=== PATIENT | female | born 1985 | race Caucasian/White ===

== ENCOUNTER 2016-06-29 04:56 | Emergency (ER) | payer OTHER ==
--- NOTE | 2016-06-29 04:58 | PDOC ---
History of Present Illness - General Chief Complaint: Urinary Problem Stated Complaint: URINE INFECTION Time Seen by Provider: 06/29/16 04:58 - History of Present Illness Initial Comments: 06/29/16 05:10 this 31-year-old woman with a history of IBS/anxiety/depression/drug abuse ( cocaine and heroin) presents with several day history of burning with urination. Over the last 48 hours, she also has developed mild bilateral flank pain along with fever(101degree Fahrenheit) No chills noted. No vomiting noted. Patient reports frequent UTIs in the past, usually after sexual intercourse. Past History - Past Medical History Allergies/Adverse Reactions: Allergies Allergy/AdvReac Type Severity Reaction Status Date / Time ibuprofen [From Motrin] AdvReac Severe Verified 06/29/16 04:57 NSAIDS (Non-Steroidal AdvReac Severe Verified 06/29/16 04:57 Anti-Inflamma Home Medications: Ambulatory Orders Paroxetine HCl [Paxil] 40 mg PO HS 05/12/15 Bupropion HCl [Wellbutrin Xl -] 300 mg PO HS 07/07/15 Ciprofloxacin [Cipro (Restricted To Id)] 250 mg PO BID #6 tablet 06/29/16 Anemia: No Asthma: No Cancer: No Cardiac Disorders: No CVA: No COPD: No CHF: No Dementia: No Diabetes: No GI Disorders: Yes (IBS) Disorders: Yes (POLYCYSTIC OVARIES) HTN: No Hypercholesterolemia: No Kidney Stones: Yes Liver Disease: No Psychiatric Problems: Yes (OCD, Depression, anxiety) Suicide Attempt (Hx): No Seizures: No Thyroid Disease: No - Surgical History Abdominal Surgery: Yes (clearing of scar tissue on bladder 10/11/13) - Family Disease History Family Disease History: Heart Disease: Father (htn) - Reproductive History Cervical CA: No Dysfunctional Uterine Bleeding: Yes Ectopic : No Polycystic Ovaries: Yes Tubal Ligation: No - Immunization History Td Vaccination: Yes Immunization Up to Date: Yes - Psycho/Social/Smoking Cessation Hx Anxiety: Yes Suicidal Ideation: No Smoking Status: No Smoking History: Never smoked Have you smoked in the past 12 months: No Number of Cigarettes Smoked Daily: 0 Cigars Per Day: 0 Hx Alcohol Use: No Drug/Substance Use Hx: Yes (Cocaine and heroine) Substance Use Type: Cocaine, Heroin Hx Substance Use Treatment: No Abd/GI Specific PMHX - Complaint Specific PMHX Irritable Bowel Synd (IBS): Yes GI Ulcer Disease: No *Physical Exam - Physical Exam Comments: Adult female, alert and oriented 3, in no acute distress Vital signs as noted HEAD: No contusions, abrasions or lacerations of the scalp; no facial ecchymosis , deformities or tenderness EYES: Pupils equal, round and reactive to light, extraocular movements intact, sclera anicteric, conjunctiva clear PHARYNX: No erythema, exudate or edema; mucous membranes moist NECK: Supple, nontender, no masses or bruits LUNGS: Clear to auscultation bilaterally CARDIAC: S1, S2 normal; no extra sounds, rubs or murmurs heard ABDOMEN:Normoactive bowel sounds, nontender, no masses, no organomegaly Mild bilateral flank tenderness EXTREMITIES: Normal range of motion, no edema,deformity or tenderness NEUROLOGICAL: Cranial nerves II through XII grossly intact. Normal speech, normal gait.moving all 4 extremities equally, Sensation intact in all extremities. PSYCH: Normal mood, normal affect. SKIN: Warm, Dry, normal turgor, no rashes or lesions noted. *DC/Admit/Observation/Transfer Diagnosis at time of Disposition: Dysuria - Discharge Dispostion Disposition: HOME Condition at time of disposition: Stable - Prescriptions Prescriptions: Ciprofloxacin [Cipro (Restricted To Id)] 250 mg PO BID #6 tablet - Referrals Referrals: Kaela Mcdonald MD [Primary Care Provider] - - Patient Instructions Printed Discharge Instructions: DI for Dysuria -- Adult Additional Instructions: drink plenty of water Cipro 250 mg twice a day for 3 days Return to ER if you have severe pain/vomiting/high fever Follow-up with your urologist within 1 week
[2016-06-29 05:05] VITALS: BP 131/77; PULSE 90; TEMP 98.7; BMI 28.3
[2016-06-29] MEDS ORDERED: ONDANSETRON *ODT* 4 MG TABLET SL ONE ×2 (05:15→05:55)
[2016-06-29] MEDS ORDERED: ONDANSETRON *ODT* 4 MG TABLET ONE ×3 (05:16→06:10)
[2016-06-29 05:44] LABS: URINE APPEARANCE SLCLOUDY; URINE BILIRUBIN NEGATIVE (NEGATIVE); URINE BLOOD NEGATIVE (NEGATIVE); URINE COLOR YELLOW; URINE GLUCOSE (UA) NEGATIVE (NEGATIVE); URINE KETONE NEGATIVE (NEGATIVE); URINE NITRITE NEGATIVE (NEGATIVE); URINE PROTEIN NEGATIVE (NEGATIVE); URINE UROBILINOGEN NEGATIVE E.U./dl (0.2-1.0)
[2016-06-29 05:45] LABS: URINE LEUK ESTERASE TRACE (NEGATIVE)
[2016-06-29 05:47] LABS: URINE BACTERIA RARE /hpf (NONE SEEN); URINE MUCUS FEW; URINE RBC 1 /hpf (0-3); URINE WBC 4 /hpf (3-5)
[2016-06-29] MEDS ORDERED: CIPROFLOXACIN 250 MG TABLET (RESTRICTED TO ID) PO ONE ×2 (05:56→06:06)
== END 2016-06-29 06:13 | disposition home or self-care (01) ==
LOC: FER 04:56
DX: R30.0 Dysuria (principal); K58.9 Irritable bowel syndrome, unspecified; F41.8 Other specified anxiety disorders; F14.10 Cocaine abuse, uncomplicated; F15.90 Other stimulant use, unspecified, uncomplicated; F42.9 Obsessive-compulsive disorder, unspecified
CPT/HCPCS: 81003; 81015; 84703; 87086; 99282-25

== ENCOUNTER 2016-07-11 18:40 | Emergency (ER) | payer OTHER ==
[2016-07-11 19:04] VITALS: BMI 31.1
--- NOTE | 2016-07-11 19:10 | PDOC ---
History of Present Illness - General History Source: Patient Exam Limitations: No Limitations - History of Present Illness Initial Comments: 07/11/16 19:34 The patient is a 31 year old female, with a significant past medical history of IBS, OCD, anxiety, depression, active IV drug abuse (heroin and cocaine) and polycystic ovarian syndrome, who presents to the emergency department with redness, pain, and swelling to her left hand stating I think I have cellulitis. The patient reports that she was shooting up heroin and believes she must have shot out of her vein about 36 hours ago and her hand began swelling. She states that she stuck the needle into her hand and then the area started burning and swelling. She reports that she took the needle out right away and does not believe she has a foreign body in her hand. The patient reports the pain in her hand is exacerbated upon movement and she cannot make a fist. She reports that this has happened before and she did not seek treatment, She denies chest pain, shortness of breath, headache and dizziness. She denies fever, shaking, chills, nausea, vomit, diarrhea and constipation. Allergies: Ibuprofen, NSAIDS Past surgical history:Abdominal surgery (clearing of scar tissue 10/11/13) Social history: Never smoked, active IV drug abuse(heroin and cocaine) Family History: Heart disease - Father <Riky Ledezmahanie - Last Filed: 07/11/16 21:18> <Taylor Whitfield - Last Filed: 07/12/16 03:06> - General Chief Complaint: Redness To Affected Area Stated Complaint: REDNESS, SWELLING TO RT HAND Time Seen by Provider: 07/11/16 18:47 Past History <Gail Ledezma - Last Filed: 07/11/16 21:18> - Past Medical History Anemia: No Asthma: No Cancer: No Cardiac Disorders: No CVA: No COPD: No CHF: No Dementia: No Diabetes: No GI Disorders: Yes (IBS) Disorders: Yes (POLYCYSTIC OVARIES) HTN: No Hypercholesterolemia: No Kidney Stones: Yes Liver Disease: No Psychiatric Problems: Yes (OCD, Depression, anxiety) Suicide Attempt (Hx): No Seizures: No Thyroid Disease: No Other medical history: ENDOMETRIOSIS - Surgical History Abdominal Surgery: Yes (clearing of scar tissue on uterus, bladder 10/11/13) - Family Disease History Family Disease History: Heart Disease: Father (htn) - Reproductive History Cervical CA: No Dysfunctional Uterine Bleeding: Yes Ectopic : No Polycystic Ovaries: Yes Tubal Ligation: No - Immunization History Td Vaccination: Yes Immunization Up to Date: Yes - Psycho/Social/Smoking Cessation Hx Anxiety: Yes Suicidal Ideation: No Smoking Status: No Smoking History: Never smoked Have you smoked in the past 12 months: No Number of Cigarettes Smoked Daily: 0 Cigars Per Day: 0 Information on smoking cessation initiated: No Hx Alcohol Use: No Drug/Substance Use Hx: Yes (heroin) Substance Use Type: Cocaine, Heroin Hx Substance Use Treatment: No <Taylor Whitfield - Last Filed: 07/12/16 03:06> - Past Medical History Allergies/Adverse Reactions: Allergies Allergy/AdvReac Type Severity Reaction Status Date / Time ibuprofen [From Motrin] AdvReac Severe Verified 07/11/16 18:46 NSAIDS (Non-Steroidal AdvReac Severe Verified 07/11/16 18:46 Anti-Inflamma Home Medications: Ambulatory Orders Paroxetine HCl [Paxil] 40 mg PO HS 05/12/15 Bupropion HCl [Wellbutrin Xl -] 300 mg PO HS 07/07/15 Cephalexin [Keflex] 500 mg PO QID #28 capsule 07/11/16 Sulfamethoxazole/Trimethoprim [Bactrim Ds Tablet] 2 each PO BID #28 tablet 07/11 Review of Systems - Review of Systems Able to Perform ROS?: Yes Comments:: 07/11/16 19:35 CONSTITUTIONAL: Absent: fever, no chills, no fatigue EYES: Absent: visual changes ENT: Absent: ear pain, no sore throat CARDIOVASCULAR: Absent: chest pain, no palpitations RESPIRATORY: Absent: cough, no SOB GI: Absent: abdominal pain, no nausea, no vomiting, no constipation, no diarrhea GENITOURINARY: Absent: dysuria, no frequency, no hematuria MUSCULOSKELETAL: Absent: back pain, no arthralgia, no myalgia EXTREMITIES: +right wrist pain, swelling, and redness SKIN: Absent: rash <Gail Ledezma - Last Filed: 07/11/16 21:18> *Physical Exam - Vital Signs Last Vital Signs Temp Pulse Resp BP Pulse Ox 98.5 F 93 H 18 112/77 98 07/11/16 18:40 07/11/16 18:40 07/11/16 18:40 07/11/16 18:40 07/11/16 18:40 - Physical Exam Comments: 07/11/16 19:36 GENERAL: The patient is awake, alert, and fully oriented, in no acute distress. HEAD:Normal with no signs of trauma. EYES: Pupils equal, round and reactive to light, extraocular movements intact, sclera anicteric, conjunctiva clear. EXTREMITIES: +There is a 4 cm by 4 cm erythematous and edematous tender area on the dorsum of the right hand. There is a closed punctate wound in the medial proximal portion of the edematous area. There is pain with active and passive flexion of the finger. There is no pain with active or passive extension of the fingers, no lymphogenic streaking, no fluctuance of edematous area. Radial pulse is strongly palpable at wrist. Her right knee is slightly edematous, nontender, nonerythematous, nonfluctuant. There is a 3cm by 3cm by 3cm edematous , erythematous slightly tender area present on the dorsum of the proximal left forearm. NEUROLOGICAL: Normal speech, normal gait. PSYCH: Normal mood, normal affect. SKIN: Warm, Dry, normal turgor, no rashes or lesions noted. <Gail Ledezma - Last Filed: 07/11/16 21:18> - Vital Signs Last Vital Signs Temp Pulse Resp BP Pulse Ox 98.5 F 93 H 18 112/77 98 07/11/16 18:40 07/11/16 18:40 07/11/16 18:40 07/11/16 18:40 07/11/16 18:40 <Taylor Whitfield - Last Filed: 07/12/16 03:06> ED Treatment Course - LABORATORY CBC & Chemistry Diagram: 07/11/16 19:56 07/11/16 20:15 <Gail Ledezma - Last Filed: 07/11/16 21:18> - LABORATORY CBC & Chemistry Diagram: 07/11/16 19:56 07/11/16 20:15 <Taylor Whitfield - Last Filed: 07/12/16 03:06> Medical Decision Making - Medical Decision Making Documentation has been prepared under my direction and personally reviewed by me in its entirety. I attest that this documented accurately reflects all work, treatment, procedures and medical decision making performed by me. As noted above, this 31-year-old woman with a history of IV drug abuse presents with an area of cellulitis of the dorsum of the right hand. Patient had injected the area, reportedly missing the vein with heroin within the last 48 hours. There is another area of the left forearm, also secondary to self injection, that is inflamed but apparently not as painful to the patient. Exam is noted above. No area of fluctuance or drainage noted in areas of cellulitis. CBC/chemistry profile/lactic acid evaluated. Vancomycin 1 g IV administered. Laboratory evaluation is essentially normal with a normal white blood cell count and normal lactic acid. Although no specific evidence for systemic illness/sepsis present in the current workup, the patient is at high risk for this complication secondary to her IV drug abuse. This is explained to the patient, including the need for continued parenteral antibiotics. Despite this, patient refused admission and will sign out AGAINST MEDICAL ADVICE. Prescriptions for Bactrim DS 2 tablets twice a day for one week and Keflex 500mg every 6hours sent to patient's pharmacy <Taylor Whitfield - Last Filed: 07/12/16 03:06> *DC/Admit/Observation/Transfer - Attestations Scribe Attestion: 07/11/16 19:37 Documentation prepared by GILLIAN Saldana, acting as biomedical service engineer for Taylor Whitfield MD. <Gail Ledezma - Last Filed: 07/11/16 21:18> <Taylor Whitfield - Last Filed: 07/12/16 03:06> Diagnosis at time of Disposition: Cellulitis of right hand - Discharge Dispostion Disposition: AGAINST MEDICAL ADVICE Condition at time of disposition: Fair - Prescriptions Prescriptions: Sulfamethoxazole/Trimethoprim [Bactrim Ds Tablet] 2 each PO BID #28 tablet Cephalexin [Keflex] 500 mg PO QID #28 capsule - Referrals Referrals: Kaela Mcdonald MD [Primary Care Provider] - - Patient Instructions Printed Discharge Instructions: DI for Cellulitis -- Adult Additional Instructions: Bactrim DS 2tabs twice a day for 7 days Keflex 500mg every 6 hours for 7 days return to ER if swelling/pain/pain fever worsens see Dr Mcdonald within 3-4 days
[2016-07-11 19:56] LABS: URINE BILIRUBIN Negative (NEGATIVE); URINE BLOOD Negative (NEGATIVE); URINE GLUCOSE (UA) Negative (NEGATIVE); URINE KETONE Negative (NEGATIVE); URINE NITRITE Negative (NEGATIVE); URINE PROTEIN Negative (NEGATIVE); URINE UROBILINOGEN 1.0 E.U/dl (0.2-1.0)
[2016-07-11 19:57] LABS: URINE COLOR YELLOW; URINE LEUK ESTERASE 1+ (NEGATIVE)
[2016-07-11 20:16] LABS: BASOPHIL 0.2 % (0-2.0); EOSINOPHIL 0.8 % (0-4.5); MCH 22.9 pg (25.7-33.7); MCHC 31.6 g/dl (32.0-36.0); MEAN CELL VOLUME 72.5 fl (80-96); MEAN PLT VOLUME 8.3 fl (7.5-11.1); NEUTROPHILS 73.5 % (42.8-82.8); PLATELET COUNT 348 K/MM3 (134-434); RDW 15.9 % (11.6-15.6); WHITE BLOOD COUNT 6.6 K/mm3 (4.0-10.0)
[2016-07-11 20:28] LABS: URINE APPEARANCE HAZY
[2016-07-11 20:29] LABS: URINE BACTERIA FEW /hpf (NEGATIVE)
[2016-07-11 20:44] LABS: ALBUMIN 3.4 g/dl (3.5-5.0); ALK PHOS 57 U/L (32-92); ANION GAP 9 (8-16); BILIRUBIN,TOTAL 0.4 mg/dl (0.2-1.0); CALCIUM 8.9 mg/dl (8.4-10.2); CO2 24 mmol/L (22-28); CREATININE 0.7 mg/dl (0.6-1.3); GLUCOSE,RANDOM 93 mg/dl (74-106); SGOT/AST 14 U/L (10-42); SGPT/ALT 11 U/L (10-40); TOT PROT 6.8 g/dl (6.4-8.3)
[2016-07-11] MEDS ORDERED: VANCOMYCIN 1,000 MG in DEXTROSE 5%-WATER - 250 ML IVPB ONE (20:49)
[2016-07-11] MEDS ORDERED: VANCOMYCIN 1,000 MG VIAL (RESTRICTED TO ID ONLY) ONE (20:52)
[2016-07-11 23:36] VITALS: BP 109/50; PULSE 85; TEMP 98.1
== END 2016-07-12 00:06 | disposition left against medical advice (07) ==
LOC: FER 18:40
DX: L03.113 Cellulitis of right upper limb (principal); F11.10 Opioid abuse, uncomplicated; F41.8 Other specified anxiety disorders; E28.2 Polycystic ovarian syndrome
CPT/HCPCS: 36415; 73130-TC-RT; 80053; 81003; 81015; 83605; 84703; 85025; 87040; 96365; 99283-25

== ENCOUNTER 2016-08-03 06:29 | Emergency (ER) | payer OTHER ==
[2016-08-03 06:58] VITALS: BP 137/68; PULSE 78; TEMP 97.9; BMI 31.1
--- NOTE | 2016-08-03 07:17 | PDOC ---
History of Present Illness - General Chief Complaint: Chest Pain Stated Complaint: CHEST PAIN Time Seen by Provider: 08/03/16 07:17 - History of Present Illness Initial Comments: 08/03/16 08:35 Patient is a 31-year-old female with a past medical history of depression, anxiety, polysubstance abuse (heroin, cocaine). She presents to the ER today complaining of chest pain 8 hours. Patient states that she first felt pain while lying in bed. The pain did not wake her from sleep. She finds that the pain is worse when she takes a deep breath in. The pain is currently a 6 out of 10. Admits to associated nausea. She has not taken anything for the pain. She was concerned when the pain did not go away this morning so she came in for evaluation. Patient states she has left arm and jaw numbness and tingling. This is not new for her, as she states she has a herniated disc and C6. Denies any weakness or loss of range of motion. Patient is occurring every day in a drug user states that she used cocaine and heroin last night. Denies fevers, chills, weight change, cough runny nose, palpitations, edema, shortness of breath, dyspnea, vomiting, diarrhea. Past History - Past Medical History Allergies/Adverse Reactions: Allergies Allergy/AdvReac Type Severity Reaction Status Date / Time ibuprofen [From Motrin] AdvReac Severe Verified 08/03/16 06:43 NSAIDS (Non-Steroidal AdvReac Severe Verified 08/03/16 06:43 Anti-Inflamma Home Medications: Ambulatory Orders Paroxetine HCl [Paxil] 40 mg PO HS 05/12/15 Bupropion HCl [Wellbutrin Xl -] 300 mg PO HS 07/07/15 Anemia: No Asthma: No Cancer: No Cardiac Disorders: No CVA: No COPD: No CHF: No Dementia: No Diabetes: No GI Disorders: Yes (IBS) Disorders: Yes (POLYCYSTIC OVARIES) HTN: No Hypercholesterolemia: No Kidney Stones: Yes Liver Disease: No Psychiatric Problems: Yes (OCD, Depression, anxiety) Suicide Attempt (Hx): No Seizures: No Thyroid Disease: No - Surgical History Abdominal Surgery: Yes (clearing of scar tissue on uterus, bladder 10/11/13) - Family Disease History Family Disease History: Heart Disease: Father (htn) - Reproductive History Cervical CA: No Dysfunctional Uterine Bleeding: Yes Ectopic : No Polycystic Ovaries: Yes Tubal Ligation: No - Immunization History Td Vaccination: Yes Immunization Up to Date: Yes - Psycho/Social/Smoking Cessation Hx Anxiety: Yes Suicidal Ideation: No Smoking Status: No Smoking History: Never smoked Have you smoked in the past 12 months: No Number of Cigarettes Smoked Daily: 0 Cigars Per Day: 0 Information on smoking cessation initiated: No Hx Alcohol Use: No Drug/Substance Use Hx: Yes (heroin cocaine) Substance Use Type: Cocaine, Heroin Hx Substance Use Treatment: No *Physical Exam - Vital Signs Last Vital Signs Temp Pulse Resp BP Pulse Ox 97.9 F 78 14 137/68 96 08/03/16 06:43 08/03/16 06:43 08/03/16 06:43 08/03/16 06:43 08/03/16 06:43 - Physical Exam Comments: 08/03/16 08:35 GENERAL: Well developed, well nourished. Awake and alert. No acute distress. Pt. is lying in bed afebrile. HEENT: Normocephalic, atraumatic. PERRLA, EOMI. No conjunctival pallor. Sclera are non- icteric. Moist mucous membranes. Oropharynx is clear. NECK: Supple. Full ROM. No JVD. Carotid pulses 2+ and symmetric, without bruits. No thyromegaly. No lymphadenopathy. CARDIOVASCULAR: Regular rate and rhythm. (+) systolic murmur II/ loudest at the base between the L 2nd and 3rd intercostal space. No rubs, or gallops. Distal pulses are 2+ and symmetric. PULMONARY: No evidence of respiratory distress. Lungs clear to auscultation bilaterally. No wheezing, rales or rhonchi. ABDOMINAL: Soft. Non-tender. Non-distended. No rebound or guarding. No organomegaly. Normoactive bowel sounds. MUSCULOSKELETAL Normal range of motion at all joints. No bony deformities or tenderness. No CVA tenderness. EXTREMITIES: No cyanosis. No clubbing. No edema. No calf tenderness. SKIN: Excoriation of the upper arms bilaterally. Warm and dry. Normal capillary refill. No rashes. No jaundice. NEUROLOGICAL: Alert, awake, appropriate. Cranial nerves 2-12 intact. No deficits to light touch and temperature in face, upper extremities and lower extremities. No motor deficits in the in face, upper extremities and lower extremities. Normoreflexic in the upper and lower extremities. Normal speech. Toes are down- going bilaterally. Gait is normal without ataxia. PSYCHIATRIC: Cooperative. Good eye contact. Appropriate mood and affect. ED Treatment Course - LABORATORY CBC & Chemistry Diagram: 08/03/16 08:12 08/03/16 08:12 Medical Decision Making - Medical Decision Making 08/03/16 08:38 Patient is a 31-year-old female past medical history of depression, anxiety, polysubstance (heroine, cocaine) abuse presenting today with chest pain. EKG done in triage appears to be normal sinus rhythm with a rate of 82 bpm. No acute ischemic changes. Reading through old reports, there is no evidence of a documented systolic murmur. Pt. states that she has never been told that she has a murmur. She was seen by her PCP last week and pt states that she was not told of a murmur at that time. Will pursue an echocardiogram today. Potential vegetation given patient's IV drug use. The chest pain appears to be atypical given it gets worse with respirations. We will order cardiac labs along with the echo. We will order a full septic workup as well. 1. CBC CMP lactic acid blood cultures 3 2.UA with and drug screen. 3.Echocardiogram to be done today for new systolic murmur 4.Zofran for nausea 5.Will monitor and reevaluate 08/03/16 09:37 No WBC, pt. is mildly anemic which she is aware of, electrolytes are normal. Cardiac labs are back WNL no evidence of ID. Blood cultures are drawn. Urine is positive for Opiates and cocaine. She was able to have a bedside TTE. Waiting the results. given that a TTE is generally not specific enough to diagnose endocarditis, will recommend STUART. Will admit patient to obs for STUART in the morning. 08/03/16 09:45 Explained to pt. the need to admit for observation. I am concerned about a possible endocarditis with vegetation secondary to IV drug use. I explained to the patient that while a TTE is useful, it does not r/o endocarditis. Explained that she needs a STUART and that is done here in the hospital under sedation. Pt. is AAOx3 and able to make her own decisions. Pt. states that she does not want to be admitted today and will leave AMA. 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 Explained to her the danger of leaving against medical advice with possible risks and outcomes including sepsis, stroke, respiratory failure, permanent disability, or even . She demonstrates understanding of the risks and outcomes. She states that she is going to get care for her grandparents today and return tomorrow for evaluation. *DC/Admit/Observation/Transfer Diagnosis at time of Disposition: AMA - Signed out against medical advice - Discharge Dispostion Disposition: AGAINST MEDICAL ADVICE - Referrals Referrals: Keala Mcdonald MD [Primary Care Provider] -
[2016-08-03 08:19] LABS: URINE APPEARANCE CLOUDY; URINE BILIRUBIN NEGATIVE (NEGATIVE); URINE COLOR YELLOW; URINE GLUCOSE (UA) NEGATIVE (NEGATIVE); URINE KETONE NEGATIVE (NEGATIVE); URINE NITRITE NEGATIVE (NEGATIVE); URINE PROTEIN NEGATIVE (NEGATIVE); URINE UROBILINOGEN NEGATIVE E.U./dl (0.2-1.0)
[2016-08-03 08:24] LABS: BASOPHIL 0.8 % (0-2.0); EOSINOPHIL 1.9 % (0-4.5); MCH 23.3 pg (25.7-33.7); MCHC 31.3 g/dl (32.0-36.0); MEAN CELL VOLUME 74.2 fl (80-96); MEAN PLT VOLUME 7.7 fl (7.5-11.1); NEUTROPHILS 53.3 % (42.8-82.8); PLATELET COUNT 260 K/MM3 (134-434); RDW 18.4 % (11.6-15.6)
[2016-08-03 08:26] LABS: URINE BLOOD 2+ (NEGATIVE); URINE LEUK ESTERASE 1+ (NEGATIVE)
[2016-08-03 08:31] LABS: URINE BACTERIA RARE /hpf (NONE SEEN); URINE MUCUS MANY; URINE RBC 1 /hpf (0-3); URINE WBC 6 /hpf (3-5)
[2016-08-03 08:42] LABS: URINE MARIJUANA THC NEGATIVE ng/ml (CUTOFF=50)
[2016-08-03 08:46] LABS: ANION GAP 8 (8-16); BILIRUBIN,TOTAL 0.2 mg/dL (0.2-1.0); CALCIUM 9.3 mg/dL (8.5-10.1); CO2 29 mmol/L (21-32); CREATININE 0.7 mg/dL (0.55-1.02); GLUCOSE,RANDOM 79 mg/dL (74-106); SGOT/AST 17 U/L (15-37); SGPT/ALT 18 U/L (12-78); TOT PROT 7.9 g/dl (6.4-8.2)
[2016-08-03 08:47] LABS: ALK PHOS 80 U/L (45-117); TROPONIN I < 0.02 ng/ml (0.00-0.05)
[2016-08-03] MEDS ORDERED: ONDANSETRON 4 MG/2 ML VIAL IVPUSH ONE (09:18)
[2016-08-03] MEDS ORDERED: ONDANSETRON 4 MG/2 ML VIAL ONE (09:29)
--- NOTE | 2016-08-03 10:06 | PDOC ---
[id number] 08/03/16 06:43 08/03/16 06:43 08/03/16 06:43 08/03/16 06:43 08/03/16 06:43 ED Treatment Course - LABORATORY CBC & Chemistry Diagram: 08/03/16 08:12 08/03/16 08:12 - ADDITIONAL ORDERS Additional order review: Laboratory Results 08/03/16 08/03/16 08/03/16 08:12 08:12 08:12 Sodium 140 Potassium 3.9 Chloride 103 Carbon Dioxide 29 Anion Gap 8 BUN 18 D Creatinine 0.7 Creat Clearance w eGFR > 60 Random Glucose 79 Lactic Acid 0.863 Calcium 9.3 Total Bilirubin 0.2 D AST 17 ALT 18 D Alkaline Phosphatase 80 Creatine Kinase 65 Troponin I < 0.02 Total Protein 7.9 Albumin 4.0 D Urine Color Urine Appearance Urine pH Ur Specific [place] Urine Protein Urine Glucose (UA) Urine Ketones Urine Blood Urine Nitrite Urine Bilirubin Urine Urobilinogen Ur Leukocyte Esterase Urine RBC Urine WBC Ur Epithelial Cells Urine Bacteria Urine Mucus Urine HCG, Qual Opiates Screen Methadone Screen Barbiturate Screen Phencyclidine Screen Ur Amphetamines Screen MDMA (Ecstasy) Screen Benzodiazepines Screen Cocaine Screen U Marijuana (THC) Screen 08/03/16 08/03/16 08/03/16 08:02 08:02 07:45 Sodium Potassium Chloride Carbon Dioxide Anion Gap BUN Creatinine Creat Clearance w eGFR Random Glucose Lactic Acid Calcium Total Bilirubin AST ALT Alkaline Phosphatase Creatine Kinase Troponin I Total Protein Albumin Urine Color Yellow Urine Appearance Cloudy Urine pH 5.0 Ur Specific [place] 1.026 Urine Protein Negative Urine Glucose (UA) Negative Urine Ketones Negative Urine Blood 2+ H Urine Nitrite Negative Urine Bilirubin Negative Urine Urobilinogen Negative Ur Leukocyte Esterase 1+ H Urine RBC 1 Urine WBC 6 Ur Epithelial Cells Many Urine Bacteria Rare Urine Mucus Many Urine HCG, Qual Negative Opiates Screen Positive Methadone Screen Negative Barbiturate Screen Negative Phencyclidine Screen Negative Ur Amphetamines Screen Negative MDMA (Ecstasy) Screen Negative Benzodiazepines Screen Negative Cocaine Screen Positive U Marijuana (THC) Screen Negative 08/03/16 08:12 RBC 4.42 MCV 74.2 L MCHC 31.3 L RDW 18.4 H D MPV 7.7 Neutrophils % 53.3 Lymphocytes % 38.3 Monocytes % 5.7 Eosinophils % 1.9 Basophils % 0.8 - Medications Given in the ED: ED Medications Discontinued Medications Generic Name Dose Route Start Last Admin Trade Name Ana PRN Reason Stop Dose Admin Ondansetron HCl 4 mg 08/03/16 09:18 08/03/16 09:34 Zofran Injection IVPUSH 08/03/16 09:19 4 mg ONCE ONE Administration Medical Decision Making - Medical Decision Making 08/03/16 10:05 Patient seen and evaluated with the nurse practitioner. I agree with the overall evaluation, assessment, and management with the following summary of visit: 31-year-old female well-known to this ED and institution, recently treated for cellulitis now presents with atypical chest pain. Agree with assessment and management as outlined, afebrile and no elevated white blood cell count, troponin negative. Given history, raised concern for possible endocarditis, blood cultures sent, the patient refusing further care and signed out AGAINST MEDICAL ADVICE despite several people outlining the full extent of risk involved with incomplete evaluation and management. *DC/Admit/Observation/Transfer Diagnosis at time of Disposition: AMA - Signed out against medical advice - Discharge Dispostion Disposition: AGAINST MEDICAL ADVICE - Referrals Referrals: Kaela Mcdonald MD [Primary Care Provider] -
--- NOTE | 2016-08-03 11:57 | EKG ---
Test Reason : Blood Pressure : / mmHG Vent. Rate : 082 BPM Atrial Rate : 082 BPM P-R Int : 150 ms QRS Dur : 096 ms QT Int : 404 ms P-R-T Axes : 061 073 036 degrees QTc Int : 472 ms NORMAL SINUS RHYTHM WITH SINUS ARRHYTHMIA POSSIBLE LEFT ATRIAL ENLARGEMENT INCOMPLETE RIGHT BUNDLE BRANCH BLOCK BORDERLINE ECG WHEN COMPARED WITH ECG OF 11-MAY-2016 08:51, NO SIGNIFICANT CHANGE WAS FOUND Confirmed by DOUGLAS JHAVERI MD ([id number]) on 08/03/2016 11:56:55 AM Referred By: Confirmed By:DOUGLAS JHAVERI MD
== END 2016-08-03 10:34 | disposition left against medical advice (07) ==
LOC: JER 06:29
PROC: 3E033GC Introduction of Other Therapeutic Substance into Peripheral Vein, Percutaneous Approach (ICD-10-PCS; principal; 2016-08-03)
DX: R07.89 Other chest pain (principal); F41.8 Other specified anxiety disorders; F42.9 Obsessive-compulsive disorder, unspecified; F11.10 Opioid abuse, uncomplicated; F14.10 Cocaine abuse, uncomplicated
CPT/HCPCS: 36415; 80053; 80307; 81003; 81015; 82550; 83605; 84484; 84703; 85025; 87040; 87186; 93005; 93010; 93306-TC; 96374; 99283-25

== ENCOUNTER 2016-08-07 13:06 | Inpatient (IN) | payer OTHER ==
[2016-08-07 13:14] VITALS: BMI 31.1
--- NOTE | 2016-08-07 13:25 | PDOC ---
[id number] No Limitations - History of Present Illness Initial Comments: 08/07/16 15:15 Chief complaint: Positive blood cultures Is a 31-year-old female with a history of IV drug abuse, anxiety and depression who was seen in the ER 08/03 for chest pain is found to have a murmur, with concern for endocarditis and patient signed out AMA. He was called today she had positive blood cultures showed flavobacterium meningosepticum. He shouldn't had recent cellulitis in June that was treated with Bactrim and Keflex which seemed to get better. About fever patient states "I always have fever". No shortness of breath or headache. GENERAL/CONSTITUTIONAL: + fever always, weakness. dizziness HEAD, EYES, EARS, NOSE AND THROAT: No change in vision. No ear pain or discharge. No sore throat. CARDIOVASCULAR: +chest pain, on and off RESPIRATORY: No shortness of breath or cough GASTROINTESTINAL: No pain, nausea, vomiting, diarrhea or constipation GENITOURINARY: No dysuria MUSCULOSKELETAL: No neck or back pain SKIN: No rash NEUROLOGIC: No headache, vertigo, loss of consciousness, or loss of sensation. GENERAL: The patient is awake, alert, and fully oriented, in no acute distress. HEAD: Normal with no signs of trauma. EYES: Pupils equal, round and reactive to light, sclera anicteric, conjunctiva clear. ENT: pharynx: no erythema, no exudate, uvula midline NECK: supple CHEST: clear, nontender, rr ABD: soft, nontender EXTREMITIES: Normal range of motion, no edema. healed old wounds. Track drummond, no signs of infection NEUROLOGICAL: Normal speech, normal gait. SKIN: Warm, Dry <Nenita Huerta - Last Filed: 08/07/16 19:04> <Pablo Rosado - Last Filed: 08/12/16 09:56> - General Chief Complaint: Revisit, Lab Variance Stated Complaint: FOLLOW-UP Time Seen by Provider: 08/07/16 13:18 Past History - Past Medical History Anemia: No Asthma: No Cancer: No Cardiac Disorders: No CVA: No COPD: No CHF: No Dementia: No Diabetes: No GI Disorders: Yes (IBS) Disorders: Yes (POLYCYSTIC OVARIES) HTN: No Hypercholesterolemia: No Kidney Stones: Yes Liver Disease: No Psychiatric Problems: Yes (OCD, Depression, anxiety) Suicide Attempt (Hx): No Seizures: No Thyroid Disease: No - Surgical History Abdominal Surgery: Yes (clearing of scar tissue on uterus, bladder 10/11/13) - Family Disease History Family Disease History: Heart Disease: Father (htn) - Reproductive History Cervical CA: No Dysfunctional Uterine Bleeding: Yes Ectopic : No Polycystic Ovaries: Yes Tubal Ligation: No - Immunization History Td Vaccination: Yes Immunization Up to Date: Yes - Psycho/Social/Smoking Cessation Hx Anxiety: Yes Suicidal Ideation: No Smoking Status: No Smoking History: Never smoked Have you smoked in the past 12 months: No Number of Cigarettes Smoked Daily: 0 Cigars Per Day: 0 Information on smoking cessation initiated: No Hx Alcohol Use: No Drug/Substance Use Hx: Yes Substance Use Type: Cocaine, Heroin Hx Substance Use Treatment: No <Nenita Huerta - Last Filed: 08/07/16 19:04> <Pablo Rosado - Last Filed: 08/12/16 09:56> - Past Medical History Allergies/Adverse Reactions: Allergies Allergy/AdvReac Type Severity Reaction Status Date / Time ibuprofen [From Motrin] AdvReac Severe Verified 08/07/16 13:10 NSAIDS (Non-Steroidal AdvReac Severe Verified 08/07/16 13:10 Anti-Inflamma Home Medications: Ambulatory Orders Paroxetine HCl [Paxil] 40 mg PO HS 05/12/15 Bupropion HCl [Wellbutrin Xl -] 300 mg PO HS 07/07/15 Methadone [Dolophine -] 10 mg PO DAILY #4 tablet MDD 1 08/10/16 *Physical Exam - Vital Signs Last Vital Signs Temp Pulse Resp BP Pulse Ox 98.2 F 82 20 142/79 97 08/07/16 13:11 08/07/16 13:11 08/07/16 13:11 08/07/16 13:11 08/07/16 13:11 <Nenita Huerta - Last Filed: 08/07/16 19:04> - Vital Signs Last Vital Signs Temp Pulse Resp BP Pulse Ox 98.7 F 82 18 106/66 98 08/10/16 14:28 08/10/16 14:28 08/10/16 14:28 08/10/16 14:28 08/10/16 09:00 <Pablo Rosado - Last Filed: 08/12/16 09:56> Heart Score/ECG Review - ECG Intrepretation Comment:: 08/07/16 15:22 Normal sinus rhythm, 79, QTc 442, no ST changes <Nenita Huerta - Last Filed: 08/07/16 19:04> ED Treatment Course - LABORATORY CBC & Chemistry Diagram: 08/07/16 14:18 08/07/16 14:18 <Nenita Huerta - Last Filed: 08/07/16 19:04> - LABORATORY CBC & Chemistry Diagram: 08/10/16 05:40 08/10/16 05:40 - ADDITIONAL ORDERS Additional order review: 08/07/16 14:18 Blood Culture - Preliminary Blood - Peripheral Venous NO GROWTH OBTAINED AFTER 96 HOURS, INCUBATION TO CONTINUE FOR 1 DAYS. 08/07/16 14:18 Blood Culture - Preliminary Blood - Peripheral Venous NO GROWTH OBTAINED AFTER 96 HOURS, INCUBATION TO CONTINUE FOR 1 DAYS. 08/07/16 13:45 Urine Culture - Final Urine - Urine Clean Catch NO GROWTH OBTAINED 08/07/16 14:18 RBC 4.67 MCV 74.3 L MCHC 31.8 L RDW 18.6 H MPV 8.1 Neutrophils % 50.7 Lymphocytes % 40.1 H Monocytes % 7.6 Eosinophils % 1.1 Basophils % 0.5 - Medications Given in the ED: ED Medications Discontinued Medications Generic Name Dose Route Start Last Admin Trade Name Freq PRN Reason Stop Dose Admin Acetaminophen 650 mg 08/07/16 14:57 08/09/16 22:37 Tylenol - PO 650 mg Q4H PRN Administration FEVER OR PAIN Bupropion HCl 300 mg 08/07/16 22:00 08/09/16 22:37 Wellbutrin Xl - PO 300 mg HS MARIELY Administration Diazepam 10 mg 08/07/16 15:00 08/10/16 05:46 Valium - PO 08/10/16 14:59 10 mg Q4H PRN Administration WITHDRAWAL(CONT SUBST) Sodium Chloride 1,000 mls @ 1,000 mls/hr 08/07/16 13:36 08/07/16 14:20 Normal Saline - IV 08/07/16 14:35 1,000 mls/hr ASDIR STA Administration Vancomycin HCl 250 mls @ 250 mls/hr 08/07/16 16:30 08/08/16 15:55 Vancomycin (Pre-Docked) IVPB Not Given DAILY [facility] Protocol Piperacillin Sod/Tazobactam Sod 50 mls @ 100 mls/hr 08/08/16 02:00 08/10/16 17: 09 Zosyn 3.375gm Ivpb (Pre-Docked) IVPB 100 mls/hr Q8H-IV MARIELY Administration Protocol Lactobacillus Acidophilus 1 tab 08/07/16 15:00 08/10/16 09:37 Bacid - PO 1 tab DAILY MARIELY Administration Methadone HCl 10 mg 08/07/16 15:00 08/07/16 19:01 Dolophine - PO 08/07/16 15:01 Not Given ONCE ONE Methadone HCl 10 mg 08/07/16 23:00 08/07/16 22:16 Dolophine - PO 08/07/16 23:01 10 mg ONCE@2300 ONE Administration Methadone HCl 20 mg 08/08/16 10:00 08/08/16 11:09 Dolophine - PO 08/08/16 10:01 20 mg ONCE ONE Administration Methadone HCl 15 mg 08/09/16 10:00 08/09/16 10:52 Dolophine - PO 08/09/16 23:59 15 mg ONCE ONE Administration Ondansetron HCl 4 mg 08/07/16 14:57 08/10/16 05:46 Zofran Injection IVPB 4 mg Q6H PRN Administration NAUSEA Paroxetine HCl 40 mg 08/07/16 22:00 08/09/16 22:37 Paxil - PO 40 mg HS MARIELY Administration Piperacillin Sod/Tazobactam Sod 3.375 gm 08/07/16 14:59 08/07/16 15:18 Zosyn 3.375gm Ivpb (Pre-Docked) IV 08/07/16 15:00 3.375 gm ONCE ONE Administration Protocol <Pablo Rosado - Last Filed: 08/12/16 09:56> Medical Decision Making - Medical Decision Making 08/07/16 15:19 Patient with history of IV drug abuse, seen on 08/03, for chest pain, signed out AMA with positive blood cultures, flavobacterium meningosepticum. He should return to the ER for admission, discussed with Dr. Ortega who requested dr. rojas, id who wanted pt started on zosyn. pt has no headache. no ct head indicated. <Nenita Huerta - Last Filed: 08/07/16 19:04> - Medical Decision Making The patient was seen and evaluated in conjunction with ISAAK Huerta under my direct supervision, ancillary studies were reviewed. I independently interviewed and evaluated the patient and I agree with the plan as outlined by ISAAK Huerta . <Pablo Rosado - Last Filed: 08/12/16 09:56> *DC/Admit/Observation/Transfer - Discharge Dispostion Admit: Yes <Nenita Huerta - Last Filed: 08/07/16 19:04> <Pablo Rosado - Last Filed: 08/12/16 09:56> Diagnosis at time of Disposition: Bacteremia, Intravenous drug abuse - Discharge Dispostion Disposition: HOME Condition at time of disposition: Guarded - Prescriptions
[2016-08-07] MEDS ORDERED: SODIUM CHLORIDE 1,000 ML IV STA (13:36)
[2016-08-07 14:23] LABS: URINE APPEARANCE CLOUDY; URINE BILIRUBIN NEGATIVE (NEGATIVE); URINE BLOOD NEGATIVE (NEGATIVE); URINE COLOR YELLOW; URINE GLUCOSE (UA) NEGATIVE (NEGATIVE); URINE KETONE NEGATIVE (NEGATIVE); URINE LEUK ESTERASE 1+ (NEGATIVE); URINE NITRITE NEGATIVE (NEGATIVE); URINE PROTEIN NEGATIVE (NEGATIVE); URINE UROBILINOGEN 2.0 E.U/dl E.U./dl (0.2-1.0)
[2016-08-07 14:43] LABS: URINE BACTERIA RARE /hpf (NONE SEEN); URINE MUCUS RARE; URINE RBC 2 /hpf (0-3); URINE WBC 2 /hpf (3-5)
[2016-08-07 14:43] LABS: BASOPHIL 0.5 % (0-2.0); EOSINOPHIL 1.1 % (0-4.5); MCH 23.6 pg (25.7-33.7); MCHC 31.8 g/dl (32.0-36.0); MEAN CELL VOLUME 74.3 fl (80-96); MEAN PLT VOLUME 8.1 fl (7.5-11.1); NEUTROPHILS 50.7 % (42.8-82.8); PLATELET COUNT 247 K/MM3 (134-434); RDW 18.6 % (11.6-15.6); WHITE BLOOD COUNT 3.5 K/mm3 (4.0-10.0)
[2016-08-07] MEDS ORDERED: PIPERACILLIN/TAZOB 3.375 GM/50 ML PRE-DOCKED IV ONE (14:59)
[2016-08-07] MEDS ORDERED: PIPERACILLIN/TAZOB 3.375 GM/50 ML PRE-DOCKED IVPB ONE (14:59)
[2016-08-07] MEDS ORDERED: METHADONE HCL 10 MG TABLET PO ONE ×2 (15:00→23:00)
[2016-08-07 15:06] LABS: ANION GAP 11 (8-16); BILIRUBIN,TOTAL 0.3 mg/dL (0.2-1.0); CALCIUM 9.2 mg/dL (8.5-10.1); CO2 27 mmol/L (21-32); CREATININE 0.8 mg/dL (0.55-1.02); GLUCOSE,RANDOM 99 mg/dL (74-106); SGOT/AST 26 U/L (15-37); SGPT/ALT 29 U/L (12-78); TOT PROT 8.2 g/dl (6.4-8.2)
[2016-08-07 15:08] LABS: ALK PHOS 93 U/L (45-117); INR 1.04 (0.82-1.09); PROTHROMBIN TIME (PATIENT) 11.5 SEC (9.98-11.88); TROPONIN I < 0.02 ng/ml (0.00-0.05)
[2016-08-07 15:10] LABS: ACTIVATED PTT 35.6 SECONDS (26.9-34.4)
--- NOTE | 2016-08-07 15:37 | HP ---
Admitting History and Physical - Primary Care Physician PCP: Kaela Mcdonald - Admission Chief Complaint: I feel fine History of Present Illness: Ms Saldaña is a pleasant 31 year old female with history of cocaine and heroin abuse (last use of heroin at 0400) who was called in after previously drawn blood cultures began growing flavobacterium meningosepticum. She presented to the ER on Wednesday with chest pain that she felt was secondary to herniated discs. There was concern for possible endocarditis and patient was recommended to be admitted for observation for STUART but patient left AMA. she followed up with cardiology as an outpatient on 08/04 and was planned for ETT. However her blood cultures were positive and she was called back for admission. Currently she says she is in her normal state of health. She is still having L arm pain and numbness and this is unchanged. She denies fevers, chills, headache , dizziness, shortness of breath, nausea, vomiting, diarrhea, constipation, pain or difficulty urinating, or swelling. History Source: Patient Limitations to Obtaining History: No Limitations - Past Medical History ...LMP: 06/22/15 Psych: Yes: Anxiety, Depression - Past Surgical History Past Surgical History: Yes: Tonsillectomy - Smoking History Smoking history: Never smoked Have you smoked in the past 12 months: No Aproximately how many cigarettes per day: 0 - Alcohol/Substance Use Hx Alcohol Use: No History of Substance Use: reports: Cocaine, Heroin - Social History Usual Living Arrangement: Yes: Other (with grandparents) ADL: Independent History of Recent Travel: No Home Medications - Allergies Allergies/Adverse Reactions: Allergies Allergy/AdvReac Type Severity Reaction Status Date / Time ibuprofen [From Motrin] AdvReac Severe Verified 08/07/16 13:10 NSAIDS (Non-Steroidal AdvReac Severe Verified 08/07/16 13:10 Anti-Inflamma - Home Medications Home Medications: Ambulatory Orders Paroxetine HCl [Paxil] 40 mg PO HS 05/12/15 Bupropion HCl [Wellbutrin Xl -] 300 mg PO HS 07/07/15 Family Disease History - Family Disease History Family Disease History: Heart Disease: Grandparent, Father Review of Systems Findings/Remarks: full review of systems obtained, as per HPI and otherwise negative Physical Examination Vital Signs: Vital Signs Temperature 98.2 F 08/07/16 13:11 Pulse Rate 82 08/07/16 13:11 Respiratory Rate 20 08/07/16 13:11 Blood Pressure 142/79 08/07/16 13:11 O2 Sat by Pulse Oximetry (%) 97 08/07/16 13:11 Constitutional: Yes: Well Nourished, No Distress, Calm Eyes: Yes: Conjunctiva Clear, EOM Intact HENT: Yes: Atraumatic, Normocephalic Cardiovascular: Yes: Regular Rate and Rhythm. No: Gallop, Murmur, Rub Respiratory: Yes: Regular, CTA Bilaterally. No: Rales, Rhonchi, Wheezes Gastrointestinal: Yes: Normal Bowel Sounds, Soft. No: Distention, Tenderness Extremities: Yes: WNL Edema: No Labs: Laboratory Results - last 24 hr 08/07/16 08/07/16 08/07/16 14:00 14:00 14:18 WBC 3.5 L RBC 4.67 Hgb 11.0 Hct 34.7 MCV 74.3 L MCHC 31.8 L RDW 18.6 H Plt Count 247 MPV 8.1 Neutrophils % 50.7 Lymphocytes % 40.1 H Monocytes % 7.6 Eosinophils % 1.1 Basophils % 0.5 INR PTT (Actin FS) Sodium Potassium Chloride Carbon Dioxide Anion Gap BUN Creatinine Creat Clearance w eGFR Random Glucose Lactic Acid Calcium Total Bilirubin AST ALT Alkaline Phosphatase Creatine Kinase Troponin I Total Protein Albumin Urine Color Yellow Urine Appearance Cloudy Urine pH 6.0 Ur Specific [place] 1.017 Urine Protein Negative Urine Glucose (UA) Negative Urine Ketones Negative Urine Blood Negative Urine Nitrite Negative Urine Bilirubin Negative Urine Urobilinogen 2.0 e.u/dl H Ur Leukocyte Esterase 1+ H Urine RBC 2 Urine WBC 2 Ur Epithelial Cells Many Urine Bacteria Rare Urine Mucus Rare Urine HCG, Qual Negative Blood Type Antibody Screen 08/07/16 08/07/16 08/07/16 14:18 14:18 14:18 WBC RBC Hgb Hct MCV MCHC RDW Plt Count MPV Neutrophils % Lymphocytes % Monocytes % Eosinophils % Basophils % INR 1.04 PTT (Actin FS) 35.6 H Sodium 138 Potassium 4.4 Chloride 100 Carbon Dioxide 27 Anion Gap 11 BUN 15 Creatinine 0.8 Creat Clearance w eGFR > 60 Random Glucose 99 D Lactic Acid 1.774 Calcium 9.2 Total Bilirubin 0.3 D AST 26 D ALT 29 D Alkaline Phosphatase 93 Creatine Kinase 75 Troponin I < 0.02 Total Protein 8.2 Albumin 4.0 Urine Color Urine Appearance Urine pH Ur Specific [place] Urine Protein Urine Glucose (UA) Urine Ketones Urine Blood Urine Nitrite Urine Bilirubin Urine Urobilinogen Ur Leukocyte Esterase Urine RBC Urine WBC Ur Epithelial Cells Urine Bacteria Urine Mucus Urine HCG, Qual Blood Type Antibody Screen 08/07/16 14:18 WBC RBC Hgb Hct MCV MCHC RDW Plt Count MPV Neutrophils % Lymphocytes % Monocytes % Eosinophils % Basophils % INR PTT (Actin FS) Sodium Potassium Chloride Carbon Dioxide Anion Gap BUN Creatinine Creat Clearance w eGFR Random Glucose Lactic Acid Calcium Total Bilirubin AST ALT Alkaline Phosphatase Creatine Kinase Troponin I Total Protein Albumin Urine Color Urine Appearance Urine pH Ur Specific [place] Urine Protein Urine Glucose (UA) Urine Ketones Urine Blood Urine Nitrite Urine Bilirubin Urine Urobilinogen Ur Leukocyte Esterase Urine RBC Urine WBC Ur Epithelial Cells Urine Bacteria Urine Mucus Urine HCG, Qual Blood Type A NEGATIVE Antibody Screen Negative Imaging - Results Chest X-ray: Report Reviewed, Image Reviewed EKG: Image Reviewed Problem List - Problems (1) Bacteremia Assessment/Plan: -patient called back since growing flavobacterium in blood cultures -ID consulted -give dose of zosyn currently -ID to evaluate further for antibiotics -will need STUART -cardiology consulted for STUART to evaluate for endocarditis -repeat blood cultures -patient without signs of meningitis, can hold on head CT -however if has fevers, headaches, or nausea will need to obtain head CT Code(s): R78.81 - BACTEREMIA (2) Intravenous drug abuse Assessment/Plan: -patient with recent heroin use -will place on methadone taper Code(s): F19.10 - OTHER PSYCHOACTIVE SUBSTANCE ABUSE, UNCOMPLICATED (3) Depression Assessment/Plan: -continue paxil and wellbutrin Code(s): F32.9 - MAJOR DEPRESSIVE DISORDER, SINGLE EPISODE, UNSPECIFIED Assessment/Plan -patient is high risk for leaving AMA
--- NOTE | 2016-08-07 15:48 | CONSULT ---
Consult Consult Specialty:: infectious diseases Referred by:: Reason for Consultation:: bacteremia - History of Present Illness History of Present Illness: 31 year old female with history of cocaine and heroin abuse (last use of heroin at 0400) who was called in after previously drawn blood cultures began growing flavobacterium meningosepticum. She presented to the ER on Wednesday with chest pain that she felt was secondary to herniated discs. There was concern for possible endocarditis and patient was recommended to be admitted for observation for STUART but patient left AMA. she followed up with cardiology as an outpatient on 08/04 and was planned for ETT. However her blood cultures were positive and she was called back for admission. Currently she says she is in her normal state of health. She is still having L arm pain and numbness and this is unchanged. She denies fevers, chills, headache, dizziness, shortness of breath, nausea, vomiting, diarrhea, constipation, pain or difficulty urinating, or swelling. - History Source History Provided By: Patient Limitations to Obtaining History: No Limitations - Past Medical History ...LMP: 06/22/15 Psych: Yes: Anxiety, Depression - Past Surgical History Past Surgical History: Yes: Tonsillectomy - Alcohol/Substance Use Hx Alcohol Use: No History of Substance Use: reports: Cocaine, Heroin - Smoking History Smoking history: Never smoked Have you smoked in the past 12 months: No Aproximately how many cigarettes per day: 0 - Social History ADL: Independent History of Recent Travel: No Home Medications - Allergies Allergies/Adverse Reactions: Allergies Allergy/AdvReac Type Severity Reaction Status Date / Time ibuprofen [From Motrin] AdvReac Severe Verified 08/07/16 13:10 NSAIDS (Non-Steroidal AdvReac Severe Verified 08/07/16 13:10 Anti-Inflamma - Home Medications Home Medications: Ambulatory Orders Paroxetine HCl [Paxil] 40 mg PO HS 05/12/15 Bupropion HCl [Wellbutrin Xl -] 300 mg PO HS 07/07/15 Family Disease History - Family Disease History Family Disease History: Heart Disease: Grandparent, Father Review of Systems - Review of Systems Constitutional: reports: No Symptoms Eyes: reports: No Symptoms HENT: reports: No Symptoms Neck: reports: No Symptoms Cardiovascular: reports: No Symptoms Respiratory: reports: No Symptoms Gastrointestinal: reports: No Symptoms Genitourinary: reports: No Symptoms Musculoskeletal: reports: No Symptoms Integumentary: reports: No Symptoms Neurological: reports: No Symptoms Hematology/Lymphatic: reports: No Symptoms Psychiatric: reports: No Symptoms Physical Exam Vital Signs: Vital Signs Temperature 97.8 F 08/07/16 15:18 Pulse Rate 84 08/07/16 15:18 Respiratory Rate 18 08/07/16 15:18 Blood Pressure 110/75 08/07/16 15:18 O2 Sat by Pulse Oximetry (%) 100 08/07/16 15:18 Constitutional: Yes: No Distress, Calm HENT: Yes: Atraumatic Neck: Yes: Supple, Trachea Midline Cardiovascular: Yes: Regular Rate and Rhythm Respiratory: Yes: Regular, CTA Bilaterally Gastrointestinal: Yes: Normal Bowel Sounds, Soft Musculoskeletal: Yes: WNL Extremities: Yes: Other (multiple needle drummond) Neurological: Yes: Alert, Oriented Psychiatric: Yes: Alert, Oriented Imaging - Results Chest X-ray: Report Reviewed, Image Reviewed Assessment/Plan (1) Bacteremia Code(s): R78.81 - BACTEREMIA (2) Intravenous drug abuse Code(s): F19.10 - OTHER PSYCHOACTIVE SUBSTANCE ABUSE, UNCOMPLICATED (3) Depression Code(s): F32.9 - MAJOR DEPRESSIVE DISORDER, SINGLE EPISODE, UNSPECIFIED plan will start on iv abx cardiology to see the patient if she gets headache mri of the head monitor closely for fevers
--- NOTE | 2016-08-07 16:03 | CON.CARD ---
Cardiology Consult (text) - Consultation Consultation Note: CC: bacteremia 31 yo IVDU with h/o PCOS, ocd, depression, anxiety, presents for admission after previously drawn blood cultures began growing flavobacterium meningosepticum. + chronic chest pain, palps (currently cp mild, no palps) + sweats/fevers for a few days prior to presentation, now resolved no orthopnea, pnd, dizziness, sob, claudication, bleeding or transient neurologic symptoms no chills, n/v/d, cough, headache, rashes, visual disturbances. possible dx of Osteomyelitis 06/2016 but pt left ama pmhx/pshs: per hpi, additionally (clearing of scar tissue on uterus, bladder ) fam hx: Father (htn) social hx: no tob or etoh + heroine/ivdu, cocaine ros: per hpi Ambulatory Orders Paroxetine HCl [Paxil] 40 mg PO HS 05/12/15 Bupropion HCl [Wellbutrin Xl -] 300 mg PO HS 07/07/15 Current Medications Acetaminophen (Tylenol -) 650 mg PO Q4H PRN PRN Reason: FEVER OR PAIN Bupropion HCl (Wellbutrin Xl -) 300 mg PO HS MARIELY Diazepam (Valium -) 10 mg PO Q4H PRN PRN Reason: WITHDRAWAL(CONT SUBST) Stop: 08/10/16 14:59 Vancomycin HCl 1,000 mg/ (Dextrose) 250 mls @ 250 mls/hr IVPB DAILY MARIELY PRN Reason: Protocol Piperacillin Sod/Tazobactam (Sod 3.375 gm/ Dextrose) 50 mls @ 100 mls/hr IVPB Q8H-IV MARIELY PRN Reason: Protocol Lactobacillus Acidophilus (Bacid -) 1 tab PO DAILY MARIELY Methadone HCl (Dolophine -) 10 mg PO ONCE ONE Stop: 08/07/16 15:01 Methadone HCl (Dolophine -) 10 mg PO ONCE@2300 ONE Stop: 08/07/16 23:01 Methadone HCl (Dolophine -) 20 mg PO ONCE ONE Stop: 08/08/16 10:01 Methadone HCl (Dolophine -) 10 mg PO ONCE ONE Stop: 08/11/16 10:01 Methadone HCl (Dolophine -) 15 mg PO ONCE ONE Stop: 08/09/16 10:01 Methadone HCl (Dolophine -) 15 mg PO ONCE ONE Stop: 08/10/16 10:01 Methadone HCl (Dolophine -) 5 mg PO ONCE@0600 ONE Stop: 08/12/16 06:01 Ondansetron HCl (Zofran Injection) 4 mg IVPB Q6H PRN PRN Reason: NAUSEA Paroxetine HCl (Paxil -) 40 mg PO HS MARIELY Piperacillin Sod/Tazobactam Sod (Zosyn 3.375gm Ivpb (Pre-Docked)) 3.375 gm IV ONCE ONE PRN Reason: Protocol Stop: 08/07/16 15:00 Last Admin: 08/07/16 15:18 Dose: 3.375 gm Vital Signs - 24 hr 08/07/16 08/07/16 13:11 15:18 Temperature 98.2 F 97.8 F Pulse Rate 82 Pulse Rate [ 84 Left Radial] Respiratory 20 18 Rate Blood Pressure 142/79 Blood Pressure 110/75 [Right Arm] O2 Sat by Pulse 97 100 Oximetry (%) Intake & Output 08/05/16 08/06/16 08/07/16 08/08/16 07:59 07:59 07:59 07:59 Weight 165 lb nad, calm jvd flat, neck supple ctab nl effort rrr nl s1, s2 2/6 murmur at rusb. soft nt nd, + bs ext with trace edema. no cyanosis or clubbing + dp/pt no carotid bruits aaox3 no jaundice, diaphoresis CBC, BMP 08/07/16 14:18 08/07/16 14:18 Microbiology 08/03/16 08:12 Blood - Peripheral Venous Blood Culture - Final Flavobacterium Meningosepticum 08/03/16 08:12 Blood - Peripheral Venous Blood Culture - Final Flavobacterium Meningosepticum Laboratory Tests 08/03/16 08/07/16 08/07/16 08:02 14:18 14:18 Lactic Acid 1.774 Troponin I < 0.02 Albumin 4.0 Opiates Screen Positive Cocaine Screen Positive ekg pending echo 07/2016: nl lv/rv, mild tr. 31 yo IVDU with h/o PCOS, ocd, depression, anxiety, presents for admission after previously drawn blood cultures began growing flavobacterium meningosepticum. bacteremia - recent admit 06/2016 for possible early osteomyelitis (based on mri) of LE. patient left ama although IV antibiotics recommended. - patient clinically stable on abx. If cultures remain negative and patient clinically improves, may not need STUART. Will con't to reassess need. If necessary, will schedule for wednesday due to the long weekend. - serial blood cultures - abx mgm't per pmd/id - no signs of valvular decompensation. - recent echo unremarkable. chronic cp - atypical for cardiac pain. had plan for outpatient ett. Currently cp somewhat improved prior to admit, although mild residual symptoms remain. first set of troponins negative, would complete janusz. EKG currently unavailable. will attempt to review in am. ivdu - cessation counseling
[2016-08-07] MEDS: VANCOMYCIN 1 GRAM (PRE-DOCKED) 250 ML IVPB SCH (19:01)
[2016-08-07] MEDS: LACTOBACILLUS ACIDOPHILUS 1 EACH TAB (FP) PO SCH (19:01)
[2016-08-07] MEDS: PARoxetine HCL 20 MG TABLET (FP) PO SCH (22:13)
[2016-08-08] MEDS: ONDANSETRON 4 MG/2 ML VIAL IVPB PRN ×4 (02:03→22:11)
[2016-08-08] MEDS: PIPERACILLIN/TAZOB 3.375 GM 50 ML IVPB SCH ×3 (02:03→17:59)
[2016-08-08 07:28] LABS: BASOPHIL 0.4 % (0-2.0); EOSINOPHIL 1.5 % (0-4.5); MCH 23.7 pg (25.7-33.7); MCHC 31.9 g/dl (32.0-36.0); MEAN CELL VOLUME 74.3 fl (80-96); NEUTROPHILS 45.9 % (42.8-82.8); PLATELET COUNT 243 K/MM3 (134-434); RDW 18.7 % (11.6-15.6); WHITE BLOOD COUNT 3.7 K/mm3 (4.0-10.0)
[2016-08-08 07:52] LABS: CALCIUM 8.9 mg/dL (8.5-10.1); MAGNESIUM 2.1 mg/dL (1.8-2.4)
[2016-08-08 07:54] LABS: CREATININE 0.7 mg/dL (0.55-1.02); PHOSPHOROUS 4.1 mg/dL (2.5-4.9)
[2016-08-08] MEDS ORDERED: METHADONE HCL 10 MG TABLET PO ONE (10:00)
[2016-08-08] MEDS: LACTOBACILLUS ACIDOPHILUS 1 EACH TAB (FP) PO SCH ×2 (10:15→11:09)
--- NOTE | 2016-08-08 11:51 | PN ---
Progress Note (short form) - Note Progress Note: s: no cp sob palps dizzy o: Vital Signs Period Temp Pulse Resp BP Sys/Reece Pulse Ox Last 24 Hr 97.8 F-98.8 F 82-91 18-20 100-142/44-79 97-100 nad, calm jvd flat, neck supple ctab nl effort rrr nl s1, s2 no mrg soft nt nd, + bs ext with trace edema. no cyanosis or clubbing aaox3 no jaundice, diaphoresis Current Medications Generic Name Dose Route Start Last Admin Trade Name Freq PRN Reason Stop Dose Admin Acetaminophen 650 mg 08/07/16 14:57 Tylenol - PO Q4H PRN FEVER OR PAIN Bupropion HCl 300 mg 08/07/16 22:00 08/07/16 22:14 Wellbutrin Xl - PO 300 mg HS MARIELY Administration Diazepam 10 mg 08/07/16 15:00 Valium - PO 08/10/16 14:59 Q4H PRN WITHDRAWAL(CONT SUBST) Vancomycin HCl 250 mls @ 250 mls/hr 08/07/16 16:30 08/07/16 19:01 Vancomycin (Pre-Docked) IVPB 250 mls/hr DAILY MARIELY Administration Protocol Piperacillin Sod/Tazobactam Sod 50 mls @ 100 mls/hr 08/08/16 02:00 08/08/16 11: 09 Zosyn 3.375gm Ivpb (Pre-Docked) IVPB 100 mls/hr Q8H-IV MARIELY Administration Protocol Lactobacillus Acidophilus 1 tab 08/07/16 15:00 08/08/16 11:09 Bacid - PO 1 tab DAILY MARIELY Administration Methadone HCl 10 mg 08/11/16 10:00 Dolophine - PO 08/11/16 10:01 ONCE ONE Methadone HCl 15 mg 08/09/16 10:00 Dolophine - PO 08/09/16 23:59 ONCE ONE Methadone HCl 15 mg 08/10/16 10:00 Dolophine - PO 08/10/16 23:59 ONCE ONE Methadone HCl 5 mg 08/12/16 06:00 Dolophine - PO 08/12/16 23:59 ONCE@0600 ONE Ondansetron HCl 4 mg 08/07/16 14:57 08/08/16 10:19 Zofran Injection IVPB 4 mg Q6H PRN Administration NAUSEA Paroxetine HCl 40 mg 08/07/16 22:00 08/07/16 22:13 Paxil - PO 40 mg HS MARIELY Administration CBC, BMP 08/08/16 06:30 08/08/16 06:30 echo 07/2016: nl lv/rv, mild tr. a/p: 31 yo IVDU with h/o PCOS, ocd, depression, anxiety, presents for admission after previously drawn blood cultures began growing flavobacterium meningosepticum. bacteremia - recent admit 06/2016 for possible early osteomyelitis (based on mri) of LE. patient left ama although IV antibiotics recommended. - recent echo unremarkable, no signs of valvular decompensation. - patient clinically stable on abx. If cultures remain negative and patient clinically improves, may not need STUART. Will con't to reassess need. If necessary, will schedule for wednesday due to the long weekend. - abx mgm't per pmd/id chronic cp - atypical for cardiac pain. had plan for outpatient ett. Currently cp somewhat improved prior to admit. monitor for now, outpt ett as planned. drug use - cessation counseling done
--- NOTE | 2016-08-08 12:25 | PN ---
Progress Note, Physician History of Present Illness: Having diarrhea today and abd pain in lower quadrants (right > left). chest feeling better (no pain). Notes some neck and left arm pain, which has bene the same as her previous herniated disc pain from her neck. - Current Medication List Current Medications: Active Medications Acetaminophen (Tylenol -) 650 mg PO Q4H PRN PRN Reason: FEVER OR PAIN Bupropion HCl (Wellbutrin Xl -) 300 mg PO HS [facility] Last Admin: 08/07/16 22:14 Dose: 300 mg Diazepam (Valium -) 10 mg PO Q4H PRN PRN Reason: WITHDRAWAL(CONT SUBST) Stop: 08/10/16 14:59 Vancomycin HCl (Vancomycin (Pre-Docked)) 250 mls @ 250 mls/hr IVPB DAILY MARIELY PRN Reason: Protocol Last Admin: 08/07/16 19:01 Dose: 250 mls/hr Piperacillin Sod/Tazobactam Sod (Zosyn 3.375gm Ivpb (Pre-Docked)) 50 mls @ 100 mls/hr IVPB Q8H-IV MARIELY PRN Reason: Protocol Last Admin: 08/08/16 11:09 Dose: 100 mls/hr Lactobacillus Acidophilus (Bacid -) 1 tab PO DAILY [facility] Last Admin: 08/08/16 11:09 Dose: 1 tab Methadone HCl (Dolophine -) 10 mg PO ONCE ONE Stop: 08/11/16 10:01 Methadone HCl (Dolophine -) 15 mg PO ONCE ONE Stop: 08/09/16 23:59 Methadone HCl (Dolophine -) 15 mg PO ONCE ONE Stop: 08/10/16 23:59 Methadone HCl (Dolophine -) 5 mg PO ONCE@0600 ONE Stop: 08/12/16 23:59 Ondansetron HCl (Zofran Injection) 4 mg IVPB Q6H PRN PRN Reason: NAUSEA Last Admin: 08/08/16 10:19 Dose: 4 mg Paroxetine HCl (Paxil -) 40 mg PO HS [facility] Last Admin: 08/07/16 22:13 Dose: 40 mg - Objective Vital Signs: Vital Signs Temperature 98.4 F 08/08/16 09:14 Pulse Rate 89 08/08/16 09:30 Respiratory Rate 20 08/08/16 09:30 Blood Pressure 100/50 08/08/16 09:30 O2 Sat by Pulse Oximetry (%) 98 08/07/16 21:00 Constitutional: Yes: No Distress, Calm HENT: Yes: Atraumatic, Normocephalic Cardiovascular: Yes: Regular Rate and Rhythm, S1, S2. No: Murmur Respiratory: Yes: Regular, CTA Bilaterally. No: Rales, Rhonchi, Wheezes Gastrointestinal: Yes: Normal Bowel Sounds, Soft, Tenderness (left lower quadrant). No: Tenderness, Rebound Edema: No Neurological: Yes: Alert, Oriented Labs: CBC, BMP 08/08/16 06:30 08/08/16 06:30 INR, PTT INR 1.04 (0.82-1.09) 08/07/16 14:18 Assessment/Plan Current Active Problems Bacteremia (Acute) Intravenous drug abuse (Acute) abd pain Diarrhea -?diarrhea due to opioid cessation (is currently on methadone taper) -check CT abd/pelvis to r/o colitis and additional source for bacteremia -ID following
--- NOTE | 2016-08-08 13:40 | EKG ---
Test Reason : Blood Pressure : / mmHG Vent. Rate : 079 BPM Atrial Rate : 079 BPM P-R Int : 150 ms QRS Dur : 082 ms QT Int : 386 ms P-R-T Axes : 015 065 030 degrees QTc Int : 442 ms NORMAL SINUS RHYTHM NORMAL ECG WHEN COMPARED WITH ECG OF 03-AUG-2016 07:03, NO SIGNIFICANT CHANGE WAS FOUND Confirmed by ADITI SANTAMARIA MD ([id number]) on 08/08/2016 1:40:25 PM Referred By: Confirmed By:ADITI SANTAMARIA MD
--- NOTE | 2016-08-08 14:39 | PN ---
Progress Note, Physician History of Present Illness: patient c/o of abd pain rt lower quadrant - Current Medication List Current Medications: Active Medications Acetaminophen (Tylenol -) 650 mg PO Q4H PRN PRN Reason: FEVER OR PAIN Bupropion HCl (Wellbutrin Xl -) 300 mg PO HS [facility] Last Admin: 08/07/16 22:14 Dose: 300 mg Diazepam (Valium -) 10 mg PO Q4H PRN PRN Reason: WITHDRAWAL(CONT SUBST) Stop: 08/10/16 14:59 Vancomycin HCl (Vancomycin (Pre-Docked)) 250 mls @ 250 mls/hr IVPB DAILY MARIELY PRN Reason: Protocol Last Admin: 08/07/16 19:01 Dose: 250 mls/hr Piperacillin Sod/Tazobactam Sod (Zosyn 3.375gm Ivpb (Pre-Docked)) 50 mls @ 100 mls/hr IVPB Q8H-IV MARIELY PRN Reason: Protocol Last Admin: 08/08/16 11:09 Dose: 100 mls/hr Lactobacillus Acidophilus (Bacid -) 1 tab PO DAILY [facility] Last Admin: 08/08/16 11:09 Dose: 1 tab Methadone HCl (Dolophine -) 10 mg PO ONCE ONE Stop: 08/11/16 10:01 Methadone HCl (Dolophine -) 15 mg PO ONCE ONE Stop: 08/09/16 23:59 Methadone HCl (Dolophine -) 15 mg PO ONCE ONE Stop: 08/10/16 23:59 Methadone HCl (Dolophine -) 5 mg PO ONCE@0600 ONE Stop: 08/12/16 23:59 Ondansetron HCl (Zofran Injection) 4 mg IVPB Q6H PRN PRN Reason: NAUSEA Last Admin: 08/08/16 10:19 Dose: 4 mg Paroxetine HCl (Paxil -) 40 mg PO HS [facility] Last Admin: 08/07/16 22:13 Dose: 40 mg - Objective Vital Signs: Vital Signs Temperature 98.6 F 08/08/16 13:50 Pulse Rate 79 08/08/16 13:50 Respiratory Rate 18 08/08/16 13:50 Blood Pressure 111/55 08/08/16 13:50 O2 Sat by Pulse Oximetry (%) 98 08/07/16 21:00 Constitutional: Yes: Calm, Mild Distress Eyes: Yes: Conjunctiva Clear HENT: Yes: Atraumatic Neck: Yes: Supple Cardiovascular: Yes: Regular Rate and Rhythm Respiratory: Yes: Regular, CTA Bilaterally Gastrointestinal: Yes: Normal Bowel Sounds, Soft, Tenderness (rlq) Musculoskeletal: Yes: WNL Extremities: Yes: Other (multiple drummond) Integumentary: Yes: Other Neurological: Yes: Alert, Oriented Psychiatric: Yes: Alert Labs: CBC, BMP 08/08/16 06:30 08/08/16 06:30 INR, PTT INR 1.04 (0.82-1.09) 08/07/16 14:18 Assessment/Plan Problem List - Problems (1) Bacteremia Code(s): R78.81 - BACTEREMIA (2) Intravenous drug abuse Code(s): F19.10 - OTHER PSYCHOACTIVE SUBSTANCE ABUSE, UNCOMPLICATED (3) Depression Code(s): F32.9 - MAJOR DEPRESSIVE DISORDER, SINGLE EPISODE, UNSPECIFIED i corona noted that the patient complained of shoulder pain to the ,which she did not to me patient having dirrhoea agree wiht ct scan to r/o abd pathology plan continue abx await for repeat cx if patietn c/o of neck pain or so we will get a mri of the spine
[2016-08-08] MEDS: VANCOMYCIN 1 GRAM (PRE-DOCKED) 250 ML IVPB SCH (15:55)
[2016-08-08] MEDS: PARoxetine HCL 20 MG TABLET (FP) PO SCH (22:00)
[2016-08-08] MEDS: ACETAMINOPHEN 325 MG TABLET (FP) PO PRN (22:07)
[2016-08-09] MEDS: diazePAM 5 MG TABLET PO PRN (01:18)
[2016-08-09] MEDS: PIPERACILLIN/TAZOB 3.375 GM 50 ML IVPB SCH ×3 (01:19→18:10)
[2016-08-09 08:10] LABS: BASOPHIL 0.5 % (0-2.0); EOSINOPHIL 1.2 % (0-4.5); MCH 23.8 pg (25.7-33.7); MCHC 32.1 g/dl (32.0-36.0); MEAN PLT VOLUME 7.8 fl (7.5-11.1); NEUTROPHILS 44.5 % (42.8-82.8); PLATELET COUNT 232 K/MM3 (134-434); RDW 18.1 % (11.6-15.6); WHITE BLOOD COUNT 3.8 K/mm3 (4.0-10.0)
[2016-08-09 08:47] LABS: ALBUMIN 3.4 g/dl (3.4-5.0); ANION GAP 10 (8-16); BILIRUBIN,TOTAL 0.3 mg/dL (0.2-1.0); CALCIUM 8.8 mg/dL (8.5-10.1); CO2 29 mmol/L (21-32); CREATININE 0.6 mg/dL (0.55-1.02); GLUCOSE,RANDOM 88 mg/dL (74-106); SGOT/AST 15 U/L (15-37); SGPT/ALT 26 U/L (12-78)
[2016-08-09 08:55] LABS: ALK PHOS 81 U/L (45-117); C-REACTIVE PROTEIN 1.8 MG/DL (0.00-0.3)
[2016-08-09] MEDS: ONDANSETRON 4 MG/2 ML VIAL IVPB PRN ×3 (09:19→22:37)
[2016-08-09] MEDS ORDERED: METHADONE HCL 5 MG TABLET PO ONE (10:00)
[2016-08-09 10:03] LABS: ERYTHROCYTE SEDIMENTATION RATE 37 mm/hr (0-20)
[2016-08-09] MEDS: LACTOBACILLUS ACIDOPHILUS 1 EACH TAB (FP) PO SCH (10:50)
--- NOTE | 2016-08-09 10:59 | PN ---
Progress Note (short form) - Note Progress Note: s: no cp sob palps dizzy o: Vital Signs Period Temp Pulse Resp BP Sys/Reece Pulse Ox Last 24 Hr 98.2 F-98.6 F 79-87 16-20 111-131/55-74 95-96 nad, calm jvd flat, neck supple ctab nl effort rrr nl s1, s2 no mrg ext with trace edema. no cyanosis or clubbing aaox3 no jaundice, diaphoresis Current Medications Generic Name Dose Route Start Last Admin Trade Name Freq PRN Reason Stop Dose Admin Acetaminophen 650 mg 08/07/16 14:57 08/08/16 22:07 Tylenol - PO 650 mg Q4H PRN Administration FEVER OR PAIN Bupropion HCl 300 mg 08/07/16 22:00 08/08/16 22:00 Wellbutrin Xl - PO 300 mg HS MARIELY Administration Diazepam 10 mg 08/07/16 15:00 08/09/16 01:18 Valium - PO 08/10/16 14:59 10 mg Q4H PRN Administration WITHDRAWAL(CONT SUBST) Piperacillin Sod/Tazobactam Sod 50 mls @ 100 mls/hr 08/08/16 02:00 08/09/16 10: 53 Zosyn 3.375gm Ivpb (Pre-Docked) IVPB 100 mls/hr Q8H-IV MARIELY Administration Protocol Lactobacillus Acidophilus 1 tab 08/07/16 15:00 08/09/16 10:50 Bacid - PO 1 tab DAILY MARIELY Administration Methadone HCl 10 mg 08/11/16 10:00 Dolophine - PO 08/11/16 10:01 ONCE ONE Methadone HCl 15 mg 08/09/16 10:00 08/09/16 10:52 Dolophine - PO 08/09/16 23:59 15 mg ONCE ONE Administration Methadone HCl 15 mg 08/10/16 10:00 Dolophine - PO 08/10/16 23:59 ONCE ONE Methadone HCl 5 mg 08/12/16 06:00 Dolophine - PO 08/12/16 23:59 ONCE@0600 ONE Ondansetron HCl 4 mg 08/07/16 14:57 08/09/16 09:19 Zofran Injection IVPB 4 mg Q6H PRN Administration NAUSEA Paroxetine HCl 40 mg 08/07/16 22:00 08/08/16 22:00 Paxil - PO 40 mg HS MARIELY Administration CBC, BMP 08/09/16 07:15 08/09/16 07:15 echo 07/2016: nl lv/rv, mild tr. a/p: 31 yo IVDU with h/o PCOS, ocd, depression, anxiety, presents for admission after previously drawn blood cultures began growing flavobacterium meningosepticum. bacteremia - recent admit 06/2016 for possible early osteomyelitis (based on mri) of LE. patient left ama although IV antibiotics recommended. - recent echo unremarkable, no signs of valvular decompensation. - patient clinically stable on abx. bld cxs ngtd, no fevers, no leukocystosis. If cultures remain negative and patient clinically improves, may not need STUART. Will con't to reassess need. - abx mgm't per pmd/id chronic cp - atypical for cardiac pain. had plan for outpatient ett. Currently cp somewhat improved. monitor for now, outpt ett as planned. drug use - cessation counseling done
--- NOTE | 2016-08-09 12:23 | PN ---
Progress Note, Physician History of Present Illness: Diarrhea lessened, as has abd pain -CT abd/pelv unremarkable, no sign abd abscess or diverticulitis or colitis. Still with neck pressure, but states unable to tolerate MRI. - Current Medication List Current Medications: Active Medications Acetaminophen (Tylenol -) 650 mg PO Q4H PRN PRN Reason: FEVER OR PAIN Last Admin: 08/08/16 22:07 Dose: 650 mg Bupropion HCl (Wellbutrin Xl -) 300 mg PO HS [facility] Last Admin: 08/08/16 22:00 Dose: 300 mg Diazepam (Valium -) 10 mg PO Q4H PRN PRN Reason: WITHDRAWAL(CONT SUBST) Stop: 08/10/16 14:59 Last Admin: 08/09/16 01:18 Dose: 10 mg Piperacillin Sod/Tazobactam Sod (Zosyn 3.375gm Ivpb (Pre-Docked)) 50 mls @ 100 mls/hr IVPB Q8H-IV MARIELY PRN Reason: Protocol Last Admin: 08/09/16 10:53 Dose: 100 mls/hr Lactobacillus Acidophilus (Bacid -) 1 tab PO DAILY MARIELY Last Admin: 08/09/16 10:50 Dose: 1 tab Methadone HCl (Dolophine -) 10 mg PO ONCE ONE Stop: 08/11/16 10:01 Methadone HCl (Dolophine -) 15 mg PO ONCE ONE Stop: 08/09/16 23:59 Last Admin: 08/09/16 10:52 Dose: 15 mg Methadone HCl (Dolophine -) 15 mg PO ONCE ONE Stop: 08/10/16 23:59 Methadone HCl (Dolophine -) 5 mg PO ONCE@0600 ONE Stop: 08/12/16 23:59 Ondansetron HCl (Zofran Injection) 4 mg IVPB Q6H PRN PRN Reason: NAUSEA Last Admin: 08/09/16 09:19 Dose: 4 mg Paroxetine HCl (Paxil -) 40 mg PO HS [facility] Last Admin: 08/08/16 22:00 Dose: 40 mg - Objective Vital Signs: Vital Signs Temperature 98.6 F 08/09/16 10:44 Pulse Rate 87 08/09/16 10:44 Respiratory Rate 20 08/09/16 10:44 Blood Pressure 123/74 08/09/16 10:44 O2 Sat by Pulse Oximetry (%) 96 08/08/16 22:00 Constitutional: Yes: No Distress, Calm Eyes: Yes: Conjunctiva Clear, EOM Intact HENT: Yes: Atraumatic, Normocephalic Neck: Yes: Tenderness (left neck, no masses felt) Cardiovascular: Yes: Regular Rate and Rhythm, S1, S2. No: Murmur Respiratory: Yes: Regular, CTA Bilaterally. No: Rales, Rhonchi, Wheezes Gastrointestinal: Yes: Normal Bowel Sounds, Soft. No: Distention, Tenderness Edema: No Neurological: Yes: Alert, Oriented Labs: CBC, BMP 08/09/16 07:15 08/09/16 07:15 INR, PTT INR 1.04 (0.82-1.09) 08/07/16 14:18 Assessment/Plan Current Active Problems Bacteremia (Acute) Intravenous drug abuse (Acute) abd pain Diarrhea Neck pain -will check imaging of neck to evaluate for abcess, given h/o IV drug use ( ideally would check MRI, but patient adamant that she cannot tolerate MRI due to severe claustrophobia) -ID following -if cultures remain negative and imaging of neck without evidence of infection - d/c planning?
--- NOTE | 2016-08-09 16:48 | PN ---
Progress Note, Physician History of Present Illness: patient doing well no issues ct scan no findings - Current Medication List Current Medications: Active Medications Acetaminophen (Tylenol -) 650 mg PO Q4H PRN PRN Reason: FEVER OR PAIN Last Admin: 08/08/16 22:07 Dose: 650 mg Bupropion HCl (Wellbutrin Xl -) 300 mg PO HS [facility] Last Admin: 08/08/16 22:00 Dose: 300 mg Diazepam (Valium -) 10 mg PO Q4H PRN PRN Reason: WITHDRAWAL(CONT SUBST) Stop: 08/10/16 14:59 Last Admin: 08/09/16 01:18 Dose: 10 mg Piperacillin Sod/Tazobactam Sod (Zosyn 3.375gm Ivpb (Pre-Docked)) 50 mls @ 100 mls/hr IVPB Q8H-IV MARIELY PRN Reason: Protocol Last Admin: 08/09/16 10:53 Dose: 100 mls/hr Lactobacillus Acidophilus (Bacid -) 1 tab PO DAILY [facility] Last Admin: 08/09/16 10:50 Dose: 1 tab Methadone HCl (Dolophine -) 10 mg PO ONCE ONE Stop: 08/11/16 10:01 Methadone HCl (Dolophine -) 15 mg PO ONCE ONE Stop: 08/09/16 23:59 Last Admin: 08/09/16 10:52 Dose: 15 mg Methadone HCl (Dolophine -) 15 mg PO ONCE ONE Stop: 08/10/16 23:59 Methadone HCl (Dolophine -) 5 mg PO ONCE@0600 ONE Stop: 08/12/16 23:59 Ondansetron HCl (Zofran Injection) 4 mg IVPB Q6H PRN PRN Reason: NAUSEA Last Admin: 08/09/16 16:42 Dose: 4 mg Paroxetine HCl (Paxil -) 40 mg PO [facility] Last Admin: 08/08/16 22:00 Dose: 40 mg - Objective Vital Signs: Vital Signs Temperature 98.6 F 08/09/16 13:56 Pulse Rate 83 08/09/16 13:56 Respiratory Rate 18 08/09/16 13:56 Blood Pressure 99/62 08/09/16 13:56 O2 Sat by Pulse Oximetry (%) 97 08/09/16 11:00 Constitutional: Yes: No Distress, Calm Cardiovascular: Yes: Regular Rate and Rhythm Respiratory: Yes: Regular, CTA Bilaterally Gastrointestinal: Yes: Normal Bowel Sounds, Soft Musculoskeletal: Yes: WNL Extremities: Yes: Other (needle drummond) Neurological: Yes: Alert, Oriented Labs: CBC, BMP 08/09/16 07:15 08/09/16 07:15 INR, PTT INR 1.04 (0.82-1.09) 08/07/16 14:18 Assessment/Plan Problem List - Problems (1) Bacteremia Code(s): R78.81 - BACTEREMIA (2) Intravenous drug abuse Code(s): F19.10 - OTHER PSYCHOACTIVE SUBSTANCE ABUSE, UNCOMPLICATED (3) Depression Code(s): F32.9 - MAJOR DEPRESSIVE DISORDER, SINGLE EPISODE, UNSPECIFIED i corona noted that the patient complained of shoulder pain to the ,which she did not to me patient having dirrhoea agree wiht ct scan to r/o abd pathology plan continue abx agree with ct scan of the neck if negative will consider to discharge
[2016-08-09] MEDS: ACETAMINOPHEN 325 MG TABLET (FP) PO PRN (22:37)
[2016-08-09] MEDS: PARoxetine HCL 20 MG TABLET (FP) PO SCH (22:37)
[2016-08-10] MEDS: PIPERACILLIN/TAZOB 3.375 GM 50 ML IVPB SCH ×3 (02:47→17:09)
[2016-08-10] MEDS: ONDANSETRON 4 MG/2 ML VIAL IVPB PRN (05:46)
[2016-08-10] MEDS: diazePAM 5 MG TABLET PO PRN (05:46)
[2016-08-10 08:40] LABS: BASOPHIL 0.7 % (0-2.0); EOSINOPHIL 1.4 % (0-4.5); MCH 23.6 pg (25.7-33.7); MCHC 31.9 g/dl (32.0-36.0); MEAN CELL VOLUME 74.1 fl (80-96); MEAN PLT VOLUME 7.9 fl (7.5-11.1); NEUTROPHILS 43.5 % (42.8-82.8); PLATELET COUNT 253 K/MM3 (134-434); RDW 18.3 % (11.6-15.6); WHITE BLOOD COUNT 3.8 K/mm3 (4.0-10.0)
[2016-08-10 09:20] LABS: CALCIUM 8.8 mg/dL (8.5-10.1); CREATININE 0.7 mg/dL (0.55-1.02)
[2016-08-10] MEDS: LACTOBACILLUS ACIDOPHILUS 1 EACH TAB (FP) PO SCH (09:37)
[2016-08-10] MEDS ORDERED: METHADONE HCL 5 MG TABLET PO ONE (10:00)
--- NOTE | 2016-08-10 10:03 | PN ---
Progress Note (short form) - Note Progress Note: s: no cp sob palps dizzy o: Vital Signs Period Temp Pulse Resp BP Sys/Reece Pulse Ox Last 24 Hr 98.2 F-98.6 F 78-87 16-20 95-128/45-74 97-98 nad, calm jvd flat, neck supple ctab nl effort rrr nl s1, s2 no mrg no le edema. no cyanosis or clubbing aaox3 no jaundice, diaphoresis Current Medications Generic Name Dose Route Start Last Admin Trade Name Freq PRN Reason Stop Dose Admin Acetaminophen 650 mg 08/07/16 14:57 08/09/16 22:37 Tylenol - PO 650 mg Q4H PRN Administration FEVER OR PAIN Bupropion HCl 300 mg 08/07/16 22:00 08/09/16 22:37 Wellbutrin Xl - PO 300 mg HS MARIELY Administration Diazepam 10 mg 08/07/16 15:00 08/10/16 05:46 Valium - PO 08/10/16 14:59 10 mg Q4H PRN Administration WITHDRAWAL(CONT SUBST) Piperacillin Sod/Tazobactam Sod 50 mls @ 100 mls/hr 08/08/16 02:00 08/10/16 09: 37 Zosyn 3.375gm Ivpb (Pre-Docked) IVPB 100 mls/hr Q8H-IV MARIELY Administration Protocol Lactobacillus Acidophilus 1 tab 08/07/16 15:00 08/10/16 09:37 Bacid - PO 1 tab DAILY MARIELY Administration Methadone HCl 10 mg 08/11/16 10:00 Dolophine - PO 08/11/16 10:01 ONCE ONE Methadone HCl 15 mg 08/09/16 10:00 08/09/16 10:52 Dolophine - PO 08/09/16 23:59 15 mg ONCE ONE Administration Methadone HCl 15 mg 08/10/16 10:00 Dolophine - PO 08/10/16 23:59 ONCE ONE Methadone HCl 5 mg 08/12/16 06:00 Dolophine - PO 08/12/16 23:59 ONCE@0600 ONE Ondansetron HCl 4 mg 08/07/16 14:57 08/10/16 05:46 Zofran Injection IVPB 4 mg Q6H PRN Administration NAUSEA Paroxetine HCl 40 mg 08/07/16 22:00 08/09/16 22:37 Paxil - PO 40 mg HS MARIELY Administration CBC, BMP 08/10/16 05:40 08/10/16 05:40 echo 07/2016: nl lv/rv, mild tr. a/p: 31 yo IVDU with h/o PCOS, ocd, depression, anxiety, presents for admission after previously drawn blood cultures began growing flavobacterium meningosepticum. bacteremia - recent admit 06/2016 for possible early osteomyelitis (based on mri) of LE. patient left ama although IV antibiotics recommended. - now presents for admission after previously drawn blood cultures began growing flavobacterium meningosepticum - recent echo unremarkable, no signs of valvular decompensation. - patient clinically stable on abx. bld cxs ngtd, no fevers, no leukocystosis. Possible contaminant on initial bld cx since repeat is ngtd and no abx were given between checking cultures. - no indication of endocarditis at this time - abx mgm't per pmd/id chronic cp - atypical for cardiac pain. had plan for outpatient ett. Currently cp somewhat improved. monitor for now, outpt ett as planned. drug use - cessation counseling done
--- NOTE | 2016-08-10 12:09 | PN ---
Progress Note, Physician History of Present Illness: stable all work up including ct scan are negative - Current Medication List Current Medications: Active Medications Acetaminophen (Tylenol -) 650 mg PO Q4H PRN PRN Reason: FEVER OR PAIN Last Admin: 08/09/16 22:37 Dose: 650 mg Bupropion HCl (Wellbutrin Xl -) 300 mg PO HS [facility] Last Admin: 08/09/16 22:37 Dose: 300 mg Diazepam (Valium -) 10 mg PO Q4H PRN PRN Reason: WITHDRAWAL(CONT SUBST) Stop: 08/10/16 14:59 Last Admin: 08/10/16 05:46 Dose: 10 mg Piperacillin Sod/Tazobactam Sod (Zosyn 3.375gm Ivpb (Pre-Docked)) 50 mls @ 100 mls/hr IVPB Q8H-IV [facility]IELY PRN Reason: Protocol Last Admin: 08/10/16 09:37 Dose: 100 mls/hr Lactobacillus Acidophilus (Bacid -) 1 tab PO DAILY [facility] Last Admin: 08/10/16 09:37 Dose: 1 tab Methadone HCl (Dolophine -) 10 mg PO ONCE ONE Stop: 08/11/16 10:01 Methadone HCl (Dolophine -) 15 mg PO ONCE ONE Stop: 08/09/16 23:59 Last Admin: 08/09/16 10:52 Dose: 15 mg Methadone HCl (Dolophine -) 15 mg PO ONCE ONE Stop: 08/10/16 23:59 Methadone HCl (Dolophine -) 5 mg PO ONCE@0600 ONE Stop: 08/12/16 23:59 Ondansetron HCl (Zofran Injection) 4 mg IVPB Q6H PRN PRN Reason: NAUSEA Last Admin: 08/10/16 05:46 Dose: 4 mg Paroxetine HCl (Paxil -) 40 mg PO HS [facility] Last Admin: 08/09/16 22:37 Dose: 40 mg - Objective Vital Signs: Vital Signs Temperature 98.5 F 08/10/16 06:00 Pulse Rate 79 08/10/16 06:00 Respiratory Rate 18 08/10/16 06:00 Blood Pressure 101/61 08/10/16 06:00 O2 Sat by Pulse Oximetry (%) 98 08/09/16 22:00 Constitutional: Yes: No Distress, Calm Cardiovascular: Yes: Regular Rate and Rhythm Respiratory: Yes: Regular, CTA Bilaterally Gastrointestinal: Yes: Normal Bowel Sounds, Soft Breast(s): Yes: WNL Musculoskeletal: Yes: Other (needle drummond on upper ext) Neurological: Yes: Alert, Oriented Psychiatric: Yes: Alert, Oriented Labs: CBC, BMP 08/10/16 05:40 08/10/16 05:40 INR, PTT INR 1.04 (0.82-1.09) 08/07/16 14:18 Assessment/Plan (1) Bacteremia Code(s): R78.81 - BACTEREMIA (2) Intravenous drug abuse Code(s): F19.10 - OTHER PSYCHOACTIVE SUBSTANCE ABUSE, UNCOMPLICATED (3) Depression Code(s): F32.9 - MAJOR DEPRESSIVE DISORDER, SINGLE EPISODE, UNSPECIFIED plan can stop abx after afternoon dose discussed in detail not to use drugs if fever or anything to come back to er all ct scans negative so far
--- NOTE | 2016-08-10 12:55 | DS ---
Physical Examination Vital Signs: Vital Signs Temperature 98.5 F 08/10/16 06:00 Pulse Rate 79 08/10/16 06:00 Respiratory Rate 18 08/10/16 06:00 Blood Pressure 101/61 08/10/16 06:00 O2 Sat by Pulse Oximetry (%) 98 08/09/16 22:00 Constitutional: Yes: No Distress, Calm HENT: Yes: Atraumatic, Normocephalic Cardiovascular: Yes: Regular Rate and Rhythm, S1, S2. No: Murmur Respiratory: Yes: Regular, CTA Bilaterally. No: Rales, Rhonchi, Wheezes Gastrointestinal: Yes: Normal Bowel Sounds, Soft. No: Distention, Tenderness Edema: No Neurological: Yes: Alert, Oriented Labs: CBC, BMP 08/10/16 05:40 08/10/16 05:40 Discharge Summary Reason For Visit: BACTEREMIA Current Active Problems Bacteremia (Acute) Intravenous drug abuse (Acute) Hospital Course: 31 yo female h/o IV drug abuse, presented to hospital after blood cultures were reported as positive when she was evaluated in ED last week. Blood cultures were negative on repeat here, but started on ZOyn with evaluation by ID. Source for bacteremia was not found, with negative CT abd/pelv, CXR. Has a history of herniated disc of neck and did have neck pain so CT cervical spine was done ( cannot tolerate MRI) , but was negative for abscess or osteomyelitis. Did have diarrhea and abd pain, but as noted CT abd/pelv was negative and symptoms abated (likely was heroin withdrawal). Was started on methadone here for opioid withdrawal and to be discharged today after afternoon dose of Zosyn (to complete 5 day treatment) and to follow-up in office. Discussed the dangers of IV drug use with infections and overdosing (patient acknowledges). Discussed methadone clinic which she had recently been given information on as well. Condition: Guarded - Instructions Referrals: Kaela Mcdonald MD [Primary Care Provider] - Disposition: HOME - Home Medications Comprehensive Discharge Medication List: Ambulatory Orders Paroxetine HCl [Paxil] 40 mg PO HS 05/12/15 Bupropion HCl [Wellbutrin Xl -] 300 mg PO HS 07/07/15
[2016-08-10 14:30] VITALS: BP 106/66; PULSE 82; TEMP 98.7
[2016-08-11] MEDS ORDERED: METHADONE HCL 10 MG TABLET PO ONE (10:00)
[2016-08-12] MEDS ORDERED: METHADONE HCL 5 MG TABLET PO ONE (06:00)
== END 2016-08-10 17:53 | disposition home or self-care (01) | DRG 724 ==
LOC: JER 13:06 → JERBED 14:52 → J5S 15:45
PROVIDERS: ADMIT Internal Medicine; ATTEND Internal Medicine
DX: R78.81 Bacteremia (principal); F32.9 Major depressive disorder, single episode, unspecified; F19.10 Other psychoactive substance abuse, uncomplicated; M50.20 Other cervical disc displacement, unspecified cervical region; F14.20 Cocaine dependence, uncomplicated; F11.20 Opioid dependence, uncomplicated; Z71.51 Drug abuse counseling and surveillance of drug abuser; F41.9 Anxiety disorder, unspecified; F42.9 Obsessive-compulsive disorder, unspecified; E28.2 Polycystic ovarian syndrome; R07.9 Chest pain, unspecified; R19.7 Diarrhea, unspecified; R10.84 Generalized abdominal pain
CPT/HCPCS: 36415; 71010-TC; 72126-TC; 74177-TC; 80048; 80053; 81003; 81015; 82550; 83605; 83735; 84100; 84484; 84703; 85025; 85610; 85651; 85730; 86140; 86850; 86900; 86901; 87040; 87086; 93005; 93010; 94010; 99283-25

== ENCOUNTER 2016-08-25 01:16 | Emergency (ER) | payer OTHER ==
--- NOTE | 2016-08-25 02:35 | PDOC ---
History of Present Illness - General Stated Complaint: CHEST PAIN Time Seen by Provider: 08/25/16 01:40 History Source: Patient Exam Limitations: No Limitations - History of Present Illness Initial Comments: CHIEF COMPLAINT: 31 y/o afebrile female with PMH anxiety and depression c/o chest pain this evening. HISTORY OF PRESENT ILLNESS: The patient states she restarted her paxil and wellbutrin after not having any for a few weeks. She took the maximum dose of both instead of gradually increasing and shortly after she began having chest pain. She states it feels like she's having an anxiety attack. She denies f/c , n/v/d, SOB, dizziness, abd pain. REVIEW OF SYSTEMS: GENERAL/CONSTITUTIONAL: No fever/chills. No weakness. No weight change. HEAD, EYES, EARS, NOSE AND THROAT: No change in vision. No ear pain or discharge. No sore throat. CARDIOVASCULAR: +chest pain. No shortness of breath. RESPIRATORY: No cough, wheezing, or hemoptysis. SKIN: No rash or easy bruising. NEUROLOGIC: No headache, vertigo, loss of consciousness, or loss of sensation. PHYSICAL EXAM: GENERAL: The patient is awake, alert, and fully oriented, in no acute distress. SHe is well appearing and ambulatory. HEAD: Normal with no signs of trauma. ENT: Pupils equal, round and reactive to light, extraocular movements intact, sclera anicteric, conjunctiva clear. Neck supple. LUNGS: Clear to auscultation bilaterally. Normal excursion. No respiratory distress or use of accessory muscles. CV: RRR, S1/S2, no MRG. Cap refill < 2 sec. CHEST WALL: No reproducible chest wall pain with palpation. ABDOMEN: Soft, non-distended, non-tender even to deep palpation, no hepatomegaly or splenomegaly, no masses. EXTREMITIES: Normal range of motion, no edema. NEUROLOGICAL: Normal speech, normal gait. CN II-XII grossly intact. PSYCH: Normal mood, normal affect. SKIN: Warm, dry, normal turgor, no rashes or lesions noted. Past History - Past Medical History Allergies/Adverse Reactions: Allergies Allergy/AdvReac Type Severity Reaction Status Date / Time ibuprofen [From Motrin] AdvReac Severe Verified 08/07/16 13:10 NSAIDS (Non-Steroidal AdvReac Severe Verified 08/07/16 13:10 Anti-Inflamma Home Medications: Ambulatory Orders Paroxetine HCl [Paxil] 40 mg PO HS 05/12/15 Bupropion HCl [Wellbutrin Xl -] 300 mg PO HS 07/07/15 Methadone [Dolophine -] 10 mg PO DAILY #4 tablet MDD 1 08/10/16 Anemia: No Asthma: No Cancer: No Cardiac Disorders: No CVA: No COPD: No CHF: No Dementia: No Diabetes: No GI Disorders: Yes (IBS) Disorders: Yes (POLYCYSTIC OVARIES) HTN: No Hypercholesterolemia: No Kidney Stones: Yes Liver Disease: No Psychiatric Problems: Yes (OCD, Depression, anxiety) Suicide Attempt (Hx): No Seizures: No Thyroid Disease: No - Surgical History Abdominal Surgery: Yes (clearing of scar tissue on uterus, bladder 10/11/13) - Family Disease History Family Disease History: Heart Disease: Father (htn) - Reproductive History Cervical CA: No Dysfunctional Uterine Bleeding: Yes Ectopic : No Polycystic Ovaries: Yes Tubal Ligation: No - Immunization History Td Vaccination: Yes Immunization Up to Date: Yes - Psycho/Social/Smoking Cessation Hx Anxiety: Yes Suicidal Ideation: No Smoking Status: No Smoking History: Never smoked Have you smoked in the past 12 months: No Number of Cigarettes Smoked Daily: 0 Cigars Per Day: 0 Hx Alcohol Use: No Drug/Substance Use Hx: Yes Substance Use Type: Cocaine, Heroin Hx Substance Use Treatment: No Cardiac Specific PMH - Complaint Specific PMHX Pacemaker: No *Physical Exam - Vital Signs Last Vital Signs Temp Pulse Resp BP Pulse Ox 98.6 F 100 H 22 111/89 99 08/25/16 04:59 08/25/16 04:59 08/25/16 04:59 08/25/16 04:59 08/25/16 04:59 Heart Score/ECG Review - ECG Intrepretation Comment:: Twelve-lead EKG was performed and reviewed by Dr. Wright. There is normal sinus rhythm with a normal rate. The axis is normal. The intervals are normal. There are no ST or T wave abnormalities. Impression: Normal twelve-lead EKG ED Treatment Course - Medications Given in the ED: ED Medications Discontinued Medications Generic Name Dose Route Start Last Admin Trade Name Freq PRN Reason Stop Dose Admin Alprazolam 0.25 mg 08/25/16 02:37 08/25/16 02:49 Xanax - PO 08/25/16 02:38 0.25 mg ONCE ONE Administration Medical Decision Making - Medical Decision Making A/P: 31 y/o afebrile female with chest pain s/p restarting wellbutrin and paxil. Plan is as follows: 1. EKG 2. PO xanax EKG normal The patient states she feels better. will d/c to home. Instructed her to return to the ER with any worsening or concerning symptoms. The patient verbalizes understanding of all instructions, has no further questions and is awaiting discharge. *DC/Admit/Observation/Transfer Diagnosis at time of Disposition: Anxiety attack - Discharge Dispostion Disposition: HOME Condition at time of disposition: Improved - Referrals Referrals: Kaela Mcdonald MD [Primary Care Provider] - - Patient Instructions Printed Discharge Instructions: Anxiety and Panic Attacks (Alternative Therapy) , DI for Anxiety -- Adult Additional Instructions: Discharge Instructions: -Return to the ER with any worsening or concerning symptoms
[2016-08-25] MEDS ORDERED: ALPRAZolam 0.25 MG TABLET PO ONE (02:37)
[2016-08-25] MEDS ORDERED: ALPRAZolam 0.25 MG TABLET ONE (02:45)
--- NOTE | 2016-08-25 04:19 | PDOC ---
ED Treatment Course - Medications Given in the ED: ED Medications Discontinued Medications Generic Name Dose Route Start Last Admin Trade Name Ana PRN Reason Stop Dose Admin Alprazolam 0.25 mg 08/25/16 02:37 08/25/16 02:49 Xanax - PO 08/25/16 02:38 0.25 mg ONCE ONE Administration Medical Decision Making - Medical Decision Making 08/25/16 04:19 agree with care from EDY Ayers *DC/Admit/Observation/Transfer Diagnosis at time of Disposition: Anxiety attack - Discharge Dispostion Condition at time of disposition: Improved - Referrals Referrals: Kaela Mcdonald MD [Primary Care Provider] - - Patient Instructions - Post Discharge Activity
[2016-08-25 05:02] VITALS: BP 111/89; PULSE 100; TEMP 98.6; BMI 36.6
--- NOTE | 2016-08-25 10:56 | EKG ---
Test Reason : Blood Pressure : / mmHG Vent. Rate : 095 BPM Atrial Rate : 095 BPM P-R Int : 134 ms QRS Dur : 092 ms QT Int : 374 ms P-R-T Axes : 015 066 006 degrees QTc Int : 469 ms NORMAL SINUS RHYTHM NORMAL ECG WHEN COMPARED WITH ECG OF 07-AUG-2016 14:34, NO SIGNIFICANT CHANGE WAS FOUND Confirmed by ADITI SANTAMARIA MD ([id number]) on 08/25/2016 10:56:00 AM Referred By: Confirmed By:ADITI SANTAMARIA MD
== END 2016-08-25 05:25 | disposition home or self-care (01) ==
LOC: JER 01:16
DX: F41.1 Generalized anxiety disorder (principal); K58.9 Irritable bowel syndrome, unspecified; E28.2 Polycystic ovarian syndrome; Z87.442 Personal history of urinary calculi; F32.9 Major depressive disorder, single episode, unspecified
CPT/HCPCS: 93005; 93010; 99281-25

== ENCOUNTER 2016-09-15 08:19 | Emergency (ER) | payer OTHER ==
[2016-09-15 08:26] VITALS: BP 106/75; PULSE 106; TEMP 97.9; BMI 33.0
--- NOTE | 2016-09-15 09:30 | PDOC ---
History of Present Illness - General Chief Complaint: Lightheaded Stated Complaint: DIZZINESS Time Seen by Provider: 09/15/16 09:28 - History of Present Illness Initial Comments: 09/15/16 09:31 The pt left the hospital. I haven't seen her. Past History - Past Medical History Allergies/Adverse Reactions: Allergies Allergy/AdvReac Type Severity Reaction Status Date / Time ibuprofen [From Motrin] AdvReac Severe Verified 09/15/16 08:22 NSAIDS (Non-Steroidal AdvReac Severe Verified 09/15/16 08:22 Anti-Inflamma Home Medications: Ambulatory Orders Paroxetine HCl [Paxil] 40 mg PO HS 05/12/15 Bupropion HCl [Wellbutrin Xl -] 300 mg PO HS 07/07/15 Methadone [Dolophine -] 10 mg PO DAILY #4 tablet MDD 1 08/10/16 Anemia: No Asthma: No Cancer: No Cardiac Disorders: No CVA: No COPD: No CHF: No Dementia: No Diabetes: No GI Disorders: Yes (IBS) Disorders: Yes (POLYCYSTIC OVARIES) HTN: No Hypercholesterolemia: No Kidney Stones: Yes Liver Disease: No Psychiatric Problems: Yes (OCD, Depression, anxiety) Suicide Attempt (Hx): No Seizures: No Thyroid Disease: No Other medical history: iv drug abuse herion, sniff coccain - Surgical History Abdominal Surgery: Yes (clearing of scar tissue on uterus, bladder 10/11/13) - Family Disease History Family Disease History: Heart Disease: Father (htn) - Reproductive History Cervical CA: No Dysfunctional Uterine Bleeding: Yes Ectopic : No Polycystic Ovaries: Yes Tubal Ligation: No - Immunization History Td Vaccination: Yes Immunization Up to Date: Yes - Psycho/Social/Smoking Cessation Hx Anxiety: Yes Suicidal Ideation: No Smoking Status: No Smoking History: Never smoked Have you smoked in the past 12 months: No Number of Cigarettes Smoked Daily: 0 Cigars Per Day: 0 Information on smoking cessation initiated: No Hx Alcohol Use: No Drug/Substance Use Hx: Yes (herion,coccain) Substance Use Type: Cocaine, Heroin Hx Substance Use Treatment: No *Physical Exam - Vital Signs Last Vital Signs Temp Pulse Resp BP Pulse Ox 97.9 F 106 H 18 106/75 99 09/15/16 08:24 09/15/16 08:24 09/15/16 08:24 09/15/16 08:24 09/15/16 08:24 *DC/Admit/Observation/Transfer Diagnosis at time of Disposition: Dizziness - Discharge Dispostion Disposition: LEFT BEFORE MED ERX STRONG Admit: No - Referrals Referrals: Kaela Mcdonald MD [Primary Care Provider] -
== END 2016-09-15 09:35 | disposition left against medical advice (07) ==
LOC: JER 08:19
DX: Z53.21 Procedure and treatment not carried out due to patient leaving prior to being seen by health care provider (principal); Z87.442 Personal history of urinary calculi; K58.9 Irritable bowel syndrome, unspecified; F42.9 Obsessive-compulsive disorder, unspecified; F32.9 Major depressive disorder, single episode, unspecified
CPT/HCPCS: 99281-25

== ENCOUNTER 2016-09-19 11:00 | Emergency (ER) | payer OTHER ==
--- NOTE | 2016-09-19 11:08 | PDOC ---
History of Present Illness - General Chief Complaint: Pain Stated Complaint: SWELLING TO RT ARM Time Seen by Provider: 09/19/16 11:07 - History of Present Illness Initial Comments: 09/19/16 11:16 The pt is a 31 year olfd female with a PMH of IV heroin abuse, recurrent abscesses who presents to ED complaining of painful abscess in RUE for 2 days. It is located in the flexure of right arm and is not draining fluid, pain is 7/ 10 in severity. She noticed that after missing injection. She recently had abscess on her right wrist that was treated with antibiotics. She denies foreign body, fever, chills. She denies weakness, numbness, paresthesia. She denies abdominal pain, N/V, diarrhea, constipation. She denies dysuria, increased frequency. Past History - Past Medical History Allergies/Adverse Reactions: Allergies Allergy/AdvReac Type Severity Reaction Status Date / Time ibuprofen [From Motrin] AdvReac Severe Verified 09/15/16 08:22 NSAIDS (Non-Steroidal AdvReac Severe Verified 09/15/16 08:22 Anti-Inflamma Home Medications: Ambulatory Orders Paroxetine HCl [Paxil] 40 mg PO HS 05/12/15 Bupropion HCl [Wellbutrin Xl -] 300 mg PO HS 07/07/15 Methadone [Dolophine -] 10 mg PO DAILY #4 tablet MDD 1 08/10/16 Clindamycin [Cleocin -] 300 mg PO Q6HPO #28 capsule 09/19/16 Anemia: No Asthma: No Cancer: No Cardiac Disorders: No CVA: No COPD: No CHF: No Dementia: No Diabetes: No GI Disorders: Yes (IBS) Disorders: Yes (POLYCYSTIC OVARIES) HTN: No Hypercholesterolemia: No Kidney Stones: Yes Liver Disease: No Psychiatric Problems: Yes (OCD, Depression, anxiety) Suicide Attempt (Hx): No Seizures: No Thyroid Disease: No - Surgical History Abdominal Surgery: Yes (clearing of scar tissue on uterus, bladder 10/11/13) - Family Disease History Family Disease History: Heart Disease: Father (htn) - Reproductive History Cervical CA: No Dysfunctional Uterine Bleeding: Yes Ectopic : No Polycystic Ovaries: Yes Tubal Ligation: No - Immunization History Td Vaccination: Yes Immunization Up to Date: Yes - Psycho/Social/Smoking Cessation Hx Anxiety: Yes Suicidal Ideation: No Smoking Status: No Smoking History: Never smoked Have you smoked in the past 12 months: No Number of Cigarettes Smoked Daily: 0 Cigars Per Day: 0 Hx Alcohol Use: No Drug/Substance Use Hx: Yes (herion,coccain) Substance Use Type: Cocaine, Heroin Hx Substance Use Treatment: No Review of Systems - Review of Systems Comments:: 09/19/16 11:30 REVIEW OF SYSTEMS CONSTITUTIONAL: Absent: fever, chills, diaphoresis, generalized weakness, malaise, loss of appetite, weight change HEENT: Absent: rhinorrhea, nasal congestion, throat pain, throat swelling, difficulty swallowing, mouth swelling, ear pain, eye pain, visual changes CARDIOVASCULAR: Absent: chest pain, syncope, palpitations, irregular heart rate, lightheadedness , peripheral edema RESPIRATORY: Absent: cough, shortness of breath, dyspnea with exertion, orthopnea, wheezing, stridor, hemoptysis GASTROINTESTINAL: Absent: abdominal pain, abdominal distension, nausea, vomiting, diarrhea, constipation, melena, hematochezia GENITOURINARY: Absent: dysuria, frequency, urgency, hesitancy, hematuria, flank pain, genital pain MUSCULOSKELETAL: abscess in right antecubital area Absent: myalgia, arthralgia, joint swelling, back pain, neck pain SKIN: Absent: rash, itching, pallor HEMATOLOGIC/IMMUNOLOGIC: Absent: easy bleeding, easy bruising, lymphadenopathy, frequent infections ENDOCRINE: Absent: unexplained weight gain, unexplained weight loss, heat intolerance, cold intolerance NEUROLOGIC: Absent: headache, focal weakness or paresthesias, dizziness, unsteady gait, seizure, mental status changes, bladder or bowel incontinence PSYCHIATRIC: Absent: anxiety, depression, suicidal or homicidal ideation, hallucinations *Physical Exam - Physical Exam Comments: 09/19/16 11:39 GENERAL: The patient is awake, alert, and fully oriented, in no acute distress. HEAD: Normal with no signs of trauma. EYES: PERRL, extraocular movements intact, sclera anicteric, conjunctiva clear. No ptosis. ENT: Ears normal, nares patent, oropharynx clear without exudates, moist mucous membranes. NECK: Trachea midline, full range of motion, supple. LUNGS: Breath sounds equal, clear to auscultation bilaterally, no wheezes, no crackles, no accessory muscle use. HEART: Regular rate and rhythm, S1, S2 without murmur, rub or gallop. ABDOMEN: Soft, nontender, nondistended, normoactive bowel sounds, no guarding, no rebound, no hepatosplenomegaly, no masses. EXTREMITIES: 2+ pulses, warm, well-perfused, no edema., nl pulse in UE B/L, 3 sm abscess in right antecubital area, not draining, no foreign body visible. NEUROLOGICAL: Cranial nerves II through XII grossly intact. Normal speech, gait not observed. PSYCH: Normal mood, normal affect. SKIN: Warm, dry, normal turgor, no rashes or lesions noted Medical Decision Making - Medical Decision Making 09/19/16 11:40 We will obtain US of right UE. The pt doesn't want to stay in the hospital. We will give Clindamycin and Ceftriaxone IM ONCE. 09/19/16 12:18 No official report *DC/Admit/Observation/Transfer Diagnosis at time of Disposition: Abscess - Discharge Dispostion Condition at time of disposition: Stable - Prescriptions Prescriptions: Clindamycin [Cleocin -] 300 mg PO Q6HPO #28 capsule - Referrals Referrals: Kaela Mcdonald MD [Primary Care Provider] - - Patient Instructions Additional Instructions: You are leaving the hospital AGAINST MEDICAL ADVICE. Leaving the hospital AGAINST MEDICAL ADVICE is dangerous and could result in permanent disability including loss of your right arm, and even . Return to the emergency department immediately with ANY new, persistent or worsening symptoms. You MUST call and follow up with your doctor tomorrow. Please make sure your doctor reviews the results of your emergency department evaluation.
[2016-09-19 11:19] VITALS: BP 117/73; PULSE 72; TEMP 98.1; BMI 33.0
[2016-09-19] MEDS ORDERED: CLINDAMYCIN IVPB 900 MG in DEXTROSE 5%-WATER - 50 ML IVPB ONE (11:26)
--- NOTE | 2016-09-19 11:30 | PDOC ---
Attending Attestation - Resident Resident Name: Fanta Adams - ED Attending Attestation I have performed the following: I have examined & evaluated the patient, The case was reviewed & discussed with the resident, I agree w/resident's findings & plan, Exceptions are as noted - HPI HPI: 09/19/16 11:27 The patient is a 31-year-old female, immunocompetent, with a significant past medical history of intradermal heroin use, who presents to the emergency department with an area of swelling in her right upper extremity, that has developed over the past 2 days. It is mildly tender. It is mildly warm. There is no overlying erythema. There is no discharge. She states that she is "100% sure" that there is not a foreign body, specifically a needle, in the area. She denies distal weakness or paresthesias. - Physicial Exam PE: 09/19/16 11:28 She is well-appearing and in no acute distress There is a 3 x 3 cm area of induration at the lateral border of her right antecubital fossa The area is mildly tender It is mildly warm There is no overlying erythema There is a small vesicle overlying the area, at the site of the injection There is no purulence There is no light touch, temperature or motor deficit in the distribution of the radial, median and ulnar nerves - Medical Decision Making 09/19/16 11:29 The patient is well-appearing and in no acute distress There appears to be an early abscess in her lateral antecubital fossa, without neurovascular compromise I recommended IV antibiotics and a brief admission to the patient, explaining the need for caution given the involvement of the antecubital fossa and the possibility of neurovascular compromise She understood I asked her all of her questions She refused labs, observation, admission Will attempt IV access and provide one dose of IV clindamycin This will cover olman for purulent as well as nonpurulent cellulitis, including community acquired MRSA Will obtain ultrasound, to which she has agreed 09/19/16 12:17 The patient has returned from ultrasound, and is expressing the desire to leave the hospital AGAINST MEDICAL ADVICE She does not want to wait for the official ultrasound report Unofficial ultrasound reading is that there is an abscess in the antecubital fossa, with some impingement on the brachial artery Antibiotics have been infused I counseled her regarding the danger of leaving the hospital AGAINST MEDICAL ADVICE She understands that leaving hospital AGAINST MEDICAL ADVICE is extremely dangerous, and could result in permanent disability, including the loss of function of her arm, severe infection, and even She states that she needs to provide critical care to her grandfather, and plans to leave AGAINST MEDICAL ADVICE, and then return later this evening She promised me that she would do so, returning prior to 8 PM. It is clear to me that she understood that leaving AGAINST MEDICAL ADVICE exposed her to significant risk I answered all of her questions and explained things using lay terminology She clearly has the capacity to make her own decisions, and does not appear intoxicated Clinical impression: Antecubital fossa abscess Possible vascular compromise Will send with prescription for clindamycin, and she understands the necessity of taking it at 6 PM, if she does not return to the hospital before that time Discharge Disposition - Diagnosis Abscess, Left against medical advice - Discharge Dispostion Disposition: AGAINST MEDICAL ADVICE Condition at time of disposition: Stable Last Admission D/C Date: 08/10/16 - Prescriptions Prescriptions: Clindamycin [Cleocin -] 300 mg PO Q6HPO #28 capsule - Referrals Referrals: Kaela Mcdonald MD [Primary Care Provider] - - Patient Instructions Additional Instructions: You are leaving the hospital AGAINST MEDICAL ADVICE. Leaving the hospital AGAINST MEDICAL ADVICE is dangerous and could result in permanent disability including loss of your right arm, severe infection and even . You promised that he would return to the hospital today, prior to 8 PM. It is absolutely essential that you do this, returning as soon as possible. You need further treatment.
[2016-09-19] MEDS ORDERED: CLINDAMYCIN PHOSPHATE 600 MG/4 ML VIAL ONE (11:32)
[2016-09-19] MEDS ORDERED: CLINDAMYCIN PHOSPHATE 300 MG/2 ML VIAL ONE (11:32)
== END 2016-09-19 12:30 | disposition left against medical advice (07) ==
LOC: FER 11:00
DX: Z53.21 Procedure and treatment not carried out due to patient leaving prior to being seen by health care provider (principal); Z87.442 Personal history of urinary calculi; F42.9 Obsessive-compulsive disorder, unspecified; F41.8 Other specified anxiety disorders; F19.90 Other psychoactive substance use, unspecified, uncomplicated
CPT/HCPCS: 76882; 96365; 99283-25

== ENCOUNTER 2016-09-19 20:40 | Inpatient (IN) | payer OTHER ==
[2016-09-19 21:29] LABS: BASOPHIL 0.5 % (0-2.0); EOSINOPHIL 0.4 % (0-4.5); MCH 23.8 pg (25.7-33.7); MCHC 32.5 g/dl (32.0-36.0); MEAN CELL VOLUME 73.1 fl (80-96); MEAN PLT VOLUME 7.9 fl (7.5-11.1); NEUTROPHILS 71.1 % (42.8-82.8); PLATELET COUNT 231 K/MM3 (134-434); RDW 16.1 % (11.6-15.6)
[2016-09-19 21:44] LABS: INR 1.23 (0.82-1.09); PROTHROMBIN TIME (PATIENT) 13.6 SEC (9.98-11.88)
[2016-09-19 21:46] LABS: ACTIVATED PTT 37.3 SECONDS (26.9-34.4)
[2016-09-19 21:54] LABS: ALBUMIN 3.7 g/dl (3.4-5.0); ANION GAP 9 (8-16); CALCIUM 8.6 mg/dL (8.5-10.1); CO2 26 mmol/L (21-32); CREATININE 0.8 mg/dL (0.55-1.02); GLUCOSE,RANDOM 78 mg/dL (74-106); SGPT/ALT 24 U/L (12-78)
[2016-09-19 21:55] LABS: ALK PHOS 85 U/L (45-117); BILIRUBIN,TOTAL 0.6 mg/dL (0.2-1.0); TOT PROT 7.7 g/dl (6.4-8.2)
--- NOTE | 2016-09-19 21:55 | PDOC ---
History of Present Illness - History of Present Illness Initial Comments: 09/19/16 22:08 The patient is a 31 year old female with history significant for IVDA who returns to the ED for pain and swelling near her right elbow. She was seen at [place] ED earlier today. Her workup today included an US of her RUE which demonstrated a 1.0 cm fluid collection. She was told she should be admitted and seen by surgery, but signed out AMA at the time, stating she needed to care for her grandfather. She was advised to return to the ED for admission, and now presents to the ED. She states she injected heroin when she got home prior to this ED visit. The patient denies fever or chills. PCP: Dr. Kaela Mcdonald <Jessica Loaiza - Last Filed: 09/19/16 22:19> - General History Source: Patient Exam Limitations: No Limitations <Nic Orr - Last Filed: 09/19/16 22:26> - General Chief Complaint: Abscess Boil Stated Complaint: ABSCESS ON ARM Time Seen by Provider: 09/19/16 20:58 Past History <Jessica Loaiza - Last Filed: 09/19/16 22:19> - Past Medical History Anemia: No Asthma: No Cancer: No Cardiac Disorders: No CVA: No COPD: No CHF: No Dementia: No Diabetes: No GI Disorders: Yes (IBS) Disorders: Yes (POLYCYSTIC OVARIES) HTN: No Hypercholesterolemia: No Kidney Stones: Yes Liver Disease: No Psychiatric Problems: Yes (OCD, Depression, anxiety) Suicide Attempt (Hx): No Seizures: No Thyroid Disease: No - Surgical History Abdominal Surgery: Yes (clearing of scar tissue on uterus, bladder 10/11/13) - Family Disease History Family Disease History: Heart Disease: Father (htn) - Reproductive History Cervical CA: No Dysfunctional Uterine Bleeding: Yes Ectopic : No Polycystic Ovaries: Yes Tubal Ligation: No - Immunization History Td Vaccination: Yes Immunization Up to Date: Yes - Psycho/Social/Smoking Cessation Hx Anxiety: Yes Suicidal Ideation: No Smoking Status: No Smoking History: Never smoked Have you smoked in the past 12 months: No Number of Cigarettes Smoked Daily: 0 Cigars Per Day: 0 Hx Alcohol Use: No Drug/Substance Use Hx: Yes (herion,coccain) Substance Use Type: Cocaine, Heroin Hx Substance Use Treatment: No <Nic Orr - Last Filed: 09/19/16 22:26> - Past Medical History Allergies/Adverse Reactions: Allergies Allergy/AdvReac Type Severity Reaction Status Date / Time ibuprofen [From Motrin] AdvReac Severe Verified 09/19/16 20:46 NSAIDS (Non-Steroidal AdvReac Severe Verified 09/19/16 20:46 Anti-Inflamma Home Medications: Ambulatory Orders Paroxetine HCl [Paxil] 40 mg PO HS 05/12/15 Bupropion HCl [Wellbutrin Xl -] 300 mg PO HS 07/07/15 Methadone [Dolophine -] 10 mg PO DAILY #4 tablet MDD 1 08/10/16 Clindamycin [Cleocin -] 300 mg PO Q6HPO #28 capsule 09/19/16 Review of Systems - Review of Systems Able to Perform ROS?: Yes Comments:: 09/19/16 22:12 GENERAL/CONSTITUTIONAL: No fever or chills. No weakness. HEAD, EYES, EARS, NOSE AND THROAT: No change in vision. No ear pain or discharge. No sore throat CARDIOVASCULAR: No chest pain or shortness of breath. RESPIRATORY: No cough, wheezing, or hemoptysis. GASTROINTESTINAL: No nausea, vomiting, diarrhea or constipation. GENITOURINARY: No dysuria, frequency, or change in urination. MUSCULOSKELETAL: No joint or muscle swelling or pain. No neck or back pain. SKIN: R elbow pain and swelling. No rash NEUROLOGIC: No headache, vertigo, loss of consciousness, or change in strength/ sensation. ENDOCRINE: No increased thirst. No abnormal weight change. HEMATOLOGIC/LYMPHATIC: No anemia, easy bleeding, or history of blood clots. ALLERGIC/IMMUNOLOGIC: No hives or skin allergy. <Jessica Loaiza - Last Filed: 09/19/16 22:19> *Physical Exam - Vital Signs Last Vital Signs Temp Pulse Resp BP Pulse Ox 98.6 F 69 18 100/70 99 09/19/16 20:42 09/19/16 20:42 09/19/16 20:42 09/19/16 20:42 09/19/16 20:42 - Physical Exam Comments: 09/19/16 22:12 GENERAL: Awake, alert, and fully oriented, in no acute distress HEAD: No signs of trauma EYES: PERRLA, EOMI, sclera anicteric, conjunctiva clear ENT: Auricles normal inspection, hearing grossly normal, nares patent, oropharynx clear without exudates. Moist mucosa NECK: Normal ROM, supple, no lymphadenopathy, JVD, or masses LUNGS: Breath sounds equal, clear to auscultation bilaterally. No wheezes, and no crackles HEART: Regular rate and rhythm, normal S1 and S2, no murmurs, rubs or gallops ABDOMEN: Soft, nontender, normoactive bowel sounds. No guarding, no rebound. No masses EXTREMITIES: RUE: 3cm x 3cm area of induration and fluctuance to the antecubital fossa. Normal range of motion. All other extremities: Normal range of motion, no edema. No clubbing or cyanosis. No cords, erythema, or tenderness NEUROLOGICAL: Cranial nerves II through XII grossly intact. Normal speech, normal gait SKIN: Warm, Dry, normal turgor, no rashes or lesions noted. <Jessica Loaiza - Last Filed: 09/19/16 22:19> - Vital Signs Last Vital Signs Temp Pulse Resp BP Pulse Ox 98.6 F 69 18 100/70 99 09/19/16 20:42 09/19/16 20:42 09/19/16 20:42 09/19/16 20:42 09/19/16 20:42 <Nic Orr - Last Filed: 09/19/16 22:26> Heart Score/ECG Review #1 ECG reviewed & interpreted by me at: 22:00 09/19/16 22:25 NSR 72, no std/perlita, TWI III, normal axis, normal intervals, QTC 442 msec <Nic Orr - Last Filed: 09/19/16 22:26> ED Treatment Course - LABORATORY CBC & Chemistry Diagram: 09/19/16 21:00 09/19/16 21:00 - ADDITIONAL ORDERS Additional order review: Laboratory Results 09/19/16 09/19/16 09/19/16 21:00 21:00 21:00 INR 1.23 H PTT (Actin FS) 37.3 H Sodium 137 Potassium 4.8 D Chloride 102 Carbon Dioxide 26 Anion Gap 9 BUN 14 D Creatinine 0.8 Creat Clearance w eGFR > 60 Random Glucose 78 Calcium 8.6 Total Bilirubin 0.6 D AST 35 D ALT 24 Alkaline Phosphatase 85 Total Protein 7.7 Albumin 3.7 Serum , Qual Negative 09/19/16 21:00 RBC 4.41 MCV 73.1 L MCHC 32.5 RDW 16.1 H D MPV 7.9 Neutrophils % 71.1 D Lymphocytes % 21.9 D Monocytes % 6.1 Eosinophils % 0.4 Basophils % 0.5 <Jessica Loaiza - Last Filed: 09/19/16 22:19> - LABORATORY CBC & Chemistry Diagram: 09/19/16 21:00 09/19/16 21:00 - ADDITIONAL ORDERS Additional order review: Laboratory Results 09/19/16 09/19/16 21:00 21:00 INR 1.23 H PTT (Actin FS) 37.3 H Serum , Qual Negative 09/19/16 21:00 RBC 4.41 MCV 73.1 L MCHC 32.5 RDW 16.1 H D MPV 7.9 Neutrophils % 71.1 D Lymphocytes % 21.9 D Monocytes % 6.1 Eosinophils % 0.4 Basophils % 0.5 <Nic Orr - Last Filed: 09/19/16 22:26> Medical Decision Making - Medical Decision Making 09/19/16 22:[address] Us, who currently admits for patient's PCP, Harry Zazueta, at [phone]. 09/19/16 22:[address] Us, who agreed to admission. <Jessica Loaiza - Last Filed: 09/19/16 22:19> - Medical Decision Making 09/19/16 21:53 A portion of this note was documented by scribe services under my direction. I have reviewed the details of the note, within reason, and agree with the documentation with the following case summary and management plan written by me. Patient treated in the ED. Nursing notes are reviewed and incorporated into the medical decision-making. Vital signs reviewed. Peripheral IV access obtained by the nurse, laboratory studies are drawn and sent, reviewed and interpreted by myself. Vital Signs Temp Pulse Resp BP Pulse Ox 98.6 F 69 18 100/70 99 09/19/16 20:42 09/19/16 20:42 09/19/16 20:42 09/19/16 20:42 09/19/16 20:42 31 year old pmh IVDA returns for abscess/necrosis/lymph node on R elbow. Pt was initially at [place] earlier today for this increasing size "bump" in her upper right extremity. She had an ultrasound done which demosntrated a 1.0 cm fluid collection which may represent an abscess versus a necrotic or liquefactive lymph node. Pt was recommended admission and I&D by surgery but the patient AMA'd to "help her grandfather." Pt promised to return to [facility] when she was done. However, pt admits to me that she had injected heroin when she got home and then came into the ED. Denies fevers. Pt is noted to have a 3x3 cm induration and fluctuance at right antecubital fossa. Adult sepsis protocol initiated. IV vanc and zosyn initiated. Will admit patient to the hospital. 09/19/16 22:26 CBC, BMP 09/19/16 21:00 09/19/16 21:00 CMP Sodium 137 mmol/L (136-145) 09/19/16 21:00 Potassium 4.8 mmol/L (3.5-5.1) D 09/19/16 21:00 Chloride 102 mmol/L (98-107) 09/19/16 21:00 Carbon Dioxide 26 mmol/L (21-32) 09/19/16 21:00 Anion Gap 9 (8-16) 09/19/16 21:00 BUN 14 mg/dL (7-18) D 09/19/16 21:00 Creatinine 0.8 mg/dL (0.55-1.02) 09/19/16 21:00 Creat Clearance w eGFR > 60 (>60) 09/19/16 21:00 Random Glucose 78 mg/dL (74-106) 09/19/16 21:00 Lactic Acid 0.926 mmol/L (0.4-2.0) 09/19/16 21:20 Calcium 8.6 mg/dL (8.5-10.1) 09/19/16 21:00 Total Bilirubin 0.6 mg/dL (0.2-1.0) D 09/19/16 21:00 AST 35 U/L (15-37) D 09/19/16 21:00 ALT 24 U/L (12-78) 09/19/16 21:00 Alkaline Phosphatase 85 U/L (45-117) 09/19/16 21:00 Total Protein 7.7 g/dl (6.4-8.2) 09/19/16 21:00 Albumin 3.7 g/dl (3.4-5.0) 09/19/16 21:00 Serum , Qual Negative 09/19/16 21:[address] Us. He accepts the patient for med/surg admission. <Nci Orr - Last Filed: 09/19/16 22:26> *DC/Admit/Observation/Transfer - Attestations Scribe Attestion: 09/19/16 22:14 Documentation prepared by Jessica Loaiza, acting as biomedical equipment support specialist for Nic Orr MD. <Jessica Loaiza - Last Filed: 09/19/16 22:19> - Discharge Dispostion Admit: Yes <Nic Orr - Last Filed: 09/19/16 22:26> Diagnosis at time of Disposition: Intravenous drug abuse, Abscess - Discharge Dispostion Condition at time of disposition: Stable - Referrals Referrals: Kaela Mcdonald MD [Primary Care Provider] -
[2016-09-19 21:57] LABS: SGOT/AST 35 U/L (15-37)
[2016-09-19] MEDS ORDERED: VANCOMYCIN 1,000 MG in DEXTROSE 5%-WATER - 250 ML IVPB ONE (22:16)
[2016-09-19] MEDS ORDERED: PIPERACILLIN/TAZOB 3.375 GM/50 ML PRE-DOCKED IVPB ONE (22:17)
[2016-09-20 04:22] VITALS: BMI 31.9
[2016-09-20] MEDS ORDERED: PIPERACILLIN/TAZOB 3.375 GM/50 ML PRE-DOCKED IVPB ONE (06:00)
--- NOTE | 2016-09-20 11:07 | PN ---
[id number] a right, mid arm swelling, redness and tenderness. She has a h/o of IVDA. She left AMA and returned to [facility] ER. Currently she states that her arm swelling and redness have improved. The patient has received IV abx. Vital Signs Period Temp Pulse Resp BP Sys/Reece Pulse Ox Last 24 Hr 98.4 F-98.8 F 60-86 18-20 96-105/52-70 96-99 PE: RUE: 4x4cm area of induration palpabled to the medial aspect of her right anticubitus. No fluctuance palpated, mild tenderness. Small enterance area( break in the skin) noted in middle aspect of induration. No drainage. RUE ultrasound: 1 cm fluid collection/soft tissue edema. CBC, BMP 09/19/16 21:00 09/19/16 21:00 Microbiology Laboratory Tests 09/19/16 09/19/16 21:00 21:00 WBC 6.0 D Serum , Qual Negative A/P: 31 yo female with RUE induration/small collection/erythema No palpable collection clinically to drain Recommend to continue IV abx treatment Warm compress ordered to the area Spoke with Dr. Mann and agrees with the current treatment, surgery will continue to follow the patient and monitor for continued improvement <Belkis Quintero - Last Filed: 09/20/16 11:08> - Note Progress Note: Agree Right antecubital cellulitis and small abscess from IVDA Improving with antibiotics Upper extremity elevation Continue antibiotics Warm compresses No drainage needed at this time <Raúl Mann - Last Filed: 09/20/16 21:26>
--- NOTE | 2016-09-20 11:48 | PN ---
Progress Note (short form) - Note Progress Note: ID consult dictated asked to see patient by Dr Us imp/reccd 31 year old female with history of active IVDU- does not share needles-, anxiety disorder followed by Dr Mcdonald, and by psychiatrist admitted with swelling right antecubital fossa- originally seen at [facility] ED and left AMA returned for admission no fevers no chills reports improvement since starting iv antibiotics declines HIV testing not sexually active currently not interested in detox/rehab declines hiv testing at this time r/o bacteremia small abscess secondary to IVDU-small fluid collection seen on US continue zosyn/vanco f/u cultures surgical f/u
[2016-09-20] MEDS: PIPERACILLIN/TAZOB 3.375 GM/50 ML PRE-DOCKED IVPB SCH ×2 (12:05→18:33)
[2016-09-20] MEDS: VANCOMYCIN 1,250 MG in DEXTROSE 5%-WATER - 250 ML IVPB SCH ×2 (12:59→23:51)
[2016-09-20] MEDS ORDERED: METHADONE HCL 5 MG TABLET PO SCH (20:12)
[2016-09-20] MEDS ORDERED: METHADONE HCL 5 MG TABLET PO ONE (21:45)
[2016-09-20] MEDS ORDERED: PARoxetine HCL 20 MG TABLET (FP) PO SCH (22:00)
[2016-09-21] MEDS: PIPERACILLIN/TAZOB 3.375 GM/50 ML PRE-DOCKED IVPB SCH (02:49)
[2016-09-21 03:45] VITALS: BP 108/62; PULSE 82; TEMP 98.6
--- NOTE | 2016-09-21 15:53 | CONS ---
INFECTIOUS DISEASE CONSULTATION DATE OF CONSULTATION: DATE OF DICTATION: 09/21/2016 REQUESTED BY: Milad Us MD DICTATED BY: Aurora Shah MD HISTORY OF PRESENT ILLNESS: This is a 31-year-old woman with a history of active substance use. She actually presented yesterday morning to [facility]. She has a history of anxiety. She has a history of heroine use. She presented with an area of swelling on her right upper extremity that she had noted over the course of the last 1-2 days. There were no fevers or chills. There was no drainage. She had an ultrasound of the area done, left AMA. She then returned to [facility] Emergency Room with some complaints. She had had an ultrasound at [facility] that showed a 1-cm fluid collection. She was seen in the ER at [facility] and was admitted for further evaluation. She was started on vancomycin and Zosyn. She reports the arm is much improved. There is no history of any fevers or chills. She uses clean needles. She does not share. She was HIV tested last year in the fall, does not wish to repeat HIV testing. Is not sexually active. She has been using for about 8 months and has no interest in detox or rehab at this time. She is followed by Dr. Timmons as an outpatient. She also has a psychiatrist. PAST MEDICAL HISTORY: Notable for IBS polycystic ovaries. She has a history of nephrolithiasis, depression, anxiety and obsessive compulsive disorder. SURGICAL HISTORY: Notable for some gynecologic surgery in 2013. FAMILY HISTORY: Notable for heart disease. ALLERGIES: Her allergies are to NONSTEROIDALS. OUTPATIENT MEDICATIONS: She takes Paxil, Wellbutrin as an outpatient. SOCIAL HISTORY: She says she lives with her family. There is no history of any cigarette use. She is an active heroine and cocaine user, which she has been using for the last 8 months. REVIEW OF SYSTEMS: There are no fevers or chills. She has no change in her vision. She has no cough or shortness of breath. There is no nausea, vomiting, diarrhea or dysuria. PHYSICAL EXAM: Vital signs: She is afebrile. Temperature is 98.4, pulse of 82, blood pressure 105/52. Respiratory rate is 20. O2 saturation is 96%. HEENT exam: She is normocephalic. Her eyes are anicteric. She has no conjunctival hemorrhages. Her neck is supple. Lungs: Clear to auscultation. Heart Regular rate and rhythm. Abdomen: Soft, nontender. Extremities: Without edema. She has on her arms and legs evidence of pick drummond, which are due to her obsessive compulsive disorder that she picks on her arms and legs. She has a small area of erythema and induration in the right antecubital fossa. There is no fluctuance. It is mildly tender. There is no drainage. LABS: Notable for a white count of 6000. Blood cultures are sent and are pending. Sonogram findings as previously stated. SUMMARY: In summary, this is a 31-year-old woman, active substance user, active injection drug user, currently not interested in detox, currently declining HIV testing. She has a small abscess secondary to IV drug use. PLAN: 1. Would continue vancomycin, Zosyn. 2. Follow up her cultures with surgical followup. Of course, the concern is possible bacteremia. Given her lack of fever, chills, or systemic symptoms, this is less likely, but still needs to be considered, so her cultures will be followed up. AURORA SHAH M.D. [id number] MTDD
--- NOTE | 2016-09-21 19:54 | HP ---
DATE OF ADMISSION: DATE OF DICTATION: 09/20/2016 HISTORY OF PRESENT ILLNESS: She is a 31-year-old female who presented to the emergency room complaining of pain, redness, swelling, tenderness in her left elbow of a few days' duration. Patient is an intravenous drug abuser and had previous abscesses and bacteremia. She developed one of these and had gone to the emergency room a few days ago, and was told that it had to be drained. As patient had other business that had to be taken care of, she signed out AMA and presented again to the emergency room with the above symptoms. She denies any high fever or chills. Other past medical history is significant for opioid addiction and depression. MEDICATION: Her present medications, Wellbutrin 300 mg p.o. daily and Paxil 40 mg p.o. daily. ALLERGIES: None. SOCIAL HISTORY: She is single. She has no children. She is nonsmoker. She denies any excessive alcohol use. Patient takes about 1-2 bags of heroin intravenously daily and last shot this morning. If she does not take heroin in a day, she would have withdrawal. FAMILY HISTORY: Significant for 2 siblings. There is no diabetes. REVIEW OF SYSTEMS: Unremarkable. She has generally been in good health. She denies any chronic headache, dizziness, chest pain, palpitation, abdominal pain, loss of weight, loss of appetite. PHYSICAL EXAMINATION: Vital signs: She has blood pressure of 130/80, pulse rate of 80, respiratory rate 12, temperature 98.4. General: She is not pale. Neck: JVD is absent. Parotid and carotids appear normal. Heart: Regular rhythm. No murmurs. Lungs: Clear breathing. Abdomen: Benign. Extremities: No edema. The left cubital fossa has some area measuring about 4 cm in diameter that is warm, red, and tender. It is not fluctuant. Compatible with early abscess formation with cellulitis. ASSESSMENT AND PLAN: Cellulitis versus early abscess on an intravenous drug abuse. Will admit, shall place her on vancomycin and Zosyn, and p.r.n. pain management. opioid addiction. Methadone 15 mg have been prescribed. I counseled the patient depression, continue present medications. CURTIS ESCAMILLA M.D. [id number]
--- NOTE | 2016-09-22 21:40 | EKG ---
Test Reason : Blood Pressure : / mmHG Vent. Rate : 072 BPM Atrial Rate : 072 BPM P-R Int : 146 ms QRS Dur : 088 ms QT Int : 404 ms P-R-T Axes : 005 080 007 degrees QTc Int : 442 ms NORMAL SINUS RHYTHM NORMAL ECG WHEN COMPARED WITH ECG OF 25-AUG-2016 01:31, NO SIGNIFICANT CHANGE WAS FOUND Confirmed by ADBIEL GARCES MD ([id number]) on 09/22/2016 9:39:54 PM Referred By: Confirmed By:ABDIEL GARCES MD
== END 2016-09-21 03:20 | disposition left against medical advice (07) | DRG 383 ==
LOC: JER 20:40 → JERBED 22:27 → UNDOADMIN 22:36 → JERBED 22:36 → J5S 23:23
PROVIDERS: ADMIT Internal Medicine; ATTEND Internal Medicine
DX: L02.413 Cutaneous abscess of right upper limb (principal); F11.10 Opioid abuse, uncomplicated; F14.10 Cocaine abuse, uncomplicated; K58.9 Irritable bowel syndrome, unspecified; E28.2 Polycystic ovarian syndrome; F42.9 Obsessive-compulsive disorder, unspecified; F33.9 Major depressive disorder, recurrent, unspecified; F41.9 Anxiety disorder, unspecified
CPT/HCPCS: 36415; 80053; 81003; 83605; 84703; 85025; 85610; 85730; 86850; 86900; 86901; 87040; 87086; 93005; 93010; 99285-25

== ENCOUNTER 2016-10-10 18:11 | Emergency (ER) | payer OTHER ==
[2016-10-10 18:20] VITALS: BP 131/81; PULSE 115; TEMP 98.7; BMI 31.1
--- NOTE | 2016-10-10 19:01 | PDOC ---
History of Present Illness - General Chief Complaint: Injury Stated Complaint: LT EAR INJURY Time Seen by Provider: 10/10/16 18:42 History Source: Patient Exam Limitations: No Limitations - History of Present Illness Initial Comments: 10/10/16 18:57 31-year-old female presents the ED with complaints of left ear pain. Patient states was cleaning a Q-tip when her brother opened the door and caused a Q-tip to scrape her canal. Patient is concerned with the pain but denies any decreased hearing or drainage from the ear. Timing/Duration: 1-3 hours Severity: mild Associated Symptoms: reports: denies symptoms Past History - Past Medical History Allergies/Adverse Reactions: Allergies Allergy/AdvReac Type Severity Reaction Status Date / Time ibuprofen [From Motrin] AdvReac Severe Verified 10/10/16 18:20 NSAIDS (Non-Steroidal AdvReac Severe Verified 10/10/16 18:20 Anti-Inflamma Home Medications: Ambulatory Orders Paroxetine HCl [Paxil] 40 mg PO HS 05/12/15 Bupropion HCl [Wellbutrin Xl -] 300 mg PO HS 07/07/15 Anemia: No Asthma: No Cancer: No Cardiac Disorders: No CVA: No COPD: No CHF: No Dementia: No Diabetes: No GI Disorders: Yes (IBS) Disorders: Yes (POLYCYSTIC OVARIES) HTN: No Hypercholesterolemia: No Kidney Stones: Yes Liver Disease: No Psychiatric Problems: Yes (anxiety,depression) Suicide Attempt (Hx): No Seizures: No Thyroid Disease: No - Surgical History Abdominal Surgery: Yes (clearing of scar tissue on uterus, bladder 10/11/13) - Family Disease History Family Disease History: Heart Disease: Father (htn) - Reproductive History Cervical CA: No Dysfunctional Uterine Bleeding: Yes Ectopic : No Polycystic Ovaries: Yes Tubal Ligation: No - Immunization History Td Vaccination: Yes Immunization Up to Date: Yes - Psycho/Social/Smoking Cessation Hx Anxiety: Yes Suicidal Ideation: No Smoking Status: No Smoking History: Never smoked Have you smoked in the past 12 months: No Number of Cigarettes Smoked Daily: 0 Cigars Per Day: 0 Information on smoking cessation initiated: No Hx Alcohol Use: No Drug/Substance Use Hx: Yes (Heroin,Cocaine) Substance Use Type: Cocaine, Heroin Hx Substance Use Treatment: No Patient Lives Alone: No Lives with/in: parents Review of Systems - Review of Systems Able to Perform ROS?: Yes Constitutional: No: Symptoms Reported HEENTM: Yes: Ear Pain Integumentary: No: Symptoms Reported Neurological: No: Symptoms reported *Physical Exam - Vital Signs Last Vital Signs Temp Pulse Resp BP Pulse Ox 98.7 F 115 H 18 131/81 99 10/10/16 18:18 10/10/16 18:18 10/10/16 18:18 10/10/16 18:18 10/10/16 18:18 - Physical Exam General Appearance: Yes: Nourished, Appropriately Dressed. No: Apparent Distress HEENT: positive: EOMI, LINUS, TMs Normal, Other (noted dry superficial abrasion to left ear canal). negative: Pale Conjunctivae Neck: positive: Supple Respiratory/Chest: positive: Lungs Clear, Normal Breath Sounds. negative: Respiratory Distress, Accessory Muscle Use Medical Decision Making - Medical Decision Making 10/10/16 18:59 Patient injury to the left ear. Patient on exam had noted dry superficial abrasion with no involvement of TM injury. Patient to be discharged home. *DC/Admit/Observation/Transfer Diagnosis at time of Disposition: Abrasion of ear canal Qualifiers: Encounter type: initial encounter Laterality: left Qualified Code(s): S00.412A - Abrasion of left ear, initial encounter - Discharge Dispostion Disposition: HOME Condition at time of disposition: Good - Referrals Referrals: Kaela Mcdonald MD [Primary Care Provider] - - Patient Instructions Printed Discharge Instructions: DI for Abrasion Additional Instructions: Please do not apply any topical to ear canal and do not place anything into the ear canal for the next 3 days. May take Tylenol for discomfort
== END 2016-10-10 19:08 | disposition home or self-care (01) ==
LOC: JERFT 18:11
DX: S00.412A Abrasion of left ear, initial encounter (principal); W22.8XXA Striking against or struck by other objects, initial encounter; Y93.E8 Activity, other personal hygiene; Y92.018 Other place in single-family (private) house as the place of occurrence of the external cause
CPT/HCPCS: 99281-25

== ENCOUNTER 2016-10-20 01:19 | Emergency (ER) | payer OTHER ==
[2016-10-20 01:31] VITALS: BP 135/88; PULSE 106; TEMP 97.1; BMI 31.1
--- NOTE | 2016-10-20 02:28 | PDOC ---
History of Present Illness - General History Source: Patient <Phani Wright - Last Filed: 10/20/16 02:28> - History of Present Illness Initial Comments: 10/20/16 02:30 The patient is a 31 year old female, with a significant past medical history of polysubstance abuse, who presents to the emergency department with midsternal chest pain since yesterday. She denies any chest pain as we speak and states her symptoms have resolved since arriving to the ED. She states she became concerned about the chest pain because she uses drugs. She reports chronic cervical spine pain due to known herniated discs. She denies shortness of breath, headache and dizziness. She denies fever, chills , nausea, vomit, diarrhea and constipation. She denies dysuria, frequency, urgency and hematuria. Allergies: ibuprofen, NSAIDS Social history: illicit drug use <Sandee Adkins - Last Filed: 10/20/16 02:34> - General Chief Complaint: Chest Pain Stated Complaint: CHEST PAIN Time Seen by Provider: 10/20/16 02:25 Past History - Past Medical History Anemia: No Asthma: No Cancer: No Cardiac Disorders: No CVA: No COPD: No CHF: No Dementia: No Diabetes: No GI Disorders: Yes (IBS) Disorders: Yes (POLYCYSTIC OVARIES) HTN: No Hypercholesterolemia: No Kidney Stones: Yes Liver Disease: No Psychiatric Problems: Yes (anxiety,depression) Suicide Attempt (Hx): No Seizures: No Thyroid Disease: No - Surgical History Abdominal Surgery: Yes (clearing of scar tissue on uterus, bladder 10/11/13) - Family Disease History Family Disease History: Heart Disease: Father (htn) - Reproductive History Cervical CA: No Dysfunctional Uterine Bleeding: Yes Ectopic : No Polycystic Ovaries: Yes Tubal Ligation: No - Immunization History Td Vaccination: Yes Immunization Up to Date: Yes - Psycho/Social/Smoking Cessation Hx Anxiety: Yes Suicidal Ideation: No Smoking Status: No Smoking History: Never smoked Have you smoked in the past 12 months: No Number of Cigarettes Smoked Daily: 0 Cigars Per Day: 0 Information on smoking cessation initiated: No Hx Alcohol Use: No Drug/Substance Use Hx: No Substance Use Type: Cocaine, Heroin Hx Substance Use Treatment: No <Phani Wright - Last Filed: 10/20/16 02:28> <Sandee Adkins - Last Filed: 10/20/16 02:34> - Past Medical History Allergies/Adverse Reactions: Allergies Allergy/AdvReac Type Severity Reaction Status Date / Time ibuprofen [From Motrin] AdvReac Severe Verified 10/20/16 01:29 NSAIDS (Non-Steroidal AdvReac Severe Verified 10/20/16 01:29 Anti-Inflamma Home Medications: Ambulatory Orders Paroxetine HCl [Paxil] 40 mg PO HS 05/12/15 Bupropion HCl [Wellbutrin Xl -] 300 mg PO HS 07/07/15 Review of Systems - Review of Systems Able to Perform ROS?: Yes Comments:: 10/20/16 02:31 CONSTITUTIONAL: Absent: fever, chills, diaphoresis, generalized weakness, malaise, loss of appetite HEENT: Absent: rhinorrhea, nasal congestion, throat pain, throat swelling, difficulty swallowing, mouth swelling, ear pain, eye pain, visual Changes CARDIOVASCULAR: (+) chest pain, Absent: syncope, palpitations, irregular heart rate, lightheadedness, peripheral edema RESPIRATORY: Absent: cough, shortness of breath, dyspnea with exertion, orthopnea, wheezing, stridor, hemoptysis GASTROINTESTINAL: Absent: abdominal pain, abdominal distension, nausea, vomiting, diarrhea, constipation, melena, hematochezia GENITOURINARY: Absent: dysuria, frequency, urgency, hesitancy, hematuria, flank pain, genital pain MUSCULOSKELETAL: Absent: myalgia, arthralgia, joint swelling SKIN: Absent: rash, itching, pallor HEMATOLOGIC/IMMUNOLOGIC: Absent: easy bleeding, easy bruising, lymphadenopathy, frequent infections ENDOCRINE: Absent: unexplained weight gain, unexplained weight loss, heat intolerance, cold intolerance NEUROLOGIC: Absent: headache, focal weakness or paresthesias, dizziness, unsteady gait, seizure, mental status changes, bladder or bowel incontinence PSYCHIATRIC: Absent: anxiety, depression, suicidal or homicidal ideation, hallucinations. <Sandee Adkins - Last Filed: 10/20/16 02:34> *Physical Exam - Vital Signs Last Vital Signs Temp Pulse Resp BP Pulse Ox 97.1 F L 106 H 20 135/88 100 10/20/16 01:29 10/20/16 01:29 10/20/16 01:29 10/20/16 01:29 10/20/16 01:29 <Phani Wright - Last Filed: 10/20/16 02:28> - Vital Signs Last Vital Signs Temp Pulse Resp BP Pulse Ox 97.1 F L 106 H 20 135/88 100 10/20/16 01:29 10/20/16 01:29 10/20/16 01:29 10/20/16 01:29 10/20/16 01:29 - Physical Exam Comments: 10/20/16 02:32 GENERAL: Well developed, well nourished. Awake and alert. No acute distress. HEENT: Normocephalic, atraumatic. PERRLA, EOMI. No conjunctival pallor. Sclera are non- icteric. Moist mucous membranes. Oropharynx is clear. NECK: Supple. Full ROM. No JVD. Carotid pulses 2+ and symmetric, without bruits. No thyromegaly. No lymphadenopathy. CARDIOVASCULAR: Regular rate and rhythm. No murmurs, rubs, or gallops. Distal pulses are 2+ and symmetric. PULMONARY: No evidence of respiratory distress. Lungs clear to auscultation bilaterally. No wheezing, rales or rhonchi. ABDOMINAL: Soft. Non-tender. Non-distended. No rebound or guarding. No organomegaly. Normoactive bowel sounds. MUSCULOSKELETAL Normal range of motion at all joints. No bony deformities or tenderness. No CVA tenderness. EXTREMITIES: No cyanosis. No clubbing. No edema. No calf tenderness. SKIN: Warm and dry. Normal capillary refill. No rashes. No jaundice. NEUROLOGICAL: Alert, awake, appropriate. Cranial nerves 2-12 intact. Normoreflexic in the upper and lower extremities. Normal speech. Toes are down-going bilaterally. Gait is normal without ataxia. PSYCHIATRIC: Cooperative. Good eye contact. Appropriate mood and affect. <Sandee Adkins - Last Filed: 10/20/16 02:34> Heart Score/ECG Review - ECG Intrepretation Comment:: 10/20/16 02:33 ECG was read by Dr. Wright at 1:24 Impression: sinus tachycardia. nonspecific ST and T wave abnormality. Possible left atrial enlargement <Sandee Adkins - Last Filed: 10/20/16 02:34> Medical Decision Making - Medical Decision Making 10/20/16 02:29 Dr. Wright: The scribe's documentation has been prepared under my direction and personally reviewed by me in its entirery. I confirm that the note above accurately reflects all work, treatment, procedures, and medical decision making performed by me. <Phani Wright - Last Filed: 10/20/16 02:28> *DC/Admit/Observation/Transfer - Discharge Dispostion Admit: No <Phani Wright - Last Filed: 10/20/16 02:28> - Attestations Scribe Attestion: 10/20/16 02:34 Documentation prepared by Sandee Adkins, acting as medical geneticist for Phani Wright DO <Sandee Adkins - Last Filed: 10/20/16 02:34> Diagnosis at time of Disposition: Chest pain Qualifiers: Chest pain type: unspecified Qualified Code(s): R07.9 - Chest pain, unspecified - Discharge Dispostion Disposition: HOME Condition at time of disposition: Stable - Referrals Referrals: Kaela Mcdonald MD [Primary Care Provider] - Bhavin Garces MD [Staff Physician] - - Patient Instructions Printed Discharge Instructions: DI for Chest Pain
--- NOTE | 2016-10-20 22:55 | EKG ---
Test Reason : Blood Pressure : / mmHG Vent. Rate : 106 BPM Atrial Rate : 106 BPM P-R Int : 142 ms QRS Dur : 090 ms QT Int : 360 ms P-R-T Axes : 045 080 034 degrees QTc Int : 478 ms SINUS TACHYCARDIA POSSIBLE LEFT ATRIAL ENLARGEMENT NONSPECIFIC ST AND T WAVE ABNORMALITY ABNORMAL ECG WHEN COMPARED WITH ECG OF 19-SEP-2016 21:52, VENT. RATE HAS INCREASED T WAVE VARIATION Confirmed by HINA SOTO, ADITI ([id number]) on 10/20/2016 10:55:31 PM Referred By: Confirmed By:ADITI SANTAMARIA MD
== END 2016-10-20 03:31 | disposition home or self-care (01) ==
LOC: JER 01:19
DX: R07.9 Chest pain, unspecified (principal); F19.10 Other psychoactive substance abuse, uncomplicated; F41.8 Other specified anxiety disorders; E28.2 Polycystic ovarian syndrome
CPT/HCPCS: 93005; 93010; 99282-25

== ENCOUNTER 2016-10-26 22:57 | Emergency (ER) | payer OTHER ==
[2016-10-26 23:03] VITALS: BMI 31.1
--- NOTE | 2016-10-26 23:34 | PDOC ---
History of Present Illness - General History Source: Patient Exam Limitations: No Limitations - History of Present Illness Initial Comments: 10/26/16 23:49 The patient is a 31 year old female with significant past medical history of IVDA (heroin and cocaine), recurrent abscess, IBS, PCOS, OCD, depression and anxiety who presents to the ED for 3 days of uncontrollable shaking. Patient reports few days of fever, sore throat and body aches. Admits that her last use of heroin was 2 hours and cocaine was 1 hour prior to arrival. The patient denies diaphoresis, chills, cough, SOB, chest pain, and palpitations. The patient denies abdominal pain, nausea, vomiting, and diarrhea. Allergies: ibuprofen, NSAIDS Social History: active IVDA (heroin and cocaine) Past Surgical History: tonsillectomy, abdominal surgery (clearing of scar tissue 10/11/13) PCP: Dr. Kaela Mcdonald <Megan Sow - Last Filed: 10/26/16 23:49> - General History Source: Patient <Phani Wright - Last Filed: 10/27/16 01:44> - General Chief Complaint: Pain Stated Complaint: COLD SYMPTOMS Time Seen by Provider: 10/26/16 23:20 Past History <Megan Sow - Last Filed: 10/26/16 23:49> - Past Medical History Anemia: No Asthma: No Cancer: No Cardiac Disorders: No CVA: No COPD: No CHF: No Dementia: No Diabetes: No GI Disorders: Yes (IBS) Disorders: Yes (POLYCYSTIC OVARIES) HTN: No Hypercholesterolemia: No Kidney Stones: Yes Liver Disease: No Psychiatric Problems: Yes (anxiety,depression) Suicide Attempt (Hx): No Seizures: No Thyroid Disease: No - Surgical History Abdominal Surgery: Yes (clearing of scar tissue on uterus, bladder 10/11/13) - Family Disease History Family Disease History: Heart Disease: Father (htn) - Reproductive History Cervical CA: No Dysfunctional Uterine Bleeding: Yes Ectopic : No Polycystic Ovaries: Yes Tubal Ligation: No - Immunization History Td Vaccination: Yes Immunization Up to Date: Yes - Psycho/Social/Smoking Cessation Hx Anxiety: Yes Suicidal Ideation: No Smoking Status: No Smoking History: Never smoked Have you smoked in the past 12 months: No Number of Cigarettes Smoked Daily: 0 Cigars Per Day: 0 Information on smoking cessation initiated: No Hx Alcohol Use: No Drug/Substance Use Hx: Yes Substance Use Type: Cocaine, Heroin Hx Substance Use Treatment: No <Omayra Wrightan - Last Filed: 10/27/16 01:44> - Past Medical History Allergies/Adverse Reactions: Allergies Allergy/AdvReac Type Severity Reaction Status Date / Time ibuprofen [From Motrin] AdvReac Severe Verified 10/26/16 23:41 NSAIDS (Non-Steroidal AdvReac Severe Verified 10/26/16 23:41 Anti-Inflamma Home Medications: Ambulatory Orders Paroxetine HCl [Paxil] 40 mg PO HS 05/12/15 Bupropion HCl [Wellbutrin Xl -] 300 mg PO HS 07/07/15 Cephalexin [Keflex] 500 mg PO BID #20 capsule 10/27/16 Review of Systems - Review of Systems Able to Perform ROS?: Yes Comments:: 10/26/16 23:49 CONSTITUTIONAL: +fever Absent: no chills, no fatigue EYES: Absent: visual changes ENT: +sore throat Absent: ear pain CARDIOVASCULAR: Absent: chest pain, no palpitations RESPIRATORY: Absent: cough, no SOB GI: Absent: abdominal pain, no nausea, no vomiting, no constipation, no diarrhea GENITOURINARY: Absent: dysuria, no frequency, no hematuria MUSCULOSKELETAL: +generalized body aches Absent: back pain SKIN: Absent: rash NEURO: +uncontrollable shaking Absent: headache <Megan Sow - Last Filed: 10/26/16 23:49> *Physical Exam - Vital Signs Last Vital Signs Temp Pulse Resp BP Pulse Ox 97.7 F 99 H 20 144/95 99 10/26/16 22:59 10/26/16 22:59 10/26/16 22:59 10/26/16 22:59 10/26/16 22:59 - Physical Exam Comments: 10/26/16 23:50 GENERAL: Tremulous. Well-appearing, well-nourished. No apparent distress. HEENT: Normocephalic, atraumatic. PERRL, EOM intact. Minimal exudates on left tonsillar , no edema or erythema. CARDIOVASCULAR: Normal S1, S2. Regular rate and rhythm. PULMONARY: Clear to auscultation bilaterally. ABDOMEN: Soft, non-distended, non-tender. EXTREMITIES: Normal ROM in all four extremities. No gross deformities. SKIN: Warm, dry. No rash NEUROLOGICAL: No focal neurological deficits. <Megan Sow - Last Filed: 10/26/16 23:49> - Vital Signs Last Vital Signs Temp Pulse Resp BP Pulse Ox 97.7 F 99 H 20 144/95 99 10/26/16 22:59 10/26/16 22:59 10/26/16 22:59 10/26/16 22:59 10/26/16 22:59 <Phani Wright - Last Filed: 10/27/16 01:44> ED Treatment Course - LABORATORY CBC & Chemistry Diagram: 10/27/16 00:50 10/27/16 00:50 <Phani Wright - Last Filed: 10/27/16 01:44> Medical Decision Making - Medical Decision Making 10/27/16 01:44 Dr. Wright: The scribe's documentation has been prepared under my direction and personally reviewed by me in its entirery. I confirm that the note above accurately reflects all work, treatment, procedures, and medical decision making performed by me. <Phani Wright - Last Filed: 10/27/16 01:44> *DC/Admit/Observation/Transfer - Attestations Scribe Attestion: 10/26/16 23:50 Documentation prepared by Megan Sow, acting as medical laboratory scientist for Phani Wright MD/DO. <Megan Sow - Last Filed: 10/26/16 23:49> - Discharge Dispostion Admit: No <Phani Wright - Last Filed: 10/27/16 01:44> Diagnosis at time of Disposition: UTI (urinary tract infection) Qualifiers: Urinary tract infection type: site unspecified Hematuria presence: without hematuria Qualified Code(s): N39.0 - Urinary tract infection, site not specified - Discharge Dispostion Disposition: HOME Condition at time of disposition: Stable - Prescriptions Prescriptions: Cephalexin [Keflex] 500 mg PO BID #20 capsule - Referrals Referrals: Kaela Mcdonald MD [Primary Care Provider] - - Patient Instructions Printed Discharge Instructions: DI for Urinary Tract Infection (UTI)
[2016-10-27 01:11] LABS: BASOPHIL 0.4 % (0-2.0); MCH 23.5 pg (25.7-33.7); MCHC 31.8 g/dl (32.0-36.0); MEAN CELL VOLUME 73.8 fl (80-96); MEAN PLT VOLUME 7.9 fl (7.5-11.1); NEUTROPHILS 47.4 % (42.8-82.8); PLATELET COUNT 248 K/MM3 (134-434); RDW 15.8 % (11.6-15.6); WHITE BLOOD COUNT 5.8 K/mm3 (4.0-10.0)
[2016-10-27 01:13] LABS: URINE APPEARANCE SLCLOUDY; URINE BILIRUBIN NEGATIVE (NEGATIVE); URINE BLOOD NEGATIVE (NEGATIVE); URINE COLOR YELLOW; URINE GLUCOSE (UA) NEGATIVE (NEGATIVE); URINE KETONE NEGATIVE (NEGATIVE); URINE NITRITE NEGATIVE (NEGATIVE); URINE PROTEIN NEGATIVE (NEGATIVE); URINE UROBILINOGEN NEGATIVE E.U./dl (0.2-1.0)
[2016-10-27 01:16] LABS: URINE LEUK ESTERASE 1+ (NEGATIVE)
[2016-10-27 01:20] LABS: CALCIUM OXALATE CRYSTALS FEW /hpf (NONE SEEN); URINE BACTERIA RARE /hpf (NONE SEEN); URINE MUCUS MANY; URINE WBC 8 /hpf (3-5)
[2016-10-27 01:33] LABS: ALBUMIN 3.9 g/dl (3.4-5.0); ALK PHOS 77 U/L (45-117); ANION GAP 10 (8-16); BILIRUBIN,TOTAL 0.3 mg/dL (0.2-1.0); CALCIUM 9.1 mg/dL (8.5-10.1); CO2 28 mmol/L (21-32); COCKROFT - GAULT 160.5055; CREATININE 0.6 mg/dL (0.55-1.02); GLUCOSE,RANDOM 92 mg/dL (74-106); SGOT/AST 16 U/L (15-37); SGPT/ALT 18 U/L (12-78); TOT PROT 7.4 g/dl (6.4-8.2)
[2016-10-27] MEDS ORDERED: CEPHALEXIN MONOHYDRATE 500 MG CAPSULE (UD) PO ONE (01:41)
[2016-10-27] MEDS ORDERED: CEPHALEXIN MONOHYDRATE 250 MG CAPSULE (FP) ONE (01:50)
[2016-10-27 03:08] VITALS: BP 140/90; PULSE 89; TEMP 98.8
[2016-10-27 14:38] LABS: URINE RBC 16 /hpf (0-3)
== END 2016-10-27 01:54 | disposition home or self-care (01) ==
LOC: JER 22:57
DX: N39.0 Urinary tract infection, site not specified (principal); F41.8 Other specified anxiety disorders; E28.2 Polycystic ovarian syndrome; K58.9 Irritable bowel syndrome, unspecified; F11.10 Opioid abuse, uncomplicated; F14.10 Cocaine abuse, uncomplicated
CPT/HCPCS: 36415; 80053; 81003; 81015; 84703; 85025; 99282-25

== ENCOUNTER 2016-11-04 10:29 | Emergency (ER) | payer OTHER ==
[2016-11-04 10:37] VITALS: BP 135/55; PULSE 86; TEMP 98; BMI 29.2
[2016-11-04] MEDS ORDERED: ACETAMINOPHEN 500 MG TABLET (FP) PO ONE (11:19)
--- NOTE | 2016-11-04 11:29 | PDOC ---
History of Present Illness - General Chief Complaint: Pain Stated Complaint: SHOULDER/BACK PAIN Time Seen by Provider: 11/04/16 10:56 History Source: Patient Exam Limitations: No Limitations - History of Present Illness Initial Comments: 11/04/16 11:46 My Chief Complaint: left lateral/posterior neck pain, left upper back pain 20 minutes after snorting cocaine History of present illness: Patient is a 31 year old with a history of IV heroine dependence and cocaine dependence, severe resistant depression, IBS, PCOS, OCD and herniated cervical disc. Pt. today presents complaining of sudden onset of left lateral posterior neck and left upper back pain 20 minutes after snorting cocaine 2 lines this morning at approximately 10 AM. Patient reports having palpitations with no shortness of breath, no left sided chest pain or radiation of pain down left arm. Patient reports that she also had tingling in her left arm which she has often due to having a herniated disc in her cervical spine. Patient denies any difficulty breathing or any further palpitations. She reports that left lateral/posterior neck and left upper back pain is worse when lying down/movement of neck and torso and is currently a 5 out of 10 aching in nature. Patient denies any cough or any difficulty breathing. 11/04/16 11:50 11/04/16 12:22 Timing/Duration: intermittent Severity: moderate Associated Symptoms: reports: other (left shoulder/back upper 20 minutes after snorting cocaine) Past History - Past Medical History Allergies/Adverse Reactions: Allergies Allergy/AdvReac Type Severity Reaction Status Date / Time ibuprofen [From Motrin] AdvReac Severe Verified 11/04/16 10:37 NSAIDS (Non-Steroidal AdvReac Severe Verified 11/04/16 10:37 Anti-Inflamma Home Medications: Ambulatory Orders Paroxetine HCl [Paxil] 40 mg PO HS 05/12/15 Bupropion HCl [Wellbutrin Xl -] 300 mg PO HS 07/07/15 Cephalexin [Keflex] 500 mg PO BID #20 capsule 10/27/16 Anemia: No Asthma: No Cancer: No Cardiac Disorders: No CVA: No COPD: No CHF: No Dementia: No Diabetes: No GI Disorders: Yes (IBS) Disorders: Yes (POLYCYSTIC OVARIES) HTN: No Hypercholesterolemia: No Kidney Stones: Yes Liver Disease: No Psychiatric Problems: Yes (anxiety,depression) Suicide Attempt (Hx): No Seizures: No Thyroid Disease: No - Surgical History Abdominal Surgery: Yes (clearing of scar tissue on uterus, bladder 10/11/13) - Family Disease History Family Disease History: Heart Disease: Father (htn) - Reproductive History Cervical CA: No Dysfunctional Uterine Bleeding: Yes Ectopic : No Polycystic Ovaries: Yes Tubal Ligation: No - Immunization History Td Vaccination: Yes Immunization Up to Date: Yes - Psycho/Social/Smoking Cessation Hx Anxiety: Yes Suicidal Ideation: No Smoking Status: No Smoking History: Never smoked Have you smoked in the past 12 months: No Number of Cigarettes Smoked Daily: 0 Cigars Per Day: 0 Hx Alcohol Use: No Drug/Substance Use Hx: No Substance Use Type: Cocaine Hx Substance Use Treatment: No Review of Systems - Review of Systems Able to Perform ROS?: Yes Constitutional: No: Symptoms Reported HEENTM: No: Symptoms Reported Respiratory: No: Symptoms reported Cardiac (ROS): No: Symptoms Reported ABD/GI: No: Symptoms Reported : No: Symptoms Reported Musculoskeletal: Yes: Back Pain (left left neck/upper left back 20 minutes using cocaine ) Integumentary: No: Symptoms Reported Neurological: Yes: Tingling (left arm ) *Physical Exam - Vital Signs Last Vital Signs Temp Pulse Resp BP Pulse Ox 98.0 F 86 20 135/55 100 11/04/16 10:33 11/04/16 10:33 11/04/16 10:33 11/04/16 10:33 11/04/16 10:33 - Physical Exam General Appearance: Yes: Appropriately Dressed Neck: positive: Tender lateral (left ). negative: Lymphadenopathy (R), Lymphadenopathy (L), Tender midline Respiratory/Chest: positive: Lungs Clear, Normal Breath Sounds. negative: Chest Tender, Respiratory Distress Cardiovascular: positive: Regular Rhythm, Regular Rate, S1, S2 Musculoskeletal: positive: Normal Inspection, Other (left upper scapula/upper tenter frame back tender to palpation ). negative: CVA Tenderness, CVA Tenderness (R), CVA Tenderness (L), Decreased Range of Motion, Vertebral Tenderness Extremity: positive: Normal Capillary Refill, Normal Inspection, Normal Range of Motion Integumentary: positive: Normal Color Neurologic: positive: Fully Oriented, Alert, Normal Response, Motor Strength 5/ 5 (upper extremities), Respond to painful stimul, Responsive. negative: Sensory Deficit (b/l arms ) Heart Score/ECG Review - ECG Impressions Comment:: 11/04/16 12:[address] Patito Silva Medical Decision Making - Medical Decision Making 11/04/16 11:59IBS, PCOS, OCD and herniated cervical disc. Patient is a 31 year old with a history of IV heroine dependence and cocaine dependence, severe resistant depression, herniated cervical disc, IBS, PCOS, and OCD. Pt. today presents complaining of sudden onset of left lateral posterior neck and left upper back pain 20 minutes after snorting cocaine 2 lines this morning at approximately 10 AM. Patient reports having palpitations with no shortness of breath, no left sided chest pain or radiation of pain down left arm. Patient reports that she also had tingling in her left arm which she has often due to having a herniated disc in her cervical spine. Patient denies any difficulty breathing or any further palpitations. She reports that left lateral/posterior neck and left upper back pain is worse when lying down/movement of neck and torso and is currently a 5 out of 10 aching in nature. Patient denies any cough or any difficulty breathing. Pt. denies every being in detox or rehab reports that it would be difficulty due to her taking care of her grandparents. Pt. expressed her frustration of not being able to stop using after starting using heroin IV and cocaine snorting one year ago. left lateral/posterior neck pain, left upper back pain 20- minutes after snorting cocaine today Left /posterior neck pain, left upper back muscularskeletal pain PLAN: EKG nsr cardiac profile serum HCG xray chest PA/lateral no acute pathology acetaminophen 1000 mg feeling much better 11/04/16 12:03 11/04/16 12:19 11/04/16 12:20 Laboratory Tests 11/04/16 11/04/16 11:21 11:21 Creatine Kinase 89 Troponin I < 0.02 Serum , Qual Negative 11/04/16 12:22 11/04/16 12:23 11/04/16 12:45 11/04/16 17:13 *DC/Admit/Observation/Transfer Diagnosis at time of Disposition: Neck pain on left side, Upper back pain on left side - Discharge Dispostion Disposition: HOME Condition at time of disposition: Stable - Referrals Referrals: Kaela Mcdonald MD [Primary Care Provider] - - Patient Instructions Additional Instructions: Follow up with your primary care provider as soon as possible REturn to emergency room if any difficulty breathing or any new symptoms occur acetaminophen as needed as directed by tool rental technician for pain Patient to follow up with psychiatrist at the [facility] at [phone] you can make an appointment online with [email or web address] Patient voiced understanding of discharge instructions and all questions were answered
[2016-11-04] MEDS ORDERED: ACETAMINOPHEN 500 MG TABLET (FP) ONE (11:50)
[2016-11-04 12:14] LABS: TROPONIN I < 0.02 ng/ml (0.00-0.05)
--- NOTE | 2016-11-05 11:35 | EKG ---
Test Reason : Blood Pressure : / mmHG Vent. Rate : 076 BPM Atrial Rate : 076 BPM P-R Int : 152 ms QRS Dur : 092 ms QT Int : 402 ms P-R-T Axes : 032 075 028 degrees QTc Int : 452 ms NORMAL SINUS RHYTHM NORMAL ECG WHEN COMPARED WITH ECG OF 20-OCT-2016 01:24, NONSPECIFIC T WAVE ABNORMALITY NO LONGER EVIDENT IN LATERAL LEADS Confirmed by KORY SOTO, ANA ([id number]) on 11/05/2016 11:35:18 AM Referred By: FARA Confirmed By:ANA HORN MD
== END 2016-11-04 13:00 | disposition home or self-care (01) ==
LOC: JERFT 10:29
DX: M54.2 Cervicalgia (principal); M54.6 Pain in thoracic spine; M50.20 Other cervical disc displacement, unspecified cervical region
CPT/HCPCS: 36415; 71020-TC; 82550; 84484; 84703; 93005; 93010; 99282-25

== ENCOUNTER 2016-11-11 08:56 | Emergency (ER) | payer OTHER ==
[2016-11-11 08:59] VITALS: BP 125/77; PULSE 115; BMI 31.1
[2016-11-11 09:01] VITALS: TEMP 98.8
--- NOTE | 2016-11-11 09:19 | PDOC ---
History of Present Illness - General Chief Complaint: Urinary Problem Stated Complaint: POSSIBLE UTI/ BACK PAIN Time Seen by Provider: 11/11/16 09:08 History Source: Patient Exam Limitations: No Limitations - History of Present Illness Initial Comments: CHIEF COMPLAINT: 31 y/o afebrile female with PMH IV heroin and cocaine dependence, severe resistant depression, IBS, PCOS, OCD, herniated cervical disc , recurrent UTIs c/o dysuria and urinary frequency for the past 4 days. HISTORY OF PRESENT ILLNESS: She states it kirk when she urinates and she is urinating more often. She also states her right upper back hurts. She denies f/ c, n/v/d, CP, SOB, hematuria. Vital signs on arrival are notable for pulse of 115. REVIEW OF SYSTEMS: GENERAL/CONSTITUTIONAL: No fever/chills. No weakness. No weight change. HEAD, EYES, EARS, NOSE AND THROAT: No change in vision. No ear pain or discharge. No sore throat. CARDIOVASCULAR: No chest pain or shortness of breath. RESPIRATORY: No cough, wheezing, or hemoptysis. GASTROINTESTINAL: No abd pain, nausea, vomiting, diarrhea. BACK: +right back pain. GENITOURINARY: +dysuria and increased urinary frequency. MUSCULOSKELETAL: No joint or muscle swelling or pain. No neck or back pain. SKIN: No rash or easy bruising. NEUROLOGIC: No headache, vertigo, loss of consciousness, or loss of sensation. PHYSICAL EXAM: GENERAL: The patient is awake, alert, and fully oriented, in no acute distress. She is very well appearing, ambulatory, in NAD or obvious discomfort. HEAD: Normal with no signs of trauma. ENT: Pupils equal, round and reactive to light, extraocular movements intact, sclera anicteric, conjunctiva clear. Neck supple. LUNGS: Clear to auscultation bilaterally. Normal excursion. No respiratory distress or use of accessory muscles. CV: RRR, S1/S2, no MRG. Cap refill < 2 sec. ABDOMEN: Soft, non-distended, non-tender even to deep palpation, no hepatomegaly or splenomegaly, no masses. No suprapubic TTP. No flank pain with palpation. BACK: No CVA TTP b/l. Tenderness to right lumbar spine at L2-L3. EXTREMITIES: Normal range of motion, no edema. NEUROLOGICAL: Normal speech, normal gait. CN II-XII grossly intact. PSYCH: Normal mood, normal affect. SKIN: Warm, dry, normal turgor, no rashes or lesions noted. Past History - Past Medical History Allergies/Adverse Reactions: Allergies Allergy/AdvReac Type Severity Reaction Status Date / Time ibuprofen [From Motrin] AdvReac Severe Verified 11/11/16 08:59 NSAIDS (Non-Steroidal AdvReac Severe Verified 11/11/16 08:59 Anti-Inflamma Home Medications: Ambulatory Orders Paroxetine HCl [Paxil] 40 mg PO HS 05/12/15 Bupropion HCl [Wellbutrin Xl -] 300 mg PO HS 07/07/15 Cephalexin [Keflex] 500 mg PO BID #20 capsule 10/27/16 Ciprofloxacin [Cipro -] 500 mg PO Q12H #14 tablet 11/11/16 Anemia: No Asthma: No Cancer: No Cardiac Disorders: No CVA: No COPD: No CHF: No Dementia: No Diabetes: No GI Disorders: Yes (IBS) Disorders: Yes (POLYCYSTIC OVARIES) HTN: No Hypercholesterolemia: No Kidney Stones: Yes Liver Disease: No Psychiatric Problems: Yes (anxiety,depression) Suicide Attempt (Hx): No Seizures: No Thyroid Disease: No - Surgical History Abdominal Surgery: Yes (clearing of scar tissue on uterus, bladder 10/11/13) - Family Disease History Family Disease History: Heart Disease: Father (htn) - Reproductive History Cervical CA: No Dysfunctional Uterine Bleeding: Yes Ectopic : No Polycystic Ovaries: Yes Tubal Ligation: No - Immunization History Td Vaccination: Yes Immunization Up to Date: Yes - Psycho/Social/Smoking Cessation Hx Anxiety: Yes Suicidal Ideation: No Smoking Status: No Smoking History: Never smoked Have you smoked in the past 12 months: No Number of Cigarettes Smoked Daily: 0 Cigars Per Day: 0 Hx Alcohol Use: No Drug/Substance Use Hx: No Substance Use Type: Cocaine, Heroin Hx Substance Use Treatment: No *Physical Exam - Vital Signs Last Vital Signs Temp Pulse Resp BP Pulse Ox 98.8 F 115 H 20 125/77 98 11/11/16 08:57 11/11/16 08:57 11/11/16 08:57 11/11/16 08:57 11/11/16 08:57 Medical Decision Making - Medical Decision Making A/P: 31 y/o female with signs and symptoms of UTI. Plan is as follows: 1. UA/hcg/culture UA 2+blood and 1+ leuks. Will treat the symptoms of UTI with cipro. Instructed her to take tylenol for pain and return to the ER immediately if she develops fever, n/v or any other concerning symptoms. The patient verbalizes understanding of all instructions, has no further questions and is awaiting discharge. *DC/Admit/Observation/Transfer Diagnosis at time of Disposition: UTI (urinary tract infection) Qualifiers: Urinary tract infection type: acute cystitis Hematuria presence: with hematuria Qualified Code(s): N30.01 - Acute cystitis with hematuria - Discharge Dispostion Disposition: HOME Condition at time of disposition: Good - Prescriptions Prescriptions: Ciprofloxacin [Cipro -] 500 mg PO Q12H #14 tablet - Referrals Referrals: Kaela Mcdonald MD [Primary Care Provider] - - Patient Instructions Printed Discharge Instructions: DI for Urinary Tract Infection (UTI) Additional Instructions: Discharge Instructions: -You have a UTI -A prescription was sent to your pharmacy for antibiotics; please take for entire 7 days -Drink at least 64oz of water daily -Follow up with your doctor within 1 week -Return to the ER immediately with any worsening or concerning symptoms, including fever, vomiting, etc.
[2016-11-11 09:29] LABS: URINE APPEARANCE CLEAR; URINE BILIRUBIN NEGATIVE (NEGATIVE); URINE COLOR YELLOW; URINE GLUCOSE (UA) NEGATIVE (NEGATIVE); URINE KETONE NEGATIVE (NEGATIVE); URINE NITRITE NEGATIVE (NEGATIVE); URINE PROTEIN NEGATIVE (NEGATIVE); URINE UROBILINOGEN NEGATIVE E.U./dl (0.2-1.0)
[2016-11-11 09:40] LABS: URINE BLOOD 2+ (NEGATIVE); URINE LEUK ESTERASE 1+ (NEGATIVE)
[2016-11-11 09:42] LABS: URINE BACTERIA RARE /hpf (NONE SEEN); URINE HYALINE CAST 2 /lpf; URINE MUCUS MANY; URINE RBC 27 /hpf (0-3); URINE WBC 2 /hpf (3-5)
== END 2016-11-11 10:05 | disposition home or self-care (01) ==
LOC: JERFT 08:56
DX: N30.01 Acute cystitis with hematuria (principal); F41.8 Other specified anxiety disorders; Z87.440 Personal history of urinary (tract) infections
CPT/HCPCS: 81003; 81015; 84703; 87086; 99281-25

== ENCOUNTER 2017-05-24 07:18 | Inpatient (IN) | payer OTHER ==
[2017-05-24] MEDS ORDERED: SODIUM CHLORIDE 1,000 ML IV STA (07:26)
[2017-05-24] MEDS ORDERED: ACETAMINOPHEN 1000 MG/100 ML VIAL (NON FORMULARY) IVPB ONE (07:27)
--- NOTE | 2017-05-24 08:01 | PDOC ---
History of Present Illness - General Chief Complaint: SIRS, Suspected/Possible Stated Complaint: FEVER Time Seen by Provider: 05/24/17 07:23 - History of Present Illness Initial Comments: 05/24/17 07:49 Patient is a 32 y.o. female with a PMH endometriosis and PCOS who presents to our ED after using heroin (Q tip needle method) as well as snorting cocaine earlier today. Patient states she had an oral temperature of 105 @ home and she became concerned for an infected needle and called 911. Patient denies any chest pain, shortness of breath, nausea, vomiting, diarrhea or constipation. Patient states she uses heroin/cocaine combo multiple times daily and has suboxone however is not taking it at the present time. Of note, patient visited her PCP last week and was started on Ciprofloxacin for pyelonephritis. Allergies: NSAIDS Surgical: Endometrial ablation (2013) Social: (+) heroin,cocaine; denies alcohol; denies nicotine PMD: Brandon [facility]-ID, cannot recall name. Past History - Past Medical History Allergies/Adverse Reactions: Allergies Allergy/AdvReac Type Severity Reaction Status Date / Time ibuprofen [From Motrin] AdvReac Severe Verified 05/24/17 08:18 NSAIDS (Non-Steroidal AdvReac Severe Verified 05/24/17 08:18 Anti-Inflamma Home Medications: Ambulatory Orders Paroxetine HCl [Paxil] 40 mg PO HS 05/12/15 Bupropion HCl [Wellbutrin Xl -] 300 mg PO HS 07/07/15 Cephalexin [Keflex] 500 mg PO BID #20 capsule 10/27/16 Ciprofloxacin [Cipro -] 500 mg PO Q12H #14 tablet 11/11/16 Anemia: No Asthma: No Cancer: No Cardiac Disorders: No CVA: No COPD: No CHF: No Dementia: No Diabetes: No GI Disorders: Yes (IBS) Disorders: Yes (POLYCYSTIC OVARIES) HTN: No Hypercholesterolemia: No Kidney Stones: Yes Liver Disease: No Psychiatric Problems: Yes (anxiety,depression) Seizures: No Thyroid Disease: No - Surgical History Abdominal Surgery: Yes (clearing of scar tissue on uterus, bladder 10/11/13) - Family Disease History Family Disease History: Heart Disease: Father (htn) - Reproductive History Cervical CA: No Dysfunctional Uterine Bleeding: Yes Ectopic : No Polycystic Ovaries: Yes Tubal Ligation: No - Immunization History Td Vaccination: Yes Immunization Up to Date: Yes - Suicide/Smoking/Psychosocial Hx Smoking Status: No Smoking History: Never smoked Have you smoked in the past 12 months: No Number of Cigarettes Smoked Daily: 0 Cigars Per Day: 0 Information on smoking cessation initiated: No Hx Alcohol Use: No Drug/Substance Use Hx: Yes Substance Use Type: Cocaine, Heroin Hx Substance Use Treatment: No *Physical Exam - Vital Signs Last Vital Signs Temp Pulse Resp BP Pulse Ox 101.7 F H 132 H 20 113/51 100 05/24/17 07:25 05/24/17 07:25 05/24/17 07:25 05/24/17 07:25 05/24/17 07:25 - Physical Exam General Appearance: Yes: Nourished, Appropriately Dressed Neck: positive: Trachea midline, Supple Respiratory/Chest: positive: Lungs Clear Cardiovascular: positive: S1, S2, Murmur, Tachycardia, Systolic Murmur (Best appreciated in L substernal (pulmonic) space; no appreciable Tricuspid/Mitral area murmurs) Gastrointestinal/Abdominal: positive: Normal Bowel Sounds, Soft Musculoskeletal: negative: CVA Tenderness (R), CVA Tenderness (L) Extremity: positive: Normal Capillary Refill, Normal Inspection Integumentary: positive: Other (multiple UE abscess, with indurated, erythematous abscess on RUE, ventral forearm; multiple injection scars on UE/LE B/L; healed abscess on B/L LE ) Neurologic: positive: gin pole operator II-XII NML intact, Fully Oriented, Alert ED Treatment Course - LABORATORY CBC & Chemistry Diagram: 05/24/17 08:17 05/24/17 08:17 - RADIOLOGY Radiology Studies Ordered: Category Date Time Status CHEST X-RAY PORTABLE* [RAD] Stat Radiology 05/24/17 07:26 Ordered Medical Decision Making - Medical Decision Making 05/24/17 08:41 Patient is a 32 y.o. female who presents with likely polysubstance (self reports cocaine and heroin) withdrawal. At presentation patient is SIRS 2/4 ( febrile 101 and tachycardic to 140's) with suspected source as endocarditis (R sided pulmonic area murmur) vs. pyelonephritis (on Day 2 of 7 day course of Ciprofloxacin BID) PLAN: 1. Sepsis w/u 2. Urine Toxicology 3. Close monitoring for withdrawal 05/24/17 09:30 EKG shows Sinus Tachycardia (HR 128) with no deviations, normal MS and QT intervals, good R wave progression V1-V6 and no ST segment depressions/ elevations. UDS positive for opiates, cocaine and marijuana. 05/24/17 10:41 Tachycardia improved to 90's s/p 1 L IVNS. Patient started on broad spectrum antibiotic coverage Vancomycin and Ceftriaxone and to be admitted for further evaluation with provisonal diagnosis of endocarditis under Dr. Ortega. *DC/Admit/Observation/Transfer Diagnosis at time of Disposition: Sepsis, Severe sepsis, Systemic inflammatory response syndrome (SIRS) - Discharge Dispostion Condition at time of disposition: Good Admit: Yes - Referrals - Patient Instructions - Post Discharge Activity
[2017-05-24 08:03] VITALS: BMI 30.6
[2017-05-24] MEDS ORDERED: ACETAMINOPHEN INJECTION 100 ML IVPB ONE (08:20)
[2017-05-24 08:28] LABS: BASOPHIL 0.2 % (0-2.0); EOSINOPHIL 0.1 % (0-4.5); MCH 23.5 pg (25.7-33.7); MCHC 32.1 g/dl (32.0-36.0); MEAN CELL VOLUME 73.2 fl (80-96); MEAN PLT VOLUME 8.3 fl (7.5-11.1); NEUTROPHILS 91.7 % (42.8-82.8); PLATELET COUNT 257 K/MM3 (134-434); RDW 16.8 % (11.6-15.6); WHITE BLOOD COUNT 10.1 K/mm3 (4.0-10.0)
[2017-05-24 08:29] LABS: URINE APPEARANCE SLCLOUDY; URINE BILIRUBIN NEGATIVE (NEGATIVE); URINE BLOOD NEGATIVE (NEGATIVE); URINE COLOR YELLOW; URINE GLUCOSE (UA) NEGATIVE (NEGATIVE); URINE KETONE NEGATIVE (NEGATIVE); URINE NITRITE NEGATIVE (NEGATIVE); URINE PROTEIN NEGATIVE (NEGATIVE); URINE UROBILINOGEN NEGATIVE mg/dL (0.2-1.0)
[2017-05-24 08:31] LABS: VENOUS PH 7.4 (7.32-7.42)
[2017-05-24 08:32] LABS: VENOUS BLOOD GAS HCO3 23.8 meq/L (19-25)
--- NOTE | 2017-05-24 08:49 | PDOC ---
Attending Attestation - Resident Resident Name: NelyDavida - ED Attending Attestation I have performed the following: I have examined & evaluated the patient, The case was reviewed & discussed with the resident, I agree w/resident's findings & plan, Exceptions are as noted - HPI HPI: 05/24/17 08:37 32y/o F struggles with IVDA (heroine/cocaine) and h/o recurring abscesses, depression/anxiety p/w fever. Recently diagnosed pyelo started on cipro, now s/p 3 doses with continued dysuria but improved flank pain. ? intermitted fevers over the last 2 weeks. Injected a heroine/cocaine combination (clean needle) and about 30 minutes later felt chills so she presents for evaluation. febrile here, + tachycardia otherwise well appearing, cooperative and smiling R and L forearm cellulitis with underlying induration but no abscess scattered and multiple ecchymosis/injection sites 3/6 PATRICIA loudest at LUSB neuro intact 32y/o F IVDA with fever in the setting of recently diagnosed pyelo. Has murmur on exam, but ? h/o murmur? sepsis protocol initiated, blood cultures x3 given possible endocarditis anti-pyretics, abx IVF resuscitation no palpable abscess amenable to I+D admission Heart Score/ECG Review #1 ECG reviewed & interpreted by me at: 07:32 General ECG Interpretation: Sinus Rhythm (tachy at 128), Normal Intervals (qtc 473), No acute ischemic changes
[2017-05-24 08:50] LABS: URINE MARIJUANA THC POSITIVE ng/ml (CUTOFF=50)
[2017-05-24 08:51] LABS: ALBUMIN 3.3 g/dl (3.4-5.0); ANION GAP 10 (8-16); BILIRUBIN,TOTAL 0.7 mg/dL (0.2-1.0); CALCIUM 8.8 mg/dL (8.5-10.1); CO2 25 mmol/L (21-32); CREATININE 0.7 mg/dL (0.55-1.02); GLUCOSE,RANDOM 109 mg/dL (74-106); SGPT/ALT 16 U/L (12-78); TOT PROT 7.2 g/dl (6.4-8.2)
[2017-05-24] MEDS ORDERED: VANCOMYCIN 1,500 MG in DEXTROSE 5%-WATER - 500 ML IVPB ONE (08:51)
[2017-05-24 08:53] LABS: ALK PHOS 84 U/L (45-117); TROPONIN I 0.03 ng/ml (0.00-0.05)
[2017-05-24] MEDS ORDERED: cefTRIAXone 2 GM/100 ML BAG (PRE-DOCKED) IVPB ONE (08:53)
[2017-05-24 08:55] LABS: CPK 57 IU/L (26-192); SGOT/AST 21 U/L (15-37)
[2017-05-24] MEDS ORDERED: CEFTRIAXONE 2 GM/100 ML BAG IVPB ONE (09:02)
[2017-05-24 09:29] LABS: INR 1.29 (0.82-1.09); PROTHROMBIN TIME (PATIENT) 14.6 SEC (9.98-11.88)
[2017-05-24 09:32] LABS: ACTIVATED PTT 26.6 SECONDS (26.9-34.4)
[2017-05-24] MEDS ORDERED: SODIUM CHLORIDE 0.9% 1000 ML INFUS.BAG IV ONE (10:25)
[2017-05-24] MEDS ORDERED: ACETAMINOPHEN 325 MG TABLET (FP) PO PRN (10:45)
[2017-05-24] MEDS ORDERED: ONDANSETRON 4 MG/2 ML VIAL IVPUSH PRN (10:45)
--- NOTE | 2017-05-24 10:50 | HP ---
Admitting History and Physical - Primary Care Physician PCP: Patricia Milan - Admission Chief Complaint: I had a fever History of Present Illness: Ms Saldaña is a pleasant 32 year old female who comes in with fevers. She says she is trying to stop using IV heroin and states her last time using heroin was 3 weeks ago. However she says that the heroin comes with cotton, and when she feels like she is about to go through withdrawal she will wet the cotton and inject the solution instead. She says she has been doing this about 3 times a day for the past three weeks. She says that sometimes she gets a fever after doing this but it does not get above 103 and resolves on its own. Last night she used nasal cocaine and again injected the cotton soaked in water solution. After this she immediately felt ill. She says she became lightheaded, had a rapid heart beat, and became short of breath. She checked her temperature at home and it was 105. Because of this she came in to the ER. She denies passing out, chest pain, coughing, nausea, vomiting, diarrhea, constipation, diffuse rashes, or leg swelling. She endorses some small abscesses from injection but she feels they are not infected. She has burning on urination, she saw Dr Milan last week and was diagnosed with a kidney infection. She has been on cipro for three days. She currently says feels much better and wants to go home. History Source: Patient Limitations to Obtaining History: No Limitations - Past Medical History ...LMP: 06/22/15 Psych: Yes: Anxiety, Depression - Past Surgical History Past Surgical History: Yes: Tonsillectomy - Smoking History Smoking history: Never smoked Have you smoked in the past 12 months: No Aproximately how many cigarettes per day: 0 - Alcohol/Substance Use Hx Alcohol Use: No History of Substance Use: reports: Cocaine, Heroin, Marijuana - Social History Usual Living Arrangement: Yes: Other (with grandparents) ADL: Independent History of Recent Travel: No Home Medications - Allergies Allergies/Adverse Reactions: Allergies Allergy/AdvReac Type Severity Reaction Status Date / Time ibuprofen [From Motrin] AdvReac Severe Verified 05/24/17 08:18 NSAIDS (Non-Steroidal AdvReac Severe Verified 05/24/17 08:18 Anti-Inflamma - Home Medications Home Medications: Ambulatory Orders Paroxetine HCl [Paxil] 40 mg PO HS 05/12/15 Bupropion HCl [Wellbutrin Xl -] 300 mg PO HS 07/07/15 Cephalexin [Keflex] 500 mg PO BID #20 capsule 10/27/16 Ciprofloxacin [Cipro -] 500 mg PO Q12H #14 tablet 11/11/16 Family Disease History - Family Disease History Family Disease History: Heart Disease: Grandparent, Father Review of Systems Findings/Remarks: Full review of systems obtained, as per HPI and otherwise negative. Physical Examination Vital Signs: Vital Signs Temperature 37.4 C 05/24/17 10:30 Pulse Rate 90 05/24/17 10:44 Respiratory Rate 18 05/24/17 10:44 Blood Pressure 83/41 05/24/17 10:44 O2 Sat by Pulse Oximetry (%) 100 05/24/17 10:44 Constitutional: Yes: Well Nourished, No Distress, Calm Eyes: Yes: Conjunctiva Clear, EOM Intact, PERRL HENT: Yes: Atraumatic, Normocephalic Cardiovascular: Yes: Regular Rate and Rhythm. No: Gallop, Murmur, Rub Respiratory: Yes: Regular, CTA Bilaterally. No: Rales, Rhonchi, Wheezes Gastrointestinal: Yes: Normal Bowel Sounds, Soft. No: Distention, Tenderness Extremities: Yes: WNL Edema: No Labs: CBC, BMP 05/24/17 08:17 05/24/17 08:17 Imaging - Results Chest X-ray: Report Reviewed, Image Reviewed Problem List - Problems (1) Sepsis Assessment/Plan: -patient presents with SIRS/sepsis as evidenced by fevers, tachycardia, hypotension, and lactic acidosis -patient is injecting drugs, must consider endocarditis -also may be bacteremic without endocarditis secondary to this as well -I did not hear murmur on exam, however ER resident and attending both heard a murmur at the RUSB -will order TTE -admit to telemetry and consult cardiology for STUART -hydration with IVF -given vancomycin in the ED, consult ID to continue this as vancomycin is restricted to ID -this should cover gram positives that live on the skin -patient made mention of "cotton fever", on review this is a common symptom when patients inject solution of soaked cotton -review states that this is from the bacteria that lives on cotton producing endotoxins and in and of itself is self limited -it also mimics the signs and symptoms of sepsis -patient also could be having fevers and reaction to treatment of pyelonephritis -however with murmur heard by ER physicians, use of IV drugs, and septic appearance cotton fever is a diagnosis of exclusion -await blood culture results, 3 sets were sent in the ED -even if patient appears much improved and STUART negative, will need a 72 hour stay for blood cultures to result before discharge. patient made aware of this Code(s): A41.9 - SEPSIS, UNSPECIFIED ORGANISM (2) Pyelonephritis Assessment/Plan: -diagnosed with pyelonephritis as an outpatient -given cipro -will continue levaquin 750mg q24 while here -also place on lactobacillus Code(s): N12 - TUBULO-INTERSTITIAL NEPHRITIS, NOT SPCF ACUTE OR CHRONIC (3) Cocaine dependence, uncomplicated Assessment/Plan: -patient continues to use cocaine -consult Dr Lacy for assistance Code(s): F14.20 - COCAINE DEPENDENCE, UNCOMPLICATED (4) Opioid dependence, uncomplicated Assessment/Plan: -patient says she has her cousins suboxone but has not used it yet -encouraged her not to use medications not prescribed to her -consult Dr Lacy for assistance Code(s): F11.20 - OPIOID DEPENDENCE, UNCOMPLICATED
--- NOTE | 2017-05-24 11:54 | CON.CARD ---
Consult Consult Specialty:: cardio Referred by:: nely Reason for Consultation:: fever - History of Present Illness Chief Complaint: fever History of Present Illness: 32 year old female who comes in with fevers. has h/o IVDU, recently trying to stop using IV heroin so instead she is injecting solution run through the cotton that comes with the heroin. she sometimes she gets a fever after doing this but it does not get above 103 and resolves on its own. Last night she used nasal cocaine and again injected the cotton soaked in water solution. After this she immediately felt lightheaded, had a rapid heart beat, and became short of breath. home temp at this time was 105. recently rx'd cipro as outpt for UTI thinks the sob last night may have been b/c felt very anxious. denies ongoing sob, no orthopnea no cp no palpitations PMH: no HTN, DM, HPL, or known cv dz drugs as above - Past Medical History ...LMP: 06/22/15 Psych: Yes: Anxiety, Depression - Past Surgical History Past Surgical History: Yes: Tonsillectomy - Alcohol/Substance Use Hx Alcohol Use: No History of Substance Use: reports: Cocaine, Heroin, Marijuana - Smoking History Smoking history: Never smoked Have you smoked in the past 12 months: No Aproximately how many cigarettes per day: 0 - Social History ADL: Independent History of Recent Travel: No Home Medications - Allergies Allergies/Adverse Reactions: Allergies Allergy/AdvReac Type Severity Reaction Status Date / Time ibuprofen [From Motrin] AdvReac Severe Verified 05/24/17 08:18 NSAIDS (Non-Steroidal AdvReac Severe Verified 05/24/17 08:18 Anti-Inflamma - Home Medications Home Medications: Ambulatory Orders Paroxetine HCl [Paxil] 40 mg PO HS 05/12/15 Bupropion HCl [Wellbutrin Xl -] 300 mg PO HS 07/07/15 Cephalexin [Keflex] 500 mg PO BID #20 capsule 10/27/16 Ciprofloxacin [Cipro -] 500 mg PO Q12H #14 tablet 11/11/16 Family Disease History - Family Disease History Family Disease History: Heart Disease: Grandparent, Father Review of Systems - Review of Systems Constitutional: reports: Malaise. denies: Chills Eyes: denies: Eye Pain HENT: denies: Nasal Congestion Neck: denies: Stiffness Cardiovascular: denies: Palpitations Respiratory: denies: Orthopnea, PND Gastrointestinal: denies: Diarrhea, Rectal Bleeding Genitourinary: denies: Burning, Hematuria Musculoskeletal: denies: Muscle Pain Integumentary: denies: Rash Neurological: denies: Numbness, Seizure, Syncope Endocrine: denies: Excessive Sweating Hematology/Lymphatic: denies: Excessive Bleeding Vital Signs: Vital Signs Temperature 99.3 F 05/24/17 10:30 Pulse Rate 83 05/24/17 11:15 Respiratory Rate 18 05/24/17 11:15 Blood Pressure 94/46 05/24/17 11:15 O2 Sat by Pulse Oximetry (%) 100 05/24/17 11:15 Constitutional: Yes: Well Nourished, No Distress Eyes: No: Sclera Icterus HENT: No: Nasal Congestion Neck: No: Decreased ROM Respiratory: Yes: CTA Bilaterally. No: Accessory Muscle Use, Rales, Wheezes Gastrointestinal: Yes: Normal Bowel Sounds. No: Distention, Hepatomegaly, Palpable Mass, Tenderness Cardiovascular: Yes: Regular Rate and Rhythm JVD: No Carotid Bruit: No PMI: Non-Displaced Heart Sounds: Yes: S1, S2. No: Gallop Murmur: No: Systolic Murmur, Diastolic Murmur Musculoskeletal: Yes: Other (No kyphosis) Extremities: No: Cold, Cyanosis Edema: No Peripheral Pulses: 2+ Left Carotid, 2+ Right Carotid, 2+ Left Doralis Pedis, 2+ Right Dorsalis Pedis Integumentary: No: Jaundice Neurological: Yes: Alert, Oriented (x3) Psychiatric: No: Agitated - Other Data Labs, Other Data: CBC, BMP 05/24/17 08:17 05/24/17 08:17 INR, PTT INR 1.29 (0.82-1.09) H 05/24/17 08:17 Troponin, BNP 05/24/17 08:17 Troponin I 0.03 Troponin, BNP 05/24/17 08:17 Troponin I 0.03 Laboratory Tests 05/24/17 05/24/17 05/24/17 08:17 08:17 08:17 WBC 10.1 H D Hgb 9.7 L D Plt Count 257 INR 1.29 H Sodium 138 Potassium 3.8 Carbon Dioxide 25 BUN 15 Creatinine 0.7 Lactic Acid AST 21 D ALT 16 Creatine Kinase 57 Troponin I 0.03 05/24/17 08:17 WBC Hgb Plt Count INR Sodium Potassium Carbon Dioxide BUN Creatinine Lactic Acid 2.3 H* AST ALT Creatine Kinase Troponin I tele: NSR Assessment/Plan Echo 08/07: nl LV/RV; mild TR CXR: clear lungs/pleura, no nodules/cavities EKG: sinus tach (128), normal axis/intervals. + JUAN J. mild prolonged QT. no path q's. nonsp ST-Ts changed vs 11/04 fever, hi wbc, lactate, likely sepsis: -per ID consult -no murmur -agree with echo -thus far no Ferris major Criteria, only 1 minor lactic acidosis: -as above hypotension: -likely sec to sepsis -IVF -observe for change in mentation or further bp drop--if so, transfer to icu for dopa or norepi trial sinus tachycardia: -sec to sepsis -HR responded briskly (normalized) with ivf -sat.s normal, doubt PE (injecting possibly small cotton fragments in vein) -check echo nonspecific ECG changes (ST-Ts), mild prolonged QT: -K ok (3.8). Mag level ordered -? QT is opiates effect -rpt 2nd troponin later today, doubt ACS here -monitor tele for PVCs/VT anemia: -no baseline known -per hospitalist IVDU: -pt on counselled of health benefits to cessation, and hi risk of bacteremia/ endocarditis assctd with ongoing use (and she was advised to stop injecting foreign substances)
[2017-05-24] MEDS: LACTOBACILLUS ACIDOPHILUS 1 EACH TAB (FP) PO SCH (12:23)
[2017-05-24] MEDS: SODIUM CHLORIDE 1,000 ML IV SCH (12:24)
--- NOTE | 2017-05-24 12:49 | EKG ---
Test Reason : Blood Pressure : / mmHG Vent. Rate : 128 BPM Atrial Rate : 128 BPM P-R Int : 130 ms QRS Dur : 090 ms QT Int : 324 ms P-R-T Axes : 029 067 016 degrees QTc Int : 473 ms SINUS TACHYCARDIA POSSIBLE LEFT ATRIAL ENLARGEMENT BORDERLINE ECG WHEN COMPARED WITH ECG OF 04-NOV-2016 11:47, VENT. RATE HAS INCREASED BY 52 BPM Confirmed by ADITI SANTAMARIA MD ([id number]) on 05/24/2017 12:49:00 PM Referred By: Confirmed By:ADITI SANTAMARIA MD
--- NOTE | 2017-05-24 13:51 | CON.ID ---
Consult Consult Specialty:: Infectious Disease - History of Present Illness Chief Complaint: fever History of Present Illness: This is a 32 y.o. female with history of IVDU (heroin) and cocaine use for 1 year, and skin abscesses presenting with fever and chills. Pt states that she last used these drugs at 3 am. She has been soaking cotton with small amt of heroin and injecting it. She reports she has used this method in the past and would have fever up to 103 but it would resolve spontaneously. Pt also states that she was having dysuria, hematuria, and Lt flank pain and was started on cipro as an outpt 3 days ago and still has mild dysuria . In the ER she was febrile to 101.7F and tachycardic with HR of 132 with mild hypotension and was started on IV antibiotics. Currently she states she feels better. No other specific complaints. Denies chest pain, shortness of breath, or cough. Pt states she has been sexually active she has no history of STDs. As per pt she was tested for HIV about 6 months ago and was negative. - History Source History Provided By: Patient Limitations to Obtaining History: No Limitations - Past Medical History GRID CASTER: No: Alzheimer's, CVA, Dementia, Migraine, Multiple Sclerosis, Peripheral Neuropathy, Parkinson's, Seizure, Syncope, TIA, Vertigo, Other Cardio/Vascular: No: AFIB, Aneurysm, Aortic Insufficiency, Aortic Stenosis, CAD , CHF, Deep Vein Thrombosis, HTN, Hyperlipdemia, [place], Mitral Insufficiency, Mitral Stenosis, Murmur, Pulmonary Hypertension, Other Pulmonary: No: Asthma, Bronchitis, Cancer, COPD, O2 Dependent, Pneumonia, Previously Intubated, Pulmonary Embolus, Pulmonary Fibrosis, Sleep Apnea, Other Gastrointestinal: No: Ascites, Cancer, Constipation, Crohn's Disease, Diverticulitis, Diverticulosis, Esophageal Varices, Gastritis, GERD, GI Bleed, Hemorrhoids, Hiatal Hernia, Inflamatory Bowel Disease, Irritable Bowel Disease, Pancreatitis, Peptic Ulcer Disease, Ulcerative Colitis, Other Hepatobiliary: No: Cirrhosis, Cholelithiasis, Cholecystitis, Choledocholithiasis , Hepatitis A, Hepatitis B, Hepatitis C, Other ...LMP: 06/22/15 Psych: Yes: Anxiety, Depression - Past Surgical History Past Surgical History: Yes: Tonsillectomy - Alcohol/Substance Use Hx Alcohol Use: No History of Substance Use: reports: Cocaine, Heroin, Marijuana - Smoking History Smoking history: Never smoked Have you smoked in the past 12 months: No Aproximately how many cigarettes per day: 0 - Social History Usual Living Arrangement: Other (lives with grandparents) ADL: Independent History of Recent Travel: No Home Medications - Allergies Allergies/Adverse Reactions: Allergies Allergy/AdvReac Type Severity Reaction Status Date / Time ibuprofen [From Motrin] AdvReac Severe Verified 05/24/17 08:18 NSAIDS (Non-Steroidal AdvReac Severe Verified 05/24/17 08:18 Anti-Inflamma - Home Medications Home Medications: Ambulatory Orders Paroxetine HCl [Paxil] 40 mg PO HS 05/12/15 Bupropion HCl [Wellbutrin Xl -] 300 mg PO HS 07/07/15 Cephalexin [Keflex] 500 mg PO BID #20 capsule 10/27/16 Ciprofloxacin [Cipro -] 500 mg PO Q12H #14 tablet 11/11/16 Family Disease History - Family Disease History Family Disease History: Heart Disease: Grandparent, Father Physical Exam Vital Signs: Vital Signs Temperature 99.3 F 05/24/17 10:30 Pulse Rate 83 05/24/17 11:15 Respiratory Rate 18 05/24/17 11:15 Blood Pressure 94/46 05/24/17 11:15 O2 Sat by Pulse Oximetry (%) 100 05/24/17 11:15 Constitutional: Yes: Well Nourished, No Distress Eyes: Yes: Conjunctiva Clear HENT: Yes: Atraumatic, Normocephalic Neck: Yes: Supple, Trachea Midline Cardiovascular: Yes: Regular Rate and Rhythm Respiratory: Yes: CTA Bilaterally Gastrointestinal: Yes: Normal Bowel Sounds, Soft ...Rectal Exam: Yes: Deferred Renal/: Yes: WNL Musculoskeletal: Yes: WNL Extremities: Yes: Other (track drummond on b/l upper extremities. No erythema, induration, warmth or tenderness) Neurological: Yes: Alert, Oriented Psychiatric: Yes: Alert Labs: CBC, BMP 05/24/17 08:17 05/24/17 08:17 Blood, Urine cultures sent- results pending Imaging - Results Chest X-ray: Report Reviewed (no infiltrates) Problem List - Problems (1) Sepsis Code(s): A41.9 - SEPSIS, UNSPECIFIED ORGANISM (2) Cocaine dependence, uncomplicated Code(s): F14.20 - COCAINE DEPENDENCE, UNCOMPLICATED (3) Fever Code(s): R50.9 - FEVER, UNSPECIFIED Qualifiers: Fever type: unspecified Qualified Code(s): R50.9 - Fever, unspecified (4) Intravenous drug abuse Code(s): F19.10 - OTHER PSYCHOACTIVE SUBSTANCE ABUSE, UNCOMPLICATED (5) UTI (urinary tract infection) Code(s): N39.0 - URINARY TRACT INFECTION, SITE NOT SPECIFIED Qualifiers: Urinary tract infection type: acute cystitis Hematuria presence: with hematuria Qualified Code(s): N30.01 - Acute cystitis with hematuria Assessment/Plan 32 y.o female with history of IVDU and cocaine use presenting with fever, tachycardia, hypotension - f/u blood culture/urine culture results - continue levaquin, Vancomycin IV - monitor vitals/temps - recommend Echo - HIV, Hepatitis serology testing pt currently appears stable
[2017-05-24 17:50] LABS: URINE LEUK ESTERASE Negative (NEGATIVE)
[2017-05-24 17:59] LABS: TROPONIN I 0.02 ng/ml (0.00-0.05)
--- NOTE | 2017-05-24 18:11 | CONSULT ---
Consult Detox [facility] Reason for Current Admission/Consult: opioid use disorder Referred by:: dr. Cameron Novoa - History History of Present Illness: 32 y o f referred by Dr. Ortega for evaluation of opioid use disorder, admitted w fevers after she reports trying to stop using IV heroin, but continued to inject residual product in cotton balls, last used day of admission. last time using heroin was 3 weeks ago, reports using x1 year but history not reliable as per Dr. Urias, no evidence she has been in treatment [place] although appointments was made for [facility] which patient never attended. go has been injecting from cotton 3 times a day for the past three weeks. She says that sometimes she gets a fever after doing this but it does not get above 103 and resolves on its own. Last night she used nasal cocaine and again injected the cotton soaked in water solution. After this she immediately felt ill and came to [facility] where she was admitted and started on antibiotics. Pateint reports body aches and other symptoms of opioid withdrawal - anxiety, insomia, depression. Pateint denies smoking and other illicit nhung guse but utox cam back +ve for cocaine, THC and MDMA as well as opiates. Denies alcohol use, seizures or DTS in past no h/o OD. - History Source History Provided By: Patient, Medical Record, Caregiver Limitations to Obtaining History: No Limitations - Alcohol/Substance Use Hx Alcohol Use: No Hx Substance Use: Yes (heroin and cocaine) Hx Substance Use Treatment: Yes (no) - Current Drug/Alcohol Use Heroin Route: Injection Frequency: Daily Amount used: uses residual amount in cotton ball, has not used for over 3 weeks , unrelia Age of first use: 30 Date of Last Use: 05/24/17 - Past Medical History [employer]: No: Alzheimer's, CVA, Dementia, Migraine, Multiple Sclerosis, Peripheral Neuropathy, Parkinson's, Seizure, Syncope, TIA, Vertigo, Other Cardio/Vascular: No: AFIB, Aneurysm, Aortic Insufficiency, Aortic Stenosis, CAD , CHF, Deep Vein Thrombosis, HTN, Hyperlipdemia, [place], Mitral Insufficiency, Mitral Stenosis, Murmur, Pulmonary Hypertension, Other Pulmonary: No: Asthma, Bronchitis, Cancer, COPD, O2 Dependent, Pneumonia, Previously Intubated, Pulmonary Embolus, Pulmonary Fibrosis, Sleep Apnea, Other Gastrointestinal: No: Ascites, Cancer, Constipation, Crohn's Disease, Diverticulitis, Diverticulosis, Esophageal Varices, Gastritis, GERD, GI Bleed, Hemorrhoids, Hiatal Hernia, Inflamatory Bowel Disease, Irritable Bowel Disease, Pancreatitis, Peptic Ulcer Disease, Ulcerative Colitis, Other Hepatobiliary: No: Cirrhosis, Cholelithiasis, Cholecystitis, Choledocholithiasis , Hepatitis A, Hepatitis B, Hepatitis C, Other ...LMP: 06/22/15 Psych: Yes: Anxiety, Depression - Past Surgical History Past Surgical History: Yes: Tonsillectomy - Significant Medical Findings: 32 yo f with opiodi withdrawwl sx present and craings, requesting methadone detoxification while hospitalized for sepsis COWS - Scale Resting Pulse: 0= NM 80 or Below Sweatin= No chills or Flushing Restless Observation: 0= Sits Still Pupil Size: 0= Normal to Room Light Bone or Joint Aches: 2= Severe Diffuse Aches Runny Nose/ Eye Tearin= Nasal Congestion GI Upset > 30mins: 2= Nausea/Diarrhea Tremor Observation: 0= None Yawning Observation: 0= None Anxiety or Irritability: 2=Irritable/Anxious Goose Flesh Skin: 0=Smooth Skin COWS Score: 7 Assessment Plan - Diagnosis (1) Opioid dependence with withdrawal Status: Acute (2) Sepsis Status: Acute (3) Cocaine dependence, uncomplicated Status: Acute - Plan Plan: 32 yo f w opioid use disorder, never in treatment admitted with sepsis requiring methadone detoxification while hospitalized to follow up [facility] when discharged MAT with suboxone - Medication Detox Regimen/Protocol: Methadone
[2017-05-24] MEDS ORDERED: METHADONE HCL 10 MG TABLET PO ONE ×2 (18:14→23:00)
[2017-05-24] MEDS ORDERED: diazePAM 5 MG TABLET PO PRN (18:14)
[2017-05-24] MEDS ORDERED: ZOLPIDEM TARTRATE 5 MG TABLET PO PRN (18:17)
[2017-05-24] MEDS: diazePAM 5 MG TABLET PO SCH (22:09)
[2017-05-24] MEDS: VANCOMYCIN 1,000 MG in DEXTROSE 5%-WATER - 250 ML IVPB SCH (22:09)
[2017-05-24] MEDS: PARoxetine HCL 20 MG TABLET (FP) PO SCH (22:09)
[2017-05-24 22:55] LABS: HIV 1 & 2 AB NEGATIVE; HIV 1 AGp24 NEGATIVE
[2017-05-25] MEDS: SODIUM CHLORIDE 1,000 ML IV SCH ×2 (03:12→11:39)
[2017-05-25 07:33] LABS: BASOPHIL 0.2 % (0-2.0); EOSINOPHIL 1.3 % (0-4.5); MCH 23.9 pg (25.7-33.7); MCHC 32.6 g/dl (32.0-36.0); MEAN CELL VOLUME 73.4 fl (80-96); MEAN PLT VOLUME 8.4 fl (7.5-11.1); NEUTROPHILS 68.3 % (42.8-82.8); PLATELET COUNT 228 K/MM3 (134-434); WHITE BLOOD COUNT 6.6 K/mm3 (4.0-10.0)
[2017-05-25 08:13] LABS: ALBUMIN 2.7 g/dl (3.4-5.0); ALK PHOS 60 U/L (45-117); ANION GAP 9 (8-16); BILIRUBIN,TOTAL 0.4 mg/dL (0.2-1.0); CALCIUM 8.5 mg/dL (8.5-10.1); CO2 24 mmol/L (21-32); CREATININE 0.4 mg/dL (0.55-1.02); GLUCOSE,RANDOM 82 mg/dL (74-106); MAGNESIUM 2.1 mg/dL (1.8-2.4); PHOSPHOROUS 3.5 mg/dL (2.5-4.9); SGOT/AST 7 U/L (15-37); SGPT/ALT 14 U/L (12-78); TOT PROT 5.7 g/dl (6.4-8.2)
[2017-05-25] MEDS: LACTOBACILLUS ACIDOPHILUS 1 EACH TAB (FP) PO SCH (09:59)
[2017-05-25] MEDS: VANCOMYCIN 1,000 MG in DEXTROSE 5%-WATER - 250 ML IVPB SCH ×2 (09:59→22:00)
[2017-05-25] MEDS ORDERED: METHADONE HCL 10 MG TABLET PO ONE ×2 (10:00)
[2017-05-25] MEDS ORDERED: CEFTRIAXONE 1 G/50 ML PREMIX 50 ML IVPB SCH (10:00)
[2017-05-25] MEDS ORDERED: METHADONE HCL 5 MG TABLET (FOR DETOX USE ONLY) PO ONE (10:00)
[2017-05-25] MEDS ORDERED: LEVOFLOXACIN 750 MG IVPB 750 MG/150 ML BAG IVPB SCH (10:00)
--- NOTE | 2017-05-25 11:07 | PN ---
Progress Note (short form) - Note Progress Note: CC: fever/sepsis feels much better denies ongoing sob, no orthopnea no cp no palpitations - Allergies Allergies/Adverse Reactions: Allergies Allergy/AdvReac Type Severity Reaction Status Date / Time ibuprofen [From Motrin] AdvReac Severe Verified 05/24/17 08:18 NSAIDS (Non-Steroidal AdvReac Severe Verified 05/24/17 08:18 Anti-Inflamma Current Medications Acetaminophen (Tylenol -) 650 mg PO Q4H PRN PRN Reason: FEVER OR PAIN Bupropion HCl (Wellbutrin Xl -) 300 mg PO HS [facility] Last Admin: 05/24/17 22:34 Dose: 300 mg Cyclobenzaprine HCl (Flexeril -) 10 mg PO TID [facility] Diazepam (Valium -) 10 mg PO Q4H PRN PRN Reason: WITHDRAWAL(CONT SUBST) Stop: 05/27/17 18:13 Diazepam (Valium -) 10 mg PO [facility] Last Admin: 05/24/17 22:09 Dose: 10 mg Sodium Chloride (Normal Saline -) 1,000 mls @ 100 mls/hr IV ASDIR [facility] Last Admin: 05/25/17 03:12 Dose: 100 mls/hr Levofloxacin (Levaquin 750 Mg Premixed Ivpb -) 750 mg in 150 mls @ 150 mls/hr IVPB DAILY [facility] Last Admin: 05/25/17 09:59 Dose: 150 mls/hr Vancomycin HCl 1,000 mg/ (Dextrose) 250 mls @ 166.667 mls/hr IVPB BID [facility] PRN Reason: Protocol Last Admin: 05/25/17 09:59 Dose: 166.667 mls/hr Lactobacillus Acidophilus (Bacid -) 1 tab PO DAILY [facility] Last Admin: 05/25/17 09:59 Dose: 1 tab Methadone HCl (Dolophine -) 5 mg PO ONCE@0600 ONE Stop: 05/27/17 06:01 Methadone HCl (Dolophine -) 10 mg PO ONCE ONE Stop: 05/26/17 06:01 Ondansetron HCl (Zofran Injection) 4 mg IVPUSH Q6H PRN PRN Reason: NAUSEA Paroxetine HCl (Paxil -) 40 mg PO [facility] Last Admin: 05/24/17 22:09 Dose: 40 mg Potassium Chloride (K-Dur -) 40 meq PO ONCE ONE Stop: 05/25/17 11:31 Multivit/Folic Acid/Iron ( Vitamins (Sjr) -) 1 tab PO DAILY [facility] Thiamine HCl (Vitamin B1 -) 100 mg PO HS [facility] Zolpidem Tartrate (Ambien -) 10 mg PO HS PRN PRN Reason: INSOMNIA Vital Signs - 24 hr 05/24/17 05/24/17 05/24/17 11:02 11:15 14:00 Temperature 98.4 F Pulse Rate 84 Pulse Rate [ 89 83 Right Radial] Respiratory 18 18 20 Rate Blood Pressure 100/55 Blood Pressure 80/35 94/46 [Left Arm] O2 Sat by Pulse 100 100 Oximetry (%) 05/24/17 05/24/17 05/24/17 16:48 16:58 17:00 Temperature 97.8 F 98.9 F Pulse Rate 88 77 Pulse Rate [ Right Radial] Respiratory 18 20 Rate Blood Pressure 98/70 93/41 Blood Pressure [Left Arm] O2 Sat by Pulse 98 Oximetry (%) 05/24/17 05/24/17 05/25/17 21:00 22:00 02:00 Temperature 98.2 F 99.4 F Pulse Rate 86 77 Pulse Rate [ Right Radial] Respiratory 18 20 Rate Blood Pressure 91/56 98/46 Blood Pressure [Left Arm] O2 Sat by Pulse 99 Oximetry (%) 05/25/17 06:00 Temperature 98.8 F Pulse Rate 80 Pulse Rate [ Right Radial] Respiratory 18 Rate Blood Pressure 99/45 Blood Pressure [Left Arm] O2 Sat by Pulse Oximetry (%) Intake & Output 05/23/17 05/24/17 05/25/17 05/26/17 07:59 07:59 07:59 07:59 Intake Total 3280 Output Total 200 Balance 3080 Weight 162 lb 162 lb Constitutional: Yes: Well Nourished, No Distress Eyes: No: Sclera Icterus HENT: No: Nasal Congestion Neck: No: Decreased ROM Respiratory: Yes: CTA Bilaterally. No: Accessory Muscle Use, Rales, Wheezes Gastrointestinal: Yes: Normal Bowel Sounds. No: Distention, Hepatomegaly, Palpable Mass, Tenderness Cardiovascular: Yes: Regular Rate and Rhythm JVD: No Carotid Bruit: No PMI: Non-Displaced Heart Sounds: Yes: S1, S2. No: Gallop Murmur: No: Systolic Murmur, Diastolic Murmur Musculoskeletal: Yes: Other (No kyphosis) Extremities: No: Cold, Cyanosis Edema: No Peripheral Pulses: 2+ Left Carotid, 2+ Right Carotid, 2+ Left Doralis Pedis, 2+ Right Dorsalis Pedis Integumentary: No: Jaundice Neurological: Yes: Alert, Oriented (x3) Psychiatric: No: Agitated - Other Data Labs, Other Data: CBC, BMP 05/25/17 05:22 05/25/17 05:22 Laboratory Tests 05/24/17 05/24/17 05/24/17 08:17 08:17 08:17 INR 1.29 H Lactic Acid Magnesium Total Bilirubin AST ALT Alkaline Phosphatase Creatine Kinase Troponin I Albumin Urine HCG, Qual Negative Opiates Screen Positive MDMA (Ecstasy) Screen Positive Cocaine Screen Positive U Marijuana (THC) Screen Positive 05/24/17 05/24/17 05/25/17 09:25 14:45 05:22 INR Lactic Acid 2.0 Magnesium 2.1 Total Bilirubin 0.4 D AST 7 L D ALT 14 Alkaline Phosphatase 60 D Creatine Kinase 31 Troponin I 0.02 Albumin 2.7 L Urine HCG, Qual Opiates Screen MDMA (Ecstasy) Screen Cocaine Screen U Marijuana (THC) Screen tele: NSR Assessment/Plan Echo 05/2017: nl lv/rv/valves. no pericardial effusion. Echo 08/07: nl LV/RV; mild TR CXR: clear lungs/pleura, no nodules/cavities EKG: sinus tach (128), normal axis/intervals. + JUAN J. mild prolonged QT. no path q's. nonsp ST-Ts changed vs 11/04 32 yo with h/o polysubstance abuse (including IVDU, mdma, marijuana, cocaine), Anxiety, Depression p/w fevers, elevated lactate, hypotension concerning for sepsis. fever, hi wbc, lactate, likely sepsis: -per ID consult. lactic acidosis now resolved. -no signs of endocarditis thus far. no murmur. echo without valvular disease. thus far no [place] major Criteria, only 1 minor. bcx negative so far. hypotension: -likely sec to infection. -con't IVF per pmd/id. sinus tachycardia: -likely 2/2 underlying clinical condition. Ongoing mgm't per pmd/id. Mgm't of detox per detox consult. -HR responded briskly (normalized) with ivf. -sats normal, doubt PE (injecting possibly small cotton fragments in vein). echo without signs of RV strain. nonspecific ECG changes (ST-Ts), mild prolonged QT: -CE's neg x 2. doubt ACS here -tele thus far benign. aggressive lyte repletion. patient already on ssri, levaquin and methadone. Would avoid additional qt prolonging drugs. Consider d /c zofran. - 05/25: repeat ekg. If qtc stable, ok to d/c tele. anemia: -no baseline known, -per hospitalist IVDU: -pt on counselled of health benefits to cessation, and hi risk of bacteremia/ endocarditis assctd with ongoing use (and she was advised to stop injecting foreign substances) * If qtc stable on repeat ekg, ok to d/c tele.
[2017-05-25] MEDS ORDERED: POTASSIUM CHLORIDE TABS 20 MEQ TABLET.ER (FP) PO ONE (11:30)
--- NOTE | 2017-05-25 11:35 | PN ---
Progress Note, Physician Chief Complaint: Ms Saldaña says she feels fine and is without complaint. Denies fevers, cp, sob, n/v. - Current Medication List Current Medications: Active Medications Acetaminophen (Tylenol -) 650 mg PO Q4H PRN PRN Reason: FEVER OR PAIN Bupropion HCl (Wellbutrin Xl -) 300 mg PO HS [facility] Last Admin: 05/24/17 22:34 Dose: 300 mg Cyclobenzaprine HCl (Flexeril -) 10 mg PO TID [facility] Diazepam (Valium -) 10 mg PO Q4H PRN PRN Reason: WITHDRAWAL(CONT SUBST) Stop: 05/27/17 18:13 Diazepam (Valium -) 10 mg PO HS [facility] Last Admin: 05/24/17 22:09 Dose: 10 mg Sodium Chloride (Normal Saline -) 1,000 mls @ 100 mls/hr IV ASDIR [facility] Last Admin: 05/25/17 03:12 Dose: 100 mls/hr Levofloxacin (Levaquin 750 Mg Premixed Ivpb -) 750 mg in 150 mls @ 150 mls/hr IVPB DAILY [facility] Last Admin: 05/25/17 09:59 Dose: 150 mls/hr Vancomycin HCl 1,000 mg/ (Dextrose) 250 mls @ 166.667 mls/hr IVPB BID [facility] PRN Reason: Protocol Last Admin: 05/25/17 09:59 Dose: 166.667 mls/hr Lactobacillus Acidophilus (Bacid -) 1 tab PO DAILY [facility] Last Admin: 05/25/17 09:59 Dose: 1 tab Methadone HCl (Dolophine -) 5 mg PO ONCE@0600 ONE Stop: 05/27/17 06:01 Methadone HCl (Dolophine -) 10 mg PO ONCE ONE Stop: 05/26/17 06:01 Paroxetine HCl (Paxil -) 40 mg PO HS [facility] Last Admin: 05/24/17 22:09 Dose: 40 mg Multivit/Folic Acid/Iron ( Vitamins (Sjr) -) 1 tab PO DAILY [facility] Thiamine HCl (Vitamin B1 -) 100 mg PO HS [facility] Zolpidem Tartrate (Ambien -) 10 mg PO HS PRN PRN Reason: INSOMNIA - Objective Vital Signs: Vital Signs Temperature 37.1 C 05/25/17 06:00 Pulse Rate 80 12/05/17 06:00 Respiratory Rate 18 05/25/17 06:00 Blood Pressure 99/45 05/25/17 06:00 O2 Sat by Pulse Oximetry (%) 99 05/24/17 21:00 Constitutional: Yes: Well Nourished, No Distress, Calm Cardiovascular: Yes: Regular Rate and Rhythm, Murmur (LUSB). No: Gallop, Rub Respiratory: Yes: Regular, CTA Bilaterally. No: Rales, Rhonchi, Wheezes Gastrointestinal: Yes: Normal Bowel Sounds, Soft. No: Distention, Tenderness Extremities: Yes: WNL Edema: No Labs: CBC, BMP 05/25/17 05:22 05/25/17 05:22 INR, PTT INR 1.29 (0.82-1.09) H 05/24/17 08:17 Problem List - Problems (1) Sepsis Code(s): A41.9 - SEPSIS, UNSPECIFIED ORGANISM (2) Pyelonephritis Code(s): N12 - TUBULO-INTERSTITIAL NEPHRITIS, NOT SPCF ACUTE OR CHRONIC (3) Cocaine dependence, uncomplicated Code(s): F14.20 - COCAINE DEPENDENCE, UNCOMPLICATED (4) Opioid dependence, uncomplicated Code(s): F11.20 - OPIOID DEPENDENCE, UNCOMPLICATED Assessment/Plan (1) Sepsis Assessment/Plan: -patient appears much improved -suspect this is secondary to cotton fever vs treatment for pyelo -appreciate cardiology assistance, ECHO negative -defer to cardiology if needs STUART -appreciate ID assistance, continue vancomycin -BC currently NGTD, if remain negative for 3 days will stop vancomycin and plan for discharge Code(s): A41.9 - SEPSIS, UNSPECIFIED ORGANISM (2) Pyelonephritis Assessment/Plan: -continue levaquin -lactobacillus Code(s): N12 - TUBULO-INTERSTITIAL NEPHRITIS, NOT SPCF ACUTE OR CHRONIC (3) Cocaine dependence, uncomplicated Assessment/Plan: -patient expresses interest in cessation -case d/w Dr Lacy, plan for outpatient rehab Code(s): F14.20 - COCAINE DEPENDENCE, UNCOMPLICATED (4) Opioid dependence, uncomplicated Assessment/Plan: -appreciate Dr Lacy assistance -on detox -outpatient follow up on discharge Code(s): F11.20 - OPIOID DEPENDENCE, UNCOMPLICATED
[2017-05-25 13:06] LABS: FERRITIN 50.509 ng/ml (6.9-282.5)
[2017-05-25] MEDS: THIAMINE HCL 100 MG TABLET (FP) PO SCH ×2 (13:33→22:02)
[2017-05-25] MEDS: CYCLOBENZAPRINE HCL 10 MG TABLET (FP) PO SCH ×2 (13:34→22:02)
[2017-05-25] MEDS: PRENATAL VITAMINS W/ FOLIC ACID TABLET (FP) PO SCH (13:34)
--- NOTE | 2017-05-25 14:06 | PN ---
Progress Note, Physician History of Present Illness: Pt states she feels much better. Denies fever/chills, shortness of breath, cough , chest pain, abd pain/n/v/d. Denies dysuria/hematuria. Tmax 99.4F - Current Medication List Current Medications: Active Medications Acetaminophen (Tylenol -) 650 mg PO Q4H PRN PRN Reason: FEVER OR PAIN Bupropion HCl (Wellbutrin Xl -) [address] [facility] Last Admin: 05/24/17 22:34 Dose: 300 mg Cyclobenzaprine HCl (Flexeril -) 10 mg PO TID [facility] Last Admin: 05/25/17 13:34 Dose: 10 mg Diazepam (Valium -) 10 mg PO Q4H PRN PRN Reason: WITHDRAWAL(CONT SUBST) Stop: 05/27/17 18:13 Diazepam (Valium -) 10 mg PO [facility] Last Admin: 05/24/17 22:09 Dose: 10 mg Sodium Chloride (Normal Saline -) 1,000 mls @ 100 mls/hr IV ASDIR [facility] Last Admin: 05/25/17 11:39 Dose: Not Given Levofloxacin (Levaquin 750 Mg Premixed Ivpb -) 750 mg in 150 mls @ 150 mls/hr IVPB DAILY [facility] Last Admin: 05/25/17 09:59 Dose: 150 mls/hr Vancomycin HCl 1,000 mg/ (Dextrose) 250 mls @ 166.667 mls/hr IVPB BID [facility] PRN Reason: Protocol Last Admin: 05/25/17 09:59 Dose: 166.667 mls/hr Lactobacillus Acidophilus (Bacid -) 1 tab PO DAILY [facility] Last Admin: 05/25/17 09:59 Dose: 1 tab Methadone HCl (Dolophine -) 5 mg PO ONCE@0600 ONE Stop: 05/27/17 06:01 Methadone HCl (Dolophine -) 10 mg PO ONCE ONE Stop: 05/26/17 06:01 Paroxetine HCl (Paxil -) 40 mg PO [facility] Last Admin: 05/24/17 22:09 Dose: 40 mg Multivit/Folic Acid/Iron ( Vitamins (Sjr) -) 1 tab PO DAILY [facility] Last Admin: 05/25/17 13:34 Dose: Not Given Thiamine HCl (Vitamin B1 -) 100 mg PO [facility] Last Admin: 05/25/17 13:33 Dose: 100 mg Zolpidem Tartrate (Ambien -) 10 mg PO HS PRN PRN Reason: INSOMNIA - Objective Vital Signs: Vital Signs Temperature 98.7 F 05/25/17 10:00 Pulse Rate 84 05/25/17 10:00 Respiratory Rate 18 05/25/17 10:00 Blood Pressure 88/79 05/25/17 10:00 O2 Sat by Pulse Oximetry (%) 99 05/25/17 10:00 Constitutional: Yes: No Distress, Calm HENT: Yes: Atraumatic Neck: Yes: Supple Cardiovascular: Yes: Regular Rate and Rhythm Respiratory: Yes: CTA Bilaterally Gastrointestinal: Yes: Normal Bowel Sounds, Soft Genitourinary: Yes: WNL Extremities: Yes: WNL Peripheral Pulses WNL: No Labs: CBC, BMP 05/25/17 05:22 05/25/17 05:22 INR, PTT INR 1.29 (0.82-1.09) H 05/24/17 08:17 Microbiology 05/24/17 09:25 Blood - Peripheral Venous Blood Culture - Preliminary NO GROWTH OBTAINED AFTER 24 HOURS, INCUBATION TO CONTINUE FOR 4 DAYS. 05/24/17 08:17 Urine - Urine Clean Catch Urine Culture - Final NO GROWTH OBTAINED 05/24/17 08:17 Blood - Peripheral Venous Blood Culture - Preliminary NO GROWTH OBTAINED AFTER 24 HOURS, INCUBATION TO CONTINUE FOR 4 DAYS. 05/24/17 08:17 Blood - Peripheral Venous Blood Culture - Preliminary NO GROWTH OBTAINED AFTER 24 HOURS, INCUBATION TO CONTINUE FOR 4 DAYS. Problem List - Problems (1) Sepsis Code(s): A41.9 - SEPSIS, UNSPECIFIED ORGANISM (2) Cocaine dependence, uncomplicated Code(s): F14.20 - COCAINE DEPENDENCE, UNCOMPLICATED (3) Fever Code(s): R50.9 - FEVER, UNSPECIFIED Qualifiers: Fever type: unspecified Qualified Code(s): R50.9 - Fever, unspecified (4) Intravenous drug abuse Code(s): F19.10 - OTHER PSYCHOACTIVE SUBSTANCE ABUSE, UNCOMPLICATED (5) UTI (urinary tract infection) Code(s): N39.0 - URINARY TRACT INFECTION, SITE NOT SPECIFIED Qualifiers: Urinary tract infection type: acute cystitis Hematuria presence: with hematuria Qualified Code(s): N30.01 - Acute cystitis with hematuria Assessment/Plan 32 y.o female with history of IVDU and cocaine use presenting with fever, tachycardia, hypotension -no growth in blood cultures in 24 hrs, urine culture no growth - d/c levaquin, cont Vancomycin for now - minimal temperature elevation earlier, no fever currently - Echocardiogram reportedly without vegetations HIV, Hepatitis serology pending pt currently appears stable
[2017-05-25] MEDS ORDERED: PT OWN MED DRAWER 7, Y5N ONE (21:30)
[2017-05-25] MEDS: diazePAM 5 MG TABLET PO SCH (22:02)
[2017-05-25] MEDS: PARoxetine HCL 20 MG TABLET (FP) PO SCH (22:02)
[2017-05-26] MEDS ORDERED: METHADONE HCL 10 MG TABLET PO ONE (06:00)
[2017-05-26] MEDS: CYCLOBENZAPRINE HCL 10 MG TABLET (FP) PO SCH ×3 (06:03→22:52)
[2017-05-26 07:13] LABS: BASOPHIL 0.5 % (0-2.0); EOSINOPHIL 1.6 % (0-4.5); MCH 23.6 pg (25.7-33.7); MCHC 31.9 g/dl (32.0-36.0); MEAN PLT VOLUME 8.3 fl (7.5-11.1); PLATELET COUNT 318 K/MM3 (134-434); RDW 17.3 % (11.6-15.6); WHITE BLOOD COUNT 5.7 K/mm3 (4.0-10.0)
[2017-05-26 07:36] LABS: ANION GAP 10 (8-16); CALCIUM 8.7 mg/dL (8.5-10.1); CO2 24 mmol/L (21-32); CREATININE 0.5 mg/dL (0.55-1.02); GLUCOSE,RANDOM 77 mg/dL (74-106); MAGNESIUM 2.3 mg/dL (1.8-2.4); PHOSPHOROUS 3.5 mg/dL (2.5-4.9)
--- NOTE | 2017-05-26 07:38 | EKG ---
Test Reason : Blood Pressure : / mmHG Vent. Rate : 082 BPM Atrial Rate : 082 BPM P-R Int : 136 ms QRS Dur : 090 ms QT Int : 390 ms P-R-T Axes : 026 065 031 degrees QTc Int : 455 ms NORMAL SINUS RHYTHM NORMAL ECG WHEN COMPARED WITH ECG OF 24-MAY-2017 07:32, VENT. RATE HAS DECREASED BY 46 BPM Confirmed by Akira Clancy ([id number]) on 05/25/2017 2:24:27 PM Also confirmed by MD Clancy Daniel ([id number]), video effects editor AKIRA MIRELES ([id number]) on 05/26/2017 7:38:16 AM Referred By: DEZ PEOPLES DR Confirmed By:Akira Clancy MD
[2017-05-26 08:08] LABS: SERUM IRON 11 ug/dL (27-159); TOTAL IRON BINDING CAPACITY 262 ug/dL (250-450); TRANSFERRIN 212 mg/dL (200-370); UIBC 251 ug/dL (131-425)
[2017-05-26] MEDS: PRENATAL VITAMINS W/ FOLIC ACID TABLET (FP) PO SCH (09:45)
[2017-05-26] MEDS: VANCOMYCIN 1,000 MG in DEXTROSE 5%-WATER - 250 ML IVPB SCH ×2 (09:45→22:52)
[2017-05-26] MEDS: LACTOBACILLUS ACIDOPHILUS 1 EACH TAB (FP) PO SCH (09:45)
[2017-05-26] MEDS: SODIUM CHLORIDE 1,000 ML IV SCH (09:46)
[2017-05-26] MEDS ORDERED: METHADONE HCL 5 MG TABLET PO ONE (10:00)
--- NOTE | 2017-05-26 11:25 | PN ---
Progress Note (short form) - Note Progress Note: CC: fever/sepsis feels much better denies ongoing sob, no orthopnea no cp no palpitations Current Medications Generic Name Dose Route Start Last Admin Trade Name Freq PRN Reason Stop Dose Admin Acetaminophen 650 mg 05/24/17 10:45 Tylenol - PO Q4H PRN FEVER OR PAIN Bupropion HCl 300 mg 05/24/17 22:00 05/25/17 22:02 Wellbutrin Xl - PO 300 mg HS MARIELY Administration Cyclobenzaprine HCl 10 mg 05/25/17 14:00 05/26/17 06:03 Flexeril - PO 10 mg TID MARIELY Administration Diazepam 10 mg 05/24/17 18:14 Valium - PO 05/27/17 18:13 Q4H PRN WITHDRAWAL(CONT SUBST) Diazepam 10 mg 05/24/17 22:00 05/25/17 22:02 Valium - PO 10 mg HS MARIELY Administration Sodium Chloride 1,000 mls @ 100 mls/hr 05/24/17 10:45 05/26/17 09:46 Normal Saline - IV 100 mls/hr ASDIR MARIELY Administration Vancomycin HCl 1,000 mg/ 250 mls @ 166.667 mls/hr 05/24/17 22:00 05/26/17 09: 45 Dextrose IVPB 166.667 mls/hr BID MARIELY Administration Protocol Lactobacillus Acidophilus 1 tab 05/24/17 11:00 05/26/17 09:45 Bacid - PO 1 tab DAILY MARIELY Administration Methadone HCl 5 mg 05/27/17 06:00 Dolophine - PO 05/27/17 06:01 ONCE@0600 ONE Paroxetine HCl 40 mg 05/24/17 22:00 05/25/17 22:02 Paxil - PO 40 mg HS MARIELY Administration Multivit/Folic Acid/Iron 1 tab 05/25/17 10:00 05/26/17 09:45 Vitamins (Sjr) - PO 1 tab DAILY MARIELY Administration Thiamine HCl 100 mg 05/25/17 10:00 05/25/17 22:02 Vitamin B1 - PO 100 mg HS MARIELY Administration Zolpidem Tartrate 10 mg 05/24/17 18:17 Ambien - PO HS PRN INSOMNIA Vital Signs Period Temp Pulse Resp BP Sys/Reece Pulse Ox Last 24 Hr 98.9 F-99.6 F 73-88 18-20 94-107/45-59 99 Constitutional: Yes: Well Nourished, No Distress Eyes: No: Sclera Icterus Respiratory: Yes: CTA Bilaterally. No: Accessory Muscle Use, Rales, Wheezes Gastrointestinal: Yes: Normal Bowel Sounds. No: Distention, Hepatomegaly, Palpable Mass, Tenderness Cardiovascular: Yes: Regular Rate and Rhythm JVD: No Heart Sounds: Yes: S1, S2. No: Gallop Murmur: No: Systolic Murmur, Diastolic Murmur Extremities: No: Cold, Cyanosis Edema: No Integumentary: No: Jaundice Neurological: Yes: Alert, Oriented (x3) Psychiatric: No: Agitated - Other Data Labs, Other Data: CBC, BMP 05/26/17 06:45 05/26/17 06:45 tele: NSR Echo 05/2017: nl lv/rv/valves. no pericardial effusion. Echo 08/07: nl LV/RV; mild TR CXR: clear lungs/pleura, no nodules/cavities EKG: sinus tach (128), normal axis/intervals. + JUAN J. mild prolonged QT. no path q's. nonsp ST-Ts changed vs 11/04 Assessment/Plan 32 yo with h/o polysubstance abuse (including IVDU, mdma, marijuana, cocaine), Anxiety, Depression p/w fevers, elevated lactate, hypotension concerning for sepsis. fever, hi wbc, lactate, likely sepsis: -per ID consult. lactic acidosis now resolved. -no signs of endocarditis. no murmur. echo without valvular disease. thus far no [place] major Criteria, only 1 minor. bcx negative so far. hypotension: -likely sec to infection. -con't IVF per pmd/id. sinus tachycardia: -likely 2/2 underlying clinical condition. Ongoing mgm't per pmd/id. Mgm't of detox per detox consult. -HR responded briskly (normalized) with ivf. -sats normal, doubt PE (injecting possibly small cotton fragments in vein). echo without signs of RV strain. nonspecific ECG changes (ST-Ts), mild prolonged QT: -CE's neg x 2. doubt ACS here -tele thus far benign. aggressive lyte repletion. patient already on ssri, levaquin and methadone. Would avoid additional qt prolonging drugs. Consider d /c zofran. - 05/25: repeat ekg with nl qtc anemia: -no baseline known, -per hospitalist IVDU: -pt on counselled of health benefits to cessation, and hi risk of bacteremia/ endocarditis assctd with ongoing use (and she was advised to stop injecting foreign substances) ok to d/c tele.
--- NOTE | 2017-05-26 11:28 | PN ---
Progress Note, Physician Chief Complaint: Ms Saldaña says she feels fine and is without complaint. Denies fevers, cp, sob, n/v. - Current Medication List Current Medications: Active Medications Acetaminophen (Tylenol -) 650 mg PO Q4H PRN PRN Reason: FEVER OR PAIN Bupropion HCl (Wellbutrin Xl -) 300 mg PO HS [facility] Last Admin: 05/25/17 22:02 Dose: 300 mg Cyclobenzaprine HCl (Flexeril -) 10 mg PO TID [facility] Last Admin: 05/26/17 06:03 Dose: 10 mg Diazepam (Valium -) 10 mg PO Q4H PRN PRN Reason: WITHDRAWAL(CONT SUBST) Stop: 05/27/17 18:13 Diazepam (Valium -) 10 mg PO HS [facility] Last Admin: 05/25/17 22:02 Dose: 10 mg Sodium Chloride (Normal Saline -) 1,000 mls @ 100 mls/hr IV ASDIR [facility] Last Admin: 05/26/17 09:46 Dose: 100 mls/hr Vancomycin HCl 1,000 mg/ (Dextrose) 250 mls @ 166.667 mls/hr IVPB BID MARIELY PRN Reason: Protocol Last Admin: 05/26/17 09:45 Dose: 166.667 mls/hr Lactobacillus Acidophilus (Bacid -) 1 tab PO DAILY [facility] Last Admin: 05/26/17 09:45 Dose: 1 tab Methadone HCl (Dolophine -) 5 mg PO ONCE@0600 ONE Stop: 05/27/17 06:01 Paroxetine HCl (Paxil -) 40 mg PO HS [facility] Last Admin: 05/25/17 22:02 Dose: 40 mg Multivit/Folic Acid/Iron ( Vitamins (Sjr) -) 1 tab PO DAILY [facility] Last Admin: 05/26/17 09:45 Dose: 1 tab Thiamine HCl (Vitamin B1 -) 100 mg PO HS [facility] Last Admin: 05/25/17 22:02 Dose: 100 mg Zolpidem Tartrate (Ambien -) 10 mg PO HS PRN PRN Reason: INSOMNIA - Objective Vital Signs: Vital Signs Temperature 37.2 C 05/26/17 06:00 Pulse Rate 78 05/26/17 06:00 Respiratory Rate 18 05/26/17 06:00 Blood Pressure 97/59 05/26/17 06:00 O2 Sat by Pulse Oximetry (%) 99 05/25/17 21:00 Constitutional: Yes: Well Nourished, No Distress, Calm Cardiovascular: Yes: Regular Rate and Rhythm. No: Gallop, Murmur, Rub Respiratory: Yes: Regular, CTA Bilaterally. No: Rales, Rhonchi, Wheezes Gastrointestinal: Yes: Normal Bowel Sounds, Soft. No: Distention, Tenderness Extremities: Yes: WNL Edema: No Labs: CBC, BMP 05/26/17 06:45 05/26/17 06:45 INR, PTT INR 1.29 (0.82-1.09) H 05/24/17 08:17 Problem List - Problems (1) Sepsis Code(s): A41.9 - SEPSIS, UNSPECIFIED ORGANISM (2) Pyelonephritis Code(s): N12 - TUBULO-INTERSTITIAL NEPHRITIS, NOT SPCF ACUTE OR CHRONIC (3) Cocaine dependence, uncomplicated Code(s): F14.20 - COCAINE DEPENDENCE, UNCOMPLICATED (4) Opioid dependence, uncomplicated Code(s): F11.20 - OPIOID DEPENDENCE, UNCOMPLICATED Assessment/Plan (1) Sepsis Assessment/Plan: -suspect not sepsis but "cotton fever" -patient stable -awaiting blood cultures, if no growth at 72 hours safe for discharge off of antibiotics -appreciate ID and cardiology assistance -continue vancomycin currently Code(s): A41.9 - SEPSIS, UNSPECIFIED ORGANISM (2) Pyelonephritis Assessment/Plan: -full course, levaquin stopped Code(s): N12 - TUBULO-INTERSTITIAL NEPHRITIS, NOT SPCF ACUTE OR CHRONIC (3) Cocaine dependence, uncomplicated Assessment/Plan: -outpatient rehab Code(s): F14.20 - COCAINE DEPENDENCE, UNCOMPLICATED (4) Opioid dependence, uncomplicated Assessment/Plan: -appreciate Dr Lacy assistance -on detox -outpatient follow up on discharge Code(s): F11.20 - OPIOID DEPENDENCE, UNCOMPLICATED (5) Anemia -patient with iron deficiency anemia -chronic and stable -since patient currently on narcotics (methadone) and no bowel movement, will hold on iron supplementation -once acute issue resolved, instructed patient to follow up with Dr Milan about iron supplementation
--- NOTE | 2017-05-26 13:50 | PN ---
Progress Note, Physician History of Present Illness: Pt states she feels well. Denies fever/chills/chest pain/shortness of breath. Dysuria has subsided. - Current Medication List Current Medications: Active Medications Acetaminophen (Tylenol -) 650 mg PO Q4H PRN PRN Reason: FEVER OR PAIN Bupropion HCl (Wellbutrin Xl -) 300 mg PO HS [facility] Last Admin: 05/25/17 22:02 Dose: 300 mg Cyclobenzaprine HCl (Flexeril -) 10 mg PO TID [facility] Last Admin: 05/26/17 06:03 Dose: 10 mg Diazepam (Valium -) 10 mg PO Q4H PRN PRN Reason: WITHDRAWAL(CONT SUBST) Stop: 05/27/17 18:13 Diazepam (Valium -) 10 mg PO HS [facility] Last Admin: 05/25/17 22:02 Dose: 10 mg Sodium Chloride (Normal Saline -) 1,000 mls @ 100 mls/hr IV ASDIR [facility] Last Admin: 05/26/17 09:46 Dose: 100 mls/hr Vancomycin HCl 1,000 mg/ (Dextrose) 250 mls @ 166.667 mls/hr IVPB BID MARIELY PRN Reason: Protocol Last Admin: 05/26/17 09:45 Dose: 166.667 mls/hr Lactobacillus Acidophilus (Bacid -) 1 tab PO DAILY [facility] Last Admin: 05/26/17 09:45 Dose: 1 tab Methadone HCl (Dolophine -) 5 mg PO ONCE@0600 ONE Stop: 05/27/17 06:01 Paroxetine HCl (Paxil -) 40 mg PO HS [facility] Last Admin: 05/25/17 22:02 Dose: 40 mg Multivit/Folic Acid/Iron ( Vitamins (Sjr) -) 1 tab PO DAILY [facility] Last Admin: 05/26/17 09:45 Dose: 1 tab Thiamine HCl (Vitamin B1 -) 100 mg PO HS [facility] Last Admin: 05/25/17 22:02 Dose: 100 mg Zolpidem Tartrate (Ambien -) 10 mg PO HS PRN PRN Reason: INSOMNIA - Objective Vital Signs: Vital Signs Temperature 98.9 F 05/26/17 06:00 Pulse Rate 78 05/26/17 06:00 Respiratory Rate 18 05/26/17 06:00 Blood Pressure 97/59 05/26/17 06:00 O2 Sat by Pulse Oximetry (%) 99 05/25/17 21:00 Constitutional: Yes: No Distress Neck: Yes: Supple Cardiovascular: Yes: Regular Rate and Rhythm Respiratory: Yes: CTA Bilaterally Gastrointestinal: Yes: Normal Bowel Sounds, Soft Genitourinary: Yes: WNL Musculoskeletal: Yes: WNL Extremities: Yes: WNL Edema: No Integumentary: Yes: WNL Neurological: Yes: Alert Psychiatric: Yes: Alert Labs: CBC, BMP 05/26/17 06:45 05/26/17 06:45 INR, PTT INR 1.29 (0.82-1.09) H 05/24/17 08:17 Microbiology 05/24/17 09:25 Blood - Peripheral Venous Blood Culture - Preliminary NO GROWTH OBTAINED AFTER 48 HOURS, INCUBATION TO CONTINUE FOR 3 DAYS. 05/24/17 08:17 Blood - Peripheral Venous Blood Culture - Preliminary NO GROWTH OBTAINED AFTER 48 HOURS, INCUBATION TO CONTINUE FOR 3 DAYS. 05/24/17 08:17 Blood - Peripheral Venous Blood Culture - Preliminary NO GROWTH OBTAINED AFTER 48 HOURS, INCUBATION TO CONTINUE FOR 3 DAYS. 05/24/17 08:17 Urine - Urine Clean Catch Urine Culture - Final NO GROWTH OBTAINED Problem List - Problems (1) Sepsis Code(s): A41.9 - SEPSIS, UNSPECIFIED ORGANISM (2) Cocaine dependence, uncomplicated Code(s): F14.20 - COCAINE DEPENDENCE, UNCOMPLICATED (3) Fever Code(s): R50.9 - FEVER, UNSPECIFIED Qualifiers: Fever type: unspecified Qualified Code(s): R50.9 - Fever, unspecified (4) Intravenous drug abuse Code(s): F19.10 - OTHER PSYCHOACTIVE SUBSTANCE ABUSE, UNCOMPLICATED (5) UTI (urinary tract infection) Code(s): N39.0 - URINARY TRACT INFECTION, SITE NOT SPECIFIED Qualifiers: Urinary tract infection type: acute cystitis Hematuria presence: with hematuria Qualified Code(s): N30.01 - Acute cystitis with hematuria Assessment/Plan 32 y.o female with history of IVDU and cocaine use presenting with fever, tachycardia, hypotension, dysuria -no growth in blood cultures in 48 hrs , urine culture no growth -continue Vancomycin for now -mild temp elevations but no complaints, continue monitor -Echocardiogram without clear vegetations -HIV negative, hepatitis serology pending pt currently appears stable d/w Dr Ortega
--- NOTE | 2017-05-26 14:42 | PN ---
[facility] Progress Note (SOAP) Subjective: patient without complaint, is satisfied with opioid withdrawal detox regiemen and symptom management, will c omplete detox in am Objective: 05/26/17 14:40 Laboratory Tests 05/24/17 05/24/17 12 08:17 08:17 08:17 WBC 10.1 H D RBC 4.11 Hgb 9.7 L D Hct 30.1 L MCV 73.2 L MCH 23.5 L MCHC 32.1 RDW 16.8 H Plt Count 257 MPV 8.3 Neutrophils % 91.7 H D Lymphocytes % 6.5 L D Monocytes % 1.5 L D Eosinophils % 0.1 D Basophils % 0.2 PT with INR 14.60 H INR 1.29 H PTT (Actin FS) 26.6 L VBG pH POC VBG pCO2 POC VBG pO2 Mixed VBG HCO3 Sodium Potassium Chloride Carbon Dioxide Anion Gap BUN Creatinine Creat Clearance w eGFR Random Glucose Lactic Acid Calcium Phosphorus Magnesium Iron TIBC Iron Saturation Transferrin Ferritin Total Bilirubin AST ALT Alkaline Phosphatase Creatine Kinase Troponin I Total Protein Albumin Vitamin B12 Serum Folate Urine Color Yellow Urine Appearance Slcloudy Urine pH 5.0 Ur Specific Surrency 1.016 Urine Protein Negative Urine Glucose (UA) Negative Urine Ketones Negative Urine Blood Negative Urine Nitrite Negative Urine Bilirubin Negative Urine Urobilinogen Negative Ur Leukocyte Esterase Negative Urine HCG, Qual Opiates Screen Methadone Screen Barbiturate Screen Phencyclidine Screen Ur Amphetamines Screen MDMA (Ecstasy) Screen Benzodiazepines Screen Cocaine Screen U Marijuana (THC) Screen HIV 1&2 Antibody Screen HIV P24 Antigen Blood Type Antibody Screen 05/24/17 05/24/17 05/24/17 08:17 08:17 08:17 WBC RBC Hgb Hct MCV MCH MCHC RDW Plt Count MPV Neutrophils % Lymphocytes % Monocytes % Eosinophils % Basophils % PT with INR INR PTT (Actin FS) VBG pH 7.40 POC VBG pCO2 39.5 POC VBG pO2 45.2 D Mixed VBG HCO3 23.8 Sodium 138 Potassium 3.8 Chloride 103 Carbon Dioxide 25 Anion Gap 10 BUN 15 Creatinine 0.7 Creat Clearance w eGFR > 60 Random Glucose 109 H Lactic Acid 2.3 H* Calcium 8.8 Phosphorus Magnesium Iron TIBC Iron Saturation Transferrin Ferritin Total Bilirubin 0.7 D AST 21 D ALT 16 Alkaline Phosphatase 84 Creatine Kinase 57 Troponin I 0.03 Total Protein 7.2 Albumin 3.3 L Vitamin B12 Serum Folate Urine Color Urine Appearance Urine pH Ur Specific Surrency Urine Protein Urine Glucose (UA) Urine Ketones Urine Blood Urine Nitrite Urine Bilirubin Urine Urobilinogen Ur Leukocyte Esterase Urine HCG, Qual Opiates Screen Methadone Screen Barbiturate Screen Phencyclidine Screen Ur Amphetamines Screen MDMA (Ecstasy) Screen Benzodiazepines Screen Cocaine Screen U Marijuana (THC) Screen HIV 1&2 Antibody Screen HIV P24 Antigen Blood Type Antibody Screen 05/24/17 05/24/17 05/24/17 08:17 08:17 08:17 WBC RBC Hgb Hct MCV MCH MCHC RDW Plt Count MPV Neutrophils % Lymphocytes % Monocytes % Eosinophils % Basophils % PT with INR INR PTT (Actin FS) VBG pH POC VBG pCO2 POC VBG pO2 Mixed VBG HCO3 Sodium Potassium Chloride Carbon Dioxide Anion Gap BUN Creatinine Creat Clearance w eGFR Random Glucose Lactic Acid Calcium Phosphorus Magnesium Iron TIBC Iron Saturation Transferrin Ferritin Total Bilirubin AST ALT Alkaline Phosphatase Creatine Kinase Troponin I Total Protein Albumin Vitamin B12 Serum Folate Urine Color Urine Appearance Urine pH Ur Specific Surrency Urine Protein Urine Glucose (UA) Urine Ketones Urine Blood Urine Nitrite Urine Bilirubin Urine Urobilinogen Ur Leukocyte Esterase Urine HCG, Qual Negative Opiates Screen Positive Methadone Screen Negative Barbiturate Screen Negative Phencyclidine Screen Negative Ur Amphetamines Screen Negative MDMA (Ecstasy) Screen Positive Benzodiazepines Screen Negative Cocaine Screen Positive U Marijuana (THC) Screen Positive HIV 1&2 Antibody Screen HIV P24 Antigen Blood Type A NEGATIVE Antibody Screen Negative 05/24/17 05/24/17 05/24/17 09:25 12:56 14:45 WBC RBC Hgb Hct MCV MCH MCHC RDW Plt Count MPV Neutrophils % Lymphocytes % Monocytes % Eosinophils % Basophils % PT with INR INR PTT (Actin FS) VBG pH POC VBG pCO2 POC VBG pO2 Mixed VBG HCO3 Sodium Potassium Chloride Carbon Dioxide Anion Gap BUN Creatinine Creat Clearance w eGFR Random Glucose Lactic Acid 2.0 Calcium Phosphorus Magnesium 1.8 Iron TIBC Iron Saturation Transferrin Ferritin Total Bilirubin AST ALT Alkaline Phosphatase Creatine Kinase 31 Troponin I 0.02 Total Protein Albumin Vitamin B12 Serum Folate Urine Color Urine Appearance Urine pH Ur Specific Surrency Urine Protein Urine Glucose (UA) Urine Ketones Urine Blood Urine Nitrite Urine Bilirubin Urine Urobilinogen Ur Leukocyte Esterase Urine HCG, Qual Opiates Screen Methadone Screen Barbiturate Screen Phencyclidine Screen Ur Amphetamines Screen MDMA (Ecstasy) Screen Benzodiazepines Screen Cocaine Screen U Marijuana (THC) Screen HIV 1&2 Antibody Screen HIV P24 Antigen Blood Type Antibody Screen 05/24/17 05/25/17 05/25/17 14:45 05:22 05:22 WBC 6.6 D RBC 3.53 L Hgb 8.4 L D Hct 25.9 L MCV 73.4 L MCH 23.9 L MCHC 32.6 RDW 17.0 H Plt Count 228 MPV 8.4 Neutrophils % 68.3 D Lymphocytes % 23.6 D Monocytes % 6.6 D Eosinophils % 1.3 D Basophils % 0.2 PT with INR INR PTT (Actin FS) VBG pH POC VBG pCO2 POC VBG pO2 Mixed VBG HCO3 Sodium 141 Potassium 3.5 Chloride 108 H Carbon Dioxide 24 Anion Gap 9 BUN 5 L D Creatinine 0.4 L D Creat Clearance w eGFR > 60 Random Glucose 82 D Lactic Acid Calcium 8.5 Phosphorus 3.5 Magnesium 2.1 Iron TIBC Iron Saturation Transferrin Ferritin Total Bilirubin 0.4 D AST 7 L D ALT 14 Alkaline Phosphatase 60 D Creatine Kinase Troponin I Total Protein 5.7 L D Albumin 2.7 L Vitamin B12 Serum Folate Urine Color Urine Appearance Urine pH Ur Specific Surrency Urine Protein Urine Glucose (UA) Urine Ketones Urine Blood Urine Nitrite Urine Bilirubin Urine Urobilinogen Ur Leukocyte Esterase Urine HCG, Qual Opiates Screen Methadone Screen Barbiturate Screen Phencyclidine Screen Ur Amphetamines Screen MDMA (Ecstasy) Screen Benzodiazepines Screen Cocaine Screen U Marijuana (THC) Screen HIV 1&2 Antibody Screen Negative HIV P24 Antigen Negative Blood Type Antibody Screen 05/25/17 05/25/17 05/25/17 11:45 11:45 11:45 WBC RBC Hgb Hct MCV MCH MCHC RDW Plt Count MPV Neutrophils % Lymphocytes % Monocytes % Eosinophils % Basophils % PT with INR INR PTT (Actin FS) VBG pH POC VBG pCO2 POC VBG pO2 Mixed VBG HCO3 Sodium Potassium Chloride Carbon Dioxide Anion Gap BUN Creatinine Creat Clearance w eGFR Random Glucose Lactic Acid Calcium Phosphorus Magnesium Iron 11 L TIBC 262 Iron Saturation 4 L Transferrin 212 Ferritin 50.509 Total Bilirubin AST ALT Alkaline Phosphatase Creatine Kinase Troponin I Total Protein Albumin Vitamin B12 443 Serum Folate 17 D Urine Color Urine Appearance Urine pH Ur Specific Surrency Urine Protein Urine Glucose (UA) Urine Ketones Urine Blood Urine Nitrite Urine Bilirubin Urine Urobilinogen Ur Leukocyte Esterase Urine HCG, Qual Opiates Screen Methadone Screen Barbiturate Screen Phencyclidine Screen Ur Amphetamines Screen MDMA (Ecstasy) Screen Benzodiazepines Screen Cocaine Screen U Marijuana (THC) Screen HIV 1&2 Antibody Screen HIV P24 Antigen Blood Type Antibody Screen 05/26/17 05/26/17 06:45 06:45 WBC 5.7 RBC 3.72 Hgb 8.8 L Hct 27.6 L MCV 74.0 L MCH 23.6 L MCHC 31.9 L RDW 17.3 H Plt Count 318 D MPV 8.3 Neutrophils % 62.0 Lymphocytes % 30.1 D Monocytes % 5.8 Eosinophils % 1.6 Basophils % 0.5 PT with INR INR PTT (Actin FS) VBG pH POC VBG pCO2 POC VBG pO2 Mixed VBG HCO3 Sodium 141 Potassium 4.1 Chloride 107 Carbon Dioxide 24 Anion Gap 10 BUN 5 L Creatinine 0.5 L D Creat Clearance w eGFR Random Glucose 77 Lactic Acid Calcium 8.7 Phosphorus 3.5 Magnesium 2.3 Iron TIBC Iron Saturation Transferrin Ferritin Total Bilirubin AST ALT Alkaline Phosphatase Creatine Kinase Troponin I Total Protein Albumin Vitamin B12 Serum Folate Urine Color Urine Appearance Urine pH Ur Specific Surrency Urine Protein Urine Glucose (UA) Urine Ketones Urine Blood Urine Nitrite Urine Bilirubin Urine Urobilinogen Ur Leukocyte Esterase Urine HCG, Qual Opiates Screen Methadone Screen Barbiturate Screen Phencyclidine Screen Ur Amphetamines Screen MDMA (Ecstasy) Screen Benzodiazepines Screen Cocaine Screen U Marijuana (THC) Screen HIV 1&2 Antibody Screen HIV P24 Antigen Blood Type Antibody Screen Vital Signs - 24 hr 05/25/17 05/25/17 05/25/17 17:00 21:00 22:00 Temperature 99.6 F 99.2 F Pulse Rate 82 88 Respiratory 20 18 Rate Blood Pressure 94/46 95/50 O2 Sat by Pulse 99 Oximetry (%) 05/26/17 05/26/17 02:00 06:00 Temperature 99.3 F 98.9 F Pulse Rate 73 78 Respiratory 18 18 Rate Blood Pressure 107/45 97/59 O2 Sat by Pulse Oximetry (%) micorcytic anemia Assessment: 05/26/17 14:41 opioid withdrawal sx, well controlled cont detox as prescribed, schedule follow up appointment at [facility] for intensive outpatient treatment adn MATw suboxone.
[2017-05-26] MEDS ORDERED: PT OWN MED DRAWER 7, Y5N ONE (21:46)
[2017-05-26] MEDS: diazePAM 5 MG TABLET PO SCH (22:52)
[2017-05-26] MEDS: THIAMINE HCL 100 MG TABLET (FP) PO SCH (22:52)
[2017-05-26] MEDS: PARoxetine HCL 20 MG TABLET (FP) PO SCH (22:52)
[2017-05-27] MEDS ORDERED: METHADONE HCL 5 MG TABLET PO ONE ×2 (06:00→10:00)
[2017-05-27] MEDS: CYCLOBENZAPRINE HCL 10 MG TABLET (FP) PO SCH (06:26)
[2017-05-27 06:29] VITALS: BP 91/45; PULSE 73; TEMP 98.8
[2017-05-27 07:39] LABS: BASOPHIL 0.5 % (0-2.0); EOSINOPHIL 2.1 % (0-4.5); MCH 23.8 pg (25.7-33.7); MCHC 32.3 g/dl (32.0-36.0); MEAN CELL VOLUME 73.7 fl (80-96); MEAN PLT VOLUME 8.2 fl (7.5-11.1); NEUTROPHILS 55.1 % (42.8-82.8); PLATELET COUNT 347 K/MM3 (134-434); RDW 17.1 % (11.6-15.6); WHITE BLOOD COUNT 4.9 K/mm3 (4.0-10.0)
[2017-05-27] MEDS: LACTOBACILLUS ACIDOPHILUS 1 EACH TAB (FP) PO SCH (09:02)
[2017-05-27] MEDS: PRENATAL VITAMINS W/ FOLIC ACID TABLET (FP) PO SCH (09:03)
[2017-05-27] MEDS: VANCOMYCIN 1,000 MG in DEXTROSE 5%-WATER - 250 ML IVPB SCH (09:03)
--- NOTE | 2017-05-27 10:41 | DS ---
Physical Examination Vital Signs: Vital Signs Temperature 37.1 C 05/27/17 05:00 Pulse Rate 73 05/27/17 05:00 Respiratory Rate 20 05/27/17 05:00 Blood Pressure 91/45 05/27/17 05:00 O2 Sat by Pulse Oximetry (%) 100 05/27/17 09:00 Constitutional: Yes: Well Nourished, No Distress, Calm Cardiovascular: Yes: Regular Rate and Rhythm, Murmur. No: Gallop, Rub Respiratory: Yes: Regular, CTA Bilaterally. No: Rales, Rhonchi, Wheezes Gastrointestinal: Yes: Normal Bowel Sounds, Soft. No: Distention, Tenderness Extremities: Yes: WNL Edema: No Labs: CBC, BMP 05/27/17 07:05 05/26/17 06:45 Discharge Summary Reason For Visit: SEPSIS Current Active Problems Opioid dependence with withdrawal (Acute) Sepsis (Acute) Severe sepsis (Acute) Systemic inflammatory response syndrome (SIRS) (Acute) Hospital Course: (1) Sepsis Code(s): A41.9 - SEPSIS, UNSPECIFIED ORGANISM (2) Pyelonephritis Code(s): N12 - TUBULO-INTERSTITIAL NEPHRITIS, NOT SPCF ACUTE OR CHRONIC (3) Cocaine dependence, uncomplicated Code(s): F14.20 - COCAINE DEPENDENCE, UNCOMPLICATED (4) Opioid dependence, uncomplicated Code(s): F11.20 - OPIOID DEPENDENCE, UNCOMPLICATED (5) Anemia Ms Saldaña is a very pleasant 32 year old female who came in with concern of sepsis secondary to fevers after injecting IVD. She says she was using cotton to stave off withdrawals and thought she had cotton fever, which she has experienced in the past. However this time her temperature was higher than she experienced, so she came in. Because of her high fevers she was admitted with concern for sepsis. She was seen by ID and originally started on vancomycin and levaquin, the levaquin was stopped. She continued her vancomycin. ECHO was performed and showed no vegetations. Blood cultures were sent and are currently NGTD. Patient remained non-toxic appearing since admission. Suspect patient was experiencing cotton fever which is self limited. She is currently safe for discharge with follow up for outpatient counselling with Dr Lacy. She should follow up with Dr Milan as well for possible iron supplementation. Holding on this as do not want to exacerbate constipation and would benefit from stopping heroin use. 32 minutes spent in preparation of this discharge Condition: Good - Instructions Diet, Activity, Other Instructions: resume previous diet and activity Referrals: Patricia Milan MD [Staff Physician] - Tonio Lacy MD [Staff Physician] - Disposition: HOME - Home Medications Comprehensive Discharge Medication List: Ambulatory Orders Paroxetine HCl [Paxil] 40 mg PO HS 05/12/15 Bupropion HCl [Wellbutrin Xl -] 300 mg PO HS 07/07/15 Thiamine HCl [Vitamin B1 -] 100 mg PO HS #30 tablet 05/27/17
--- NOTE | 2017-05-27 10:44 | PN ---
Progress Note (short form) - Note Progress Note: CC: fever/sepsis feels much better denies ongoing sob, no orthopnea no cp no palpitations Current Medications Generic Name Dose Route Start Last Admin Trade Name Freq PRN Reason Stop Dose Admin Acetaminophen 650 mg 05/24/17 10:45 Tylenol - PO Q4H PRN FEVER OR PAIN Bupropion HCl 300 mg 05/24/17 22:00 05/26/17 22:52 Wellbutrin Xl - PO 300 mg HS MARIELY Administration Cyclobenzaprine HCl 10 mg 05/25/17 14:00 05/27/17 06:26 Flexeril - PO 10 mg TID MARIELY Administration Diazepam 10 mg 05/24/17 18:14 Valium - PO 05/27/17 18:13 Q4H PRN WITHDRAWAL(CONT SUBST) Diazepam 10 mg 05/24/17 22:00 05/26/17 22:52 Valium - PO 10 mg HS MARIELY Administration Sodium Chloride 1,000 mls @ 100 mls/hr 05/24/17 10:45 05/26/17 09:46 Normal Saline - IV 100 mls/hr ASDIR MARIELY Administration Vancomycin HCl 1,000 mg/ 250 mls @ 166.667 mls/hr 05/24/17 22:00 05/27/17 09: 03 Dextrose IVPB 166.667 mls/hr BID MARIELY Administration Protocol Lactobacillus Acidophilus 1 tab 05/24/17 11:00 05/27/17 09:02 Bacid - PO 1 tab DAILY MARIELY Administration Paroxetine HCl 40 mg 05/24/17 22:00 05/26/17 22:52 Paxil - PO 40 mg HS MARIELY Administration Multivit/Folic Acid/Iron 1 tab 05/25/17 10:00 05/27/17 09:03 Vitamins (Sjr) - PO 1 tab DAILY MARIELY Administration Thiamine HCl 100 mg 05/25/17 10:00 05/26/17 22:52 Vitamin B1 - PO 100 mg HS MARIELY Administration Zolpidem Tartrate 10 mg 05/24/17 18:17 Ambien - PO HS PRN INSOMNIA Vital Signs Period Temp Pulse Resp BP Sys/Reece Pulse Ox Last 24 Hr 98.2 F-99.2 F 73-81 18-20 89-99/45-57 100-100 Constitutional: Yes: Well Nourished, No Distress Eyes: No: Sclera Icterus Respiratory: Yes: CTA Bilaterally. No: Accessory Muscle Use, Rales, Wheezes Gastrointestinal: Yes: Normal Bowel Sounds. No: Distention, Hepatomegaly, Palpable Mass, Tenderness Cardiovascular: Yes: Regular Rate and Rhythm JVD: No Heart Sounds: Yes: S1, S2. No: Gallop Murmur: No: Systolic Murmur, Diastolic Murmur Extremities: No: Cold, Cyanosis Edema: No Integumentary: No: Jaundice Neurological: Yes: Alert, Oriented (x3) Psychiatric: No: Agitated - Other Data Labs, Other Data: CBC, BMP 05/27/17 07:05 05/26/17 06:45 tele: SR Echo 05/2017: nl lv/rv/valves. no pericardial effusion. Echo 08/07: nl LV/RV; mild TR CXR: clear lungs/pleura, no nodules/cavities EKG: sinus tach (128), normal axis/intervals. + JUAN J. mild prolonged QT. no path q's. nonsp ST-Ts changed vs 11/04 Assessment/Plan 32 yo with h/o polysubstance abuse (including IVDU, mdma, marijuana, cocaine), Anxiety, Depression p/w fevers, elevated lactate, hypotension concerning for sepsis. fever, hi wbc, lactate, likely sepsis: -per ID consult. lactic acidosis now resolved. -no signs of endocarditis. no murmur. echo without valvular disease. thus far no Ferris major Criteria, only 1 minor. bcx negative so far. hypotension: -likely sec to infection, improved with ivfs sinus tachycardia: -likely 2/2 underlying clinical condition. Ongoing mgm't per pmd/id. Mgm't of detox per detox consult. -HR responded briskly (normalized) with ivf. -sats normal, doubt PE (injecting possibly small cotton fragments in vein). echo without signs of RV strain. nonspecific ECG changes (ST-Ts), mild prolonged QT: -CE's neg x 2. doubt ACS here -tele thus far benign. aggressive lyte repletion. patient already on ssri, levaquin and methadone. Would avoid additional qt prolonging drugs. Consider d /c zofran. - 05/25: repeat ekg with nl qtc anemia: -no baseline known, -per hospitalist IVDU: -pt on counselled of health benefits to cessation, and hi risk of bacteremia/ endocarditis assctd with ongoing use (and she was advised to stop injecting foreign substances) ok to d/c tele.
[2017-05-28] MEDS ORDERED: METHADONE HCL 10 MG TABLET PO ONE (10:00)
[2017-05-29] MEDS ORDERED: METHADONE HCL 5 MG TABLET PO ONE (06:00)
== END 2017-05-27 11:14 | disposition home or self-care (01) | DRG 720 ==
LOC: JER 07:18 → JERBED 10:31 → J4W 11:34
PROVIDERS: ADMIT Internal Medicine; ATTEND Internal Medicine
PROC: HZ91ZZZ Pharmacotherapy for Substance Abuse Treatment, Methadone Maintenance (ICD-10-PCS; principal; 2017-05-24)
DX: A41.9 Sepsis, unspecified organism (principal); E87.2 Acidosis; I95.9 Hypotension, unspecified; F14.23 Cocaine dependence with withdrawal; F11.23 Opioid dependence with withdrawal; N12 Tubulo-interstitial nephritis, not specified as acute or chronic; N39.0 Urinary tract infection, site not specified; F32.9 Major depressive disorder, single episode, unspecified; F41.9 Anxiety disorder, unspecified; L03.114 Cellulitis of left upper limb; F12.10 Cannabis abuse, uncomplicated; I45.81 Long QT syndrome; D50.9 Iron deficiency anemia, unspecified
CPT/HCPCS: 36415; 71010-TC; 80048; 80053; 80307; 81003; 82550; 82607; 82728; 82746; 82803; 83540; 83550; 83605; 83735; 84100; 84466; 84484; 84703; 85025; 85610; 85730; 86704; 86706; 86708; 86803; 86850; 86900; 86901; 87040; 87086; 87340; 87389; 93005; 93010; 93306-TC; 99285-25; G0480

== ENCOUNTER 2017-06-30 09:52 | Emergency (ER) | payer OTHER ==
[2017-06-30 09:56] VITALS: BP 141/88; PULSE 102; TEMP 98.7; BMI 31.1
--- NOTE | 2017-06-30 11:50 | PDOC ---
History of Present Illness <KristoferTiffaniosorio - Last Filed: 06/30/17 14:19> <Tereza Nicholsonan - Last Filed: 06/30/17 15:23> - General Chief Complaint: Chest Pain Stated Complaint: CHEST PAIN Time Seen by Provider: 06/30/17 10:12 - History of Present Illness Initial Comments: 06/30/17 11:51 "The patient is a 32 year old female, with a significant past medical history of heroin and cocaine abuse, anxiety, depression, and polycystic ovarian syndrome, who presents to the emergency department complaining of midsternal chest pain radiating to her left side since this morning. Pt states that she believes it could be due to taking cocaine last night around midnight. Patient reports her pain is worse when lying down. Denies exertional or pleuritic component. She denies any associated shortness of breath, diaphoresis, palpitations, lower extremity edema, or calf cramping. She denies any recent fever, chills, cough, headache, or dizziness. She denies any abdominal pain, nausea, vomiting, diarrhea, constipation, or changes in urination. Allergies: NSAIDS, ibuprofen Past Surgical History: None reported Social History: Cocaine and Heroin abuse. Non smoker. No ETOH use. " (Jordan Nicholson) Past History <KristoferTiffaniosorio - Last Filed: 06/30/17 14:19> - Past Medical History Anemia: No Asthma: No Cancer: No Cardiac Disorders: No CVA: No COPD: No CHF: No Dementia: No Diabetes: No GI Disorders: Yes (IBS) Disorders: Yes (POLYCYSTIC OVARIES) HTN: No Hypercholesterolemia: No Kidney Stones: Yes Liver Disease: No Psychiatric Problems: Yes (anxiety,depression) Seizures: No Thyroid Disease: No - Surgical History Abdominal Surgery: Yes (clearing of scar tissue on uterus, bladder 10/11/13) - Family Disease History Family Disease History: Heart Disease: Father (htn) - Reproductive History Cervical CA: No Dysfunctional Uterine Bleeding: Yes Ectopic : No Polycystic Ovaries: Yes Tubal Ligation: No - Immunization History Td Vaccination: Yes Immunization Up to Date: Yes - Suicide/Smoking/Psychosocial Hx Smoking Status: No Smoking History: Never smoked Have you smoked in the past 12 months: No Number of Cigarettes Smoked Daily: 0 Cigars Per Day: 0 Hx Alcohol Use: No Drug/Substance Use Hx: No Substance Use Type: Cocaine Hx Substance Use Treatment: Yes (no) <Jordan Nicholson - Last Filed: 06/30/17 15:23> - Past Medical History Allergies/Adverse Reactions: Allergies Allergy/AdvReac Type Severity Reaction Status Date / Time ibuprofen [From Motrin] AdvReac Severe Verified 06/30/17 09:56 NSAIDS (Non-Steroidal AdvReac Severe Verified 06/30/17 09:56 Anti-Inflamma Home Medications: Ambulatory Orders Paroxetine HCl [Paxil] 40 mg PO HS 05/12/15 Bupropion HCl [Wellbutrin Xl -] 300 mg PO HS 07/07/15 Buprenorphine HCl/Naloxone HCl [Suboxone 8 mg-2 mg Sl Tablets] 1 each SL DAILY 06/30/17 Cardiac Specific PMH - Complaint Specific PMHX Pacemaker: No <Jordan Nicholson - Last Filed: 06/30/17 15:23> Review of Systems <Yarelis Miner - Last Filed: 06/30/17 14:19> <Jordan Nicholson - Last Filed: 06/30/17 15:23> - Review of Systems Comments:: 06/30/17 11:52 "GENERAL/CONSTITUTIONAL: No fever or chills. No weakness. HEAD, EYES, EARS, NOSE AND THROAT: No change in vision. No ear pain or discharge. No sore throat. CARDIOVASCULAR: Yes chest pain. No shortness of breath. RESPIRATORY: No cough, wheezing, or hemoptysis. GASTROINTESTINAL: No nausea, vomiting, diarrhea or constipation. GENITOURINARY: No dysuria, frequency, or change in urination. MUSCULOSKELETAL: No joint or muscle swelling or pain. No neck or back pain. SKIN: No rash NEUROLOGIC: No headache, vertigo, loss of consciousness, or change in strength/ sensation. ENDOCRINE: No increased thirst. No abnormal weight change. HEMATOLOGIC/LYMPHATIC: No anemia, easy bleeding, or history of blood clots. ALLERGIC/IMMUNOLOGIC: No hives or skin allergy. " (Jordan Nciholson) *Physical Exam <Yarelis Miner - Last Filed: 06/30/17 14:19> <Jordan Nicholson - Last Filed: 06/30/17 15:23> - Vital Signs Last Vital Signs Temp Pulse Resp BP Pulse Ox 98.7 F 102 H 20 141/88 100 06/30/17 09:54 06/30/17 09:54 06/30/17 09:54 06/30/17 09:54 06/30/17 09:54 - Physical Exam Comments: 06/30/17 11:52 "GENERAL: Awake, alert, and fully oriented, in no acute distress HEAD: No signs of trauma EYES: Pupils dilated, but reactive to light, EOMI, sclera anicteric, conjunctiva clear ENT: Auricles normal inspection, hearing grossly normal, nares patent, oropharynx clear without exudates. Moist mucosa NECK: Nontender, no stepoffs, Normal ROM, supple, no lymphadenopathy, JVD, or masses LUNGS: Breath sounds equal, clear to auscultation bilaterally. No wheezes, and no crackles CHEST: Nontender to palpation HEART: Regular rate and rhythm, normal S1 and S2, no murmurs, rubs or gallops ABDOMEN: Soft, nontender, normoactive bowel sounds. No guarding, no rebound. No masses EXTREMITIES: Normal range of motion, no edema. No clubbing or cyanosis. No cords , erythema, or tenderness NEUROLOGICAL: Cranial nerves II through XII intact. 5/5 strength and sensation in all extremities, Normal speech, normal gait SKIN: Warm, Dry, normal turgor, no rashes or lesions noted. " (Jordan Nicholson) Heart Score/ECG Review <Yarelis Miner - Last Filed: 06/30/17 14:19> - History History: Slightly suspicious - Electrocardiogram EKG: Non specific repolarization disturbance - Age Age: </= 45 - Risk Factors Based on the list above the patient has:: No risk factors known <Jordan Nicholson - Last Filed: 06/30/17 15:23> - ECG Impressions Comment:: 06/30/17 11:47 NSR, rate 94, no YONATAN/STDs, TWI in V1 and V2, axis wnl, intervals wnl (Jordan Nicholson) ED Treatment Course - LABORATORY CBC & Chemistry Diagram: 06/30/17 12:04 06/30/17 12:04 <Yarelis Miner - Last Filed: 06/30/17 14:19> - LABORATORY CBC & Chemistry Diagram: 06/30/17 12:04 06/30/17 12:04 <Jordan Nicholson - Last Filed: 06/30/17 15:23> - ADDITIONAL ORDERS Additional order review: Laboratory Results 06/30/17 06/30/17 12:04 11:40 Sodium 135 L Potassium 5.5 H D Chloride 103 Carbon Dioxide 25 Anion Gap 7 L BUN 13 D Creatinine 0.7 D Creat Clearance w eGFR > 60 Random Glucose 91 Calcium 10.7 H D Total Bilirubin 0.8 D AST 42 H D ALT 25 D Alkaline Phosphatase 95 D Creatine Kinase 99 Troponin I < 0.02 Total Protein 10.0 H D Albumin 5.3 H D Urine HCG, Qual Negative 06/30/17 12:04 RBC 5.47 H D MCV 76.6 L MCHC 31.4 L RDW 17.6 H MPV 8.3 Neutrophils % 68.9 D Lymphocytes % 26.8 D Monocytes % 3.6 L Eosinophils % 0.5 Basophils % 0.2 - RADIOLOGY Radiology Studies Ordered: Category Date Time Status CHEST PA & LAT [RAD] Stat Radiology 06/30/17 11:38 Completed Radiograph Interpretation: 06/30/17 14:19 EXAM: CXR INTERPRETED BY: Dr. Daniel REVIEWED BY: Dr. Nicholson IMPRESSION: No acute pathology. (Yarelis Miner) - Medications Given in the ED: ED Medications Discontinued Medications Generic Name Dose Route Start Last Admin Trade Name Freq PRN Reason Stop Dose Admin Sodium Chloride 1,000 mls @ 1,000 mls/hr 06/30/17 13:49 06/30/17 13:51 Normal Saline - IV 06/30/17 14:48 1,000 mls/hr ASDIR STA Administration Lorazepam 1 mg 06/30/17 11:39 06/30/17 11:41 Ativan Injection - IVPUSH 06/30/17 11:40 1 mg ONCE ONE Administration Lorazepam 1 mg 06/30/17 13:50 06/30/17 13:51 Ativan Injection - IVPUSH 06/30/17 13:51 1 mg ONCE ONE Administration Medical Decision Making <Yarelis Miner - Last Filed: 06/30/17 14:19> <Jordan Nicholson - Last Filed: 06/30/17 15:23> - Medical Decision Making 06/30/17 11:48 32 F with chest pain x 6 hours after using cocaine around midnight. Pt on exam exhibiting psychomotor agitation with midriasis. Clinically consistent with sympathomimetic intoxication. Chest pain is likely 2/2 cocaine use. Pt with no cardiac risk factors. Pt is IV drug user but has had no fevers to suggest endocarditis. Had echo last month that showed no vegetations. PE is unlikely as pt with no leg swelling, not on OCPs, not SOB. - Labs, trop - CXR - Benzos PRN 06/30/17 15:20 CBC,CMP WBC 10.1 K/mm3 (4.0-10.0) H D 06/30/17 12:04 RBC 5.47 M/mm3 (3.60-5.2) H D 06/30/17 12:04 Hgb 13.1 GM/dL (10.7-15.3) D 06/30/17 12:04 Hct 41.9 % (32.4-45.2) D 06/30/17 12:04 MCV 76.6 fl (80-96) L 06/30/17 12:04 MCH 24.0 pg (25.7-33.7) L 06/30/17 12:04 MCHC 31.4 g/dl (32.0-36.0) L 06/30/17 12:04 RDW 17.6 % (11.6-15.6) H 06/30/17 12:04 Plt Count 532 K/MM3 (134-434) H D 06/30/17 12:04 MPV 8.3 fl (7.5-11.1) 06/30/17 12:04 Neutrophils % 68.9 % (42.8-82.8) D 06/30/17 12:04 Lymphocytes % 26.8 % (8-40) D 06/30/17 12:04 Monocytes % 3.6 % (3.8-10.2) L 06/30/17 12:04 Eosinophils % 0.5 % (0-4.5) 06/30/17 12:04 Basophils % 0.2 % (0-2.0) 06/30/17 12:04 Sodium 135 mmol/L (136-145) L 06/30/17 12:04 Potassium 5.5 mmol/L (3.5-5.1) H D 06/30/17 12:04 Chloride 103 mmol/L (98-107) 06/30/17 12:04 Carbon Dioxide 25 mmol/L (21-32) 06/30/17 12:04 Anion Gap 7 (8-16) L 06/30/17 12:04 BUN 13 mg/dL (7-18) D 06/30/17 12:04 Creatinine 0.7 mg/dL (0.55-1.02) D 06/30/17 12:04 Creat Clearance w eGFR > 60 (>60) 06/30/17 12:04 Random Glucose 91 mg/dL (74-106) 06/30/17 12:04 Calcium 10.7 mg/dL (8.5-10.1) H D 06/30/17 12:04 Total Bilirubin 0.8 mg/dL (0.2-1.0) D 06/30/17 12:04 AST 42 U/L (15-37) H D 06/30/17 12:04 ALT 25 U/L (12-78) D 06/30/17 12:04 Alkaline Phosphatase 95 U/L (45-117) D 06/30/17 12:04 Creatine Kinase 99 IU/L (26-192) 06/30/17 12:04 Troponin I < 0.02 ng/ml (0.00-0.05) 06/30/17 12:04 Total Protein 10.0 g/dl (6.4-8.2) H D 06/30/17 12:04 Albumin 5.3 g/dl (3.4-5.0) H D 06/30/17 12:04 Trop negative. Pt reassessed - now with significant improvement in symptoms s/p ativan. Repeat vitals wnl, pt well appearing. Clinically stable for DC at this time. (Jordan Nicholson) *DC/Admit/Observation/Transfer <Yarelis Miner - Last Filed: 06/30/17 14:19> <Jordan Nicholson - Last Filed: 06/30/17 15:23> Diagnosis at time of Disposition: Chest pain - Discharge Dispostion Disposition: HOME - Patient Instructions Printed Discharge Instructions: DI for Cocaine Use Disorder Additional Instructions: Please follow up with your primary doctor within 1 week for further evaluation of your chest pain. Your symptoms today were likely related to your cocaine use. You should refrain from using cocaine or other illicit substances. If you experience worsening pain, shortness of breath, or any other concerning symptoms, return to the ER immediately. - Attestations Scribe Attestion: 06/30/17 14:20 Documentation prepared by Yarelis Miner, acting as medical radiation tech for Jordan Nicholson MD. (Yarelis Miner) Physician Attestion: 06/30/17 15:23 I, Dr. Jordan Nicholson MD, attest that this document has been prepared under my direction and personally reviewed by me in its entirety. I further attest, that it accurately reflects all work, treatment, procedures and medical decision -making performed by me. (Jordan Nicholson)
[2017-06-30 12:58] LABS: CHLORIDE 103 mmol/L (98-107); SODIUM 135 mmol/L (136-145)
[2017-06-30 13:02] LABS: POTASSIUM 5.5 mmol/L (3.5-5.1)
[2017-06-30 13:06] LABS: ALBUMIN 5.3 g/dl (3.4-5.0); ANION GAP 7 (8-16); BILIRUBIN,TOTAL 0.8 mg/dL (0.2-1.0); BLOOD UREA NITROGEN 13 mg/dL (7-18); CALCIUM 10.7 mg/dL (8.5-10.1); CO2 25 mmol/L (21-32); CREATININE 0.7 mg/dL (0.55-1.02); GLUCOSE,RANDOM 91 mg/dL (74-106); SGPT/ALT 25 U/L (12-78)
[2017-06-30 13:07] LABS: ALK PHOS 95 U/L (45-117)
[2017-06-30 13:08] LABS: SGOT/AST 42 U/L (15-37)
[2017-06-30] MEDS ORDERED: SODIUM CHLORIDE 1,000 ML IV STA (13:49)
[2017-06-30 13:55] LABS: BASO % 0.2 % (0-2.0); EOS % 0.5 % (0-4.5); HEMATOCRIT 41.9 % (32.4-45.2); HEMOGLOBIN 13.1 GM/dL (10.7-15.3); LYMPH % 26.8 % (8-40); MCHC 31.4 g/dl (32.0-36.0); MEAN CELL VOLUME 76.6 fl (80-96); MEAN PLT VOLUME 8.3 fl (7.5-11.1); MONO % 3.6 % (3.8-10.2); NEUT % 68.9 % (42.8-82.8); PLATELET COUNT 532 K/MM3 (134-434); RBC 5.47 M/mm3 (3.60-5.2); RDW 17.6 % (11.6-15.6); WHITE BLOOD COUNT 10.1 K/mm3 (4.0-10.0)
--- NOTE | 2017-06-30 15:07 | EKG ---
Test Reason : Blood Pressure : / mmHG Vent. Rate : 094 BPM Atrial Rate : 094 BPM P-R Int : 138 ms QRS Dur : 086 ms QT Int : 368 ms P-R-T Axes : 020 070 024 degrees QTc Int : 460 ms NORMAL SINUS RHYTHM NORMAL ECG WHEN COMPARED WITH ECG OF 25-MAY-2017 11:53, NO SIGNIFICANT CHANGE WAS FOUND Confirmed by SOFY ACHARYA MD ([id number]) on 06/30/2017 3:06:54 PM Referred By: Confirmed By:SOFY ACHARYA MD
== END 2017-06-30 15:40 | disposition home or self-care (01) ==
LOC: JER 09:52
PROC: 3E033NZ Introduction of Analgesics, Hypnotics, Sedatives into Peripheral Vein, Percutaneous Approach (ICD-10-PCS; principal; 2017-06-30)
PROC: 3E0337Z Introduction of Electrolytic and Water Balance Substance into Peripheral Vein, Percutaneous Approach (ICD-10-PCS; 2017-06-30)
DX: R07.9 Chest pain, unspecified (principal); F41.8 Other specified anxiety disorders; K58.9 Irritable bowel syndrome, unspecified; F14.10 Cocaine abuse, uncomplicated; E28.2 Polycystic ovarian syndrome
CPT/HCPCS: 36415; 71046-TC; 80053; 82550; 84484; 84703; 85025; 93005; 93010; 96361; 96374; 96376; 99285-25

== ENCOUNTER 2017-07-12 05:26 | Emergency (ER) | payer OTHER ==
[2017-07-12 05:34] VITALS: BP 128/76; PULSE 88; TEMP 98.2; BMI 31.1
--- NOTE | 2017-07-12 05:43 | PDOC ---
History of Present Illness - General Chief Complaint: Pain, Acute Stated Complaint: PAIN AND NUMBNESS TO BOTH HANDS Time Seen by Provider: 07/12/17 05:36 History Source: Patient Exam Limitations: No Limitations - History of Present Illness Initial Comments: 07/12/17 05:39 This is a 32-year-old female who has a history of IV drug use who comes in complaining of bilateral hands with 2 days of initially dryness of the skin and now she says painful with some pins and needle sensation. Patient has a strong family history rheumatoid and psoriatic arthritis and was told that she needs to get worked up for that but hasn't gone to the workup. Patient otherwise denies any trauma to the hands patient says she is healthy but is currently on an antibiotic and a antidepressant. PAST MEDICAL HISTORY: no significant history PAST SURGICAL HISTORY: no significant history FAMILY HISTORY: no pertinant history SOCIAL HISTORY: Pt lives with family and is employed. MEDICATIONS: reviewed ALLERGIES: As per nursing notes Review of Systems General: No fevers or chills, no weakness, no weight loss HEENT: No change in vision. No sore throat,. No ear pain CardioVascular: No chest pain or shortness of breath Respiratory:No cough, or wheezing. Gastrointestinal: no nausea, vomitting, diarrhea or constipation, No rectal bleeding Genitourinary: No dysuria, hematuria, or frequency Musculoskeletal: No joint or muscle pain or swelling Neurologic: No headache, vertigo, dizziness or loss of consciousness Psychiatric: nor depression Skin: No rashes or easy bruising Endocrine: no increased thirst or abnormal weight change Allergic: no skin or latex allergy All other systems reviewed and normal GENERAL: The patient is awake, alert, and fully oriented, in no acute distress. HEAD: Normal with no signs of trauma. EYES: Pupils equal, round and reactive to light, extraocular movements intact, sclera anicteric, conjunctiva clear. EXTREMITIES: Normal range of motion, no edema. Hands bilateral pulses are normal bilateral, capillary refill is normal. There is no erythema swelling or edema of the hands. The skin is somewhat dry and flaky but otherwise hands are normal appearing. Sensation is intact. NEUROLOGICAL: Normal speech, normal gait. grossly intact PSYCH: Normal mood, normal affect. SKIN: Warm, Dry, normal turgor, no rashes or lesions noted. Assessment and plan: This is a 32-year-old female who comes in complaining of 2 days of some peripheral neuropathy type symptoms. Patient is an IV drug use and visit in 2 weeks and she injected in either of her arms. Patient also has a strong family history of arthritis and was told by her aunt that her on some arthritis symptoms resulted in similar symptoms of her hands. Patient does have an appointment with a doctor for an evaluation and workup. I told patient to keep the appointment gets a workup and evaluation. Patient discharged and will follow-up with her doctor Past History - Past Medical History Allergies/Adverse Reactions: Allergies Allergy/AdvReac Type Severity Reaction Status Date / Time ibuprofen [From Motrin] AdvReac Severe Verified 07/12/17 05:27 NSAIDS (Non-Steroidal AdvReac Severe Verified 07/12/17 05:27 Anti-Inflamma Home Medications: Ambulatory Orders Paroxetine HCl [Paxil] 40 mg PO HS 05/12/15 Bupropion HCl [Wellbutrin Xl -] 300 mg PO HS 07/07/15 Amoxicillin/Potassium Clav [Augmentin 875-125 Tablet] 1 each PO BID 07/12/17 Anemia: No Asthma: No Cancer: No Cardiac Disorders: No CVA: No COPD: No CHF: No Dementia: No Diabetes: No GI Disorders: Yes (IBS) Disorders: Yes (POLYCYSTIC OVARIES) HTN: No Hypercholesterolemia: No Kidney Stones: Yes Liver Disease: No Psychiatric Problems: Yes (anxiety,depression) Seizures: No Thyroid Disease: No - Surgical History Abdominal Surgery: Yes (clearing of scar tissue on uterus, bladder 10/11/13) - Family Disease History Family Disease History: Heart Disease: Father (htn) - Reproductive History Cervical CA: No Dysfunctional Uterine Bleeding: Yes Ectopic : No Polycystic Ovaries: Yes Tubal Ligation: No - Immunization History Td Vaccination: Yes Immunization Up to Date: Yes - Suicide/Smoking/Psychosocial Hx Smoking Status: No Smoking History: Never smoked Have you smoked in the past 12 months: No Number of Cigarettes Smoked Daily: 0 Cigars Per Day: 0 Information on smoking cessation initiated: No Hx Alcohol Use: No Drug/Substance Use Hx: (HEROIN/COCAINE) Substance Use Type: Cocaine, Heroin Hx Substance Use Treatment: Yes (no) *Physical Exam - Vital Signs Last Vital Signs Temp Pulse Resp BP Pulse Ox 98.2 F 88 16 128/76 100 07/12/17 05:30 07/12/17 05:30 07/12/17 05:30 07/12/17 05:30 07/12/17 05:30 *DC/Admit/Observation/Transfer Diagnosis at time of Disposition: Peripheral neuropathy Qualifiers: Peripheral neuropathy type: mononeuropathy, unspecified Qualified Code(s): G58.9 - Mononeuropathy, unspecified - Discharge Dispostion Disposition: HOME Condition at time of disposition: Stable Admit: No - Referrals Referrals: Kaela Mcdonald MD [Primary Care Provider] - - Patient Instructions Additional Instructions: Is very important that you follow-up with your primary care and evaluation for his symptoms. Return to the emergency department immediately with ANY new, persistent or worsening symptoms. Continue any medications as previously prescribed by your physician. You should follow up with your primary doctor as soon as possible regarding today's emergency department visit. . Please make sure your doctor reviews the results of your emergency evaluation. Thank you for coming to the Emergency Department today for your care. It was a pleasure to see you today. Please note that your evaluation is INCOMPLETE until you follow-up with your doctor. - Post Discharge Activity
== END 2017-07-12 05:53 | disposition home or self-care (01) ==
LOC: FER 05:26
DX: G58.9 Mononeuropathy, unspecified (principal); F41.8 Other specified anxiety disorders; Z87.442 Personal history of urinary calculi; K58.9 Irritable bowel syndrome, unspecified; F19.90 Other psychoactive substance use, unspecified, uncomplicated
CPT/HCPCS: 99281-25

== ENCOUNTER 2017-08-18 10:34 | Emergency (ER) | payer OTHER ==
[2017-08-18 10:53] VITALS: BP 129/87; PULSE 110; TEMP 98.4; BMI 31.1
[2017-08-18] MEDS ORDERED: hydrOXYzine HCL 10 MG TABLET PO ONE (12:21)
--- NOTE | 2017-08-18 12:29 | PDOC ---
History of Present Illness - General Chief Complaint: Rash Stated Complaint: BRUISING, ABD PAIN Time Seen by Provider: 08/18/17 12:11 History Source: Patient, Old Records Exam Limitations: No Limitations - History of Present Illness Initial Comments: 08/18/17 12:22 This is a 32-year-old woman with past medical history of PCOS, major depressive disorder, anxiety, gallstones, shingles, endometriosis, IV heroin use who presents emergency Department with 3 days of rash to the abdomen which started on her right side and is now progressed to the left side. Patient states she felt a burning itching sensation which started approximately 6 days ago with rash eruption approximately 3 days ago. She denies any fevers, chills, chest pain, shortness of breath, nausea, vomiting. Past History - Past Medical History Allergies/Adverse Reactions: Allergies Allergy/AdvReac Type Severity Reaction Status Date / Time ibuprofen [From Motrin] AdvReac Severe Verified 08/18/17 10:49 NSAIDS (Non-Steroidal AdvReac Severe Verified 08/18/17 10:49 Anti-Inflamma Home Medications: Ambulatory Orders Paroxetine HCl [Paxil] 40 mg PO HS 05/12/15 Bupropion HCl [Wellbutrin Xl -] 300 mg PO HS 07/07/15 Acyclovir [Zovirax -] 800 mg PO 5XD #50 tablet 08/18/17 Buprenorphine HCl/Naloxone HCl [Suboxone 8 mg-2 mg Sl Tablets] 1 each SL ASDIR 08/18/17 Ondansetron [Zofran Odt -] 4 mg SL TID #21 od.tablet 08/18/17 Anemia: No Asthma: No Cancer: No Cardiac Disorders: No CVA: No COPD: No CHF: No Dementia: No Diabetes: No GI Disorders: Yes (IBS) Disorders: Yes (POLYCYSTIC OVARIES) HTN: No Hypercholesterolemia: No Kidney Stones: Yes Liver Disease: No Psychiatric Problems: Yes (anxiety,depression) Seizures: No Thyroid Disease: No - Surgical History Abdominal Surgery: Yes (clearing of scar tissue on uterus, bladder 10/11/13) - Family Disease History Family Disease History: Heart Disease: Father (htn) - Reproductive History Cervical CA: No Dysfunctional Uterine Bleeding: Yes Ectopic : No Polycystic Ovaries: Yes Tubal Ligation: No - Immunization History Td Vaccination: Yes Immunization Up to Date: Yes - Suicide/Smoking/Psychosocial Hx Smoking Status: No Smoking History: Never smoked Have you smoked in the past 12 months: No Number of Cigarettes Smoked Daily: 0 Cigars Per Day: 0 Hx Alcohol Use: No Drug/Substance Use Hx: No Substance Use Type: Cocaine, Heroin Hx Substance Use Treatment: Yes (no) Review of Systems - Review of Systems Able to Perform ROS?: Yes Is the patient limited Serbian proficient: No Constitutional: No: Symptoms Reported HEENTM: No: Symptoms Reported Respiratory: No: Symptoms reported Cardiac (ROS): No: Symptoms Reported ABD/GI: No: Symptoms Reported : No: Symptoms Reported Musculoskeletal: No: Symptoms Reported Integumentary: Yes: See HPI Neurological: No: Symptoms reported *Physical Exam - Vital Signs Last Vital Signs Temp Pulse Resp BP Pulse Ox 98.4 F 110 H 19 129/87 98 08/18/17 10:50 08/18/17 10:50 08/18/17 10:50 08/18/17 10:50 08/18/17 10:50 - Physical Exam General Appearance: Yes: Appropriately Dressed. No: Apparent Distress Gastrointestinal/Abdominal: positive: Normal Bowel Sounds, Soft. negative: Tender Musculoskeletal: positive: Normal Inspection Integumentary: positive: Rash (Vesicles noted to lower abdomen. Rashes in a linear cluster extending from the midline towards the flanks bilaterally. No crusting noted. No drainage noted.), Ecchymosis (1 cm x 1.5 cm ovoid ecchymotic area to the right lower quadrant.) Neurologic: positive: analysis specialist II-XII NML intact, Fully Oriented, Alert, Normal Mood/ Affect, Normal Response, Motor Strength 5/5 Medical Decision Making - Medical Decision Making 08/18/17 12:26 A/P: 32-year-old woman with PCOS, MDD, anxiety, gallstones, shingles, endometriosis, IV drug abuse with 6 days of burning and itching to abdomen followed by 3 days of rash. Erythematous vesicular linear lesions present on the lower abdomen. I will treat the patient for herpes zoster. Atarax 10 mg by mouth now Acyclovir 800 mg orally 5 times a day for 10 days. *DC/Admit/Observation/Transfer Diagnosis at time of Disposition: Herpes zoster Qualifiers: Herpes zoster complications: without complications Qualified Code(s): B02.9 - Zoster without complications - Discharge Dispostion Disposition: HOME Condition at time of disposition: Stable Admit: No - Prescriptions Prescriptions: Acyclovir [Zovirax -] 800 mg PO 5XD #50 tablet Ondansetron [Zofran Odt -] 4 mg SL TID #21 od.tablet - Referrals - Patient Instructions Printed Discharge Instructions: DI for Shingles Additional Instructions: Return to the ER for worsening pain, fevers, blurry vision, worsening rash or any other concerns. Thank you very much for choosing us to provide your emergent healthcare needs. - Post Discharge Activity
[2017-08-18] MEDS ORDERED: hydrOXYzine HCL 25 MG TABLET (FP) PO ONE ×2 (12:32)
== END 2017-08-18 12:50 | disposition home or self-care (01) ==
LOC: JERFT 10:34
DX: B02.9 Zoster without complications (principal); E28.2 Polycystic ovarian syndrome
CPT/HCPCS: 99281-25

== ENCOUNTER 2017-08-18 18:54 | Emergency (ER) | payer OTHER ==
[2017-08-18 19:02] VITALS: BP 136/81; PULSE 101; TEMP 99.3; BMI 31.1
--- NOTE | 2017-08-18 19:03 | PDOC ---
Rapid Medical Evaluation Time Seen by Provider: 08/18/17 18:55 Medical Evaluation: Allergies Allergy/AdvReac Type Severity Reaction Status Date / Time ibuprofen [From Motrin] AdvReac Severe Verified 08/18/17 18:59 NSAIDS (Non-Steroidal AdvReac Severe Verified 08/18/17 18:59 Anti-Inflamma 08/18/17 19:00 I have performed a brief in-person evaluation of this patient. The patient presents with a chief complaint of: rash pain "is worse now" - was seen 7 hours ago here, hx IV heroine, cocaine use, treated for herpes zoster Pertinent physical exam findings: rash to abdomen I have ordered the following: nothing The patient will proceed to the ED for further evaluation. Discharge Disposition - Diagnosis Herpes zoster - Referrals - Patient Instructions - Post Discharge Activity
== END 2017-08-18 22:04 | disposition left against medical advice (07) ==
LOC: JER 18:54
DX: B02.8 Zoster with other complications (principal)
CPT/HCPCS: 99281-25

== ENCOUNTER 2017-08-20 15:10 | Inpatient (IN) | payer OTHER ==
--- NOTE | 2017-08-20 15:15 | PDOC ---
Attending Attestation - Resident Resident Name: AdityaLanre simmons - HPI HPI: 08/20/17 16:22 Pt presents to the ED complaining of fever and painful, fluctuant areas to her arns and abdomen. Febrile in the Ed. History of IV drug abuse---denies current IV drug abuse. - Physicial Exam PE: 08/20/17 16:27 Agree with resident exam. Patient is febrile and tachycardic, but is alert and in NAD. + multiple small areas of induration to her arms and abdomen. + large area of cellulitis to the abdomen. 08/20/17 16:28 - Medical Decision Making 08/20/17 16:28 Pt presents to the ED complaining of fever and cellulitis to the abdomen. Given her history of IV drug abuse, I am also concerned about endocarditis. Will do septic work up, start broad spectrum antibiotics, give IV hydration and admit for further work up. 08/20/17 16:29
[2017-08-20 15:17] VITALS: BMI 31.1
[2017-08-20] MEDS ORDERED: SODIUM CHLORIDE 0.9% 1000 ML INFUS.BAG IV STA (15:24)
[2017-08-20] MEDS ORDERED: KETAMINE HCL 200 MG/20 ML VIAL IV ONE (15:36)
[2017-08-20] MEDS ORDERED: PIPERACILLIN/TAZOB 4.5 GM/100 ML PRE-DOCKED IVPB ONE (15:36)
[2017-08-20] MEDS ORDERED: VANCOMYCIN 1,000 MG in DEXTROSE 5%-WATER - 250 ML IVPB ONE (15:36)
--- NOTE | 2017-08-20 16:25 | PDOC ---
History of Present Illness - General Chief Complaint: Pain, Acute Stated Complaint: ABD PAIN Time Seen by Provider: 08/20/17 15:13 History Source: Patient Exam Limitations: No Limitations - History of Present Illness Initial Comments: 08/20/17 16:16 Patient is a 32F with history of PCOS, IVDA (heroin, on suboxone), OCD with picking here today complaining of abdominal pain. She was seen on 08/18 and diagnosed with shingles. She is presenting to the ED today because of worsening pain, fever, and growth in the size of the rash. She is complaining of associated nausea. No pain with urination. LMP 3 months ago. Patient states that this is normal for her. Patient states that she has been taking 1.5g of tylenol every 4 hours. Last tylenol use 4 hours prior to presentation. Past History - Past Medical History Allergies/Adverse Reactions: Allergies Allergy/AdvReac Type Severity Reaction Status Date / Time ibuprofen [From Motrin] AdvReac Severe Verified 08/20/17 15:13 NSAIDS (Non-Steroidal AdvReac Severe Verified 08/18/17 18:59 Anti-Inflamma Home Medications: Ambulatory Orders Paroxetine HCl [Paxil] 40 mg PO HS 05/12/15 Bupropion HCl [Wellbutrin Xl -] 300 mg PO HS 07/07/15 Acyclovir [Zovirax -] 800 mg PO 5XD #50 tablet 08/18/17 Buprenorphine HCl/Naloxone HCl [Suboxone 8 mg-2 mg Sl Tablets] 1 each SL ASDIR 08/18/17 Ondansetron [Zofran Odt -] 4 mg SL TID #21 od.tablet 08/18/17 Anemia: No Asthma: No Cancer: No Cardiac Disorders: No CVA: No COPD: No CHF: No Dementia: No Diabetes: No GI Disorders: Yes (IBS) Disorders: Yes (POLYCYSTIC OVARIES) HTN: No Hypercholesterolemia: No Kidney Stones: Yes Liver Disease: No Psychiatric Problems: Yes (anxiety,depression) Seizures: No Thyroid Disease: No - Surgical History Abdominal Surgery: Yes (clearing of scar tissue on uterus, bladder 10/11/13) - Family Disease History Family Disease History: Heart Disease: Father (htn) - Reproductive History Cervical CA: No Dysfunctional Uterine Bleeding: Yes Ectopic : No Polycystic Ovaries: Yes Tubal Ligation: No - Immunization History Td Vaccination: Yes Immunization Up to Date: Yes - Suicide/Smoking/Psychosocial Hx Smoking Status: No Smoking History: Never smoked Have you smoked in the past 12 months: No Number of Cigarettes Smoked Daily: 0 Cigars Per Day: 0 Hx Alcohol Use: No Drug/Substance Use Hx: No Substance Use Type: Cocaine, Heroin Hx Substance Use Treatment: Yes (no) Review of Systems - Review of Systems Comments:: 08/20/17 16:28 GENERAL/CONSTITUTIONAL: No fever or chills. No weakness. HEAD, EYES, EARS, NOSE AND THROAT: No change in vision. No sore throat. CARDIOVASCULAR: No chest pain or shortness of breath RESPIRATORY: No cough, wheezing, or hemoptysis. GASTROINTESTINAL: Positive for nausea. Negative for vomiting, diarrhea or constipation. GENITOURINARY: No dysuria, frequency, or change in urination. MUSCULOSKELETAL: No joint or muscle swelling or pain. No neck or back pain. SKIN: No rash NEUROLOGIC: No headache, vertigo, loss of consciousness, or change in strength/ sensation. ENDOCRINE: No increased thirst. No abnormal weight change ALLERGIC/IMMUNOLOGIC: Positive for rash *Physical Exam - Vital Signs Last Vital Signs Temp Pulse Resp BP Pulse Ox 102.4 F H 128 H 18 108/62 98 08/20/17 15:10 08/20/17 15:10 08/20/17 15:10 08/20/17 15:10 08/20/17 15:10 - Physical Exam Comments: 08/20/17 16:29 GENERAL: Awake, alert, and fully oriented, ill appearing HEAD: No signs of trauma, normocephalic, atraumatic EYES: PERRLA, EOMI, sclera anicteric, conjunctiva clear ENT: Auricles normal inspection, hearing grossly normal, nares patent, oropharynx clear without exudates. Moist mucosa NECK: Normal ROM, supple, no lymphadenopathy, JVD, or masses LUNGS: No distress, speaks full sentences, clear to auscultation bilaterally HEART: Tachycardic, systolic blowing murmur ABDOMEN: Tender to palpation diffusely. Large maculopapular rash with areas of induration. Multiple source sites, crosses midline, about [id number] area involved EXTREMITIES: 5 areas of induration on right arm of varying sizes of 1x1cm to 3x3cm. NEUROLOGICAL: Cranial nerves II through XII grossly intact. Normal speech, no focal sensorimotor deficits ED Treatment Course - LABORATORY CBC & Chemistry Diagram: 08/20/17 16:21 08/20/17 16:21 - RADIOLOGY Radiology Studies Ordered: Category Date Time Status ABDOMEN & PELVIS CT WITH CONTR [CT] Stat CT Scan 08/20/17 15:26 Ordered CHEST X-RAY PORTABLE* [RAD] Stat Radiology 08/20/17 15:24 Ordered - Medications Given in the ED: ED Medications Discontinued Medications Generic Name Dose Route Start Last Admin Trade Name Ana PRN Reason Stop Dose Admin Ketamine HCl 15 mg 08/20/17 15:36 08/20/17 16:11 Ketalar - IV 08/20/17 15:37 15 mg ONCE ONE Administration Piperacillin Sod/Tazobactam Sod 4.5 gm 08/20/17 15:36 08/20/17 16:12 Zosyn 4.5gm Ivpb (Pre-Docked) IVPB 08/20/17 15:37 4.5 gm ONCE ONE Administration Sodium Chloride 2,245 ml 08/20/17 15:24 08/20/17 16:11 Normal Saline - 30 ml/kg (2245 ml) 08/20/17 15:25 2,245 ml IV Administration ONCE STA Medical Decision Making - Medical Decision Making 08/20/17 16:33 Patient is 32F with history of IVDU, PCOS, OCD here today with abdominal pain. Patient has cellulitis over abdomen with multiple abscesses over right extremity. Differential diagnosis includes, but is not limited to: cellulitis, endocarditis. Will evaluate with sepsis workup with three cultures, tylenol and salicylate level. Will treat with 2L of fluids, vanc, zosyn and low dose ketamine for pain due opiate abuse history. 08/20/17 17:30 Laboratory Tests 08/20/17 08/20/17 08/20/17 16:21 16:21 16:21 WBC 14.5 H D Hgb 9.3 L D Hct 28.2 L D Plt Count 519 H INR 1.18 H BUN 17 Creatinine 0.7 AST 9 L ALT 11 L Troponin I < 0.02 Serum , Qual Salicylates Acetaminophen 08/20/17 08/20/17 16:21 16:21 WBC Hgb Hct Plt Count INR BUN Creatinine AST ALT Troponin I Serum , Qual Negative Salicylates < 1.700 Acetaminophen 19.122 CBC shows leukocytosis. INR slightly elevated. Liver enzymes normal. Acetaminophen elevated to 19, do not believe this is a toxic ingestion, but clouded by chronic use. Salicylates negative. Serum preg negative. Lactate normal. 08/20/17 17:54 Admitted to [facility] via [facility] to [facility]. *DC/Admit/Observation/Transfer Diagnosis at time of Disposition: Sepsis - Discharge Dispostion Condition at time of disposition: Stable Admit: Yes - Referrals - Patient Instructions - Post Discharge Activity
[2017-08-20 16:41] LABS: BASO % 0.2 % (0-2.0); EOS % 0.2 % (0-4.5); HEMATOCRIT 28.2 % (32.4-45.2); HEMOGLOBIN 9.3 GM/dL (10.7-15.3); LYMPH % 8.5 % (8-40); MCH 25.1 pg (25.7-33.7); MCHC 32.8 g/dl (32.0-36.0); MEAN CELL VOLUME 76.3 fl (80-96); MEAN PLT VOLUME 8.4 fl (7.5-11.1); MONO % 3.7 % (3.8-10.2); NEUT % 87.4 % (42.8-82.8); PLATELET COUNT 519 K/MM3 (134-434); RDW 16.7 % (11.6-15.6); WHITE BLOOD COUNT 14.5 K/mm3 (4.0-10.0)
[2017-08-20] MEDS ORDERED: morphine CARPU-JECT 4 MG/1 ML DISP.SYRIN IVPUSH ONE (16:43)
[2017-08-20] MEDS ORDERED: ONDANSETRON 4 MG/2 ML VIAL IVPUSH ONE (16:43)
[2017-08-20 16:53] LABS: INR 1.18 (0.82-1.09); PROTHROMBIN TIME (PATIENT) 13.3 SEC (9.98-11.88)
[2017-08-20 16:55] LABS: ACTIVATED PTT 25.5 SECONDS (26.9-34.4)
[2017-08-20 17:01] LABS: ACETAMINOPHEN 19.122 ug/mL; ALBUMIN 3.2 g/dl (3.4-5.0); ANION GAP 9 (8-16); BILIRUBIN,TOTAL 0.4 mg/dL (0.2-1.0); BLOOD UREA NITROGEN 17 mg/dL (7-18); CALCIUM 8.2 mg/dL (8.5-10.1); CHLORIDE 104 mmol/L (98-107); CO2 23 mmol/L (21-32); CREATININE 0.7 mg/dL (0.55-1.02); GLUCOSE,RANDOM 90 mg/dL (74-106); POTASSIUM 4.2 mmol/L (3.5-5.1); SALICYLATE < 1.700 mg/dL; SGOT/AST 9 U/L (15-37); SGPT/ALT 11 U/L (12-78); SODIUM 136 mmol/L (136-145); TOT PROT 7.4 g/dl (6.4-8.2)
[2017-08-20 17:04] LABS: ALK PHOS 96 U/L (45-117)
--- NOTE | 2017-08-20 17:58 | HP ---
"CHIEF COMPLAINT: Abdominal skin swelling and erythema PCP: Dr. Milan, [facility] HISTORY OF PRESENT ILLNESS: 32 year-old female with a PMH significant for polysubstance abuse (IV heroin last use x 3 months, nasal cocaine last use x 1 week, on street suboxone), PCOS , OCD characterized with skin picking v. popping, depression and anxiety. Patient presented to the ED today complaining of an abdominal skin infection. Patient was seen in the ED on 08/18 for the same complaint and was thought to have herpes zoster and prescribed acyclovir. Patient presents today with worsening abominal skin cellulitis that extends from the RMQ, across the midline , to the RLQ. Rash is non ER course was notable for: (1) T102.4 p128 BP 108/62 WBC 14.5k (2) Vanc x 1; Zosyn x 1 Recent Travel: No PAST MEDICAL HISTORY: Polysubstance abuse/IV heroin abuse PCOS OCD PAST SURGICAL HISTORY: Tonsillectomy Social History: Smoking: denies Alcohol: denies Drugs: cocaine, heroin, marijuana Family History: Allergies ibuprofen [From Motrin] Adverse Reaction (Severe, Verified 08/20/17 15:13) STATES KIDNEY FAILURE NSAIDS (Non-Steroidal Anti-Inflamma Adverse Reaction (Severe, Verified 08/18/17 18:59) STATES KIDNEY FAILURE HOME MEDICATIONS: Home Medications Medication Instructions Recorded Paroxetine HCl [Paxil] 40 mg PO HS 05/12/15 Bupropion HCl [Wellbutrin Xl -] 300 mg PO HS 07/07/15 Acyclovir [Zovirax -] 800 mg PO 5XD #50 tablet 08/18/17 Buprenorphine HCl/Naloxone HCl 1 each SL ASDIR 08/18/17 [Suboxone 8 mg-2 mg Sl Tablets] Ondansetron [Zofran Odt -] 4 mg SL TID #21 od.tablet 08/18/17 REVIEW OF SYSTEMS CONSTITUTIONAL: Absent: fever, chills, diaphoresis, generalized weakness, malaise, loss of appetite, weight change HEENT: Absent: rhinorrhea, nasal congestion, throat pain, throat swelling, difficulty swallowing, mouth swelling, ear pain, eye pain, visual changes CARDIOVASCULAR: Absent: chest pain, syncope, palpitations, irregular heart rate, lightheadedness , peripheral edema RESPIRATORY: Absent: cough, shortness of breath, dyspnea with exertion, orthopnea, wheezing, stridor, hemoptysis GASTROINTESTINAL: Absent: abdominal pain, abdominal distension, nausea, vomiting, diarrhea, constipation, melena, hematochezia GENITOURINARY: Absent: dysuria, frequency, urgency, hesitancy, hematuria, flank pain, genital pain MUSCULOSKELETAL: Absent: myalgia, arthralgia, joint swelling, back pain, neck pain SKIN: Absent: rash, itching, pallor HEMATOLOGIC/IMMUNOLOGIC: Absent: easy bleeding, easy bruising, lymphadenopathy, frequent infections ENDOCRINE: Absent: unexplained weight gain, unexplained weight loss, heat intolerance, cold intolerance NEUROLOGIC: Absent: headache, focal weakness or paresthesias, dizziness, unsteady gait, seizure, mental status changes, bladder or bowel incontinence PSYCHIATRIC: Absent: anxiety, depression, suicidal or homicidal ideation, hallucinations. PHYSICAL EXAMINATION Vital Signs - 24 hr 08/20/17 15:10 Temperature 102.4 F H Pulse Rate 128 H Respiratory 18 Rate Blood Pressure 108/62 O2 Sat by Pulse 98 Oximetry (%) GENERAL: Awake, alert, and fully oriented, in no acute distress. HEAD: Normal with no signs of trauma. EYES: Pupils equal, round and reactive to light, extraocular movements intact, sclera anicteric, conjunctiva clear. No lid lag. EARS, NOSE, THROAT: Ears normal, nares patent, oropharynx clear without exudates. Moist mucous membranes. NECK: Normal range of motion, supple without lymphadenopathy, JVD, or masses. LUNGS: Breath sounds equal, clear to auscultation bilaterally. No wheezes, and no crackles. No accessory muscle use. HEART: Regular rate and rhythm, normal S1 and S2 without murmur, rub or gallop. ABDOMEN: Soft, nontender, not distended, normoactive bowel sounds, no guarding, no rebound, no masses. No hepatomegaly or splenomegaly. MUSCULOSKELETAL: Normal range of motion at all joints. No bony deformities or tenderness. No CVA tenderness. UPPER EXTREMITIES: 2+ pulses, warm, well-perfused. No cyanosis. No clubbing. No peripheral edema. LOWER EXTREMITIES: 2+ pulses, warm, well-perfused. No calf tenderness. No peripheral edema. NEUROLOGICAL: Cranial nerves II-XII intact. Normal speech. Normal gait. PSYCHIATRIC: Cooperative. Good eye contact. Appropriate mood and affect. SKIN: Warm, dry, normal turgor, no rashes or lesions noted, normal capillary refill. Laboratory Results - last 24 hr 08/20/17 08/20/17 08/20/17 16:21 16:21 16:21 WBC 14.5 H D RBC 3.70 D Hgb 9.3 L D Hct 28.2 L D MCV 76.3 L MCH 25.1 L MCHC 32.8 RDW 16.7 H Plt Count 519 H MPV 8.4 Neutrophils % 87.4 H D Lymphocytes % 8.5 D Monocytes % 3.7 L Eosinophils % 0.2 Basophils % 0.2 PT with INR 13.30 H INR 1.18 H PTT (Actin FS) 25.5 L Sodium 136 Potassium 4.2 Chloride 104 Carbon Dioxide 23 Anion Gap 9 BUN 17 Creatinine 0.7 Creat Clearance w eGFR > 60 Random Glucose 90 Lactic Acid Calcium 8.2 L Total Bilirubin 0.4 D AST 9 L ALT 11 L Alkaline Phosphatase 96 Creatine Kinase 22 L Troponin I < 0.02 Total Protein 7.4 Albumin 3.2 L Serum , Qual Salicylates Acetaminophen 08/20/17 08/20/17 08/20/17 16:21 16:21 16:21 WBC RBC Hgb Hct MCV MCH MCHC RDW Plt Count MPV Neutrophils % Lymphocytes % Monocytes % Eosinophils % Basophils % PT with INR INR PTT (Actin FS) Sodium Potassium Chloride Carbon Dioxide Anion Gap BUN Creatinine Creat Clearance w eGFR Random Glucose Lactic Acid 1.2 Calcium Total Bilirubin AST ALT Alkaline Phosphatase Creatine Kinase Troponin I Total Protein Albumin Serum , Qual Negative Salicylates < 1.700 Acetaminophen 19.122 ASSESSMENT/PLAN: Sepsis secondary to cellulitis and skin abscesses --T102.4 p128 BP 108/62 WBC 14.5k --rashes: (1) (2) --Vanc and Zosyn started in ED Polysubstance abuse --h/o IV injection of heroin, cocaine --claims to be drug free since --on suboxone prescribed by Search Terms: Nataly Saldaña, 1985 Search Date: 08/20/2017 06:46:57 PM The Drug Utilization Report below displays all of the controlled substance prescriptions, if any, that your patient has filled in the last twelve months. The information displayed on this report is compiled from pharmacy submissions to the Department, and accurately reflects the information as submitted by the pharmacies. This report was requested by: Marce Chicas | Reference #: [id number] Others' Prescriptions Patient Name: Nataly Saldaña Date: 1985 Address: [address] [place] [address] Sex: Female Rx Written Rx Dispensed Drug Quantity Days Supply Prescriber Name 04/01/2017 04/07/2017 clonazepam 0.5 mg tablet 90 30 Jamie Levin MD 08/10/2016 08/24/2016 methadone hcl 10 mg tablet 4 6 Edwar Herbert) Hospitalist Screening - Colonoscopy Questionnaire Colonoscopy Questionnaire: Colonoscopy Questionnaire"
[2017-08-20] MEDS ORDERED: SODIUM CHLORIDE 1,000 ML IV SCH (18:45)
[2017-08-20 21:12] LABS: ALBUMIN 3.4 g/dl (3.4-5.0); ALK PHOS 100 U/L (45-117); BILIRUBIN,DIRECT < 0.2 mg/dL (0.0-0.2); BILIRUBIN,TOTAL 0.4 mg/dL (0.2-1.0); SGOT/AST 11 U/L (15-37); SGPT/ALT 13 U/L (12-78); TOT PROT 7.7 g/dl (6.4-8.2)
[2017-08-20] MEDS ORDERED: ACETAMINOPHEN 1000 MG/100 ML VIAL (NON FORMULARY) IVPB ONE (21:54)
[2017-08-21] MEDS ORDERED: traMADol HCL 50 MG TABLET PO ONE ×2 (06:05→14:30)
[2017-08-21 07:08] LABS: BASO % 0.3 % (0-2.0); EOS % 0.5 % (0-4.5); HEMATOCRIT 27.5 % (32.4-45.2); HEMOGLOBIN 9.2 GM/dL (10.7-15.3); LYMPH % 23.1 % (8-40); MCH 25.6 pg (25.7-33.7); MCHC 33.5 g/dl (32.0-36.0); MEAN CELL VOLUME 76.5 fl (80-96); MONO % 4.5 % (3.8-10.2); NEUT % 71.6 % (42.8-82.8); PLATELET COUNT 479 K/MM3 (134-434); RBC 3.59 M/mm3 (3.60-5.2); WHITE BLOOD COUNT 9.4 K/mm3 (4.0-10.0)
[2017-08-21 07:31] LABS: INR 1.08 (0.82-1.09); PROTHROMBIN TIME (PATIENT) 12.2 SEC (9.98-11.88)
[2017-08-21 07:33] LABS: ACTIVATED PTT 28.2 SECONDS (26.9-34.4)
[2017-08-21 07:37] LABS: ALBUMIN 2.8 g/dl (3.4-5.0); ANION GAP 11 (8-16); BLOOD UREA NITROGEN 12 mg/dL (7-18); CALCIUM 8.5 mg/dL (8.5-10.1); CHLORIDE 103 mmol/L (98-107); CO2 25 mmol/L (21-32); CREATININE 0.5 mg/dL (0.55-1.02); GLUCOSE,RANDOM 94 mg/dL (74-106); MAGNESIUM 2.4 mg/dL (1.8-2.4); PHOSPHOROUS 3.4 mg/dL (2.5-4.9); POTASSIUM 4.6 mmol/L (3.5-5.1); SGOT/AST 8 U/L (15-37); SGPT/ALT 11 U/L (12-78); SODIUM 139 mmol/L (136-145)
[2017-08-21 07:42] LABS: ALK PHOS 83 U/L (45-117); BILIRUBIN,TOTAL 0.3 mg/dL (0.2-1.0); N-TERMINAL BNP 550.07 pg/ml (5-125); TOT PROT 7.1 g/dl (6.4-8.2)
[2017-08-21] MEDS ORDERED: FLU VACCINE QUAD 60 MCG/0.5 ML (MDV 17-18) IM ONE (07:50)
--- NOTE | 2017-08-21 09:59 | CON.ID ---
Consult - History of Present Illness History of Present Illness: Asked to evaluate this 32 y.o. female with PMH of IVDU (heroine, reports last use 3 months ago and has been using suboxone bought off the street) , b/l hand abscesses, , PCOS, endometriosis, and OCD presenting with c/o abdominal wall pain, erythema for which she was initially prescribed acyclovir for possible herpes zoster about 4 days ago. She states that the 2 areas of erythema and pain has worsened and she began having fever/chills a few days ago. She has also developed erythema and induration in 2 areas on each of her upper arms . In the ER noted to have fever (102.4F) and leukocytosis. She also reports that she had a heart murmur about a year ago and an echocardiogram did not reveal vegetations. She states she has a history of skin picking and believes her lesions developed after that. She has received doses of Zosyn and Vancomycin in the ER and is currently afebrile and leukocytosis has resoved. - History Source History Provided By: Patient Limitations to Obtaining History: No Limitations - Past Medical History Cardio/Vascular: Yes: Murmur Hepatobiliary: Yes: Cholelithiasis Reproductive: Yes: Endometriosis, Polycystic Ovary Syndrome ...LMP: 06/22/15 Infectious Disease: Yes: Other (b/l hand abscesses) Psych: Yes: Anxiety, Depression Dermatology: Yes: Cellulitis - Past Surgical History Past Surgical History: Yes: Tonsillectomy - Alcohol/Substance Use Hx Alcohol Use: No History of Substance Use: reports: Cocaine, Heroin, Marijuana - Smoking History Smoking history: Never smoked Have you smoked in the past 12 months: No Aproximately how many cigarettes per day: 0 - Social History Usual Living Arrangement: Other (lives with grandparents) ADL: Independent History of Recent Travel: No Home Medications - Allergies Allergies/Adverse Reactions: Allergies Allergy/AdvReac Type Severity Reaction Status Date / Time ibuprofen [From Motrin] AdvReac Severe Verified 08/20/17 15:13 NSAIDS (Non-Steroidal AdvReac Severe Verified 08/18/17 18:59 Anti-Inflamma - Home Medications Home Medications: Ambulatory Orders Paroxetine HCl [Paxil] 40 mg PO HS 05/12/15 Bupropion HCl [Wellbutrin Xl -] 300 mg PO HS 07/07/15 Acyclovir [Zovirax -] 800 mg PO 5XD #50 tablet 08/18/17 Buprenorphine HCl/Naloxone HCl [Suboxone 8 mg-2 mg Sl Tablets] 1 each SL ASDIR 08/18/17 Ondansetron [Zofran Odt -] 4 mg SL TID #21 od.tablet 08/18/17 Family Disease History - Family Disease History Family Disease History: Heart Disease: Grandparent, Father Review of Systems - Review of Systems Constitutional: reports: Chills, Fever Eyes: reports: No Symptoms HENT: reports: No Symptoms Neck: reports: No Symptoms Cardiovascular: reports: No Symptoms Respiratory: reports: No Symptoms Gastrointestinal: reports: Abdominal Pain, Nausea Genitourinary: reports: No Symptoms Breasts: reports: No Symptoms Reported Musculoskeletal: reports: No Symptoms Integumentary: reports: Erythema Neurological: reports: No Symptoms Endocrine: reports: No Symptoms Hematology/Lymphatic: reports: No Symptoms Psychiatric: reports: Other (OCD) Pain Intensity: 8 Physical Exam Vital Signs: Vital Signs Temperature 97.8 F 08/21/17 06:00 Pulse Rate 89 08/21/17 06:00 Respiratory Rate 20 08/21/17 06:00 Blood Pressure 114/75 08/21/17 06:00 O2 Sat by Pulse Oximetry (%) 98 08/21/17 01:00 Constitutional: Yes: No Distress, Calm HENT: Yes: WNL Neck: Yes: Supple Cardiovascular: Yes: Regular Rate and Rhythm, Murmur Respiratory: Yes: Regular Gastrointestinal: Yes: Normal Bowel Sounds, Soft, Tenderness Renal/: Yes: WNL Musculoskeletal: Yes: WNL Extremities: Yes: WNL Edema: Yes Integumentary: Yes: Erythema (large abd wall erythema, induration with fluctuance x 2, passing midline, +pain, no vesicles b/l upper arm erythema/ induration x 2 areas each) Neurological: Yes: Alert, Oriented Psychiatric: Yes: Alert, Oriented Labs: CBC, BMP 08/21/17 06:50 08/21/17 06:50 Blood cultures - results pending Imaging - Results Chest X-ray: Report Reviewed (normal) Problem List - Problems (1) Abscess Code(s): L02.91 - CUTANEOUS ABSCESS, UNSPECIFIED (2) Cellulitis Code(s): L03.90 - CELLULITIS, UNSPECIFIED (3) Cholelithiasis Code(s): K80.20 - CALCULUS OF GALLBLADDER W/O CHOLECYSTITIS W/O OBSTRUCTION (4) Endometriosis Code(s): N80.9 - ENDOMETRIOSIS, UNSPECIFIED (5) Intravenous drug abuse Code(s): F19.10 - OTHER PSYCHOACTIVE SUBSTANCE ABUSE, UNCOMPLICATED Assessment/Plan 32 y.o. female with PMH of IVDU, hand cellulitis/abscess, heart murmur, PCOS, Endometriosis, OCD presenting with erythema/induration/fluctuance, tenderness of abd wall x 2 and b/l upper arm erythema/induration x 2 with fever and leukocytosis. Abdominal wall cellulitis/abscesses b/l upper arm cellulitis/abscesses r/o bacteremia/endocarditis -- suggest Vancomycin IV, I+D -- f/u blood cultures, may need echocardiogram -- continue monitor temperatures/wbc count
[2017-08-21] MEDS ORDERED: chlordiazePOXIDE HCL 25 MG CAPSULE PO PRN (10:32)
[2017-08-21] MEDS: ENOXAPARIN NA (PORCINE) 40 MG/0.4 ML DISP.SYRIN SQ SCH (10:54)
[2017-08-21] MEDS ORDERED: chlordiazePOXIDE HCL 25 MG CAPSULE PO SCH (11:00)
--- NOTE | 2017-08-21 11:36 | EKG ---
Test Reason : Blood Pressure : / mmHG Vent. Rate : 097 BPM Atrial Rate : 097 BPM P-R Int : 134 ms QRS Dur : 082 ms QT Int : 348 ms P-R-T Axes : 015 059 015 degrees QTc Int : 441 ms NORMAL SINUS RHYTHM NORMAL ECG WHEN COMPARED WITH ECG OF 20-AUG-2017 16:50, NO SIGNIFICANT CHANGE WAS FOUND Confirmed by MD KAJAL, HERNAN ([id number]) on 08/21/2017 11:36:17 AM Referred By: Geovanni STRANGE Confirmed By:HERNAN RDZ MD
--- NOTE | 2017-08-21 11:42 | EKG ---
Test Reason : Blood Pressure : / mmHG Vent. Rate : 110 BPM Atrial Rate : 110 BPM P-R Int : 134 ms QRS Dur : 088 ms QT Int : 326 ms P-R-T Axes : 038 070 028 degrees QTc Int : 441 ms SINUS TACHYCARDIA POSSIBLE LEFT ATRIAL ENLARGEMENT BORDERLINE ECG WHEN COMPARED WITH ECG OF 30-JUN-2017 10:46, NO SIGNIFICANT CHANGE WAS FOUND Confirmed by MD KAJAL, HERNAN ([id number]) on 08/21/2017 11:42:21 AM Referred By: Confirmed By:HERNAN RDZ MD
[2017-08-21 12:18] LABS: URINE APPEARANCE CLEAR; URINE BILIRUBIN NEGATIVE (NEGATIVE); URINE BLOOD NEGATIVE (NEGATIVE); URINE COLOR LTYELLOW; URINE GLUCOSE (UA) NEGATIVE (NEGATIVE); URINE KETONE NEGATIVE (NEGATIVE); URINE LEUK ESTERASE NEGATIVE (NEGATIVE); URINE NITRITE NEGATIVE (NEGATIVE); URINE PROTEIN NEGATIVE (NEGATIVE); URINE UROBILINOGEN NEGATIVE mg/dL (0.2-1.0)
[2017-08-21] MEDS ORDERED: diazePAM 5 MG TABLET PO PRN (12:51)
[2017-08-21] MEDS ORDERED: METHADONE HCL 10 MG TABLET (FOR DETOX USE ONLY) PO ONE (12:51)
[2017-08-21] MEDS ORDERED: ACETAMINOPHEN 325 MG TABLET (FP) PO PRN (12:54)
[2017-08-21] MEDS ORDERED: METHADONE HCL 5 MG TABLET PO ONE ×2 (13:15→15:45)
[2017-08-21] MEDS ORDERED: METHADONE HCL 10 MG TABLET PO ONE ×5 (13:15→23:00)
[2017-08-21] MEDS: VANCOMYCIN 1,000 MG in DEXTROSE 5%-WATER - 250 ML IVPB SCH ×2 (13:42→21:49)
[2017-08-21 14:02] LABS: COCAINE, UR NEGATIVE ng/ml (CUTOFF=300); URINE AMPHETAMINES NEGATIVE ng/ml (CUTOFF=500); URINE BARBITURATES NEGATIVE ng/ml (CUTOFF=200); URINE BENZODIAZEPINES NEGATIVE ng/ml (CUTOFF=200)
[2017-08-21 14:03] LABS: METHADONE, UR NEGATIVE ng/ml (CUTOFF=300); OPIATES, URI POSITIVE ng/ml (CUTOFF=300); PHENCYCLIDINE,URINE NEGATIVE ng/ml (CUTOFF=25)
[2017-08-21] MEDS ORDERED: METHADONE HCL 10 MG TABLET (FOR DETOX USE ONLY) PO STA (15:10)
--- NOTE | 2017-08-21 15:42 | CON.CARD ---
Consult Consult Specialty:: Cardiology Reason for Consultation:: Tachycardia - History of Present Illness History of Present Illness: 32 year-old female with previous polysubstance abuse IV drug use last used 3 months ago and current cocaine. OCD characterized with skin picking v. popping , depression and anxiety. Patient presented to the ED today complaining of an abdominal skin infection. Patient presents today with worsening abominal skin cellulitis that extends from the RMQ, across the midline, to the RLQ. She had sinus tachycardia. There is a previous history of heart murmur. - History Source History Provided By: Patient, Medical Record Limitations to Obtaining History: No Limitations - Past Medical History Cardio/Vascular: Yes: Murmur Hepatobiliary: Yes: Cholelithiasis ...LMP: 06/22/15 Infectious Disease: Yes: Other (b/l hand abscesses) Psych: Yes: Anxiety, Depression Dermatology: Yes: Cellulitis - Past Surgical History Past Surgical History: Yes: Tonsillectomy - Alcohol/Substance Use Hx Alcohol Use: No History of Substance Use: reports: Cocaine, Heroin, Marijuana - Smoking History Smoking history: Never smoked Have you smoked in the past 12 months: No Aproximately how many cigarettes per day: 0 - Social History Usual Living Arrangement: Other (lives with grandparents) ADL: Independent History of Recent Travel: No Home Medications - Allergies Allergies/Adverse Reactions: Allergies Allergy/AdvReac Type Severity Reaction Status Date / Time ibuprofen [From Motrin] AdvReac Severe Verified 08/20/17 15:13 NSAIDS (Non-Steroidal AdvReac Severe Verified 08/18/17 18:59 Anti-Inflamma - Home Medications Home Medications: Ambulatory Orders Paroxetine HCl [Paxil] 40 mg PO HS 05/12/15 Bupropion HCl [Wellbutrin Xl -] 300 mg PO HS 07/07/15 Acyclovir [Zovirax -] 800 mg PO 5XD #50 tablet 08/18/17 Buprenorphine HCl/Naloxone HCl [Suboxone 8 mg-2 mg Sl Tablets] 1 each SL ASDIR 08/18/17 Ondansetron [Zofran Odt -] 4 mg SL TID #21 od.tablet 08/18/17 Family Disease History - Family Disease History Family Disease History: Heart Disease: Grandparent, Father Review of Systems - Review of Systems Constitutional: reports: Chills, Fever Eyes: denies: Blind Spots, Blurred Vision, Double Vision HENT: denies: Difficult Swallowing, Ear Discharge, Ear Pain, Epistaxis Neck: denies: Decreased ROM, Lumps, Pain on Movement Cardiovascular: denies: Chest Pain, Edema, Palpitations, Shortness of Breath Respiratory: denies: Cough, Exercise Intolerance, Hemoptysis, Orthopnea, SOB on Exertion, Wheezing Gastrointestinal: reports: Abdominal Pain. denies: Bloating, Constipation, Diarrhea Genitourinary: denies: Burning, Discharge, Dysuria Integumentary: reports: Blister, Change in Color, Rash Neurological: denies: Change in LOC, Change in Speech, Confusion, Dizziness, Incoordination Vital Signs: Vital Signs Temperature 98.0 F 08/21/17 10:00 Pulse Rate 101 H 08/21/17 10:00 Respiratory Rate 18 08/21/17 10:00 Blood Pressure 112/79 08/21/17 10:00 O2 Sat by Pulse Oximetry (%) 100 08/21/17 09:00 Constitutional: Yes: Well Nourished, No Distress, Calm Eyes: Yes: Conjunctiva Clear, EOM Intact HENT: Yes: Atraumatic, Normocephalic Neck: Yes: Supple, Trachea Midline Respiratory: Yes: Regular, CTA Bilaterally. No: Accessory Muscle Use, Bradypnea , Cough, Diminished Gastrointestinal: Yes: Normal Bowel Sounds, Soft, Tenderness Cardiovascular: Yes: Regular Rate and Rhythm. No: Gallop, Rub JVD: No Carotid Bruit: No PMI: Non-Displaced Heart Sounds: Yes: S1, S2 Murmur: Yes: Systolic Murmur, Grade 2 (apex) Edema: No - Other Data Labs, Other Data: CBC, BMP 08/21/17 06:50 08/21/17 06:50 INR, PTT INR 1.08 (0.82-1.09) 08/21/17 06:50 Troponin, BNP 08/20/17 08/20/17 08/21/17 16:21 21:00 06:50 Troponin I < 0.02 < 0.02 < 0.02 B-Natriuretic Peptide 550.07 H Troponin, BNP 08/20/17 08/20/17 08/21/17 16:21 21:00 06:50 Troponin I < 0.02 < 0.02 < 0.02 B-Natriuretic Peptide 550.07 H Sinus tachycardia No STT changes. Problem List - Problems (1) Abdominal pain Code(s): R10.9 - UNSPECIFIED ABDOMINAL PAIN Assessment/Plan 32 year-old female with a PMH significant for polysubstance abuse, heart murmur , complaining of an abdominal skin infection. Her sinus tachycardia is reactive and due to concurrent infection of the skin and possibly recent cocaine abuse. Check Utox Reconsult as needed.
[2017-08-21] MEDS ORDERED: FLUCONAZOLE 150 MG TABLET PO ONE (19:34)
--- NOTE | 2017-08-21 19:37 | PN ---
Physical Exam: SUBJECTIVE: Patient seen and examined OBJECTIVE: Vital Signs Period Temp Pulse Resp BP Sys/Reece Pulse Ox Last 24 Hr 89.7 F-99.0 F 88-101 18-20 100-114/58-79 98-100 Laboratory Results - last 24 hr 08/20/17 08/20/17 08/20/17 16:04 16:04 16:21 WBC RBC Hgb Hct MCV MCH MCHC RDW Plt Count MPV Neutrophils % Lymphocytes % Monocytes % Eosinophils % Basophils % PT with INR INR PTT (Actin FS) Sodium 136 Potassium 4.2 Chloride 104 Carbon Dioxide 23 Anion Gap 9 BUN 17 Creatinine 0.7 Creat Clearance w eGFR > 60 Random Glucose 90 Calcium 8.2 L Phosphorus Magnesium Total Bilirubin 0.4 D 0.4 Direct Bilirubin < 0.2 AST 11 L 9 L ALT 13 11 L Alkaline Phosphatase 100 96 Creatine Kinase 22 L Troponin I < 0.02 B-Natriuretic Peptide Total Protein 7.7 7.4 Albumin 3.4 3.2 L Urine Color Urine Appearance Urine pH Ur Specific [place] Urine Protein Urine Glucose (UA) Urine Ketones Urine Blood Urine Nitrite Urine Bilirubin Urine Urobilinogen Ur Leukocyte Esterase Salicylates Opiates Screen Methadone Screen Acetaminophen Barbiturate Screen Phencyclidine Screen Ur Amphetamines Screen MDMA (Ecstasy) Screen Benzodiazepines Screen Cocaine Screen U Marijuana (THC) Screen Alcohol, Quantitative < 5.0 08/20/17 08/21/17 08/21/17 21:00 06:50 06:50 WBC 9.4 D RBC 3.59 L Hgb 9.2 L Hct 27.5 L MCV 76.5 L MCH 25.6 L MCHC 33.5 RDW 17.0 H Plt Count 479 H MPV 8.0 Neutrophils % 71.6 Lymphocytes % 23.1 D Monocytes % 4.5 Eosinophils % 0.5 D Basophils % 0.3 PT with INR 12.20 H INR 1.08 PTT (Actin FS) 28.2 Sodium Potassium Chloride Carbon Dioxide Anion Gap BUN Creatinine Creat Clearance w eGFR Random Glucose Calcium Phosphorus Magnesium Total Bilirubin Direct Bilirubin AST ALT Alkaline Phosphatase Creatine Kinase Troponin I < 0.02 B-Natriuretic Peptide Total Protein Albumin Urine Color Urine Appearance Urine pH Ur Specific [place] Urine Protein Urine Glucose (UA) Urine Ketones Urine Blood Urine Nitrite Urine Bilirubin Urine Urobilinogen Ur Leukocyte Esterase Salicylates Opiates Screen Methadone Screen Acetaminophen Barbiturate Screen Phencyclidine Screen Ur Amphetamines Screen MDMA (Ecstasy) Screen Benzodiazepines Screen Cocaine Screen U Marijuana (THC) Screen Alcohol, Quantitative 08/21/17 08/21/17 08/21/17 06:50 06:50 06:50 WBC RBC Hgb Hct MCV MCH MCHC RDW Plt Count MPV Neutrophils % Lymphocytes % Monocytes % Eosinophils % Basophils % PT with INR INR PTT (Actin FS) Sodium 139 Potassium 4.6 Chloride 103 Carbon Dioxide 25 Anion Gap 11 BUN 12 Creatinine 0.5 L Creat Clearance w eGFR > 60 Random Glucose 94 Calcium 8.5 Phosphorus 3.4 Magnesium 2.4 Total Bilirubin 0.3 D Direct Bilirubin AST 8 L ALT 11 L Alkaline Phosphatase 83 Creatine Kinase 15 L Troponin I < 0.02 B-Natriuretic Peptide 550.07 H Total Protein 7.1 Albumin 2.8 L Urine Color Urine Appearance Urine pH Ur Specific [place] Urine Protein Urine Glucose (UA) Urine Ketones Urine Blood Urine Nitrite Urine Bilirubin Urine Urobilinogen Ur Leukocyte Esterase Salicylates < 1.700 Opiates Screen Methadone Screen Acetaminophen < 2.000 Barbiturate Screen Phencyclidine Screen Ur Amphetamines Screen MDMA (Ecstasy) Screen Benzodiazepines Screen Cocaine Screen U Marijuana (THC) Screen Alcohol, Quantitative 08/21/17 08/21/17 10:40 10:40 WBC RBC Hgb Hct MCV MCH MCHC RDW Plt Count MPV Neutrophils % Lymphocytes % Monocytes % Eosinophils % Basophils % PT with INR INR PTT (Actin FS) Sodium Potassium Chloride Carbon Dioxide Anion Gap BUN Creatinine Creat Clearance w eGFR Random Glucose Calcium Phosphorus Magnesium Total Bilirubin Direct Bilirubin AST ALT Alkaline Phosphatase Creatine Kinase Troponin I B-Natriuretic Peptide Total Protein Albumin Urine Color Ltyellow Urine Appearance Clear Urine pH 5.0 Ur Specific [place] 1.017 Urine Protein Negative Urine Glucose (UA) Negative Urine Ketones Negative Urine Blood Negative Urine Nitrite Negative Urine Bilirubin Negative Urine Urobilinogen Negative Ur Leukocyte Esterase Negative Salicylates Opiates Screen Positive Methadone Screen Negative Acetaminophen Barbiturate Screen Negative Phencyclidine Screen Negative Ur Amphetamines Screen Negative MDMA (Ecstasy) Screen Negative Benzodiazepines Screen Negative Cocaine Screen Negative U Marijuana (THC) Screen Positive Alcohol, Quantitative Active Medications Generic Name Dose Route Start Last Admin Trade Name Freq PRN Reason Stop Dose Admin Acetaminophen 650 mg 08/21/17 12:54 Tylenol - PO Q6H PRN PAIN LEVEL 6-10 Enoxaparin Sodium 40 mg 08/21/17 10:00 08/21/17 10:54 Lovenox - SQ 40 mg DAILY MARIELY Administration Fluconazole 150 mg 08/21/17 19:34 Fluconazole PO 08/21/17 19:35 ONCE ONE Hydrocortisone 1 applic 08/21/17 22:00 Anusol 2.5% Hc Cream - TP BID MARIELY Sodium Chloride 1,000 mls @ 125 mls/hr 08/20/17 18:45 08/20/17 19:41 Normal Saline - IV 125 mls/hr ASDIR MARIELY Administration Vancomycin HCl 1,000 mg/ 250 mls @ 166.667 mls/hr 08/21/17 10:30 08/21/17 13: 42 Dextrose IVPB 166.667 mls/hr BID MARIELY Administration Protocol Methadone HCl 20 mg 08/22/17 10:00 Dolophine - PO 08/22/17 10:01 ONCE ONE Methadone HCl 10 mg 08/21/17 23:00 Dolophine - PO 08/21/17 23:01 ONCE@2300 ONE Methadone HCl 15 mg 08/23/17 06:00 Dolophine - PO 08/23/17 23:59 ONCE ONE Methadone HCl 10 mg 08/24/17 06:00 Dolophine - PO 08/24/17 06:01 ONCE@0600 ONE Methadone HCl 5 mg 08/25/17 06:00 Dolophine - PO 08/25/17 23:59 ONCE@0600 ONE ASSESSMENT/PLAN: No further eruptions Various stages of induration, no fluctuance to any of them Fluconazole 150mg x 1 for sx of vaginal yeast infection Refusing methadone, does not feel symptoms of withdrawal
[2017-08-21] MEDS ORDERED: traMADol HCL 50 MG TABLET PO PRN (21:48)
[2017-08-21] MEDS: HYDROCORTISONE 2.5% TOPICAL CREAM 30 GM TUBE TP SCH (21:50)
[2017-08-22] MEDS ORDERED: METHADONE HCL 5 MG TABLET PO ONE (06:00)
[2017-08-22 09:21] LABS: BASO % 0.2 % (0-2.0); EOS % 0.6 % (0-4.5); HEMATOCRIT 29.4 % (32.4-45.2); HEMOGLOBIN 9.5 GM/dL (10.7-15.3); LYMPH % 13.5 % (8-40); MCH 24.7 pg (25.7-33.7); MCHC 32.2 g/dl (32.0-36.0); MEAN CELL VOLUME 76.5 fl (80-96); MEAN PLT VOLUME 7.7 fl (7.5-11.1); MONO % 3.8 % (3.8-10.2); NEUT % 81.9 % (42.8-82.8); PLATELET COUNT 573 K/MM3 (134-434); RBC 3.85 M/mm3 (3.60-5.2); RDW 16.8 % (11.6-15.6); WHITE BLOOD COUNT 11.8 K/mm3 (4.0-10.0)
[2017-08-22 09:47] LABS: ALBUMIN 3.2 g/dl (3.4-5.0); ANION GAP 8 (8-16); BILIRUBIN,TOTAL 0.3 mg/dL (0.2-1.0); BLOOD UREA NITROGEN 9 mg/dL (7-18); CALCIUM 8.9 mg/dL (8.5-10.1); CHLORIDE 100 mmol/L (98-107); CO2 29 mmol/L (21-32); CREATININE 0.6 mg/dL (0.55-1.02); GLUCOSE,RANDOM 109 mg/dL (74-106); MAGNESIUM 2.4 mg/dL (1.8-2.4); POTASSIUM 4.5 mmol/L (3.5-5.1); SGOT/AST 6 U/L (15-37); SGPT/ALT 10 U/L (12-78); SODIUM 137 mmol/L (136-145); TOT PROT 7.8 g/dl (6.4-8.2)
[2017-08-22 09:48] LABS: ALK PHOS 85 U/L (45-117)
[2017-08-22] MEDS ORDERED: METHADONE HCL 10 MG TABLET PO ONE (10:00)
[2017-08-22] MEDS ORDERED: METHADONE HCL 10 MG TABLET (FOR DETOX USE ONLY) PO ONE (10:00)
[2017-08-22] MEDS: VANCOMYCIN 1,000 MG in DEXTROSE 5%-WATER - 250 ML IVPB SCH ×2 (10:43→23:00)
[2017-08-22] MEDS: ENOXAPARIN NA (PORCINE) 40 MG/0.4 ML DISP.SYRIN SQ SCH (10:43)
[2017-08-22] MEDS: HYDROCORTISONE 2.5% TOPICAL CREAM 30 GM TUBE TP SCH ×2 (10:43→21:31)
--- NOTE | 2017-08-22 10:50 | PN ---
Progress Note, Physician History of Present Illness: Pt states she feels somewhat better. Temperatures have come down, Tmax 99.3F. Less tenderness in abdominal wall. Still erythema in upper arm sites but no tenderness. - Current Medication List Current Medications: Active Medications Acetaminophen (Tylenol -) 650 mg PO Q6H PRN PRN Reason: PAIN LEVEL 6-10 Enoxaparin Sodium (Lovenox -) 40 mg SQ DAILY [facility] Last Admin: 08/22/17 10:43 Dose: 40 mg Hydrocortisone (Anusol 2.5% Hc Cream -) 1 applic TP BID [facility] Last Admin: 08/22/17 10:43 Dose: 1 applic Sodium Chloride (Normal Saline -) 1,000 mls @ 125 mls/hr IV ASDIR [facility] Last Admin: 08/20/17 19:41 Dose: 125 mls/hr Vancomycin HCl 1,000 mg/ (Dextrose) 250 mls @ 166.667 mls/hr IVPB BID [facility] PRN Reason: Protocol Last Admin: 08/22/17 10:43 Dose: 166.667 mls/hr Methadone HCl (Dolophine -) 15 mg PO ONCE ONE Stop: 08/23/17 23:59 Methadone HCl (Dolophine -) 10 mg PO ONCE@0600 ONE Stop: 08/24/17 06:01 Methadone HCl (Dolophine -) 5 mg PO ONCE@0600 ONE Stop: 08/25/17 23:59 Tramadol HCl (Ultram -) 50 mg PO Q6H PRN PRN Reason: PAIN LEVEL 6-10 - Objective Vital Signs: Vital Signs Temperature 99.3 F 08/22/17 06:00 Pulse Rate 92 H 08/22/17 06:00 Respiratory Rate 20 08/22/17 06:00 Blood Pressure 102/59 08/22/17 06:00 O2 Sat by Pulse Oximetry (%) 98 08/21/17 21:00 Constitutional: Yes: No Distress, Calm Cardiovascular: Yes: Regular Rate and Rhythm Respiratory: Yes: Regular Gastrointestinal: Yes: Normal Bowel Sounds, Soft Genitourinary: Yes: WNL Musculoskeletal: Yes: WNL Edema: No Integumentary: Yes: Erythema (abd wall erythema/induration, less tender. b/l upper arm erythema/induration (LUE >RUE)) Neurological: Yes: Alert, Oriented Labs: CBC, BMP 08/22/17 09:00 08/22/17 09:00 INR, PTT INR 1.08 (0.82-1.09) 08/21/17 06:50 Microbiology 08/21/17 10:40 Urine - Urine Clean Catch Urine Culture - Final NO GROWTH OBTAINED 08/20/17 16:08 Blood - Peripheral Venous Blood Culture - Preliminary NO GROWTH OBTAINED AFTER 24 HOURS, INCUBATION TO CONTINUE FOR 4 DAYS. 08/20/17 16:08 Blood - Peripheral Venous Blood Culture - Preliminary NO GROWTH OBTAINED AFTER 24 HOURS, INCUBATION TO CONTINUE FOR 4 DAYS. 08/20/17 16:21 Blood - Peripheral Venous Blood Culture - Preliminary NO GROWTH OBTAINED AFTER 24 HOURS, INCUBATION TO CONTINUE FOR 4 DAYS. Problem List - Problems (1) Abscess Code(s): L02.91 - CUTANEOUS ABSCESS, UNSPECIFIED (2) Cellulitis Code(s): L03.90 - CELLULITIS, UNSPECIFIED (3) Cholelithiasis Code(s): K80.20 - CALCULUS OF GALLBLADDER W/O CHOLECYSTITIS W/O OBSTRUCTION (4) Endometriosis Code(s): N80.9 - ENDOMETRIOSIS, UNSPECIFIED (5) Intravenous drug abuse Code(s): F19.10 - OTHER PSYCHOACTIVE SUBSTANCE ABUSE, UNCOMPLICATED Assessment/Plan 32 y.o. female with PMH of IVDU, hand cellulitis/abscess, heart murmur, PCOS, Endometriosis, OCD presenting with erythema/induration/fluctuance, tenderness of abd wall x 2 and b/l upper arm erythema/induration x 2 with fever and leukocytosis. Abdominal wall cellulitis/induration b/l upper arm cellulitis/induration blood cultures no growth so far temperatures trending down -- continue Vancomycin -- cont monitor wbc, temps -- monitor for signs of improvement pt currently stable
[2017-08-22] MEDS ORDERED: chlordiazePOXIDE HCL 25 MG CAPSULE PO SCH (11:00)
--- NOTE | 2017-08-22 14:05 | PN ---
Physical Exam: SUBJECTIVE: Patient seen and examined OBJECTIVE: Vital Signs Period Temp Pulse Resp BP Sys/Reece Pulse Ox Last 24 Hr 99.0 F-99.3 F 92-101 20-20 100-107/55-61 98 GENERAL: The patient is awake, alert, and fully oriented, in no acute distress. HEAD: Normal with no signs of trauma. EYES: PERRL, extraocular movements intact, sclera anicteric, conjunctiva clear. No ptosis. ENT: Ears normal, nares patent, oropharynx clear without exudates, moist mucous membranes. NECK: Trachea midline, full range of motion, supple. LUNGS: Breath sounds equal, clear to auscultation bilaterally, no wheezes, no crackles, no accessory muscle use. HEART: Regular rate and rhythm, S1, S2 without murmur, rub or gallop. ABDOMEN: Soft, nontender, nondistended, normoactive bowel sounds, no guarding, no rebound, no hepatosplenomegaly, no masses. EXTREMITIES: 2+ pulses, warm, well-perfused, no edema. NEUROLOGICAL: Cranial nerves II through XII grossly intact. Normal speech, gait not observed. PSYCH: Normal mood, normal affect. SKIN: Warm, dry, normal turgor, no rashes or lesions noted Laboratory Results - last 24 hr 08/22/17 08/22/17 08/22/17 09:00 09:00 09:00 WBC 11.8 H RBC 3.85 Hgb 9.5 L Hct 29.4 L MCV 76.5 L MCH 24.7 L MCHC 32.2 RDW 16.8 H Plt Count 573 H MPV 7.7 Neutrophils % 81.9 Lymphocytes % 13.5 D Monocytes % 3.8 Eosinophils % 0.6 Basophils % 0.2 Sodium 137 Potassium 4.5 Chloride 100 Carbon Dioxide 29 Anion Gap 8 BUN 9 Creatinine 0.6 Creat Clearance w eGFR > 60 Random Glucose 109 H Calcium 8.9 Magnesium 2.4 Total Bilirubin 0.3 AST 6 L ALT 10 L Alkaline Phosphatase 85 C-Reactive Protein 9.9 H Total Protein 7.8 Albumin 3.2 L Active Medications Generic Name Dose Route Start Last Admin Trade Name Freq PRN Reason Stop Dose Admin Acetaminophen 650 mg 08/21/17 12:54 Tylenol - PO Q6H PRN PAIN LEVEL 6-10 Enoxaparin Sodium 40 mg 08/21/17 10:00 08/22/17 10:43 Lovenox - SQ 40 mg DAILY MARIELY Administration Hydrocortisone 1 applic 08/21/17 22:00 08/22/17 10:43 Anusol 2.5% Hc Cream - TP 1 applic BID MARIELY Administration Sodium Chloride 1,000 mls @ 125 mls/hr 08/20/17 18:45 08/20/17 19:41 Normal Saline - IV 125 mls/hr ASDIR MARIELY Administration Vancomycin HCl 1,000 mg/ 250 mls @ 166.667 mls/hr 08/21/17 10:30 08/22/17 10: 43 Dextrose IVPB 166.667 mls/hr BID MARIELY Administration Protocol Methadone HCl 15 mg 08/23/17 06:00 Dolophine - PO 08/23/17 23:59 ONCE ONE Methadone HCl 10 mg 08/24/17 06:00 Dolophine - PO 08/24/17 06:01 ONCE@0600 ONE Methadone HCl 5 mg 08/25/17 06:00 Dolophine - PO 08/25/17 23:59 ONCE@0600 ONE Tramadol HCl 50 mg 08/21/17 21:48 Ultram - PO Q6H PRN PAIN LEVEL 6-10 ASSESSMENT/PLAN:
--- NOTE | 2017-08-22 18:12 | CONSULT ---
Consult Detox [facility] Reason for Current Admission/Consult: polysubstance use, Referred by:: Vernon Chicas NP - History History of Present Illness: 32 yo f with h/o OUD and marijuana abuse h/o cocaine abuse in remission known to me from prior admissions admitted with cellultis for iv antibiotics started on methadone detox which she is tolerating well with no sedation. reports using suboxone in small doses daily obtained on street. 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 would like to go on suboxone program when d/c. tested +ve for opiates because of recent codeine use [facility] denies heroin idu or recent cocaine use, vapes on occasion - History Source History Provided By: Patient, Medical Record, Caregiver Limitations to Obtaining History: No Limitations - Alcohol/Substance Use Hx Alcohol Use: No Hx Substance Use: Yes (suboxone and marijuana, took codeine pill prior to admission) Hx Substance Use Treatment: Yes (no, multiple detox in hosptial in past. ) - Current Drug/Alcohol Use Marijuana/Hashish Route: Smoking Frequency: 1-3 times last 30 days Amount used: vapes on occasion, denies daily use Buprenorphine Frequency: Daily Amount used: small dose Date of Last Use: 08/20/17 - Past Medical History Cardio/Vascular: Yes: Murmur Hepatobiliary: Yes: Cholelithiasis ...LMP: 06/22/15 Infectious Disease: Yes: Other (b/l hand abscesses) Psych: Yes: Anxiety, Depression Dermatology: Yes: Cellulitis - Past Surgical History Past Surgical History: Yes: Tonsillectomy - Significant Medical Findings: 32 yo f w h/o oud using suboxone obtained on street for daily maintenance treatment, now being detoxed w methadone, utox +ve from codeine pill obtained from [facility] prior to admission being treatemed for cellulitis 2/2 trichotillamania nd picking would like MAT for OUD tolerating methadone detox without sedation or withdrawl sx COWS - Scale Resting Pulse: 1= [place] 81-100 Sweatin= No chills or Flushing Restless Observation: 0= Sits Still Pupil Size: 0= Normal to Room Light Bone or Joint Aches: 1= Mild Discomfort Runny Nose/ Eye Tearin= None GI Upset > 30mins: 0= None Tremor Observation: 0= None Yawning Observation: 0= None Anxiety or Irritability: 1=Feels Anxious/Irritable Goose Flesh Skin: 0=Smooth Skin COWS Score: 3 Assessment Plan - Diagnosis (1) Opioid dependence with withdrawal Status: Acute (2) Cannabis abuse Status: Acute (3) Cellulitis Status: Acute (4) History of trichotillomania Status: Acute (5) Skin-picking disorder Status: Acute - Plan Plan: chart, labs, imaging reviewed, patient examine and history taken, case discussed with medical team providing care to patient. Recommendation: 1. fluids, vitmins, complete methadone detox as ordered. 2. ambien prn for sleep. 3. refer f/u [facility] for MAT for OUD and psychaitric care. 4. refer [facility] for rehab if patient willing to go, can do mat and suboxone induction in rehab as an alternative to outpatient treatmenet. Tonio Rosenberg MD [phone] - Medication Detox Regimen/Protocol: Methadone
[2017-08-22] MEDS ORDERED: ZOLPIDEM TARTRATE 5 MG TABLET PO PRN (18:46)
[2017-08-22] MEDS ORDERED: diazePAM 5 MG TABLET PO PRN (18:58)
[2017-08-22] MEDS ORDERED: PT OWN MED DRAWER 7, Y5N ONE (20:47)
[2017-08-22] MEDS: cloNIDine HCL 0.1 MG TABLET PO SCH (21:31)
[2017-08-22] MEDS: CYCLOBENZAPRINE HCL 10 MG TABLET (FP) PO SCH (21:32)
[2017-08-22] MEDS ORDERED: THIAMINE HCL 100 MG TABLET (FP) PO SCH (22:00)
[2017-08-22] MEDS ORDERED: AMITRIPTYLINE HCL 25 MG TABLET (FP) PO SCH (22:00)
[2017-08-23] MEDS: CYCLOBENZAPRINE HCL 10 MG TABLET (FP) PO SCH ×2 (05:49→14:33)
[2017-08-23] MEDS ORDERED: METHADONE HCL 5 MG TABLET PO ONE ×3 (06:00→10:00)
[2017-08-23 07:12] LABS: BASO % 0.3 % (0-2.0); EOS % 1.4 % (0-4.5); HEMATOCRIT 27.8 % (32.4-45.2); HEMOGLOBIN 9.1 GM/dL (10.7-15.3); LYMPH % 23.1 % (8-40); MCH 24.7 pg (25.7-33.7); MCHC 32.6 g/dl (32.0-36.0); MEAN CELL VOLUME 75.7 fl (80-96); MEAN PLT VOLUME 7.9 fl (7.5-11.1); MONO % 5.9 % (3.8-10.2); NEUT % 69.3 % (42.8-82.8); PLATELET COUNT 570 K/MM3 (134-434); RBC 3.67 M/mm3 (3.60-5.2); RDW 16.8 % (11.6-15.6); WHITE BLOOD COUNT 7.4 K/mm3 (4.0-10.0)
[2017-08-23 07:39] LABS: ANION GAP 8 (8-16); BLOOD UREA NITROGEN 16 mg/dL (7-18); CALCIUM 8.6 mg/dL (8.5-10.1); CHLORIDE 100 mmol/L (98-107); CO2 28 mmol/L (21-32); CREATININE 0.5 mg/dL (0.55-1.02); GLUCOSE,RANDOM 83 mg/dL (74-106); MAGNESIUM 2.5 mg/dL (1.8-2.4); POTASSIUM 4.8 mmol/L (3.5-5.1); SGOT/AST 5 U/L (15-37); SGPT/ALT 8 U/L (12-78); SODIUM 136 mmol/L (136-145)
[2017-08-23 07:41] LABS: ALK PHOS 72 U/L (45-117); BILIRUBIN,TOTAL 0.3 mg/dL (0.2-1.0); TOT PROT 7.2 g/dl (6.4-8.2)
[2017-08-23] MEDS: VANCOMYCIN 1,000 MG in DEXTROSE 5%-WATER - 250 ML IVPB SCH (09:14)
[2017-08-23] MEDS: ENOXAPARIN NA (PORCINE) 40 MG/0.4 ML DISP.SYRIN SQ SCH (09:16)
[2017-08-23] MEDS: HYDROCORTISONE 2.5% TOPICAL CREAM 30 GM TUBE TP SCH (09:16)
[2017-08-23] MEDS: cloNIDine HCL 0.1 MG TABLET PO SCH (09:18)
[2017-08-23] MEDS ORDERED: PRENATAL VITAMINS W/ FOLIC ACID TABLET (FP) PO SCH (10:00)
[2017-08-23] MEDS ORDERED: METHADONE HCL 5 MG TABLET (FOR DETOX USE ONLY) PO ONE (10:00)
[2017-08-23] MEDS ORDERED: chlordiazePOXIDE 5 MG CAPSULE PO SCH (11:00)
--- NOTE | 2017-08-23 14:34 | PN ---
Progress Note, Physician History of Present Illness: patient doing well no complaints abd swelling looks better patient has lost iv access - Current Medication List Current Medications: Active Medications Acetaminophen (Tylenol -) 650 mg PO Q6H PRN PRN Reason: PAIN LEVEL 6-10 Cyclobenzaprine HCl (Flexeril -) 10 mg PO TID [facility] Last Admin: 08/23/17 14:33 Dose: 10 mg Diazepam (Valium -) 10 mg PO Q4H PRN PRN Reason: WITHDRAWAL(CONT SUBST) Stop: 08/25/17 18:58 Enoxaparin Sodium (Lovenox -) 40 mg SQ DAILY [facility] Last Admin: 08/23/17 09:16 Dose: 40 mg Hydrocortisone (Anusol 2.5% Hc Cream -) 1 applic TP BID [facility] Last Admin: 08/23/17 09:16 Dose: 1 applic Sodium Chloride (Normal Saline -) 1,000 mls @ 125 mls/hr IV ASDIR [facility] Last Admin: 08/20/17 19:41 Dose: 125 mls/hr Vancomycin HCl 1,000 mg/ (Dextrose) 250 mls @ 166.667 mls/hr IVPB BID [facility] PRN Reason: Protocol Last Admin: 08/23/17 09:14 Dose: Not Given Methadone HCl (Dolophine -) 10 mg PO ONCE@0600 ONE Stop: 08/24/17 06:01 Multivit/Folic Acid/Iron ( Vitamins (Sjr) -) 1 tab PO DAILY [facility] Last Admin: 08/23/17 09:17 Dose: 1 tab Thiamine HCl (Vitamin B1 -) 100 mg PO HS [facility] Last Admin: 08/22/17 21:32 Dose: 100 mg Zolpidem Tartrate (Ambien -) 10 mg PO HS PRN PRN Reason: INSOMNIA - Objective Vital Signs: Vital Signs Temperature 98.7 F 08/23/17 06:00 Pulse Rate 74 08/23/17 06:00 Respiratory Rate 20 08/23/17 06:00 Blood Pressure 104/53 08/23/17 06:00 O2 Sat by Pulse Oximetry (%) 99 08/22/17 21:00 Constitutional: Yes: No Distress, Calm Neck: Yes: Supple Cardiovascular: Yes: Regular Rate and Rhythm Respiratory: Yes: Regular, CTA Bilaterally Gastrointestinal: Yes: Normal Bowel Sounds, Soft Musculoskeletal: Yes: WNL Extremities: Yes: Other (b/l upper arm induration better) Integumentary: Yes: Erythema, Rash (on abd wall bilaterally with flakes), Other Wound/Incision: Yes: Reddened Neurological: Yes: Alert, Oriented Psychiatric: Yes: Alert, Oriented Labs: CBC, BMP 08/23/17 06:45 08/23/17 06:45 INR, PTT INR 1.08 (0.82-1.09) 08/21/17 06:50 Assessment/Plan Problem List - Problems (1) Abscess Code(s): L02.91 - CUTANEOUS ABSCESS, UNSPECIFIED (2) Cellulitis Code(s): L03.90 - CELLULITIS, UNSPECIFIED (3) Cholelithiasis Code(s): K80.20 - CALCULUS OF GALLBLADDER W/O CHOLECYSTITIS W/O OBSTRUCTION (4) Endometriosis Code(s): N80.9 - ENDOMETRIOSIS, UNSPECIFIED (5) Intravenous drug abuse Code(s): F19.10 - OTHER PSYCHOACTIVE SUBSTANCE ABUSE, UNCOMPLICATED Assessment/Plan 32 y.o. female with PMH of IVDU, hand cellulitis/abscess, heart murmur, PCOS, Endometriosis, OCD presenting with erythema/induration/fluctuance, tenderness of abd wall x 2 and b/l upper arm erythema/induration x 2 with fever and leukocytosis. both cellulittis and induration improving plan since patient does not have iv access will switch to oral meds clinda and augmentin will watch how the induration goes then will decide further plan
[2017-08-23 16:01] VITALS: BP 110/73; PULSE 90; TEMP 98.9
--- NOTE | 2017-08-23 16:44 | DS ---
Physical Exam: SUBJECTIVE: Patient seen and examined OBJECTIVE: Vital Signs Period Temp Pulse Resp BP Sys/Reece Pulse Ox Last 24 Hr 98.3 F-99.1 F 74-94 20-20 102-121/53-73 98-99 PHYSICAL EXAM GENERAL: The patient is awake, alert, and fully oriented, in no acute distress. HEAD: Normal with no signs of trauma. EYES: PERRL, extraocular movements intact, sclera anicteric, conjunctiva clear. ENT: Ears normal, nares patent, oropharynx clear without exudates, moist mucous membranes. NECK: Trachea midline, full range of motion, supple. LUNGS: Breath sounds equal, clear to auscultation bilaterally, no wheezes, no crackles, no accessory muscle use. HEART: Regular rate and rhythm, S1, S2 without murmur, rub or gallop. ABDOMEN: Soft, nontender, nondistended, normoactive bowel sounds, no guarding, no rebound, no hepatosplenomegaly, no masses. EXTREMITIES: 2+ pulses, warm, well-perfused, no edema. NEUROLOGICAL: Cranial nerves II through XII grossly intact. Normal speech, gait not observed. PSYCH: Normal mood, normal affect. SKIN: Warm, dry, normal turgor, no rashes or lesions noted. LABS Laboratory Results - last 24 hr 08/23/17 08/23/17 06:45 06:45 WBC 7.4 D RBC 3.67 Hgb 9.1 L Hct 27.8 L MCV 75.7 L MCH 24.7 L MCHC 32.6 RDW 16.8 H Plt Count 570 H MPV 7.9 Neutrophils % 69.3 Lymphocytes % 23.1 D Monocytes % 5.9 Eosinophils % 1.4 D Basophils % 0.3 Sodium 136 Potassium 4.8 Chloride 100 Carbon Dioxide 28 Anion Gap 8 BUN 16 Creatinine 0.5 L Creat Clearance w eGFR > 60 Random Glucose 83 Calcium 8.6 Magnesium 2.5 H Total Bilirubin 0.3 AST 5 L ALT 8 L Alkaline Phosphatase 72 Total Protein 7.2 Albumin 3.0 L HOSPITAL COURSE: Date of Admission:08/20/17 Date of Discharge: 08/23/17 Discharge Summary Reason For Visit: SEPSIS Current Active Problems Cannabis abuse (Acute) History of trichotillomania (Acute) Sepsis (Acute) Skin-picking disorder (Acute) Condition: Stable - Instructions - Home Medications Comprehensive Discharge Medication List: Ambulatory Orders Paroxetine HCl [Paxil] 40 mg PO HS 05/12/15 Bupropion HCl [Wellbutrin Xl -] 300 mg PO HS 07/07/15 Acyclovir [Zovirax -] 800 mg PO 5XD #50 tablet 08/18/17 Ondansetron [Zofran Odt -] 4 mg SL TID #21 od.tablet 08/18/17 Amox-Tr/K Cl [Augmentin 875-125mg Tablet -] 1 tab PO BID@0800,1730 #14 tablet Clindamycin [Cleocin -] 300 mg PO Q6HPO #42 capsule 08/23/17 Hydrocortisone 2.5% Topical Cr [Anusol-Hc -] 1 applic TP BID #1 tube 08/23/17
[2017-08-23] MEDS ORDERED: AMOX TR/POT CLAV 875MG/125MG TABLETS (FP) PO SCH (17:30)
[2017-08-23] MEDS ORDERED: CLINDAMYCIN HCL 150 MG CAPSULE (FP) PO SCH (18:00)
[2017-08-24] MEDS ORDERED: METHADONE HCL 10 MG TABLET PO ONE (06:00)
[2017-08-24] MEDS ORDERED: METHADONE HCL 5 MG TABLET (FOR DETOX USE ONLY) PO ONE (10:00)
[2017-08-24] MEDS ORDERED: METHADONE HCL 5 MG TABLET PO ONE (10:00)
[2017-08-25] MEDS ORDERED: METHADONE HCL 5 MG TABLET PO ONE (06:00)
[2017-08-25] MEDS ORDERED: METHADONE HCL 10 MG TABLET (FOR DETOX USE ONLY) PO ONE ×2 (10:00)
[2017-08-26] MEDS ORDERED: METHADONE HCL 5 MG TABLET PO ONE (06:00)
[2017-08-26] MEDS ORDERED: METHADONE HCL 5 MG TABLET (FOR DETOX USE ONLY) PO ONE (06:00)
== END 2017-08-23 19:12 | disposition home or self-care (01) | DRG 383 ==
LOC: JER 15:10 → JERBED 17:56 → J4W 20:33
PROVIDERS: ADMIT Internal Medicine; ATTEND Nurse Practitioner Acute Care
DX: L03.311 Cellulitis of abdominal wall (principal); L03.114 Cellulitis of left upper limb; L03.113 Cellulitis of right upper limb; F14.10 Cocaine abuse, uncomplicated; F12.10 Cannabis abuse, uncomplicated; N80.9 Endometriosis, unspecified; E28.2 Polycystic ovarian syndrome; F11.23 Opioid dependence with withdrawal; R01.1 Cardiac murmur, unspecified; K80.20 Calculus of gallbladder without cholecystitis without obstruction
CPT/HCPCS: 36415; 71045-TC-FY; 80053; 80076; 80307; 81003; 82550; 83605; 83735; 83880; 84100; 84484; 84703; 85025; 85610; 85730; 86140; 86850; 86900; 86901; 87040; 87086; 90688; 93005; 93010; 93306-TC; 99284-25; J0735

== ENCOUNTER 2017-11-23 21:31 | Emergency (ER) | payer OTHER ==
[2017-11-23 21:37] VITALS: BP 120/84; PULSE 86; TEMP 97.7; BMI 30.2
--- NOTE | 2017-11-23 22:11 | PDOC ---
History of Present Illness - General Chief Complaint: Injury Stated Complaint: DETOX,INJURY Time Seen by Provider: 11/23/17 22:00 - History of Present Illness Initial Comments: 32-year-old female presents for evaluation of nasal trauma. She states she was standing up from a squatted position embankment nose into the sink in her bathroom this occurred at 5 AM this morning. She reports bloody nose and a headache which has been resolved with Tylenol. She has a history of cocaine abuse and she is currently registering for detoxification. No prior problems with the nose. No other associated symptoms. No visual changes nausea or vomiting. 11/23/17 22:06 Past History - Past Medical History Allergies/Adverse Reactions: Allergies Allergy/AdvReac Type Severity Reaction Status Date / Time ibuprofen [From Motrin] AdvReac Severe Verified 10/04/17 06:02 NSAIDS (Non-Steroidal AdvReac Severe Verified 10/04/17 06:02 Anti-Inflamma Home Medications: Ambulatory Orders Paroxetine HCl [Paxil] 40 mg PO HS 05/12/15 Bupropion HCl [Wellbutrin Xl -] 300 mg PO HS 07/07/15 Acyclovir [Zovirax -] 800 mg PO 5XD #50 tablet 08/18/17 Ondansetron [Zofran Odt -] 4 mg SL TID #21 od.tablet 08/18/17 Clindamycin [Cleocin -] 300 mg PO Q6HPO #42 capsule 08/23/17 Hydrocortisone 2.5% Topical Cr [Anusol-Hc -] 1 applic TP BID #1 tube 08/23/17 Anemia: No Asthma: No Cancer: No Cardiac Disorders: No CVA: No COPD: No CHF: No Dementia: No Diabetes: No GI Disorders: Yes (IBS) Disorders: Yes (POLYCYSTIC OVARIES) HTN: No Hypercholesterolemia: No Kidney Stones: Yes Liver Disease: No Psychiatric Problems: Yes (anxiety,depression) Seizures: No Thyroid Disease: No - Surgical History Abdominal Surgery: Yes (clearing of scar tissue on uterus, bladder 10/11/13) - Family Disease History Family Disease History: Heart Disease: Father (htn) - Reproductive History Cervical CA: No Dysfunctional Uterine Bleeding: Yes Ectopic : No Polycystic Ovaries: Yes Tubal Ligation: No - Immunization History Td Vaccination: Yes Immunization Up to Date: Yes - Suicide/Smoking/Psychosocial Hx Smoking Status: No Smoking History: Never smoked Have you smoked in the past 12 months: No Number of Cigarettes Smoked Daily: 0 Cigars Per Day: 0 Hx Alcohol Use: No Drug/Substance Use Hx: Yes (cocaine, heroin) Substance Use Type: Cocaine, Heroin Hx Substance Use Treatment: Yes (no, multiple detox in hosptial in past. ) Review of Systems - Review of Systems Constitutional: Yes: See HPI All Other Systems: Reviewed and Negative *Physical Exam - Vital Signs Last Vital Signs Temp Pulse Resp BP Pulse Ox 97.7 F 86 18 120/84 96 11/23/17 21:35 11/23/17 21:35 11/23/17 21:35 11/23/17 21:35 11/23/17 21:35 - Physical Exam Comments: Pupils are dilated and sluggish they do react. External ocular muscles are intact. She has negative Romberg. She has tenderness about the nasal bones. 11/23/17 22:07 11/23/17 22:10 GENERAL: The patient is awake, alert, and fully oriented, in no acute distress. HEAD: Normal with no signs of trauma. ENT: Ears normal, nares patent without blood, septum appears intact, oropharynx clear without exudates. Moist mucous membranes. NECK: Normal range of motion, supple without lymphadenopathy, JVD, or masses. LUNGS: Breath sounds equal, clear to auscultation bilaterally. No wheezes, and no crackles. HEART: Regular rate and rhythm, normal S1 and S2 without murmur, rub or gallop. ABDOMEN: Soft, nontender, normoactive bowel sounds. No guarding, no rebound. No masses. EXTREMITIES: Normal range of motion, no edema. No clubbing or cyanosis. No cords, erythema, or tenderness. NEUROLOGICAL: Cranial nerves II through XII grossly intact. Normal speech, normal gait. PSYCH: Normal mood, normal affect. SKIN: Warm, Dry, normal turgor multiple facial lesions ED Treatment Course - RADIOLOGY Radiology Studies Ordered: Category Date Time Status NASAL BONES [RAD] Stat Radiology 11/23/17 22:05 Ordered Medical Decision Making - Medical Decision Making 32-year-old female cocaine abuser presents for evaluation of facial trauma. She has no other associated symptoms at this point except pain. We'll get a nasal bone x-ray and most likely referred to [facility] face surgery 11/23/17 22:10 11/23/17 22:22 Appears to be an acute fracture of the nasal bone. I will again refer her to max face *DC/Admit/Observation/Transfer Diagnosis at time of Disposition: Nasal bone fracture - Discharge Dispostion Disposition: HOME Condition at time of disposition: Stable Decision to Admit order: No - Referrals Referrals: Patricia Milan MD [Primary Care Provider] - Lanre Mann [Staff Physician] - Abraham Davis [Non Staff, Medical] - Roland Quesada [Staff Physician] - Edwar Rao MD [Non Staff, Medical] - Eze Gant MD [Non Staff, Medical] - Shahab Joseph MD [Non Staff, Medical] - Vikas Augustine MD [Non Staff, Medical] - Jose Landeros MD [Non Staff, Medical] - Kirt Polo DDS [Non Staff, Medical] - Joseph Murrieta [Non Staff, Medical] - Uvaldo Mckeon [Non Staff, Medical] - Uvaldo Mcmullen MD [Non Staff, Medical] - Jennifer Viera MD [Non Staff, Medical] - - Patient Instructions Printed Discharge Instructions: Nose Fracture, DI for Nose Fracture Additional Instructions: I've referred you to max face surgery for further evaluation and treatment options. Return to the emergency room should her symptoms worsen or go unresolved prior to follow-up. He may take Tylenol for pain. I believe there is a fracture of the nasal bones in this is worked up by max facial surgery - Post Discharge Activity
== END 2017-11-23 22:30 | disposition home or self-care (01) ==
LOC: JERFT 21:31
DX: S02.2XXA Fracture of nasal bones, initial encounter for closed fracture (principal); W22.8XXA Striking against or struck by other objects, initial encounter; Y93.89 Activity, other specified; Y92.012 Bathroom of single-family (private) house as the place of occurrence of the external cause; Y99.8 Other external cause status; F41.8 Other specified anxiety disorders; E28.2 Polycystic ovarian syndrome; Z87.19 Personal history of other diseases of the digestive system
CPT/HCPCS: 70160-TC-FY; 99281-25

== ENCOUNTER 2017-11-23 23:12 | Inpatient (IN) | payer OTHER ==
--- NOTE | 2017-11-23 23:50 | HP ---
COWS - Scale Resting Pulse: 0= [place] 80 or Below Sweatin= Chills/Flushing Restless Observation: 1= Difficult to Sit Still Pupil Size: 0= Normal to Room Light Bone or Joint Aches: 4=Acute Joint/Muscle Pain Runny Nose/ Eye Tearin= Nasal Congestion GI Upset > 30mins: 2= Nausea/Diarrhea Tremor Observation: 0= None Yawning Observation: 1= 1-2x During Session Anxiety or Irritability: 2=Irritable/Anxious Goose Flesh Skin: 0=Smooth Skin COWS Score: 12 Admission ROS S - HPI Chief Complaint: c/o withdrawal sx. seeking detox for opioid withdrawal Allergies/Adverse Reactions: Allergies Allergy/AdvReac Type Severity Reaction Status Date / Time ibuprofen [From Motrin] AdvReac Severe Verified 10/04/17 06:02 NSAIDS (Non-Steroidal AdvReac Severe Verified 10/04/17 06:02 Anti-Inflamma History of Present Illness: 32 y.o. female with 2 years hx/o opioid dependence here for detox. client is referred by Toribio after being treated for nose trauma. now with possible fx.this is clients first time in [facility]. Denies hx/o overdose/si. reports longest clean time 2 months. pmhx: pcos, endometriosis, anemai psych: depression, anxiety and ocd Exam Limitations: No Limitations - Ebola screening Have you traveled outside of the country in the last 21 days: No Have you had contact with anyone from an Ebola affected area: No Have you been sick,other than usual withdrawal symptoms: No Do you have a fever: No - Review of Systems Constitutional: Chills, Malaise EENT: reports: Nose Congestion, Other (pssible nasal fx) Respiratory: reports: No Symptoms reported Cardiac: reports: No Symptoms Reported GI: reports: Nausea, Poor Appetite : reports: No Symptoms Reported Musculoskeletal: reports: Back Pain Integumentary: reports: No Symptoms Reported Neuro: reports: No Symptoms reported Endocrine: reports: No Symptoms Reported Hematology: reports: Other. denies: No Symptoms Reported (hx/o anemia) Psychiatric: reports: Anxious, Depressed Other Systems: Reviewed and Negative Patient History - Patient Medical History Hx Anemia: Yes Hx Asthma: No Hx Chronic Obstructive Pulmonary Disease (COPD): No Hx Cancer: No Hx Cardiac Disorders: No Hx Congestive Heart Failure: No Hx Hypertension: No Hx Hypercholesterolemia: No Hx Pacemaker: No HX Cerebrovascular Accident: No Hx Seizures: No Hx Dementia: No Hx Diabetes: No Hx Gastrointestinal Disorders: Yes (IBS) Hx Liver Disease: No Hx Genitourinary Disorders: Yes (POLYCYSTIC OVARIES) Hx Sexually Transmitted Disorders: No Hx Renal Disease (ESRD): No Hx Thyroid Disease: No Hx Human Immunodeficiency Virus (HIV): No Hx Hepatitis C: No Hx Depression: Yes Hx Suicide Attempt: No Hx Bipolar Disorder: No Hx Schizophrenia: No Other Medical History: ?nasal fx - Patient Surgical History Past Surgical History: Yes Hx Abdominal Surgery: Yes (clearing of scar tissue on uterus, bladder 10/11/13) Hx Hysterectomy: Yes (D&C for endometriosis) Other Surgical History: TONSILLECTOMY Anesthesia Reaction: No - PPD History Previous Implant?: Yes Documented Results: Negative w/proof Implanted On Prior [facility] Admission?: Yes Date: 10/13/12 PPD to be Administered?: Yes - Reproductive History Patient is a Female of Child Bearing Age (11 -55 yrs old): Yes Last Menstrual Period: 08/20/15 LMP comment: irreg Patient : No (neg cg) - Smoking Cessation Smoking history: Never smoked Have you smoked in the past 12 months: No Aproximately how many cigarettes per day: 0 Cigars Per Day: 0 Hx Chewing Tobacco Use: No Initiated information on smoking cessation: No - Substance & Tx. History Hx Alcohol Use: Yes Hx Substance Use: Yes Substance Use Type: Cocaine, Heroin Hx Substance Use Treatment: No - Substances Abused heroin Route: Injection Frequency: Daily Amount used: 1gm Age of first use: 30 Date of Last Use: 11/23/17 cocaine Route: Inhalation Frequency: Daily Amount used: 1/2 gm Age of first use: 30 Date of Last Use: 11/21/17 Family Disease History - Family Disease History Family Disease History: Heart Disease: Grandparent, Father Admission Physical Exam [facility]HS - Physical General Appearance: Yes: Appropriately Dressed, Anxious, Other (formication noted to face) HEENTM: Yes: EOMI, Normocephalic, Normal Voice, LINUS (dialated), Pharynx Normal , Nasal Congestion, Other (possible nasal fx. but skin intact and symetrical) Respiratory: Yes: Chest Non-Tender, Lungs Clear, Normal Breath Sounds, No Respiratory Distress, No Accessory Muscle Use Neck: Yes: No masses,lesions,Nodules, Supple, Trachea in good position Breast: Yes: Breast Exam Deferred Cardiology: Yes: Regular Rhythm, Regular Rate, S1, S2 Abdominal: Yes: Normal Bowel Sounds, Non Tender, Flat, Soft Genitourinary: Yes: Within Normal Limits Back: Yes: Normal Inspection Musculoskeletal: Yes: full range of Motion, Gait Steady (220) Extremities: Yes: Normal Capillary Refill, Normal Range of Motion, Non-Tender, Tremors Neurological: 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: 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, Fully Oriented, Alert, Motor Strength 5/5 Integumentary: Yes: Dry, Warm Lymphatic: Yes: Within Normal Limits - Diagnostic (1) IBS (irritable bowel syndrome) Current Visit: Yes Status: Chronic (2) Anemia Current Visit: Yes Status: Chronic (3) Nasal bone fracture Current Visit: Yes Status: Acute (4) Endometriosis Current Visit: Yes Status: Chronic (5) Opioid dependence with withdrawal Current Visit: Yes Status: Acute (6) Skin-picking disorder Current Visit: Yes Status: Chronic Cleared for Admission S - Detox or Rehab [facility] Level of Care: Medically Managed Detox Regimen/Protocol: Methadone
[2017-11-23 23:57] VITALS: BMI 28.3
[2017-11-24] MEDS ORDERED: LOPERAMIDE HCL 2 MG CAPSULE PO PRN (00:16)
[2017-11-24] MEDS ORDERED: MAG HYDROX/AL HYDROX/SIMETH 30 ML UNIT-DOSE CUP PO PRN (00:16)
[2017-11-24] MEDS ORDERED: P-EPHED 60MG/TRIPROLIDI 2.5MG TABLET PO PRN (00:16)
[2017-11-24] MEDS ORDERED: MAGNESIUM CITRATE 300 ML BOTTLE PO PRN (00:16)
[2017-11-24] MEDS ORDERED: MAGNESIUM HYDROX 2400MG/30ML ORAL SUSPENSION 30 ML CUP PO PRN (00:16)
[2017-11-24] MEDS ORDERED: METHADONE HCL 10 MG TABLET (FOR DETOX USE ONLY) PO ONE ×4 (00:16→23:00)
[2017-11-24] MEDS ORDERED: guaiFENesin/D-METHORPHAN HB 10 ML UNIT-DOSE CUPS PO PRN (00:16)
[2017-11-24] MEDS ORDERED: MENTHOL/PHENOL 1 EACH UD MM PRN (00:16)
--- NOTE | 2017-11-24 07:28 | CONSULT ---
[facility] Psychiatric Consult - Data Date of interview: 11/24/17 Admission source: [facility] Identifying data: This is 32 years old female, single, unemp-loyed, living with parenets, with history of multiple medical problems, history of opioids, alcohol, cocaine and nicotine dependence is here for detox. Patient reports withdrawal symptoms. Substance Abuse History: - Smoking Cessation. Smoking history: Never smoked. Have you smoked in the past 12 months: No. Aproximately how many cigarettes per day: 0. Cigars Per Day: 0. Hx Chewing Tobacco Use: No. Initiated information on smoking cessation: No. - Substance & Tx. History. Hx Alcohol Use: Yes. Hx Substance Use: Yes. Substance Use Type: Cocaine, Heroin. Hx Substance Use Treatment: No. - Substances Abused. heroin. Route: Injection. Frequency: Daily. Amount used: 1gm. Age of first use: 30. Date of Last Use: 11/23/17. cocaine. Route: Inhalation. Frequency: Daily. Amount used: 1/2 gm. Age of first use: 30. Date of Last Use: 11/21/17 Medical History: Nasal injury-fracture, facial abrasions, history of sepsis, IBS , Migraine, history of UTI, allergic bronchitis, Anemia history, Endometriosis, ovarian cyst Psychiatric History: Patient reports history of depression and anxiety, OCD criteria, excoriation symptoms, reports taking prior to admission: Paxil 40mg poqd. Wellbutrin XL 300mg poqd. Jennifer suicidal, homicaidal history, denies psychiatric hospitalization history. Physical/Sexual Abuse/Trauma History: Denies Additional Comment: Paxil 40mg poqd. Wellbutrin XL 300mg poqd Mental Status Exam - Mental Status Exam Alert and Oriented to: Person Cognitive Function: Fair Patient Appearance: Unkempt Mood: Sad Affect: Mood Congruent Patient Behavior: Cooperative Speech Pattern: Appropriate Voice Loudness: Mildly Soft/Quiet Thought Process: Goal Oriented Thought Disorder: Being Controlled Hallucinations: Denies Suicidal Ideation: Denies Homicidal Ideation: Denies Insight/Judgement: Fair Sleep: Difficulty falling asleep Appetite: Fair Muscle strength/Tone: Normal Gait/Station: Normal Additional Comments: Paxil 40mg poqd. Wellbutrin XL 300mg poqd Psychiatric Findings - Problem List ([place] 1, 2,3) (1) Opioid dependence with withdrawal Current Visit: Yes Status: Acute (2) Cocaine dependence, uncomplicated Current Visit: No Status: Inactive (3) Drug-induced mood disorder Current Visit: Yes Status: Acute (4) History of trichotillomania Current Visit: Yes Status: Acute (5) OCD (obsessive compulsive disorder) Current Visit: Yes Status: Acute - Initial Treatment Plan Initial Treatment Plan: Paxil 40mg poqd. Wellbutrin XL 300mg poqd
[2017-11-24] MEDS: diazePAM 5 MG TABLET PO PRN (10:40)
[2017-11-24] MEDS: PRENATAL VITAMINS W/ FOLIC ACID TABLET (FP) PO SCH (10:40)
[2017-11-24] MEDS: ACETAMINOPHEN 325 MG TABLET (FP) PO PRN ×2 (10:43→22:19)
--- NOTE | 2017-11-24 10:57 | PN ---
[facility] COWS - Scale Resting Pulse: 1= [place] 81-100 Sweatin= Chills/Flushing Restless Observation: 3= Extraneous Movement Pupil Size: 1= Pupils >than Normal Bone or Joint Aches: 2= Severe Diffuse Aches Runny Nose/ Eye Tearin= Nasal Congestion GI Upset > 30mins: 2= Nausea/Diarrhea Tremor Observation of Outstretched Hands: 2= Slight Tremor Visible Yawning Observation: 1= 1-2x During Session Anxiety or Irritability: 2=Irritable/Anxious Goose Flesh Skin: 0=Smooth Skin COWS Score: 16 BHS Progress Note (SOAP) Subjective: alert,irritable,anxious,interrupted sleep,tremor,pain in the body and back Objective: 11/24/17 10:54 Vital Signs Temperature 98.2 F 11/24/17 09:34 Pulse Rate 84 11/24/17 09:34 Respiratory Rate 18 11/24/17 09:34 Blood Pressure 129/74 11/24/17 09:34 O2 Sat by Pulse Oximetry (%) ekg nsr,normal ecg qt in 398/441 labs pending Assessment: 11/24/17 10:56 withdrawal symptom Plan: continue detox
--- NOTE | 2017-11-24 11:55 | EKG ---
Test Reason : Blood Pressure : / mmHG Vent. Rate : 074 BPM Atrial Rate : 074 BPM P-R Int : 142 ms QRS Dur : 084 ms QT Int : 398 ms P-R-T Axes : 055 078 043 degrees QTc Int : 441 ms NORMAL SINUS RHYTHM NORMAL ECG WHEN COMPARED WITH ECG OF 04-OCT-2017 05:44, NO SIGNIFICANT CHANGE WAS FOUND Confirmed by SOFY ACHARYA MD ([id number]) on 11/24/2017 11:54:58 AM Referred By: Confirmed By:SOFY ACHARYA MD
[2017-11-24] MEDS ORDERED: MELATONIN 5 MG TABLETS PO PRN (22:00)
[2017-11-24] MEDS: THIAMINE HCL 100 MG TABLET (FP) PO SCH (22:19)
[2017-11-24] MEDS: PARoxetine HCL 20 MG TABLET (FP) PO SCH (22:19)
[2017-11-24 23:10] LABS: URINE APPEARANCE TURBID; URINE BILIRUBIN NEGATIVE (<2.0 mg/dL); URINE BLOOD NEGATIVE (NEGATIVE); URINE COLOR AMBER; URINE GLUCOSE (UA) NEGATIVE (NEGATIVE); URINE KETONE NEGATIVE (NEGATIVE); URINE LEUK ESTERASE NEGATIVE (NEGATIVE); URINE NITRITE NEGATIVE (NEGATIVE); URINE UROBILINOGEN 4.0 E.U/dl mg/dL (0.2-1.0)
[2017-11-24 23:12] LABS: URINE PROTEIN 1+ (NEGATIVE)
[2017-11-24 23:28] LABS: EPI CELLS MODERATE /HPF (FEW); URINE BACTERIA RARE /hpf (NONE SEEN); URINE MUCUS RARE
[2017-11-25] MEDS: ACETAMINOPHEN 325 MG TABLET (FP) PO PRN (04:54)
[2017-11-25] MEDS: diazePAM 5 MG TABLET PO PRN ×2 (04:55→10:11)
--- NOTE | 2017-11-25 09:28 | PN ---
BHS COWS - Scale Resting Pulse: 0= AR 80 or Below Sweatin= Chills/Flushing Restless Observation: 3= Extraneous Movement Pupil Size: 1= Pupils >than Normal Bone or Joint Aches: 2= Severe Diffuse Aches Runny Nose/ Eye Tearin= Nasal Congestion GI Upset > 30mins: 2= Nausea/Diarrhea Tremor Observation of Outstretched Hands: 2= Slight Tremor Visible Yawning Observation: 1= 1-2x During Session Anxiety or Irritability: 2=Irritable/Anxious Goose Flesh Skin: 0=Smooth Skin COWS Score: 15 BHS Progress Note (SOAP) Subjective: alert,irritable,anxious,interrupted sleep,pain in the body and back Objective: 11/25/17 09:25 Vital Signs Temperature 97.5 F L 11/25/17 09:13 Pulse Rate 67 11/25/17 09:13 Respiratory Rate 18 11/25/17 09:13 Blood Pressure 126/71 11/25/17 09:13 O2 Sat by Pulse Oximetry (%) Laboratory Last Values Urine Color Kasia 11/24/17 23:00 Urine Appearance Turbid 11/24/17 23:00 Urine pH 8.0 (5.0-8.0) D 11/24/17 23:00 Ur Specific Tensed 1.017 (1.001-1.035) 11/24/17 23:00 Urine Protein 1+ (NEGATIVE) H 11/24/17 23:00 Urine Glucose (UA) Negative (NEGATIVE) 11/24/17 23:00 Urine Ketones Negative (NEGATIVE) 11/24/17 23:00 Urine Blood Negative (NEGATIVE) 11/24/17 23:00 Urine Nitrite Negative (NEGATIVE) 11/24/17 23:00 Urine Bilirubin Negative (<2.0 mg/dL) 11/24/17 23:00 Urine Urobilinogen 4.0 e.u/dl mg/dL (0.2-1.0) H 11/24/17 23:00 Ur Leukocyte Esterase Negative (NEGATIVE) 11/24/17 23:00 Urine WBC (Auto) 26 /hpf (3-5) 11/24/17 23:00 Urine RBC (Auto) 2 /hpf (0-3) 11/24/17 23:00 Ur Epithelial Cells Moderate /HPF (FEW) 06/06/18 23:00 Urine Bacteria Rare /hpf (NONE SEEN) 11/24/17 23:00 Urine Mucus Rare 11/24/17 23:00 Assessment: 11/25/17 09:27 withdrawal symptom Plan: continue detox
[2017-11-25] MEDS ORDERED: METHADONE HCL 10 MG TABLET (FOR DETOX USE ONLY) PO ONE (10:00)
[2017-11-25] MEDS: PRENATAL VITAMINS W/ FOLIC ACID TABLET (FP) PO SCH (10:10)
[2017-11-25] MEDS: cloNIDine HCL 0.1 MG TABLET PO SCH ×2 (10:12→22:15)
[2017-11-25] MEDS: CYCLOBENZAPRINE HCL 10 MG TABLET (FP) PO PRN ×2 (10:12→22:18)
[2017-11-25 10:25] LABS: HEMATOCRIT 32.2 % (32.4-45.2); HEMOGLOBIN 10.3 GM/dL (10.7-15.3); MCH 24.2 pg (25.7-33.7); MEAN CELL VOLUME 75.5 fl (80-96); MEAN PLT VOLUME 8.4 fl (7.5-11.1); PLATELET COUNT 361 K/MM3 (134-434); RBC 4.27 M/mm3 (3.60-5.2); RDW 16.9 % (11.6-15.6); WHITE BLOOD COUNT 4.9 K/mm3 (4.0-10.0)
[2017-11-25 10:46] LABS: CHLORIDE 103 mmol/L (98-107); POTASSIUM 4.3 mmol/L (3.5-5.1); SODIUM 136 mmol/L (136-145)
[2017-11-25 11:46] LABS: ALBUMIN 3.4 g/dl (3.4-5.0); ALK PHOS 69 U/L (45-117); ANION GAP 8 (8-16); BILIRUBIN,TOTAL 0.2 mg/dL (0.2-1.0); BLOOD UREA NITROGEN 11 mg/dL (7-18); CALCIUM 9.4 mg/dL (8.5-10.1); CO2 25 mmol/L (21-32); CREATININE 0.4 mg/dL (0.55-1.02); GLUCOSE,RANDOM 89 mg/dL (74-106); SGOT/AST 18 U/L (15-37); SGPT/ALT 20 U/L (12-78); TOT PROT 7.4 g/dl (6.4-8.2)
[2017-11-25] MEDS: THIAMINE HCL 100 MG TABLET (FP) PO SCH (22:15)
[2017-11-25] MEDS: PARoxetine HCL 20 MG TABLET (FP) PO SCH (22:15)
[2017-11-26] MEDS ORDERED: METHADONE HCL 5 MG TABLET (FOR DETOX USE ONLY) PO ONE (10:00)
[2017-11-26] MEDS: PRENATAL VITAMINS W/ FOLIC ACID TABLET (FP) PO SCH (10:36)
[2017-11-26] MEDS: diazePAM 5 MG TABLET PO PRN (10:37)
[2017-11-26] MEDS: cloNIDine HCL 0.1 MG TABLET PO SCH ×2 (10:37→22:11)
[2017-11-26] MEDS: CYCLOBENZAPRINE HCL 10 MG TABLET (FP) PO PRN (10:37)
--- NOTE | 2017-11-26 11:40 | PN ---
S Progress Note (SOAP) Subjective: alert,irritable,interrupted sleep Objective: 11/26/17 11:38 Vital Signs Temperature 97.7 F 11/26/17 11:31 Pulse Rate 69 11/26/17 11:31 Respiratory Rate 17 11/26/17 11:31 Blood Pressure 109/63 11/26/17 11:31 O2 Sat by Pulse Oximetry (%) Assessment: 11/26/17 11:38 withdrawal symptom Plan: continue detox,discharge in am
[2017-11-26] MEDS: THIAMINE HCL 100 MG TABLET (FP) PO SCH (22:11)
[2017-11-26] MEDS: PARoxetine HCL 20 MG TABLET (FP) PO SCH (22:11)
[2017-11-27] MEDS ORDERED: METHADONE HCL 5 MG TABLET (FOR DETOX USE ONLY) PO ONE (10:00)
[2017-11-27] MEDS: cloNIDine HCL 0.1 MG TABLET PO SCH ×2 (10:04→22:19)
[2017-11-27] MEDS: PRENATAL VITAMINS W/ FOLIC ACID TABLET (FP) PO SCH (10:04)
--- NOTE | 2017-11-27 11:15 | PN ---
BHS Progress Note (SOAP) Subjective: alert,irritable,anxious,interrupted sleep,pain in the body and back Objective: 11/27/17 11:14 Vital Signs Temperature 98.1 F 11/27/17 10:19 Pulse Rate 72 11/27/17 10:19 Respiratory Rate 16 11/27/17 10:19 Blood Pressure 108/61 11/27/17 10:19 O2 Sat by Pulse Oximetry (%) Assessment: 11/27/17 11:14 withdrawal symptom Plan: continue detox repeat ua
[2017-11-27 17:41] LABS: URINE APPEARANCE TURBID; URINE BILIRUBIN NEGATIVE (<2.0 mg/dL); URINE BLOOD NEGATIVE (NEGATIVE); URINE COLOR YELLOW; URINE GLUCOSE (UA) NEGATIVE (NEGATIVE); URINE KETONE NEGATIVE (NEGATIVE); URINE NITRITE NEGATIVE (NEGATIVE)
[2017-11-27 17:45] LABS: URINE LEUK ESTERASE 2+ (NEGATIVE); URINE PROTEIN 3+ (NEGATIVE)
[2017-11-27 17:47] LABS: EPI CELLS MANY /HPF (FEW); URINE BACTERIA MANY /hpf (NONE SEEN); URINE MUCUS MANY
[2017-11-27] MEDS: THIAMINE HCL 100 MG TABLET (FP) PO SCH (22:18)
[2017-11-27] MEDS: PARoxetine HCL 20 MG TABLET (FP) PO SCH (22:18)
[2017-11-27] MEDS: CYCLOBENZAPRINE HCL 10 MG TABLET (FP) PO PRN (22:20)
[2017-11-28] MEDS ORDERED: METHADONE HCL 10 MG TABLET (FOR DETOX USE ONLY) PO ONE (10:00)
[2017-11-28] MEDS: PRENATAL VITAMINS W/ FOLIC ACID TABLET (FP) PO SCH (10:09)
[2017-11-28] MEDS: cloNIDine HCL 0.1 MG TABLET PO SCH ×2 (10:09→22:16)
[2017-11-28] MEDS: CYCLOBENZAPRINE HCL 10 MG TABLET (FP) PO PRN ×2 (10:10→22:15)
--- NOTE | 2017-11-28 14:01 | PN ---
BHS Progress Note (SOAP) Subjective: feeling better no tremor less sweat mild body ache Objective: 11/28/17 14:02 Vital Signs Temperature 97.5 F L 11/28/17 09:49 Pulse Rate 95 H 11/28/17 09:49 Respiratory Rate 16 11/28/17 09:49 Blood Pressure 121/68 11/28/17 09:49 O2 Sat by Pulse Oximetry (%) Laboratory Last Values WBC 4.9 K/mm3 (4.0-10.0) D 11/25/17 08:00 RBC 4.27 M/mm3 (3.60-5.2) 11/25/17 08:00 Hgb 10.3 GM/dL (10.7-15.3) L 11/25/17 08:00 Hct 32.2 % (32.4-45.2) L 11/25/17 08:00 MCV 75.5 fl (80-96) L 11/25/17 08:00 MCH 24.2 pg (25.7-33.7) L 11/25/17 08:00 MCHC 32.0 g/dl (32.0-36.0) 11/25/17 08:00 RDW 16.9 % (11.6-15.6) H 11/25/17 08:00 Plt Count 361 K/MM3 (134-434) 11/25/17 08:00 MPV 8.4 fl (7.5-11.1) 11/25/17 08:00 Sodium 136 mmol/L (136-145) 11/25/17 08:00 Potassium 4.3 mmol/L (3.5-5.1) 11/25/17 08:00 Chloride 103 mmol/L (98-107) 11/25/17 08:00 Carbon Dioxide 25 mmol/L (21-32) 11/25/17 08:00 Anion Gap 8 (8-16) 11/25/17 08:00 BUN 11 mg/dL (7-18) 11/25/17 08:00 Creatinine 0.4 mg/dL (0.55-1.02) L 11/25/17 08:00 Creat Clearance w eGFR > 60 (>60) 11/25/17 08:00 Random Glucose 89 mg/dL (74-106) 11/25/17 08:00 Calcium 9.4 mg/dL (8.5-10.1) 11/25/17 08:00 Total Bilirubin 0.2 mg/dL (0.2-1.0) D 11/25/17 08:00 AST 18 U/L (15-37) 11/25/17 08:00 ALT 20 U/L (12-78) 11/25/17 08:00 Alkaline Phosphatase 69 U/L (45-117) 11/25/17 08:00 Total Protein 7.4 g/dl (6.4-8.2) 11/25/17 08:00 Albumin 3.4 g/dl (3.4-5.0) 11/25/17 08:00 Urine Color Yellow 11/27/17 14:45 Urine Appearance Turbid 11/27/17 14:45 Urine pH 7.0 (5.0-8.0) 11/27/17 14:45 Ur Specific [place] 1.019 (1.001-1.035) 11/27/17 14:45 Urine Protein 3+ (NEGATIVE) H D 11/27/17 14:45 Urine Glucose (UA) Negative (NEGATIVE) 11/27/17 14:45 Urine Ketones Negative (NEGATIVE) 11/27/17 14:45 Urine Blood Negative (NEGATIVE) 11/27/17 14:45 Urine Nitrite Negative (NEGATIVE) 11/27/17 14:45 Urine Bilirubin Negative (<2.0 mg/dL) 11/27/17 14:45 Urine Urobilinogen 2.0 mg/dL (0.2-1.0) H 11/27/17 14:45 Ur Leukocyte Esterase 2+ (NEGATIVE) H 11/27/17 14:45 Urine WBC (Auto) 101 /hpf (3-5) 11/27/17 14:45 Urine RBC (Auto) 9 /hpf (0-3) 11/27/17 14:45 Ur Epithelial Cells Many /HPF (FEW) 11/27/17 14:45 Urine Bacteria Many /hpf (NONE SEEN) 11/27/17 14:45 Urine Mucus Many 11/27/17 14:45 RPR Titer Nonreactive (NONREACTIVE) 11/25/17 08:00 lab noted Assessment: 11/28/17 14:04 mild withdrawal sx Plan: medically supervised detox
[2017-11-28] MEDS: PARoxetine HCL 20 MG TABLET (FP) PO SCH (22:13)
[2017-11-28] MEDS: THIAMINE HCL 100 MG TABLET (FP) PO SCH (22:13)
[2017-11-29] MEDS ORDERED: METHADONE HCL 5 MG TABLET (FOR DETOX USE ONLY) PO ONE (06:00)
--- NOTE | 2017-11-29 08:30 | PN ---
S Progress Note (SOAP) Subjective: alert,no complaint Objective: 11/29/17 08:28 Vital Signs Temperature 97.2 F L 11/29/17 07:02 Pulse Rate 68 11/29/17 07:02 Respiratory Rate 18 11/29/17 07:02 Blood Pressure 95/61 11/29/17 07:02 O2 Sat by Pulse Oximetry (%) Assessment: 11/29/17 08:29 detox completed,no withdrawal symptom Plan: discharge today,follow up with after care program as arrangement
--- NOTE | 2017-11-29 08:39 | DS ---
[facility] Detox Discharge Summary Admission Date: 11/23/17 Discharge Date: 11/29/17 - History Present History: Opioid Dependence Pertinent Past History: endometriosis irritable bowel syndrome - Physical Exam Results Vital Signs: Vital Signs Temperature 97.2 F L 11/29/17 07:02 Pulse Rate 68 11/29/17 07:02 Respiratory Rate 18 11/29/17 07:02 Blood Pressure 95/61 11/29/17 07:02 O2 Sat by Pulse Oximetry (%) Pertinent Admission Physical Exam Findings: withdrawal signs and symptom - Treatment Hospital Course: Detox Protocol Followed, Detoxed Safely, Responded well, Discharged Condition Good Patient has Accepted a Rehab Referral to: follow up with after care program as arrangement - Medication Discharge Medications: Ambulatory Orders Paroxetine HCl [Paxil] 40 mg PO HS 05/12/15 Ondansetron [Zofran Odt -] 4 mg SL TID #21 od.tablet 08/18/17 Hydrocortisone 2.5% Topical Cr [Anusol-Hc -] 1 applic TP BID #1 tube 08/23/17 Bupropion HCl [Wellbutrin Xl -] 300 mg PO HS #30 tab.sr.24h 11/24/17 Paroxetine HCl [Paxil -] 40 mg PO HS #20 tablet 11/24/17 Acyclovir [Zovirax -] 800 mg PO 5XD #50 tablet 11/28/17 Clindamycin [Cleocin -] 300 mg PO Q6HPO #42 capsule 11/28/17 - Diagnosis (1) Opioid dependence with withdrawal Current Visit: Yes Status: Acute (2) Anemia Current Visit: Yes Status: Chronic (3) Endometriosis Current Visit: Yes Status: Chronic (4) IBS (irritable bowel syndrome) Current Visit: Yes Status: Chronic - AMA Did Patient Leave Against Medical Advice: No
[2017-11-29 09:15] VITALS: BP 109/58; PULSE 105; TEMP 97.9
== END 2017-11-29 09:40 | disposition home or self-care (01) | DRG 773 ==
LOC: YASAS 23:12 → Y6N 23:43
PROVIDERS: ADMIT Surgery; ATTEND Surgery
PROC: HZ2ZZZZ Detoxification Services for Substance Abuse Treatment (ICD-10-PCS; principal; 2017-11-23)
DX: F11.23 Opioid dependence with withdrawal (principal); F19.24 Other psychoactive substance dependence with psychoactive substance-induced mood disorder; F42.9 Obsessive-compulsive disorder, unspecified; F42.4 Excoriation (skin-picking) disorder; D64.9 Anemia, unspecified; K58.9 Irritable bowel syndrome, unspecified; Z87.42 Personal history of other diseases of the female genital tract; Z88.6 Allergy status to analgesic agent
CPT/HCPCS: 36415; 80053; 81003; 81015; 85027; 86593; 93005; 93010; J0735

== ENCOUNTER 2018-03-29 14:26 | Emergency (ER) | payer OTHER ==
--- NOTE | 2018-03-29 14:42 | PDOC ---
Rapid Medical Evaluation Chief Complaint: Eye Problem Time Seen by Provider: 03/29/18 14:40 Medical Evaluation: Allergies Allergy/AdvReac Type Severity Reaction Status Date / Time ibuprofen [From Motrin] AdvReac Severe Verified 03/29/18 14:40 NSAIDS (Non-Steroidal AdvReac Severe Verified 03/29/18 14:40 Anti-Inflamma 03/29/18 14:40 The patient presents with a chief complaint of: eye pain I have performed a brief in-person evaluation of this patient. Pertinent physical exam findings: vss, I have ordered the following: tylenol The patient will proceed to the ED for further evaluation.
[2018-03-29 14:44] VITALS: BP 124/76; PULSE 125; TEMP 98.9; BMI 26.4
[2018-03-29] MEDS ORDERED: ACETAMINOPHEN 500 MG TABLET (FP) PO ONE (15:03)
--- NOTE | 2018-03-29 15:04 | PDOC ---
History of Present Illness - General Chief Complaint: Eye Problem Stated Complaint: EYE PROBLEMS Time Seen by Provider: 03/29/18 14:40 - History of Present Illness Initial Comments: 33-year-old female with a past medical history significant for anxiety, admits to IV heroin and cocaine abuse presents for evaluation of atraumatic onset of right eye pain 2-1/2 days. She has no other associated symptoms. 03/29/18 15:02 Past History - Past Medical History Allergies/Adverse Reactions: Allergies Allergy/AdvReac Type Severity Reaction Status Date / Time ibuprofen [From Motrin] AdvReac Severe Verified 03/29/18 14:40 NSAIDS (Non-Steroidal AdvReac Severe Verified 03/29/18 14:40 Anti-Inflamma Home Medications: Ambulatory Orders Paroxetine HCl [Paxil] 40 mg PO HS 05/12/15 Bupropion HCl [Wellbutrin Xl -] 300 mg PO HS #30 tab.sr.24h 11/24/17 Anemia: Yes Asthma: No Cancer: No Cardiac Disorders: No CVA: No COPD: No CHF: No Dementia: No Diabetes: No GI Disorders: Yes (IBS) Disorders: Yes (POLYCYSTIC OVARIES) HTN: No Hypercholesterolemia: No Kidney Stones: Yes Liver Disease: No Psychiatric Problems: Yes (anxiety,depression) Seizures: No Thyroid Disease: No - Surgical History Abdominal Surgery: Yes (clearing of scar tissue on uterus, bladder 10/11/13) - Family Disease History Family Disease History: Heart Disease: Father (htn) - Reproductive History Cervical CA: No Dysfunctional Uterine Bleeding: Yes Ectopic : No Polycystic Ovaries: Yes Tubal Ligation: No - Immunization History Td Vaccination: Yes Immunization Up to Date: Yes - Suicide/Smoking/Psychosocial Hx Smoking Status: No Smoking History: Never smoked Have you smoked in the past 12 months: Yes Number of Cigarettes Smoked Daily: 0 Cigars Per Day: 0 Information on smoking cessation initiated: No Hx Alcohol Use: No Drug/Substance Use Hx: Yes Substance Use Type: Cocaine, Heroin Hx Substance Use Treatment: No Review of Systems - Review of Systems HEENTM: Yes: Eye Pain Neurological: Yes: Headache All Other Systems: Reviewed and Negative *Physical Exam - Vital Signs Last Vital Signs Temp Pulse Resp BP Pulse Ox 98.9 F 125 H 18 124/76 97 03/29/18 14:40 03/29/18 14:40 03/29/18 14:40 03/29/18 14:40 03/29/18 14:40 - Physical Exam Comments: 03/29/18 15:03 HEAD: NC/AT EYES: Conjuntiva clear EOMI, PERRL Ears: Canals and TM's normal NOSE: No d/c THROAT: Moist mucous membrances, oral pharanx clear, uvula midline NECK: Supple without adenopathy CARDIAC: S1 S2 LUNGS: CTA Full and Equal breath sounds ABDOMEN: Soft NT ND MS: Full ROM in all joints without edema NEUROLOGIC: No gross sensory or motor deficits, NVID SKIN: Normal color and temperature no lesions or rashes Medical Decision Making - Medical Decision Making CAT scan normal headache resolved if Tylenol no more eye pain 03/29/18 16:42 *DC/Admit/Observation/Transfer Diagnosis at time of Disposition: Headache - Discharge Dispostion Disposition: HOME Condition at time of disposition: Improved Decision to Admit order: No - Referrals Referrals: Patricia Milan MD [Primary Care Provider] - Jose Matias MD [Staff Physician] - - Patient Instructions Printed Discharge Instructions: DI for Headache Additional Instructions: Return to the emergency room should symptoms worsen or go unresolved. Please take Tylenol for pain as directed. Follow-up with neurology and once 2 days for further evaluation and treatment options of your headache. - Post Discharge Activity
[2018-03-29] MEDS ORDERED: ACETAMINOPHEN 500 MG TABLET (FP) ONE (15:05)
== END 2018-03-29 16:48 | disposition home or self-care (01) ==
LOC: JERFT 14:26
DX: R51 Headache (principal); F41.9 Anxiety disorder, unspecified; F10.10 Alcohol abuse, uncomplicated; F14.10 Cocaine abuse, uncomplicated; E28.2 Polycystic ovarian syndrome; Z87.19 Personal history of other diseases of the digestive system
CPT/HCPCS: 70450-TC; 84703; 99281-25

== ENCOUNTER 2018-04-28 16:12 | Inpatient (IN) | payer SELFPAY ==
[2018-04-28 16:28] VITALS: BMI 27.3
--- NOTE | 2018-04-28 16:29 | PDOC ---
Rapid Medical Evaluation Chief Complaint: Pain Time Seen by Provider: 04/28/18 16:24 Medical Evaluation: Allergies Allergy/AdvReac Type Severity Reaction Status Date / Time ibuprofen [From Motrin] AdvReac Severe Verified 03/29/18 14:40 NSAIDS (Non-Steroidal AdvReac Severe Verified 03/29/18 14:40 Anti-Inflamma 04/28/18 16:25 I have performed a brief in-person evaluation of this patient. The patient presents with a chief complaint of: abd pain all week but no fevers / + nausea Pertinent physical exam findings: RUQ pain x 2 hours , Known Cholecystitis/ intermittant attacks, none this bad. I have ordered the following: CBC, CMP, Lipase, us gALLBLADDER The patient will proceed to the ED for further evaluation. Discharge Disposition - Diagnosis Abdominal pain - Referrals - Patient Instructions - Post Discharge Activity
[2018-04-28] MEDS ORDERED: ACETAMINOPHEN 325 MG TABLET (FP) PO ONE (17:07)
[2018-04-28] MEDS ORDERED: ACETAMINOPHEN 325 MG TABLET (FP) ONE (17:18)
[2018-04-28] MEDS ORDERED: ONDANSETRON *ODT* 4 MG TABLET SL ONE (17:23)
--- NOTE | 2018-04-28 17:24 | PDOC ---
History of Present Illness - General Chief Complaint: Pain Stated Complaint: ABD PAIN, DIARRHEA Time Seen by Provider: 04/28/18 16:24 History Source: Patient Exam Limitations: No Limitations - History of Present Illness Initial Comments: 04/28/18 18:52 Patient is a 33-year-old female past medical history of IV drug abuse, last used heroin at approximately 2 PM this afternoon who presents to the emergency department for right upper quadrant pain. Patient states she has history of gallstones. She states that last time she had an image there was one gallstone and that they would watch and wait. She states that she has been nauseous and unable to eat all day due to the pain. She states that her heroin did not help with her pain control. Denies fevers, chills, chest pain, shortness of breath, vomiting, diarrhea and constipation. Past History - Travel Traveled outside of the country in the last 30 days: No Close contact w/someone who was outside of country & ill: No - Past Medical History Allergies/Adverse Reactions: Allergies Allergy/AdvReac Type Severity Reaction Status Date / Time ibuprofen [From Motrin] AdvReac Severe Verified 04/28/18 16:28 NSAIDS (Non-Steroidal AdvReac Severe Verified 04/28/18 16:28 Anti-Inflamma Home Medications: Ambulatory Orders Paroxetine HCl [Paxil] 40 mg PO HS 05/12/15 Bupropion HCl [Wellbutrin Xl -] 300 mg PO HS #30 tab.sr.24h 11/24/17 Anemia: Yes Asthma: No Cancer: No Cardiac Disorders: No CVA: No COPD: No CHF: No Dementia: No Diabetes: No GI Disorders: Yes (IBS) Disorders: Yes (POLYCYSTIC OVARIES) HTN: No Hypercholesterolemia: No Kidney Stones: Yes Liver Disease: No Psychiatric Problems: Yes (anxiety,depression) Seizures: No Thyroid Disease: No - Surgical History Abdominal Surgery: Yes (clearing of scar tissue on uterus, bladder 10/11/13) - Family Disease History Family Disease History: Heart Disease: Father (htn) - Reproductive History Cervical CA: No Dysfunctional Uterine Bleeding: Yes Ectopic : No Polycystic Ovaries: Yes Tubal Ligation: No - Immunization History Td Vaccination: Yes Immunization Up to Date: Yes - Suicide/Smoking/Psychosocial Hx Smoking Status: No Smoking History: Never smoked Have you smoked in the past 12 months: Yes Number of Cigarettes Smoked Daily: 0 Cigars Per Day: 0 Information on smoking cessation initiated: No Hx Alcohol Use: No Drug/Substance Use Hx: Yes (HEROIN, COCAINE) Substance Use Type: Cocaine, Heroin Hx Substance Use Treatment: No Review of Systems - Review of Systems Able to Perform ROS?: Yes Comments:: 04/28/18 17:23 CONSTITUTIONAL: Absent: fever, chills, diaphoresis, generalized weakness, malaise, loss of appetite HEENT: Absent: rhinorrhea, nasal congestion, throat pain, throat swelling, difficulty swallowing, mouth swelling, ear pain, eye pain, visual Changes CARDIOVASCULAR: Absent: chest pain, loss of consciousness, palpitations, irregular heart rate, peripheral edema RESPIRATORY: Absent: cough, shortness of breath, dyspnea with exertion, orthopnea, wheezing, stridor, hemoptysis GASTROINTESTINAL: Present: abdominal pain, nausea, vomiting Absent: abdominal distension diarrhea , constipation, melena, hematochezia GENITOURINARY: Absent: dysuria, frequency, urgency, hesitancy, hematuria, flank pain, genital pain MUSCULOSKELETAL: Absent: myalgia, arthralgia, joint swelling SKIN: Absent: rash, itching, pallor HEMATOLOGIC/IMMUNOLOGIC: Absent: easy bleeding, easy bruising, lymphadenopathy, frequent infections ENDOCRINE: Absent: unexplained weight gain, unexplained weight loss, heat intolerance, cold intolerance NEUROLOGIC: Absent: headache, focal weakness or paresthesias, dizziness, unsteady gait, seizure, mental status changes, bladder or bowel incontinence PSYCHIATRIC: Absent: anxiety, depression, suicidal or homicidal ideation, hallucinations. Is the patient limited Turkish proficient: No *Physical Exam - Vital Signs Last Vital Signs Temp Pulse Resp BP Pulse Ox 98.9 F 96 H 18 113/71 100 04/28/18 16:25 04/28/18 16:25 04/28/18 16:25 04/28/18 16:25 04/28/18 16:25 - Physical Exam Comments: 04/28/18 17:24 GENERAL: Well developed, well nourished. Awake and alert. Mild acute distress holding abdomen. HEENT: Normocephalic, atraumatic. PERRLA, EOMI. No conjunctival pallor. Sclera are non- icteric. Moist mucous membranes. Oropharynx is clear. NECK: Supple. Full ROM. No JVD. Carotid pulses 2+ and symmetric, without bruits. No thyromegaly. No lymphadenopathy. CARDIOVASCULAR: Regular rate and rhythm. No murmurs, rubs, or gallops. Distal pulses are 2+ and symmetric. PULMONARY: No evidence of respiratory distress. Lungs clear to auscultation bilaterally. No wheezing, rales or rhonchi. ABDOMINAL: Exquisite TTP of the RUQ with + tolentino's sign. Guarding to RUQ Soft. Non- distended. No organomegaly. Normoactive bowel sounds. MUSCULOSKELETAL Normal range of motion at all joints. No bony deformities or tenderness. No CVA tenderness. EXTREMITIES: No cyanosis. No clubbing. No edema. No calf tenderness. SKIN: Warm and dry. Normal capillary refill. No rashes. No jaundice. NEUROLOGICAL: Alert, awake, appropriate. Cranial nerves 2-12 intact. No deficits to light touch and temperature in face, upper extremities and lower extremities. No motor deficits in the in face, upper extremities and lower extremities. Normoreflexic in the upper and lower extremities. Normal speech. Toes are down- going bilaterally. Gait is normal without ataxia. PSYCHIATRIC: Cooperative. Good eye contact. Appropriate mood and affect. ED Treatment Course - LABORATORY CBC & Chemistry Diagram: 04/29/18 04:30 04/29/18 04:30 - ADDITIONAL ORDERS Additional order review: Laboratory Results 04/28/18 17:10 Urine Color Cancelled Urine Appearance Cancelled Urine pH Cancelled Ur Specific [place] Cancelled Urine Protein Cancelled Urine Glucose (UA) Cancelled Urine Ketones Cancelled Urine Blood Cancelled Urine Nitrite Cancelled Urine Bilirubin Cancelled Urine Urobilinogen Cancelled Ur Leukocyte Esterase Cancelled - RADIOLOGY Radiology Studies Ordered: Category Date Time Status ABDOMEN US -LIMITED [US] Stat Ultrasound 04/28/18 17:08 Ordered - Medications Given in the ED: ED Medications Discontinued Medications Generic Name Dose Route Start Last Admin Trade Name Freq PRN Reason Stop Dose Admin Acetaminophen 650 mg 04/28/18 17:07 04/28/18 17:17 Tylenol - PO 04/28/18 17:08 650 mg ONCE ONE Administration Medical Decision Making - Medical Decision Making 04/28/18 18:53 Patient is a 33-year-old female with past medical history of IV drug abuse, gallstones, who presents to the emergency department today for right upper quadrant pain since this morning. - On exam patient is exquisitely tender to the right upper quadrant. Positive Tolentino sign. - Zofran Tylenol given for pain control. - Patient labs with normal white count at this time. No shift or bandemia. Lipase, liver enzymes and total bili WNL. - Patient is currently pending gallbladder ultrasound. R/O cholecystitis - We'll sign out to night team. Patient pending reevaluation of her abdominal pain and ultrasound. *DC/Admit/Observation/Transfer Diagnosis at time of Disposition: Cholecystitis Abdominal pain Qualifiers: Abdominal location: right upper quadrant Qualified Code(s): R10.11 - Right upper quadrant pain - Discharge Dispostion Condition at time of disposition: Improved - Referrals - Patient Instructions - Post Discharge Activity
[2018-04-28] MEDS ORDERED: ONDANSETRON *ODT* 4 MG TABLET ONE (17:25)
--- NOTE | 2018-04-28 17:26 | PDOC ---
*Physical Exam - Vital Signs Last Vital Signs Temp Pulse Resp BP Pulse Ox 98.9 F 96 H 18 113/71 100 04/28/18 16:25 04/28/18 16:25 04/28/18 16:25 04/28/18 16:25 04/28/18 16:25 ED Treatment Course - LABORATORY CBC & Chemistry Diagram: 04/28/18 17:19 04/28/18 17:19 - ADDITIONAL ORDERS Additional order review: Laboratory Results 04/28/18 17:10 Urine Color Cancelled Urine Appearance Cancelled Urine pH Cancelled Ur Specific [place] Cancelled Urine Protein Cancelled Urine Glucose (UA) Cancelled Urine Ketones Cancelled Urine Blood Cancelled Urine Nitrite Cancelled Urine Bilirubin Cancelled Urine Urobilinogen Cancelled Ur Leukocyte Esterase Cancelled - Medications Given in the ED: ED Medications Discontinued Medications Generic Name Dose Route Start Last Admin Trade Name Pedroq PRN Reason Stop Dose Admin Acetaminophen 650 mg 04/28/18 17:07 04/28/18 17:17 Tylenol - PO 04/28/18 17:08 650 mg ONCE ONE Administration Medical Decision Making - Medical Decision Making 04/28/18 17:26 The patient was seen and evaluated in conjunction with EDY Rivers under my direct supervision, ancillary studies were reviewed. I agree with the plan as outlined by EDY Rivers . *DC/Admit/Observation/Transfer Diagnosis at time of Disposition: Abdominal pain, Cholecystitis - Discharge Dispostion Condition at time of disposition: Stable - Referrals - Patient Instructions - Post Discharge Activity
[2018-04-28 17:31] LABS: URINE APPEARANCE SLCLOUDY; URINE BILIRUBIN NEGATIVE (<2.0 mg/dL); URINE COLOR YELLOW; URINE GLUCOSE (UA) NEGATIVE (NEGATIVE); URINE KETONE NEGATIVE (NEGATIVE); URINE LEUK ESTERASE 1+ (NEGATIVE); URINE NITRITE NEGATIVE (NEGATIVE); URINE PROTEIN NEGATIVE (NEGATIVE); URINE UROBILINOGEN NEGATIVE mg/dL (0.2-1.0)
[2018-04-28 17:32] LABS: HCG,QUALITATIVE URINE Negative
[2018-04-28 17:38] LABS: BASO % 0.3 % (0-2.0); HEMATOCRIT 35.6 % (32.4-45.2); HEMOGLOBIN 11.2 GM/dL (10.7-15.3); LYMPH % 22.7 % (8-40); MCH 23.3 pg (25.7-33.7); MCHC 31.5 g/dl (32.0-36.0); MEAN CELL VOLUME 73.8 fl (80-96); MEAN PLT VOLUME 8.1 fl (7.5-11.1); MONO % 3.5 % (3.8-10.2); NEUT % 71.5 % (42.8-82.8); PLATELET COUNT 370 K/MM3 (134-434); RBC 4.82 M/mm3 (3.60-5.2); RDW 16.4 % (11.6-15.6); WHITE BLOOD COUNT 5.7 K/mm3 (4.0-10.0)
[2018-04-28 17:45] LABS: EPI CELLS FEW /HPF (FEW); URINE BACTERIA RARE /hpf (NONE SEEN); URINE HYALINE CAST 2 /lpf; URINE MUCUS MODERATE
[2018-04-28 18:00] LABS: ALBUMIN 4.3 g/dl (3.4-5.0); ALK PHOS 98 U/L (45-117); ANION GAP 10 MMOL/L (8-16); BILIRUBIN,TOTAL 0.5 mg/dL (0.2-1); BLOOD UREA NITROGEN 15 mg/dL (7-18); CALCIUM 9.4 mg/dL (8.5-10.1); CHLORIDE 103 mmol/L (98-107); CO2 24 mmol/L (21-32); CREATININE 0.7 mg/dL (0.55-1.3); GLUCOSE,RANDOM 87 mg/dL (74-106); LIPASE 81 U/L (73-393); POTASSIUM 3.9 mmol/L (3.5-5.1); SGOT/AST 13 U/L (15-37); SGPT/ALT 20 U/L (13-61); SODIUM 138 mmol/L (136-145); TOT PROT 8.8 g/dl (6.4-8.2)
[2018-04-28] MEDS ORDERED: morphine CARPU-JECT 2 MG/1 ML DISP.SYRIN IVPUSH ONE (19:24)
[2018-04-28] MEDS ORDERED: CEFTRIAXONE 1,000 MG in DEXTROSE 5%-WATER - 50 ML IVPB ONE (19:25)
--- NOTE | 2018-04-28 19:37 | PDOC ---
*Physical Exam - Vital Signs Last Vital Signs Temp Pulse Resp BP Pulse Ox 98.9 F 96 H 18 113/71 100 04/28/18 16:25 04/28/18 16:25 04/28/18 16:25 04/28/18 16:25 04/28/18 16:25 - Physical Exam General Appearance: Yes: Mild Distress. No: Appropriately Dressed, Apparent Distress Respiratory/Chest: positive: Lungs Clear, Normal Breath Sounds Cardiovascular: positive: Regular Rhythm, Regular Rate Gastrointestinal/Abdominal: positive: Tender (Along RUQ, +Tolentino's sign), Soft, Tenderness. negative: Pulsatile Mass, Protuberent, Distended, Guarding, Rebound , Mass Musculoskeletal: negative: CVA Tenderness Integumentary: positive: Normal Color, Dry, Warm Neurologic: positive: Fully Oriented, Alert ED Treatment Course - LABORATORY CBC & Chemistry Diagram: 04/28/18 17:19 04/28/18 17:19 - ADDITIONAL ORDERS Additional order review: Laboratory Results 04/28/18 04/28/18 04/28/18 17:19 17:19 17:10 PT with INR Cancelled INR Cancelled Sodium 138 Potassium 3.9 Chloride 103 Carbon Dioxide 24 Anion Gap 10 BUN 15 Creatinine 0.7 Creat Clearance w eGFR > 60 Random Glucose 87 Calcium 9.4 Total Bilirubin 0.5 AST 13 L ALT 20 Alkaline Phosphatase 98 Total Protein 8.8 H Albumin 4.3 Lipase 81 Urine Color Cancelled Urine Appearance Cancelled Urine pH Cancelled Ur Specific [place] Cancelled Urine Protein Cancelled Urine Glucose (UA) Cancelled Urine Ketones Cancelled Urine Blood Cancelled Urine Nitrite Cancelled Urine Bilirubin Cancelled Urine Urobilinogen Cancelled Ur Leukocyte Esterase Cancelled Urine WBC (Auto) Urine RBC (Auto) Ur Epithelial Cells Urine Bacteria Hyaline Casts Urine Mucus Urine HCG, Qual 04/28/18 16:27 PT with INR INR Sodium Potassium Chloride Carbon Dioxide Anion Gap BUN Creatinine Creat Clearance w eGFR Random Glucose Calcium Total Bilirubin AST ALT Alkaline Phosphatase Total Protein Albumin Lipase Urine Color Yellow Urine Appearance Slcloudy Urine pH 5.0 D Ur Specific [place] 1.030 Urine Protein Negative Urine Glucose (UA) Negative Urine Ketones Negative Urine Blood Negative Urine Nitrite Negative Urine Bilirubin Negative Urine Urobilinogen Negative Ur Leukocyte Esterase 1+ H Urine WBC (Auto) 5 Urine RBC (Auto) <1 Ur Epithelial Cells Few Urine Bacteria Rare Hyaline Casts 2 Urine Mucus Moderate Urine HCG, Qual Negative 11/08/18 17:19 RBC 4.82 MCV 73.8 L MCHC 31.5 L RDW 16.4 H MPV 8.1 Neutrophils % 71.5 Lymphocytes % 22.7 D Monocytes % 3.5 L Eosinophils % 2.0 Basophils % 0.3 - Medications Given in the ED: ED Medications Discontinued Medications Generic Name Dose Route Start Last Admin Trade Name Ana PRN Reason Stop Dose Admin Acetaminophen 650 mg 04/28/18 17:07 04/28/18 17:17 Tylenol - PO 04/28/18 17:08 650 mg ONCE ONE Administration Ondansetron HCl 4 mg 04/28/18 17:23 04/28/18 17:27 Zofran Odt - SL 04/28/18 17:24 4 mg ONCE ONE Administration Medical Decision Making - Medical Decision Making Patient signed out to be by EDY Rivers RUDony ultrasound raises concern for early cholecystitis When patient was reassessed, she was still having pain along RUQ Will give patient 1 gram Ceftriaxone, Morphine 2 gm Case was discussed with surgery, Dr. Gutierrez, who will come to see the patient 04/28/18 19:37 Case discussed with resident and patient to be admitted to hospitalist, Dr. Patel as inpatient for further care. Plan of care was discussed with patient. 04/28/18 20:45 *DC/Admit/Observation/Transfer Diagnosis at time of Disposition: Abdominal pain, Cholecystitis - Discharge Dispostion Condition at time of disposition: Stable Decision to Admit order: Yes - Referrals Referrals: ON STAFF,NOT [Primary Care Provider] - - Patient Instructions - Post Discharge Activity
--- NOTE | 2018-04-28 19:50 | CONSULT ---
Consult Consult Specialty:: General Surgery Reason for Consultation:: bilairy colic vs early cholecystitis - History of Present Illness Chief Complaint: abdominal pain History of Present Illness: 33 yo female PMH active IVDA, last used heroin at approximately 2 PM yesterday this afternoon who presents to the emergency department for right upper quadrant pain. Patient states she has history of gallstones. She states that last time she had an image there was one gallstone and that they would watch and wait. She states that she has been nauseous and unable to eat all day due to the pain. She states that her heroin did not help with her pain control. Denies fevers, chills, chest pain, shortness of breath, vomiting, diarrhea and constipation. we were asked to assess. - History Source History Provided By: Patient, Medical Record Limitations to Obtaining History: No Limitations - Past Medical History Cardio/Vascular: Yes: Murmur Hepatobiliary: Yes: Cholelithiasis ...LMP: 08/20/15 Infectious Disease: Yes: Other (b/l hand abscesses) Psych: Yes: Anxiety, Depression Dermatology: Yes: Cellulitis - Past Surgical History Past Surgical History: Yes: Tonsillectomy - Alcohol/Substance Use Hx Alcohol Use: No History of Substance Use: reports: Cocaine, Heroin, Marijuana - Smoking History Smoking history: Never smoked Have you smoked in the past 12 months: Yes Aproximately how many cigarettes per day: 0 - Social History Usual Living Arrangement: Other (lives with grandparents) ADL: Independent History of Recent Travel: No Home Medications - Allergies Allergies/Adverse Reactions: Allergies Allergy/AdvReac Type Severity Reaction Status Date / Time ibuprofen [From Motrin] AdvReac Severe Verified 04/28/18 16:28 NSAIDS (Non-Steroidal AdvReac Severe Verified 04/28/18 16:28 Anti-Inflamma - Home Medications Home Medications: Ambulatory Orders Paroxetine HCl [Paxil] 40 mg PO HS 05/12/15 Bupropion HCl [Wellbutrin Xl -] 300 mg PO HS #30 tab.sr.24h 11/24/17 Family Disease History - Family Disease History Family Disease History: Heart Disease: Grandparent, Father Review of Systems - Review of Systems Constitutional: denies: Chills, Fever Eyes: denies: Blind Spots, Recent Change in Vision HENT: denies: Difficult Swallowing, Toothache Neck: denies: Decreased ROM, Pain on Movement Cardiovascular: denies: Chest Pain Respiratory: denies: Cough, SOB Gastrointestinal: reports: Abdominal Pain, Constipation. denies: Bloating, Diarrhea Genitourinary: denies: Discharge, Dysuria Breasts: reports: No Symptoms Reported. denies: Pain Musculoskeletal: denies: Joint Swelling, Muscle Cramps, Muscle Weakness Integumentary: denies: Blister, Lesions Neurological: denies: Seizure, Syncope Endocrine: denies: Unexplained Weight Gain, Unexplained Weight Loss Hematology/Lymphatic: denies: Easily Bruised, Excessive Bleeding Psychiatric: denies: Anxiety, Depression Physical Exam Vital Signs: Vital Signs Temperature 98.9 F 04/28/18 16:25 Pulse Rate 96 H 04/28/18 16:25 Respiratory Rate 18 04/28/18 16:25 Blood Pressure 113/71 04/28/18 16:25 O2 Sat by Pulse Oximetry (%) 100 04/28/18 16:25 Constitutional: Yes: Well Nourished, No Distress, Calm Eyes: Yes: Conjunctiva Clear, EOM Intact HENT: Yes: Atraumatic, Normocephalic Neck: Yes: Supple, Trachea Midline Cardiovascular: Yes: Regular Rate and Rhythm, S1, S2 Respiratory: Yes: Regular, CTA Bilaterally Gastrointestinal: Yes: Normal Bowel Sounds, Soft. No: Tenderness, Tenderness, Epigastrium, Tenderness, Rebound ...Rectal Exam: Yes: Deferred Renal/: No: CVA Tenderness - Left, CVA Tenderness - Right Musculoskeletal: No: Muscle Pain, Muscle Weakness Extremities: No: Cool, Cyanosis Edema: No Peripheral Pulses WNL: Yes Integumentary: No: Jaundice, Rash Neurological: Yes: Alert, Oriented Psychiatric: Yes: Alert, Oriented Labs: CBC, BMP 04/28/18 17:19 04/28/18 17:19 Imaging - Results Cat Scan: Report Reviewed, Image Reviewed (cholelithiasis) Ultrasound: Report Reviewed, Image Reviewed Problem List - Problems (1) Cholecystitis Assessment/Plan: 33yo female with acute cholecystitis, Surgery is not an emergency she can followup as an out patient as desired. Patient does not wish to proceed with surgery. diet as tolerated f/u prn with surgeon provided with information Thank you for the opportunity to participate in the care of this patient. Code(s): K81.9 - CHOLECYSTITIS, UNSPECIFIED (2) Biliary colic Code(s): K80.50 - CALCULUS OF BILE DUCT W/O CHOLANGITIS OR CHOLECYST W/O OBST (3) Abdominal pain Code(s): R10.9 - UNSPECIFIED ABDOMINAL PAIN Qualifiers: Abdominal location: right upper quadrant Qualified Code(s): R10.11 - Right upper quadrant pain (4) Cholelithiasis Code(s): K80.20 - CALCULUS OF GALLBLADDER W/O CHOLECYSTITIS W/O OBSTRUCTION Qualifiers: Cholelithiasis location: gallbladder Cholecystitis presence: with cholecystitis Cholecystitis acuity: acute and chronic Biliary obstruction: without biliary obstruction Qualified Code(s): K80.12 - Calculus of gallbladder with acute and chronic cholecystitis without obstruction (5) Drug-induced mood disorder Code(s): F19.94 - OTH PSYCHOACTIVE SUBSTANCE USE, UNSP W MOOD DISORDER (6) History of trichotillomania Code(s): Z86.59 - PERSONAL HISTORY OF OTHER MENTAL AND BEHAVIORAL DISORDERS (7) IBS (irritable bowel syndrome) Code(s): K58.9 - IRRITABLE BOWEL SYNDROME WITHOUT DIARRHEA
[2018-04-28] MEDS ORDERED: MORPHINE SULFATE 2 MG/ML VIAL ONE (19:58)
[2018-04-28] MEDS ORDERED: CEFTRIAXONE 1 GM/50 ML BAG ONE (19:58)
--- NOTE | 2018-04-28 20:34 | PN ---
Teaching Attending Note Name of Resident: Simon Edwards ATTENDING PHYSICIAN STATEMENT I saw and evaluated the patient. I reviewed the resident's note and discussed the case with the resident. I agree with the resident's findings and plan as documented. SUBJECTIVE: Patient is a 33 year old woman with PMH of polysubstance abuse, anxiety, PCOS, OCD, kidney stone, endometriosis, HTN, IV drug abuse, last used heroin at approximately 2 PM this afternoon who presents to the ER for right upper quadrant pain. Patient states she has history of gallstones. She states that last time she had an image there was one gallstone and that they would watch and wait. She states that she has been nauseous and unable to eat all day due to the pain. She states that her heroin did not help with her pain control. Denies fevers, chills, chest pain, shortness of breath, vomiting, diarrhea and constipation. US in the ER highly suggestive of cholecystitis. OBJECTIVE: Alert Vital Signs Period Temp Pulse Resp BP Sys/Reece Pulse Ox Last 24 Hr 98.9 F 96 18 113/71 100 HEENT: No Jaundice, eye redness or discharge, PERRLA, EOMI. Normocephalic, atraumatic. External ears are normal and hearing is grossly intact. No nasal discharge. Neck: Supple, nontender. No palpable adenopathy or thyromegaly. No JVD Chest: Good effort. Clear to auscultation and percussion. Heart: Regular. No S3, rub or murmur Abdomen: Not distended, soft, RUQ tenderness and no HSM. No rebound or guarding. Normoactive bowel sounds. Ext: Peripheral pulses intact. No leg edema. Skin: Warm and dry. No petechiae, rash or ecchymosis. Neuro: Alert. Oriented x3. CN 2-12 grossly intact. Sensation grossly intact in all four extremities and DTR are symmetric. Home Medications Medication Instructions Recorded Paroxetine HCl [Paxil] 40 mg PO HS 05/12/15 Bupropion HCl [Wellbutrin Xl -] 300 mg PO HS #30 tab.sr.24h 11/24/17 Abnormal Lab Results 04/28/18 04/28/18 04/28/18 16:27 17:19 17:19 MCV 73.8 L MCH 23.3 L MCHC 31.5 L RDW 16.4 H Monocytes % 3.5 L AST 13 L Total Protein 8.8 H Ur Leukocyte Esterase 1+ H ASSESSMENT AND PLAN: 1. Cholelithiasis - Sonogram shows cholelithiasis with findings suggestive of cholecystitis. Patient is afebrile and does not have leukocytosis. Will get a CT scan with contrast and decide on need for antibiotics once CT scan result is available. Will keep her NPO and give IV NS. Surgery and GI consult. 2. Polysubstance abuse - Will monitor closely for heroin withdrawal and counseling center director patient to stop using drugs. Consult the start up specialist and refer to drug rehab upon discharge. 3. DVT prophylaxis - Lovenox 40 mg SQ q 24 hours. 4. Advance directives - Full code
[2018-04-28 20:35] LABS: MAGNESIUM 2.1 mg/dL (1.8-2.4); PHOSPHOROUS 3.8 mg/dL (2.5-4.9)
[2018-04-28] MEDS ORDERED: SODIUM CHLORIDE 1,000 ML IV SCH (21:00)
--- NOTE | 2018-04-28 21:29 | HP ---
CHIEF COMPLAINT: Abdominal pain PCP: HISTORY OF PRESENT ILLNESS: Patient is a 33 year old female with history of cholelithiasis managed conservatively 2-3 years ago, and IV drug abuse heroin, and nasally inhaled cocaine, last use today 2PM, presents with complaint of right upper quadrant abdominal pain. Began with gradual onset today early afternoon. Began as "gnawing" and progressed to sharp "stabbing" pain rated 8/10 intensity at its worst. She does not recall inciting factors of the pain. She endorses abdominal bloating with nausea, with inability to tolerate oral intake. She was only able to eat a piece of toast today, last meal was chicken parmigiana prepared at home last night. Denies headache, changes in vision, fevers, chills, chest pain , palpitations, vomiting, diarrhea, constipation, hematochezia, melena, dysuria , hematuria, urinary frequency, urgency. ER course was notable for: (1) RUQ ultrasound showing cholelithiasis, with mild gallbladder distension, and borderline wall thickness (2) Rocephin 1gram IV (3) Zofran 4mg IV, Tylenol 650mg PO, Morphine 2mg IV Recent Travel: denies PAST MEDICAL HISTORY: cholelithiasis IBS, PCOS, anxiety, depression, IV drug abuse PAST SURGICAL HISTORY: laparoscopic endometrial surgery 2013, tonsilectomy at 8 y/o Social History: Lives: at home with grandparents who support her. She is not a current student, does not currently work. Smoking: denies smoking history Alcohol: denies alcohol use Drugs: admits IV heroin use, and nasally inhaled cocaine daily for past three years. States this began when she was feeling depressed and met a male partner who introduced her to IV drug use. She has attempted to quit in the past (she states went to [facility] in 12/2017), however states depression symptoms pushed her to begin drug use again. Family History: Father: hypertension. at 51 y/o after thrombotic complication with unknown heart surgery. Mother: Rheumatoid arthritis, hypertension Allergies: NSAIDs: kidney failure after taking two tablets Motrin for root canal procedure at 17 y/o ibuprofen [From Motrin] Adverse Reaction (Severe, Verified 04/28/18 16:28) STATES KIDNEY FAILURE NSAIDS (Non-Steroidal Anti-Inflamma Adverse Reaction (Severe, Verified 04/28/18 16:28) STATES KIDNEY FAILURE HOME MEDICATIONS: Home Medications Medication Instructions Recorded Paroxetine HCl [Paxil] 40 mg PO HS 05/12/15 Bupropion HCl [Wellbutrin Xl -] 300 mg PO HS #30 tab.sr.24h 11/24/17 REVIEW OF SYSTEMS CONSTITUTIONAL: Absent: fever, chills, diaphoresis, generalized weakness, malaise, loss of appetite, weight change HEENT: Absent: rhinorrhea, nasal congestion, throat pain, throat swelling, difficulty swallowing, mouth swelling, ear pain, eye pain, visual changes CARDIOVASCULAR: Absent: chest pain, syncope, palpitations, irregular heart rate, lightheadedness , peripheral edema RESPIRATORY: Absent: cough, shortness of breath, dyspnea with exertion, orthopnea, wheezing, stridor, hemoptysis GASTROINTESTINAL: Admits abdominal pain, nausea. Absent: abdominal distension, vomiting, diarrhea , constipation, melena, hematochezia GENITOURINARY: Absent: dysuria, frequency, urgency, hesitancy, hematuria, flank pain, genital pain MUSCULOSKELETAL: Admits: back pain (radiation from abdominal pain). Absent: myalgia, arthralgia, joint swelling, neck pain SKIN: Admits: excoiriations from IV drug use along b/l lateral aspect abdomen. HEMATOLOGIC/IMMUNOLOGIC: Absent: easy bleeding, easy bruising, lymphadenopathy, frequent infections ENDOCRINE: Absent: unexplained weight gain, unexplained weight loss, heat intolerance, cold intolerance NEUROLOGIC: Absent: headache, focal weakness or paresthesias, dizziness, unsteady gait, seizure, mental status changes, bladder or bowel incontinence PSYCHIATRIC: Absent: anxiety, depression, suicidal or homicidal ideation, hallucinations. PHYSICAL EXAMINATION Vital Signs - 24 hr 04/28/18 16:25 Temperature 98.9 F Pulse Rate 96 H Respiratory 18 Rate Blood Pressure 113/71 O2 Sat by Pulse 100 Oximetry (%) GENERAL: female, awake, alert, and fully oriented, in no acute distress. HEAD: Normal with no signs of trauma. EYES: Pupils equal, round and reactive to light. Extraocular movements intact without horizontal nystagmus. Sclera anicteric, conjunctiva clear, without injection. EARS, NOSE, THROAT: Oropharynx clear without exudates. Moist mucous membranes. NECK: Normal range of motion, supple without lymphadenopathy, JVD, or masses. LUNGS: Breath sounds equal, clear to auscultation bilaterally. No wheezes, and no crackles. No accessory muscle use. HEART: Regular rate and rhythm, normal S1 and S2 without murmur, rub or gallop. ABDOMEN: Soft, non distended. Tender to light palpation at RUQ and epigastrium, with positive Tolentino's sign. Normoactive bowel sounds X4 quadrants. No guarding , no rebound tenderness. No hepatomegaly palpated or percussed. RECTAL: Patient refused rectal exam upon my encounter. MUSCULOSKELETAL: Normal range of motion at all joints. No bony deformities or tenderness. UPPER EXTREMITIES: 2+ radial pulses b/l, warm, well-perfused. Strength 5/5 b/l upper extremities. LOWER EXTREMITIES: 2+ dorsalis pedis pulses b/l, warm, well-perfused. No calf tenderness. No peripheral edema b/l. Strength 5/5 b/l lower extremities. NEUROLOGICAL: Cranial nerves II-XII grossly intact. Normal speech. No gross focal deficits PSYCHIATRIC: Cooperative. Good eye contact. Appropriate mood and affect upon my encounter today. SKIN: Warm, dry, Numerous thin vertical excoriations b/l lateral aspect abdomen from IV drug injection. 1cm Laparoscopic abdominal scars noted from prior endometrial surgery. Laboratory Results - last 24 hr 04/28/18 04/28/18 04/28/18 16:27 17:10 17:19 WBC 5.7 RBC 4.82 Hgb 11.2 Hct 35.6 MCV 73.8 L MCH 23.3 L MCHC 31.5 L RDW 16.4 H Plt Count 370 MPV 8.1 Absolute Neuts (auto) 4.1 Neutrophils % 71.5 Lymphocytes % 22.7 D Monocytes % 3.5 L Eosinophils % 2.0 Basophils % 0.3 Nucleated RBC % 0 PT with INR INR Sodium Potassium Chloride Carbon Dioxide Anion Gap BUN Creatinine Creat Clearance w eGFR Random Glucose Calcium Phosphorus Magnesium Total Bilirubin AST ALT Alkaline Phosphatase Total Protein Albumin Lipase Urine Color Yellow Cancelled Urine Appearance Slcloudy Cancelled Urine pH 5.0 D Cancelled Ur Specific [place] 1.030 Cancelled Urine Protein Negative Cancelled Urine Glucose (UA) Negative Cancelled Urine Ketones Negative Cancelled Urine Blood Negative Cancelled Urine Nitrite Negative Cancelled Urine Bilirubin Negative Cancelled Urine Urobilinogen Negative Cancelled Ur Leukocyte Esterase 1+ H Cancelled Urine WBC (Auto) 5 Urine RBC (Auto) <1 Ur Epithelial Cells Few Urine Bacteria Rare Hyaline Casts 2 Urine Mucus Moderate Urine HCG, Qual Negative 04/28/18 04/28/18 17:19 17:19 WBC RBC Hgb Hct MCV MCH MCHC RDW Plt Count MPV Absolute Neuts (auto) Neutrophils % Lymphocytes % Monocytes % Eosinophils % Basophils % Nucleated RBC % PT with INR Cancelled INR Cancelled Sodium 138 Potassium 3.9 Chloride 103 Carbon Dioxide 24 Anion Gap 10 BUN 15 Creatinine 0.7 Creat Clearance w eGFR > 60 Random Glucose 87 Calcium 9.4 Phosphorus 3.8 Magnesium 2.1 Total Bilirubin 0.5 AST 13 L ALT 20 Alkaline Phosphatase 98 Total Protein 8.8 H Albumin 4.3 Lipase 81 Urine Color Urine Appearance Urine pH Ur Specific [place] Urine Protein Urine Glucose (UA) Urine Ketones Urine Blood Urine Nitrite Urine Bilirubin Urine Urobilinogen Ur Leukocyte Esterase Urine WBC (Auto) Urine RBC (Auto) Ur Epithelial Cells Urine Bacteria Hyaline Casts Urine Mucus Urine HCG, Qual ASSESSMENT/PLAN: Patient is a 33 year old female with history of cholelithiasis managed conservatively 2-3 years ago, and IV drug abuse heroin, and nasally inhaled cocaine, presents with complaint of right upper quadrant abdominal pain. Cholelithiasis, possible early cholecystitis -RUQ pain , with positive Tolentino's sign. Patient unable to tolerate oral intake. Right upper quadrant abdominal ultrasound confirms cholelithiasis. -F/U CT abdomen pelvis to evaluate for cholecystitis. Will withhold antibiotics for now, pending CT results. -General surgery (Dr. Gutierrez) consulted -F/U GI consult (Dr. Vasquez) -NPO pending surgical, GI evaluation -Type and cross, PT/INR, PTT, CBC, CMP ordered. -IV normal saline at 75mL/ hour -Pain control with Ofirmev 1000mg IV Q6H PRN History of IV drug abuse -Patient admits last used IV heroin, and nasal cocaine at 2PM today. Denies history of alcohol use. -Dr. Harmon consult. Will consider rehab placement for patient upon discharge planning. -Neuro checks Q2H. Monitor closely for signs of withdrawal -Fall precautions -Aspiration precautions- elevate head of bed to 45 degrees FEN -IV normal saline at 75mL/ hour -Electrolytes within normal limits. Follow CMP -NPO pending surgical and GI evaluation Prophylaxis -SCDs, TEDs b/l lower extremities. Will hold chemical anticoagulation in anticipation of surgical procedure. Disposition -Admit to medical surgical floor Visit type - Emergency Visit Emergency Visit: Yes ED Registration Date: 04/28/18 Care time: The patient presented to the Emergency Department on the above date and was hospitalized for further evaluation of their emergent condition. - New Patient This patient is new to me today: Yes Date on this admission: 04/29/18 - Critical Care Critical Care patient: No
[2018-04-29 04:55] LABS: INR 1.25 (0.83-1.09); PROTHROMBIN TIME (PATIENT) 14.8 SEC (9.7-13.0)
[2018-04-29 04:58] LABS: ACTIVATED PTT 33.3 SECONDS (25.2-36.5)
[2018-04-29 05:03] LABS: HEMATOCRIT 29.1 % (32.4-45.2); HEMOGLOBIN 9.3 GM/dL (10.7-15.3); MCH 23.4 pg (25.7-33.7); MCHC 32.1 g/dl (32.0-36.0); MEAN CELL VOLUME 72.9 fl (80-96); MEAN PLT VOLUME 7.6 fl (7.5-11.1); PLATELET COUNT 323 K/MM3 (134-434); RBC 3.99 M/mm3 (3.60-5.2); RDW 16.3 % (11.6-15.6)
[2018-04-29 05:06] LABS: ALBUMIN 3.5 g/dl (3.4-5.0); ALK PHOS 82 U/L (45-117); ANION GAP 8 MMOL/L (8-16); BILIRUBIN,TOTAL 0.4 mg/dL (0.2-1); BLOOD UREA NITROGEN 11 mg/dL (7-18); CALCIUM 8.6 mg/dL (8.5-10.1); CHLORIDE 103 mmol/L (98-107); CO2 29 mmol/L (21-32); CREATININE 0.6 mg/dL (0.55-1.3); GLUCOSE,RANDOM 80 mg/dL (74-106); MAGNESIUM 2.2 mg/dL (1.8-2.4); PHOSPHOROUS 4.1 mg/dL (2.5-4.9); POTASSIUM 4.2 mmol/L (3.5-5.1); SGOT/AST 9 U/L (15-37); SGPT/ALT 18 U/L (13-61); SODIUM 140 mmol/L (136-145); TOT PROT 7.2 g/dl (6.4-8.2)
--- NOTE | 2018-04-29 07:40 | EKG ---
Test Reason : Blood Pressure : / mmHG Vent. Rate : 081 BPM Atrial Rate : 081 BPM P-R Int : 128 ms QRS Dur : 088 ms QT Int : 374 ms P-R-T Axes : 007 073 008 degrees QTc Int : 434 ms POOR DATA QUALITY, INTERPRETATION MAY BE ADVERSELY AFFECTED NORMAL SINUS RHYTHM NORMAL ECG WHEN COMPARED WITH ECG OF 24-NOV-2017 09:25, NONSPECIFIC T WAVE ABNORMALITY NOW EVIDENT IN INFERIOR LEADS Confirmed by TRISTAN LEE MD ([id number]) on 04/29/2018 7:39:59 AM Referred By: Confirmed By:TRISTAN LEE MD
--- NOTE | 2018-04-29 12:55 | CON.GI ---
Consult Consult Specialty:: GI Referred by:: Hospitalist Service Reason for Consultation:: Abdominal pain - History of Present Illness Chief Complaint: Right sided abdominal pain History of Present Illness: 33F admitted through [facility] ER for evaluation of right upper abdominal pain. She states that pain began early in the AM yesterday. The night before, she had eaten chicken parmigiana for dinner. The pain worsened in intensity with associated nausea at home and she was unable to eat. In the ER she was noted to have a WBC of 5.7. She had an abdominal US that revealed cholelithiasis, gallbladder overdistention, borderline gallbladder wall thickness and a sonographic goodwin's sign was elicited. a follow-up CT scan revealed gallbladder overdistention. The pain persists. She denies fevers/chills at home. She does recall having had similar post prandial episodes in the past but never to this severe or for this length of time. She does recall being told of gallstones in the past. She denies melena, rectal bleeding or change in bowel habits. She had never had an upper endoscopy or colonoscopy and knows that she has a history of anemia. There is no family history of colorectal cancer or other GI malignancy. She follows with PMD Dr. Milan. - History Source History Provided By: Patient, Medical Record Limitations to Obtaining History: No Limitations - Past Medical History Cardio/Vascular: Yes: Murmur Hepatobiliary: Yes: Cholelithiasis Reproductive: Yes: Endometriosis, Other (PCOS) ...LMP: 08/20/15 Heme/Onc: Yes: Anemia Infectious Disease: Yes: Other (b/l hand abscesses) Psych: Yes: Anxiety, Depression Dermatology: Yes: Cellulitis - Past Surgical History Past Surgical History: Yes: Tonsillectomy Additional Surgical History: exploratory laparoscopy: when endometriosis was diagnosed - Alcohol/Substance Use Hx Alcohol Use: No History of Substance Use: reports: Cocaine, Heroin, Marijuana - Smoking History Smoking history: Never smoked Have you smoked in the past 12 months: Yes Aproximately how many cigarettes per day: 0 - Social History Usual Living Arrangement: Other (lives with grandparents) ADL: Independent Occupation: Unemployed Place of : [facility] History of Recent Travel: No Home Medications - Allergies Allergies/Adverse Reactions: Allergies Allergy/AdvReac Type Severity Reaction Status Date / Time ibuprofen [From Motrin] AdvReac Severe Verified 04/28/18 16:28 NSAIDS (Non-Steroidal AdvReac Severe Verified 04/28/18 16:28 Anti-Inflamma - Home Medications Home Medications: Ambulatory Orders Paroxetine HCl [Paxil] 40 mg PO HS 05/12/15 Bupropion HCl [Wellbutrin Xl -] 300 mg PO HS #30 tab.sr.24h 11/24/17 Family Disease History - Family Disease History Family Disease History: Heart Disease: Grandparent, Father (: age 51: Complications from heart surgery), Other: Father, Mother (Alive: Rheumatoid Arthritis), Brother (1, healthy), Sister (1, healthy) Other Family History: No children. No family history of colorectal cancer or other GI malignancy Review of Systems - Review of Systems Constitutional: denies: Chills, Fever Cardiovascular: denies: Chest Pain Respiratory: denies: Cough, SOB Gastrointestinal: reports: Abdominal Pain, Indigestion, Nausea. denies: Diarrhea, Melena, Rectal Bleeding, Vomiting, Vomiting Blood Genitourinary: denies: Discharge, Dysuria Physical Exam-GI Vital Signs: Vital Signs Temperature 97.7 F (rectal) 04/29/18 12:30 Pulse Rate 76 04/29/18 12:30 Respiratory Rate 16 04/29/18 12:30 Blood Pressure 100/47 04/29/18 12:30 O2 Sat by Pulse Oximetry (%) 97% (RA) 04/29/18 12:30 Constitutional: Yes: Calm Eyes: No: Sclera Icterus Cardiovascular: Yes: Regular Rate and Rhythm. No: Murmur Respiratory: Yes: CTA Bilaterally Gastrointestinal Inspection: Yes: Scars (healed trochar scars). No: Distention ...Auscultate: Yes: Normoactive Bowel Sounds ...Palpate: Yes: Guarding (voluntary guarding upon palpation of the RUQ), Soft, Tenderness (Marked TTP RUQ with + goodwin's sign). No: Hepatomegaly, Splenomegaly ...Percussion: No: Tympanitic ...Rectal Exam: Yes: Other (Tool Adjuster present: No external lesions, no masses, light brown stool, guaiac negative) Edema: No (No LE edema) Neurological: Yes: Alert (awake) Labs: CBC, BMP 04/29/18 04:30 04/29/18 04:30 INR, PTT INR 1.25 (0.83-1.09) H 04/29/18 04:30 Hepatic Panel Total Bilirubin 0.4 mg/dL (0.2-1) 04/29/18 04:30 AST 9 U/L (15-37) L 04/29/18 04:30 ALT 18 U/L (13-61) 04/29/18 04:30 Alkaline Phosphatase 82 U/L (45-117) 04/29/18 04:30 Albumin 3.5 g/dl (3.4-5.0) 04/29/18 04:30 Imaging - Results Cat Scan: Report Reviewed, Image Reviewed Ultrasound: Report Reviewed Problem List - Problems (1) Cholecystitis Assessment/Plan: Clinical suspicion for acute calculous cholecystitis with prior episodes of biliary colic. Patient still with significant tenderness to palpation on physical exam with a goodwin's sign. LFTs are not suggestive of obstructive biliary tract process. Suggest: NPO IV Hydration IV Abx Surgical follow-up Monitor daily labs Code(s): K81.9 - CHOLECYSTITIS, UNSPECIFIED
--- NOTE | 2018-04-29 14:26 | DS ---
Physical Exam: SUBJECTIVE: Patient seen and examined OBJECTIVE: Vital Signs Period Temp Pulse Resp BP Sys/Reece Pulse Ox Last 24 Hr 98 F-98.9 F 88-96 18-19 103-126/68-79 100-100 PHYSICAL EXAM GENERAL: The patient is awake, alert, and fully oriented, in no acute distress. HEAD: Normal with no signs of trauma. EYES: PERRL, extraocular movements intact, sclera anicteric, conjunctiva clear. ENT: Ears normal, nares patent, oropharynx clear without exudates, moist mucous membranes. NECK: Trachea midline, full range of motion, supple. LUNGS: Breath sounds equal, clear to auscultation bilaterally, no wheezes, no crackles, no accessory muscle use. HEART: Regular rate and rhythm, S1, S2 without murmur, rub or gallop. ABDOMEN: Soft, nontender, nondistended, normoactive bowel sounds, no guarding, no rebound, no hepatosplenomegaly, no masses. EXTREMITIES: 2+ pulses, warm, well-perfused, no edema. NEUROLOGICAL: Cranial nerves II through XII grossly intact. Normal speech, gait not observed. PSYCH: Normal mood, normal affect. SKIN: Warm, dry, normal turgor, no rashes or lesions noted. LABS Laboratory Results - last 24 hr 04/28/18 04/28/18 04/28/18 16:27 17:10 17:19 WBC 5.7 RBC 4.82 Hgb 11.2 Hct 35.6 MCV 73.8 L MCH 23.3 L MCHC 31.5 L RDW 16.4 H Plt Count 370 MPV 8.1 Absolute Neuts (auto) 4.1 Neutrophils % 71.5 Lymphocytes % 22.7 D Monocytes % 3.5 L Eosinophils % 2.0 Basophils % 0.3 Nucleated RBC % 0 PT with INR INR PTT (Actin FS) Sodium Potassium Chloride Carbon Dioxide Anion Gap BUN Creatinine Creat Clearance w eGFR Random Glucose Calcium Phosphorus Magnesium Total Bilirubin AST ALT Alkaline Phosphatase Total Protein Albumin Lipase Urine Color Yellow Cancelled Urine Appearance Slcloudy Cancelled Urine pH 5.0 D Cancelled Ur Specific [place] 1.030 Cancelled Urine Protein Negative Cancelled Urine Glucose (UA) Negative Cancelled Urine Ketones Negative Cancelled Urine Blood Negative Cancelled Urine Nitrite Negative Cancelled Urine Bilirubin Negative Cancelled Urine Urobilinogen Negative Cancelled Ur Leukocyte Esterase 1+ H Cancelled Urine WBC (Auto) 5 Urine RBC (Auto) <1 Ur Epithelial Cells Few Urine Bacteria Rare Hyaline Casts 2 Urine Mucus Moderate Urine HCG, Qual Negative Blood Type Antibody Screen 04/28/18 04/28/18 04/29/18 17:19 17:19 04:30 WBC 5.0 RBC 3.99 Hgb 9.3 L Hct 29.1 L D MCV 72.9 L MCH 23.4 L MCHC 32.1 RDW 16.3 H Plt Count 323 MPV 7.6 Absolute Neuts (auto) Neutrophils % Lymphocytes % Monocytes % Eosinophils % Basophils % Nucleated RBC % PT with INR Cancelled INR Cancelled PTT (Actin FS) Sodium 138 Potassium 3.9 Chloride 103 Carbon Dioxide 24 Anion Gap 10 BUN 15 Creatinine 0.7 Creat Clearance w eGFR > 60 Random Glucose 87 Calcium 9.4 Phosphorus 3.8 Magnesium 2.1 Total Bilirubin 0.5 AST 13 L ALT 20 Alkaline Phosphatase 98 Total Protein 8.8 H Albumin 4.3 Lipase 81 Urine Color Urine Appearance Urine pH Ur Specific [place] Urine Protein Urine Glucose (UA) Urine Ketones Urine Blood Urine Nitrite Urine Bilirubin Urine Urobilinogen Ur Leukocyte Esterase Urine WBC (Auto) Urine RBC (Auto) Ur Epithelial Cells Urine Bacteria Hyaline Casts Urine Mucus Urine HCG, Qual Blood Type Antibody Screen 04/29/18 04/29/18 04/29/18 04:30 04:30 06:30 WBC RBC Hgb Hct MCV MCH MCHC RDW Plt Count MPV Absolute Neuts (auto) Neutrophils % Lymphocytes % Monocytes % Eosinophils % Basophils % Nucleated RBC % PT with INR 14.80 H INR 1.25 H PTT (Actin FS) 33.3 Sodium 140 Potassium 4.2 Chloride 103 Carbon Dioxide 29 Anion Gap 8 BUN 11 Creatinine 0.6 Creat Clearance w eGFR > 60 Random Glucose 80 Calcium 8.6 Phosphorus 4.1 Magnesium 2.2 Total Bilirubin 0.4 AST 9 L ALT 18 Alkaline Phosphatase 82 Total Protein 7.2 Albumin 3.5 Lipase Urine Color Urine Appearance Urine pH Ur Specific [place] Urine Protein Urine Glucose (UA) Urine Ketones Urine Blood Urine Nitrite Urine Bilirubin Urine Urobilinogen Ur Leukocyte Esterase Urine WBC (Auto) Urine RBC (Auto) Ur Epithelial Cells Urine Bacteria Hyaline Casts Urine Mucus Urine HCG, Qual Blood Type A NEGATIVE Antibody Screen Negative HOSPITAL COURSE: Date of Admission:04/28/18 Date of Discharge: 04/29/18 Discharge Summary Reason For Visit: CHOLECYSTITIS Current Active Problems Abdominal pain (Acute) Biliary colic (Acute) Cholecystitis (Acute) Condition: Improved - Instructions Diet, Activity, Other Instructions: You presented to [facility] ED complaining of right upper quadrant abdominal pain. Ultrasound in the Emergency department revealed cholelithiasis (stones in the gallbladder), with mild gallbladder distension, and borderline wall thickness. You white blood cell count was not elevated. Your liver enzyme levels were not indicative an an obstructive billiary tract process. A surgeon evaluated you while during your stay and based on your preference, you have decided not do seek surgical treatment during this hospital visit. Immediate surgical intervention is not indicated at this time as well per surgery. Please return to the emergency department immediately if you begin to experience chest pain, shortness of breath, nausea, vomiting, or worsening of your abdominal pain. Please follow up with the following physicians within 1 week: Primary Care Physician- Dr Marly Milan Surgeon- Dr Juan Gutierrez Referrals for these physicians are attached to your discharge paperwork . Referrals: Juan Gutierrez MD [Staff Physician] - 1 Week Patricia Milan MD [Staff Physician] - 1 Week (Please follow up with Dr Milan in 1 week. ) ON STAFF,NOT [Primary Care Provider] - Disposition: HOME - Home Medications Comprehensive Discharge Medication List: Ambulatory Orders Paroxetine HCl [Paxil] 40 mg PO HS 05/12/15 Bupropion HCl [Wellbutrin Xl -] 300 mg PO HS #30 tab.sr.24h 11/24/17
--- NOTE | 2018-04-29 15:24 | PN ---
Teaching Attending Note ATTENDING PHYSICIAN STATEMENT I saw and evaluated the patient. I reviewed the resident's note and discussed the case with the resident. I agree with the resident's findings and plan as documented. SUBJECTIVE: She is a 33 Y/O F W known cholelithiasis, She states that she was in her [facility] till the day of ED visit. She developed sudden onset, worsening aching, RUQ pain , non radiating, no clear trigger, accompanied with Nausea. In the ED she was evaluated and she has had significant tenderness in the RUQ and RUQ with cholelithiasis, At this time she still has tenderness in the RUQ. She was evaluated in the ED by surgery and she refused to have cholecystectomy at this time. Also GI service evaluated the patient for cholecystitis. has josephine afebrile since in the ED. She also is active cocaine and heroin user. States that usually gets withdrawal symptoms 3 days after she stops using opioids. OBJECTIVE: laying in bed in no distress, moves in bed with no distress, MMM No distress CVS:S1S2 CTAB Abd:BS; hypoactive has no rebound, has tenderness in palpation in the RUQ. states that pain is worse when i remove my hand Skin: R abdominal wall, has injection tracks, no other rash/ bruises Last Vital Signs Temp Pulse Resp BP Pulse Ox 98.5 F 89 19 126/78 100 04/29/18 06:47 04/29/18 06:47 04/29/18 06:47 04/29/18 06:47 04/29/18 03:10 ASSESSMENT AND PLAN: A 33 yo f w choleithiasis, PCO, cocain and heroin abuser (IV), P/W Abdominal pain, Abdominal pain: cholecystitis: will C/W IV hydration, pain control, if the pain improves with give trial of clear liquid diet at this time. pain control with morphine F/U with patient if he is willing to undergo surgery F/U with GI recs cocaine/ opioid abuse:monitor for signs of withdrawal she is willing to go to rehab and wants to talk to SW. pco: Encouraged to F/u with public information officer as O/P Dvt ppx: LOV[facility] Sq Dispo: home in 2 dys pending pain control and tolerating diet.
[2018-04-29 18:42] VITALS: BP 102/51; PULSE 61; TEMP 97.9
--- NOTE | 2018-04-29 21:12 | PN ---
Physical Exam: SUBJECTIVE: Patient seen and examined at bedside this am and afternoon. PT c/o RUQ pain. Denies chest pain or shortness of breath. OBJECTIVE: Vital Signs Period Temp Pulse Resp BP Sys/Reece Pulse Ox Last 24 Hr 97.9 F-98.5 F 61-89 16-19 92-126/47-78 97-100 GENERAL: Awake and Alert, no visible jaundice appreciated HEAD: NC/AT EYES: EOMI PERRLA, No scleral icterus NECK: Trachea midline, full range of motion, supple. LUNGS:CTA B/L, good inspiratory effort HEART: RRR No MRG S1S2 ABDOMEN: ++ Tolentino's Sign, ND, Tender to palpation EXTREMITIES: 2+ pulses, warm, well-perfused, no edema. NEUROLOGICAL: Cranial nerves II through XII grossly intact. Normal speech, gait not observed. PSYCH: Normal mood, normal affect. Laboratory Results - last 24 hr 04/29/18 04/29/18 04/29/18 04:30 04:30 04:30 WBC 5.0 RBC 3.99 Hgb 9.3 L Hct 29.1 L D MCV 72.9 L MCH 23.4 L MCHC 32.1 RDW 16.3 H Plt Count 323 MPV 7.6 PT with INR 14.80 H INR 1.25 H PTT (Actin FS) 33.3 Sodium 140 Potassium 4.2 Chloride 103 Carbon Dioxide 29 Anion Gap 8 BUN 11 Creatinine 0.6 Creat Clearance w eGFR > 60 Random Glucose 80 Calcium 8.6 Phosphorus 4.1 Magnesium 2.2 Total Bilirubin 0.4 AST 9 L ALT 18 Alkaline Phosphatase 82 Total Protein 7.2 Albumin 3.5 Blood Type Antibody Screen 04/29/18 06:30 WBC RBC Hgb Hct MCV MCH MCHC RDW Plt Count MPV PT with INR INR PTT (Actin FS) Sodium Potassium Chloride Carbon Dioxide Anion Gap BUN Creatinine Creat Clearance w eGFR Random Glucose Calcium Phosphorus Magnesium Total Bilirubin AST ALT Alkaline Phosphatase Total Protein Albumin Blood Type A NEGATIVE Antibody Screen Negative ASSESSMENT/PLAN: Patient is a 33 year old female with history of cholelithiasis managed conservatively 2-3 years ago, and IV drug abuse heroin, and nasally inhaled cocaine, presents with complaint of right upper quadrant abdominal pain. # Cholelithiasis -RUQ pain , with positive Tolentino's sign. Patient unable to tolerate oral intake. RUQ Abd Ultrasound = cholelithiasis. -CTAP--> Nonspecific gallbladder overdistention -GI on board--> Dr Vasquez. Presentation is clinically suspcious for acute calculous cholecystitis considering previous episodes of billiary collic -Dr Gutierrez on board--> acute cholecystitis, Surgery is not an emergency she can followup as an out patient as desired. Patient does not wish to proceed with surgery. -WBC WNL -IV normal saline at 75mL/ hour -Pain control with Ofirmev 1000mg IV Q6H PRN # H/o IV drug abuse -Patient admits last used IV heroin, and nasal cocaine at 2PM today. Denies history of alcohol use. -Aspiration precautions- elevate head of bed to 45 degrees FEN -IV normal saline at 75mL/ hour -Monitor Electrolytes -NPO DVT ppx: -SCDs, TEDs. Disp -Admit to medical surgical floor Visit type - Emergency Visit Emergency Visit: Yes ED Registration Date: 04/28/18 Care time: The patient presented to the Emergency Department on the above date and was hospitalized for further evaluation of their emergent condition. - New Patient This patient is new to me today: Yes Date on this admission: 04/29/18 - Critical Care Critical Care patient: No - Discharge Referral Referred to [facility] Med [facility].C.: No
== END 2018-04-29 19:34 | disposition left against medical advice (07) ==
LOC: JER 16:12 → JERBED 20:46 → J8W 04-29 19:20
PROVIDERS: ADMIT Internal Medicine; ATTEND Internal Medicine
DX: K80.00 Calculus of gallbladder with acute cholecystitis without obstruction (principal); D64.9 Anemia, unspecified; F11.10 Opioid abuse, uncomplicated; F32.9 Major depressive disorder, single episode, unspecified; F41.9 Anxiety disorder, unspecified; F14.10 Cocaine abuse, uncomplicated; D50.9 Iron deficiency anemia, unspecified; F12.10 Cannabis abuse, uncomplicated; F19.94 Other psychoactive substance use, unspecified with psychoactive substance-induced mood disorder; I10 Essential (primary) hypertension; F42.9 Obsessive-compulsive disorder, unspecified
CPT/HCPCS: 36415; 74177-TC; 76705-TC; 80053; 81003; 81015; 83690; 83735; 84100; 84703; 85025; 85027; 85610; 85730; 86850; 86900; 86901; 93005; 93010; 99284-25; J7030; Q0162

== ENCOUNTER 2018-08-25 17:18 | Inpatient (IN) | payer MEDICARE, OTHER ==
--- NOTE | 2018-08-25 17:48 | PDOC ---
History of Present Illness - General Chief Complaint: Redness To Affected Area Stated Complaint: ARM REDNESS Time Seen by Provider: 08/25/18 17:30 History Source: Patient Exam Limitations: No Limitations - History of Present Illness Initial Comments: 08/25/18 17:47 33y F hx of heoin abuse, polycystic overies, IBS, kidney stones, anxiety, depression, anemia presents with skin infection. Pt notse that her friend last week, since then she has been trying to get off heroin and has beeen 'skin popping' where she injects heroin soaked in cotton into her skin rather than her veins. has also beeing reusing th same cotton ball for the heroin but has josephine using new needles. Pt endorses fever/chills, nausea, body aches and pain to her arms where she has injected. Denes any cp, sob, abd pain, diarrhea, bpr. endorses some constipation. denies using any other drugs. Past History - Past Medical History Allergies/Adverse Reactions: Allergies Allergy/AdvReac Type Severity Reaction Status Date / Time ibuprofen [From Motrin] AdvReac Severe Verified 04/28/18 16:28 NSAIDS (Non-Steroidal AdvReac Severe Verified 04/28/18 16:28 Anti-Inflamma Home Medications: Ambulatory Orders Paroxetine HCl [Paxil] 40 mg PO HS 05/12/15 Bupropion HCl [Wellbutrin Xl -] 300 mg PO HS #30 tab.sr.24h 11/24/17 Anemia: Yes Asthma: No Cancer: No Cardiac Disorders: No CVA: No COPD: No CHF: No Dementia: No Diabetes: No GI Disorders: Yes (IBS) Disorders: Yes (POLYCYSTIC OVARIES) HTN: No Hypercholesterolemia: No Kidney Stones: Yes Liver Disease: No Psychiatric Problems: Yes (anxiety,depression) Seizures: No Thyroid Disease: No - Surgical History Abdominal Surgery: Yes (clearing of scar tissue on uterus, bladder 10/11/13) - Family Disease History Family Disease History: Heart Disease: Father (htn) - Reproductive History Cervical CA: No Dysfunctional Uterine Bleeding: Yes Ectopic : No Polycystic Ovaries: Yes Tubal Ligation: No - Immunization History Td Vaccination: Yes Immunization Up to Date: Yes - Suicide/Smoking/Psychosocial Hx Smoking Status: No Smoking History: Never smoked Have you smoked in the past 12 months: Yes Number of Cigarettes Smoked Daily: 0 Cigars Per Day: 0 Hx Alcohol Use: No Drug/Substance Use Hx: Yes (HEROIN, COCAINE) Substance Use Type: Cocaine, Heroin Hx Substance Use Treatment: No Review of Systems - Review of Systems Able to Perform ROS?: Yes Comments:: 08/25/18 18:20 Constitutional - +Fever, Chills, HEENT: no reported vision changes, sore throat Respiratory: no reported cough, sob, hemoptysis Cardiac: no reported chest pain, palpitations, light headedness, leg swelling Abd/GI: +nausea, vomiting no reported abd pain, , blood per rectum, melena, diarrhea : no reported dysuria, frequency, discharge Musculskelatal - no reported back pain, joint swelling skin - +rash no reported bruising, erythema, neurological: no reported headache, numbness, focal weakness, tingling, ataxia, hematologic: no reported easy bruising, easy bleeding *Physical Exam - Vital Signs Last Vital Signs Temp Pulse Resp BP Pulse Ox 102.2 F H 113 H 22 H 106/62 98 08/25/18 17:20 08/25/18 17:20 08/25/18 17:20 08/25/18 17:20 08/25/18 17:20 - Physical Exam Comments: 08/25/18 18:23 GENERAL: The patient is awake, alert, and fully oriented, Nontoxic - in no acute distress. HEAD: Normocephalic, atraumatic. EYES: extraocular movements intact, sclera anicteric, conjunctiva clear. ENT: Normal voice, Moist mucous membranes. NECK: Normal range of motion, supple LUNGS: Breath sounds equal, clear to auscultation bilaterally. No wheezes, no rhonchi, no rales. HEART: Regular rate and rhythm, +systolic murmer appreciated ABDOMEN: Soft, nontender, normoactive bowel sounds. No guarding, no rebound. . No CVA tenderness EXTREMITIES: Normal range of motion, no edema. No clubbing or cyanosis. No cords, erythema, or tenderness. NEUROLOGICAL: No facial assymetry, Normal speech, PSYCH: Normal mood, normal affect. SKIN: multiple erythemous, tender, warm non fluctuant nodules on the shoulder/ forearms b/lm, hot to touch Moderate Sedation - Procedure Monitoring Vital Signs: Procedure Monitoring Vital Signs Temperature 102.2 F H 08/25/18 17:20 Pulse Rate 113 H 08/25/18 17:20 Respiratory Rate 22 H 08/25/18 17:20 Blood Pressure 106/62 08/25/18 17:20 O2 Sat by Pulse Oximetry (%) 98 08/25/18 17:20 ED Treatment Course - LABORATORY CBC & Chemistry Diagram: 08/26/18 07:31 08/26/18 07:31 Medical Decision Making - Medical Decision Making 08/25/18 18:39 suspect cellulitis, with early abscess of arms no large fluctuance abscess to tdrain +febrile and tachycardic - sepsis orderset obtained will otis to admit the pt for IV abx tylenol for fever *DC/Admit/Observation/Transfer Diagnosis at time of Disposition: Cellulitis - Discharge Dispostion Condition at time of disposition: Good - Referrals - Patient Instructions - Post Discharge Activity
[2018-08-25] MEDS ORDERED: VANCOMYCIN 1,000 MG in DEXTROSE 5%-WATER - 250 ML IVPB ONE (18:40)
[2018-08-25] MEDS ORDERED: ACETAMINOPHEN 325 MG TABLET (FP) PO ONE ×2 (18:41→23:15)
[2018-08-25 19:18] LABS: URINE APPEARANCE Clear; URINE BILIRUBIN Negative (NEGATIVE); URINE COLOR Yellow; URINE GLUCOSE (UA) Negative (NEGATIVE); URINE KETONE Negative (NEGATIVE); URINE LEUK ESTERASE 1+ (NEGATIVE); URINE NITRITE Negative (NEGATIVE); URINE PROTEIN Negative (NEGATIVE); URINE UROBILINOGEN 0.2 (0.2-1.0)
[2018-08-25 19:50] LABS: EPI CELLS 1+ /HPF; URINE BACTERIA 2+ /hpf (NEGATIVE); URINE RBC 0-2 /hpf (0-3)
[2018-08-25 20:04] LABS: HEMATOCRIT 29.6 % (32.4-45.2); HEMOGLOBIN 9.2 GM/dl (10.7-15.3); MCH 22.9 pg (25.7-33.7); MCHC 31.2 g/dl (32.0-36.0); MEAN CELL VOLUME 73.5 fl (80-96); MEAN PLT VOLUME 8.8 fl (7.5-11.1); PLATELET COUNT 409 K/MM3 (134-434); RBC 4.02 M/mm3 (3.60-5.2); RDW 15.4 % (11.6-15.6); WHITE BLOOD COUNT 8.2 K/mm3 (4.0-10.8)
[2018-08-25 20:14] LABS: ACTIVATED PTT 28.4 SECONDS (25.2-36.5)
[2018-08-25 20:17] LABS: ALBUMIN 3.4 g/dl (3.4-5.0); ALK PHOS 85 U/L (45-117); ANION GAP 15 MMOL/L (8-16); BILIRUBIN,TOTAL 0.5 mg/dl (0.2-1); BLOOD UREA NITROGEN 16 mg/dl (7-18); CALCIUM 8.9 mg/dl (8.5-10); CHLORIDE 98 mmol/L (98-107); CO2 19 mmol/L (21-32); CREATININE 0.6 mg/dl (0.55-1.3); GLUCOSE,RANDOM 104 mg/dl (74-106); POTASSIUM 3.7 mmol/L (3.5-5.1); SGOT/AST 20 U/L (15-37); SGPT/ALT 14 U/L (13-61); SODIUM 132 mmol/L (136-145); TOT PROT 7.2 g/dl (6.4-8.2)
[2018-08-25 20:18] LABS: INR 1.77 (0.82-1.09); PROTHROMBIN TIME (PATIENT) 19.6 SEC (10.2-13.0)
[2018-08-25 20:42] LABS: PLATELET ESTIMATE SLT INCREASE
--- NOTE | 2018-08-25 20:49 | PDOC ---
*Physical Exam - Vital Signs Last Vital Signs Temp Pulse Resp BP Pulse Ox 102.2 F H 113 H 22 H 106/62 98 08/25/18 17:20 08/25/18 17:20 08/25/18 17:20 08/25/18 17:20 08/25/18 17:20 ED Treatment Course - LABORATORY CBC & Chemistry Diagram: 08/25/18 19:40 08/25/18 19:40 - ADDITIONAL ORDERS Additional order review: Laboratory Results 08/25/18 08/25/18 08/25/18 19:40 19:40 19:40 PT with INR 19.6 H INR 1.77 H PTT (Actin FS) 28.4 Sodium 132 L Potassium 3.7 Chloride 98 Carbon Dioxide 19 L Anion Gap 15 BUN 16 Creatinine 0.6 Creat Clearance w eGFR > 60 Random Glucose 104 Calcium 8.9 Total Bilirubin 0.5 AST 20 ALT 14 Alkaline Phosphatase 85 Troponin I < 0.03 Total Protein 7.2 Albumin 3.4 Urine Color Urine Appearance Urine pH Ur Specific [place] Urine Protein Urine Glucose (UA) Urine Ketones Urine Blood Urine Nitrite Urine Bilirubin Urine Urobilinogen Ur Leukocyte Esterase Urine RBC Urine WBC Ur Epithelial Cells Urine Bacteria 08/25/18 19:10 PT with INR INR PTT (Actin FS) Sodium Potassium Chloride Carbon Dioxide Anion Gap BUN Creatinine Creat Clearance w eGFR Random Glucose Calcium Total Bilirubin AST ALT Alkaline Phosphatase Troponin I Total Protein Albumin Urine Color Yellow Urine Appearance Clear Urine pH 6.0 Ur Specific [place] 1.010 Urine Protein Negative Urine Glucose (UA) Negative Urine Ketones Negative Urine Blood Negative Urine Nitrite Negative Urine Bilirubin Negative Urine Urobilinogen 0.2 Ur Leukocyte Esterase 1+ H Urine RBC 0-2 Urine WBC 5-10 Ur Epithelial Cells 1+ Urine Bacteria 2+ 08/25/18 19:40 RBC 4.02 MCV 73.5 L MCHC 31.2 L RDW 15.4 MPV 8.8 Neutrophils % No Result Required. Lymphocytes % No Result Required. Progress Note - Progress Note Progress Note: Care of this patient was transferred to ri from Dr. blue at 1900 hrs. This is a 33-year-old female who comes in complaining of bilateral arm swelling and pain secondary to skin popping. Patient is a heroin addict and has used up the veins and has been skin popping. Patient has blood work pending as nursing is unable to obtain IV access. I was able to draw the blood from the right femoral artery without difficulty patient tolerated well 20:45 Patient will be admitted to a medical surgical observation bed as her white count is normal there is no left shift and chemistries are unremarkable *DC/Admit/Observation/Transfer Diagnosis at time of Disposition: Cellulitis - Discharge Dispostion Condition at time of disposition: Good Decision to Admit order: Yes - Referrals Referrals: Patricia Milan MD [Primary Care Provider] - - Patient Instructions - Post Discharge Activity
[2018-08-25] MEDS ORDERED: VANCOMYCIN 1,000 MG VIAL (RESTRICTED TO ID ONLY) ONE (20:59)
[2018-08-25] MEDS ORDERED: LORazepam 1 MG TABLET PO ONE (20:59)
[2018-08-25] MEDS ORDERED: VANCOMYCIN 1 GM in D5W (PRE-DOCKED) 1,000 MG/250 ML IVPB ONE (20:59)
[2018-08-25] MEDS ORDERED: LORazepam 0.5 MG TABLET ONE (21:03)
--- NOTE | 2018-08-25 21:07 | HP ---
Admitting History and Physical - Primary Care Physician PCP: Patricia Milan - Admission Chief Complaint: Arm pain, swelling, fever History of Present Illness: This is a 33 yo young woman with a PMHx of: IVDU (Heroin, last use today), Depression, Anxiety, OCD, PCOS, DVt (LE), Endometriosis. Who presents to the Ed with bilateral arm pain, swelling, redness. Patient admits to "skin popping" with heroin. She reports using clean needles. Patient reports having subjective fevers and chills x several days. Patient verbalized wanting to go to a Detox Facility. Patient denies cough, BARRERA, dizziness, SOB, CP, palpitations, AP, N/V/D , dysuria. ER course was notable for: (1) Sepsis T max 102.2, Lactic Acid 2.6, Neutrophilia 93 (2) UA- +1 leukocyte esterase (3) UDT- pending History Source: Patient Limitations to Obtaining History: No Limitations - Past Medical History Cardiovascular: Yes: Deep Vein Thrombosis, Murmur Hepatobiliary: Yes: Cholelithiasis Renal/: Yes: Other (PCOS) Reproductive: Yes: Endometriosis ...LMP: 02/19/18 ...: No Heme/Onc: Yes: Anemia Infectious Disease: Yes: Other (b/l hand abscesses) Psych: Yes: Anxiety, Depression, Other Dermatology: Yes: Cellulitis - Past Surgical History Past Surgical History: Yes: Tonsillectomy - Smoking History Smoking history: Never smoked Have you smoked in the past 12 months: Yes Aproximately how many cigarettes per day: 0 - Alcohol/Substance Use Hx Alcohol Use: No History of Substance Use: reports: Cocaine, Heroin, Marijuana - Social History ADL: Independent Occupation: Unemployed History of Recent Travel: No Home Medications - Allergies Allergies/Adverse Reactions: Allergies Allergy/AdvReac Type Severity Reaction Status Date / Time ibuprofen [From Motrin] AdvReac Severe Verified 04/28/18 16:28 NSAIDS (Non-Steroidal AdvReac Severe Verified 04/28/18 16:28 Anti-Inflamma - Home Medications Home Medications: Ambulatory Orders Paroxetine HCl [Paxil] 40 mg PO HS 05/12/15 Bupropion HCl [Wellbutrin Xl -] 300 mg PO HS #30 tab.sr.24h 11/24/17 Family Disease History - Family Disease History Family Disease History: Heart Disease: Grandparent, Father, Other: Mother (Alive : Rheumatoid Arthritis), Brother (1, healthy), Sister (1, healthy) Review of Systems - Review of Systems Constitutional: reports: Chills, Fever, Loss of Appetite Eyes: reports: No Symptoms HENT: reports: No Symptoms Neck: reports: No Symptoms Cardiovascular: reports: No Symptoms Respiratory: reports: No Symptoms Gastrointestinal: reports: No Symptoms Genitourinary: reports: No Symptoms Breasts: reports: No Symptoms Reported Musculoskeletal: reports: Extremity Pain, Joint Swelling Integumentary: reports: Erythema, Lump Neurological: reports: No Symptoms Endocrine: reports: No Symptoms Hematology/Lymphatic: reports: No Symptoms Psychiatric: reports: No Symptoms Pain Intensity: 6 Physical Examination Vital Signs: Vital Signs Temperature 102.2 F H 08/25/18 17:20 Pulse Rate 113 H 08/25/18 17:20 Respiratory Rate 22 H 08/25/18 17:20 Blood Pressure 106/62 08/25/18 17:20 O2 Sat by Pulse Oximetry (%) 98 08/25/18 17:20 Constitutional: Yes: No Distress, Calm Eyes: Yes: Conjunctiva Clear, EOM Intact, PERRL HENT: Yes: WNL, Atraumatic, Normocephalic Neck: Yes: WNL, Supple, Trachea Midline Cardiovascular: Yes: Regular Rate and Rhythm, Murmur, S1, S2 Respiratory: Yes: WNL, Regular, CTA Bilaterally Gastrointestinal: Yes: WNL, Normal Bowel Sounds, Soft ...Rectal Exam: Yes: Deferred Renal/: Yes: WNL Breast(s): Yes: WNL Musculoskeletal: Yes: WNL Extremities: Yes: Erythema, Other ( multiple tender,warm non fluctuant nodules on the shoulder/forearms b/l, hot to touch) Edema: No Peripheral Pulses WNL: Yes Integumentary: Yes: Erythema, Other Wound/Incision: Yes: Reddened, Other (bruising b/l arms) Neurological: Yes: WNL, Alert, Oriented, Cran Nerves II-XII Intact ...Motor Strength: WNL Psychiatric: Yes: WNL, Alert, Oriented Labs: CBC, BMP 08/25/18 19:40 08/25/18 19:40 Laboratory Results - last 24 hr 08/25/18 08/25/18 08/25/18 19:10 19:40 19:40 WBC 8.2 RBC 4.02 Hgb 9.2 L Hct 29.6 L MCV 73.5 L MCH 22.9 L MCHC 31.2 L RDW 15.4 Plt Count 409 MPV 8.8 Absolute Neuts (auto) 6.8 Neutrophils % No Result Required. Neutrophils % (Manual) 93.0 H* Lymphocytes % No Result Required. Lymphocytes % (Manual) 5.0 L Monocytes % (Manual) 2 L Hypochromia 2+ Platelet Estimate Slt increase Platelet Comment Few large platelets Microcytosis 1+ PT with INR 19.6 H INR 1.77 H PTT (Actin FS) 28.4 Sodium Potassium Chloride Carbon Dioxide Anion Gap BUN Creatinine Creat Clearance w eGFR Random Glucose Lactic Acid Calcium Total Bilirubin AST ALT Alkaline Phosphatase Troponin I Total Protein Albumin Urine Color Yellow Urine Appearance Clear Urine pH 6.0 Ur Specific [place] 1.010 Urine Protein Negative Urine Glucose (UA) Negative Urine Ketones Negative Urine Blood Negative Urine Nitrite Negative Urine Bilirubin Negative Urine Urobilinogen 0.2 Ur Leukocyte Esterase 1+ H Urine RBC 0-2 Urine WBC 5-10 Ur Epithelial Cells 1+ Urine Bacteria 2+ Urine HCG, Qual Opiates Screen Methadone Screen Barbiturate Screen Phencyclidine Screen Ur Amphetamines Screen MDMA (Ecstasy) Screen Benzodiazepines Screen Cocaine Screen U Marijuana (THC) Screen Alcohol, Quantitative 08/25/18 08/25/18 08/25/18 19:40 19:40 19:40 WBC RBC Hgb Hct MCV MCH MCHC RDW Plt Count MPV Absolute Neuts (auto) Neutrophils % Neutrophils % (Manual) Lymphocytes % Lymphocytes % (Manual) Monocytes % (Manual) Hypochromia Platelet Estimate Platelet Comment Microcytosis PT with INR INR PTT (Actin FS) Sodium 132 L Potassium 3.7 Chloride 98 Carbon Dioxide 19 L Anion Gap 15 BUN 16 Creatinine 0.6 Creat Clearance w eGFR > 60 Random Glucose 104 Lactic Acid 2.6 H* Calcium 8.9 Total Bilirubin 0.5 AST 20 ALT 14 Alkaline Phosphatase 85 Troponin I < 0.03 Total Protein 7.2 Albumin 3.4 Urine Color Urine Appearance Urine pH Ur Specific [place] Urine Protein Urine Glucose (UA) Urine Ketones Urine Blood Urine Nitrite Urine Bilirubin Urine Urobilinogen Ur Leukocyte Esterase Urine RBC Urine WBC Ur Epithelial Cells Urine Bacteria Urine HCG, Qual Opiates Screen Methadone Screen Barbiturate Screen Phencyclidine Screen Ur Amphetamines Screen MDMA (Ecstasy) Screen Benzodiazepines Screen Cocaine Screen U Marijuana (THC) Screen Alcohol, Quantitative 08/25/18 08/25/18 08/25/18 21:00 21:00 21:19 WBC RBC Hgb Hct MCV MCH MCHC RDW Plt Count MPV Absolute Neuts (auto) Neutrophils % Neutrophils % (Manual) Lymphocytes % Lymphocytes % (Manual) Monocytes % (Manual) Hypochromia Platelet Estimate Platelet Comment Microcytosis PT with INR INR PTT (Actin FS) Sodium Potassium Chloride Carbon Dioxide Anion Gap BUN Creatinine Creat Clearance w eGFR Random Glucose Lactic Acid Calcium Total Bilirubin AST ALT Alkaline Phosphatase Troponin I Total Protein Albumin Urine Color Urine Appearance Urine pH Ur Specific [place] Urine Protein Urine Glucose (UA) Urine Ketones Urine Blood Urine Nitrite Urine Bilirubin Urine Urobilinogen Ur Leukocyte Esterase Urine RBC Urine WBC Ur Epithelial Cells Urine Bacteria Urine HCG, Qual Negative Opiates Screen Positive A* Methadone Screen Negative Barbiturate Screen Negative Phencyclidine Screen Negative Ur Amphetamines Screen Negative MDMA (Ecstasy) Screen Negative Benzodiazepines Screen Negative Cocaine Screen Positive A* U Marijuana (THC) Screen Negative Alcohol, Quantitative < 3.0 Intake & Output 08/22/18 08/23/18 08/24/18 08/25/18 23:59 23:59 23:59 23:59 Weight 65.771 kg Problem List - Problems (1) Cellulitis Assessment/Plan: Likely secondary from skin popping, IV Drug abuse Blood Cultures-pending Appreciate ID consult Continue Vancomycin Tylenol prn Monitor CBC Monitor vitals Neurovascular checks Code(s): L03.90 - CELLULITIS, UNSPECIFIED (2) Lactic acidosis Assessment/Plan: Likely secondary to Cellulitis NS bolus given Trend Lactate Code(s): E87.2 - ACIDOSIS (3) Skin-picking disorder Assessment/Plan: IVDU Code(s): F42.4 - EXCORIATION (SKIN-PICKING) DISORDER (4) Heroin abuse Assessment/Plan: Ativan Protocol Appreciate Detox Consult Code(s): F11.10 - OPIOID ABUSE, UNCOMPLICATED (5) Opioid dependence, uncomplicated Assessment/Plan: Appreciate Outside Repairer Special Consult Code(s): F11.20 - OPIOID DEPENDENCE, UNCOMPLICATED (6) Drug-induced mood disorder Assessment/Plan: See above Code(s): F19.94 - OTH PSYCHOACTIVE SUBSTANCE USE, UNSP W MOOD DISORDER (7) OCD (obsessive compulsive disorder) Code(s): F42.9 - OBSESSIVE-COMPULSIVE DISORDER, UNSPECIFIED Assessment/Plan This is a 33 y/o young woman with PMHx of IVDU, Depression, Anxiety, OCD, PCOS, Endometriosis, DVT (LE). Admitted for Bilateral Arms Cellulitis, Heroin Dependence for further evaluation of their emergent condition. Plan: See Problem List FEN Replete lytes prn Regular Diet DVT ppx OOB SCDs Heparin SQ Code Status: Full Code Dispo: Requires Inpatient Care Visit type - Emergency Visit Emergency Visit: Yes ED Registration Date: 08/25/18 Care time: The patient presented to the Emergency Department on the above date and was hospitalized for further evaluation of their emergent condition. - New Patient This patient is new to me today: Yes Date on this admission: 08/25/18 - Critical Care Critical Care patient: No
[2018-08-25] MEDS ORDERED: SODIUM CHLORIDE 1,000 ML IV STA (23:22)
[2018-08-25 23:27] LABS: METHADONE, UR NEGATIVE ng/ml (CUTOFF=300); PHENCYCLIDINE,URINE NEGATIVE ng/ml (CUTOFF=25); URINE AMPHETAMINES NEGATIVE ng/ml (CUTOFF=500); URINE BARBITURATES NEGATIVE ng/ml (CUTOFF=200); URINE BENZODIAZEPINES NEGATIVE ng/ml (CUTOFF=200)
[2018-08-25 23:32] LABS: COCAINE, UR POSITIVE ng/ml (CUTOFF=300); OPIATES, URI POSITIVE ng/ml (CUTOFF=300)
[2018-08-26 01:48] VITALS: BMI 25.9
[2018-08-26] MEDS ORDERED: LORazepam 0.5 MG TABLET ONE ×3 (02:21→10:12)
[2018-08-26] MEDS: LORazepam 1 MG TABLET PO PRN ×3 (02:23→10:21)
[2018-08-26] MEDS ORDERED: SODIUM CHLORIDE 1,000 ML IV STA (03:30)
[2018-08-26] MEDS ORDERED: diphenhydrAMINE HCL 25 MG CAPSULE (FP) PO ONE (03:30)
[2018-08-26 07:50] LABS: ANION GAP 10 MMOL/L (8-16); BLOOD UREA NITROGEN 11 mg/dl (7-18); CALCIUM 8.5 mg/dl (8.5-10); CHLORIDE 103 mmol/L (98-107); CO2 24 mmol/L (21-32); CREATININE 0.5 mg/dl (0.55-1.3); GLUCOSE,RANDOM 101 mg/dl (74-106); SODIUM 137 mmol/L (136-145)
[2018-08-26 07:54] LABS: BASO % 0.1 % (0-2.0); EOS % 0.1 % (0-4.5); HEMATOCRIT 27.4 % (32.4-45.2); HEMOGLOBIN 8.6 GM/dl (10.7-15.3); MCHC 31.3 g/dl (32.0-36.0); MEAN CELL VOLUME 73.7 fl (80-96); MEAN PLT VOLUME 8.9 fl (7.5-11.1); MONO % 5.7 % (3.8-10.2); NEUT % 82.1 % (42.8-82.8); PLATELET COUNT 377 K/MM3 (134-434); RBC 3.71 M/mm3 (3.60-5.2); RDW 15.4 % (11.6-15.6)
[2018-08-26] MEDS ORDERED: VANCOMYCIN 1,000 MG in DEXTROSE 5%-WATER - 250 ML IVPB SCH (10:00)
--- NOTE | 2018-08-26 10:26 | ECHO ---
Name: GRABIELLESTERLILLI HARDEN Exam:Adult Echocardiogram Study Date: 08/26/2018 08:02 AM Age: 33 yrs Reason For Study: R/O Endocarditis Height: 61 in Weight: 146 lb BSA: 1.7 m2 MMode/2D Measurements & Calculations IVSd: 0.77 cm Ao root diam: 2.6 cm LVIDd: 4.6 cm LA dimension: 3.0 cm LVIDs: 3.0 cm LVPWd: 0.75 cm EDV(Teich): 98.2 ml LVOT diam: 1.9 cm ESV(Teich): 33.8 ml Doppler Measurements & Calculations MV E max gopal: 126.6 cm/sec MV A max gopal: 84.6 cm/sec MV E/A: 1.5 Left Ventricle The left ventricular size, thickness and function are normal. Ejection Fraction = 55-60%. The transmi tral spectral Doppler flow pattern is normal for age. Right Ventricle The right ventricle is normal in size and function. Atria Normal left and right atrial size and function. Mitral Valve The mitral valve is normal in structure and function. There is no mitral valve stenosis. There is mil d mitral regurgitation. Tricuspid Valve The tricuspid valve is normal in structure and function. There is mild tricuspid regurgitation. Aortic Valve The aortic valve is trileaflet. No hemodynamically significant valvular aortic stenosis. No aortic regurgitation is present. Pulmonic Valve The pulmonic valve is not well seen, but is grossly normal. There is no pulmonic valvular stenosis. Great Vessels The aortic root is normal size. Pericardium/Pleura There is no pericardial effusion. Interpretation Summary The left ventricular size, thickness and function are normal Ejection Fraction = 55-60%. The right ventricle is normal in size and function. There is mild mitral regurgitation. There is mild tricuspid regurgitation. There is no pericardial effusion. MD Gill *Uriel 08/26/2018 10:25 AM
[2018-08-26] MEDS: METHADONE HCL 10 MG TABLET (FOR DETOX USE ONLY) PO ONE (11:00)
[2018-08-26] MEDS ORDERED: DEXTROSE 5%-0.45% SALINE 1,000 ML IV SCH (11:00)
--- NOTE | 2018-08-26 11:22 | PN ---
[facility] COWS - Scale Resting Pulse: 0= NC 80 or Below Sweatin= Chills/Flushing Restless Observation: 3= Extraneous Movement Pupil Size: 1= Pupils >than Normal Bone or Joint Aches: 2= Severe Diffuse Aches Runny Nose/ Eye Tearin= Nasal Congestion GI Upset > 30mins: 3= Vomiting/Diarrhea Tremor Observation of Outstretched Hands: 1= Tremor [place], Not Seen Yawning Observation: 0= None Anxiety or Irritability: 4=Extreme Anxiety Goose Flesh Skin: 0=Smooth Skin COWS Score: 16 [facility] Progress Note (SOAP) Subjective: pt referred for consultation regarding opiate use , reports 1 bag heroin via skin popping x 1 week, previous max 5 bags heroin /day via IVDU x 2.5 years , needles from the pharmacy , denies sharing or re-using, had arm abscess in the past , longest sobriety 2 weeks while in detox / rehab , approximately 6 months ago . Denies OD . Cocaine : 1 bag via inhalation every other day , denies w/d seizures . denies other illicits or ETOH . Currently hospitalized for UE cellulitis , meds as below. Active Medications Vancomycin HCl 1,000 mg/ (Dextrose) 250 mls @ 200 mls/hr IVPB Q24H MARIELY; Protocol Dextrose/Sodium Chloride (D5-1/2ns -) 1,000 mls @ 125 mls/hr IV ASDIR MARIELY Lorazepam (Ativan -) 0.5 mg PO Q6H MARIELY Stop: 08/29/18 05:01 Lorazepam (Ativan -) 0.5 mg PO Q4H PRN PRN Reason: Symptoms of Withdrawal Stop: 08/29/18 05:00 Lorazepam (Ativan -) 1 mg PO 0500,1100,1700,2300 MARIELY Stop: 08/27/18 23:01 Lorazepam (Ativan -) 1 mg PO Q4H PRN PRN Reason: Symptoms of Withdrawal Stop: 08/28/18 05:00 Last Admin: 08/26/18 10:21 Dose: 1 mg Reference #: [id number] Others' Prescriptions Patient Name: Nataly Saldaña Date: 1985 Address: [address] [place] [address] Sex: Female Rx Written Rx Dispensed Drug Quantity Days Supply Prescriber Name 12/27/2017 01/04/2018 buprenorphine-naloxone 8-2 mg sl tablet 60 30 Hina, Turner 12/27/2017 01/04/2018 dextroamp-amphet er 10 mg cap 30 30 Hina, Turner 10/13/2017 10/15/2017 clonazepam 0.5 mg tablet 30 15 Young Gomez PMHx : Depression, Anxiety, OCD, PCOS, DVT (LE), Endometriosis. SHx : no children , lives w/ grandparents. Objective: wnwd , moderate distress , restless, agitated , mild tremors , symptoms as above. CBC, BMP 08/26/18 07:31 08/26/18 07:31 Vital Signs - 24 hr 08/25/18 08/25/18 08/26/18 17:20 22:30 03:00 Temperature 102.2 F H 99.7 F H Pulse Rate 113 H 113 H Respiratory 22 H 18 Rate Blood Pressure 106/62 113/63 O2 Sat by Pulse 98 100 100 Oximetry (%) 08/26/18 08/26/18 03:01 09:36 Temperature 98.8 F Pulse Rate 103 H Respiratory 18 18 Rate Blood Pressure 105/53 L O2 Sat by Pulse 100 Oximetry (%) Assessment: opioid dependence with withdrawal cocaine dependence Plan: Methadone taper. Pt to consider inpatient rehab or outpatient program upon d/c from this facility. Verbalizes understanding and agreement w/ POC.
[2018-08-26] MEDS ORDERED: METHADONE HCL 5 MG TABLET (FOR DETOX USE ONLY) ONE (11:25)
[2018-08-26] MEDS ORDERED: VANCOMYCIN 1 GRAM (PRE-DOCKED) 1,000 MG/250 ML BAG IVPB SCH (12:00)
--- NOTE | 2018-08-26 13:04 | PN ---
Physical Exam: SUBJECTIVE: Patient seen and examined at bedside. Has diarrhea. Pain in both arms. OBJECTIVE: Vital Signs Period Temp Pulse Resp BP Sys/Reece Pulse Ox Last 24 Hr 98.8 F-102.2 F 103-113 18-22 105-113/53-63 98-100 GENERAL: The patient is awake, alert, and fully oriented, in no acute distress. LUNGS: Breath sounds equal, clear to auscultation bilaterally HEART: Regular rate and rhythm, S1, S2 without murmur, rub or gallop. ABDOMEN: Soft, nontender, nondistended, normoactive bowel sounds; small indurated area RLQ, mild erythema UPPER EXTREMITIES: Bilateral biceps and right forearm: indurated, erythematous, multiple puncture sites, +tenderness; no drainage seen LOWER EXTREMITIES: 2+ pulses, warm, well-perfused, no edema. NEUROLOGICAL: Cranial nerves II through XII grossly intact. Normal speech, steady gait. No tremors. Anxious. Laboratory Results - last 24 hr 08/25/18 08/25/18 08/25/18 19:10 19:40 19:40 WBC 8.2 RBC 4.02 Hgb 9.2 L Hct 29.6 L MCV 73.5 L MCH 22.9 L MCHC 31.2 L RDW 15.4 Plt Count 409 MPV 8.8 Absolute Neuts (auto) 6.8 Neutrophils % No Result Required. Neutrophils % (Manual) 93.0 H* Lymphocytes % No Result Required. Lymphocytes % (Manual) 5.0 L Monocytes % Monocytes % (Manual) 2 L Eosinophils % Basophils % Hypochromia 2+ Platelet Estimate Slt increase Platelet Comment Few large platelets Microcytosis 1+ PT with INR 19.6 H INR 1.77 H PTT (Actin FS) 28.4 Sodium Potassium Chloride Carbon Dioxide Anion Gap BUN Creatinine Creat Clearance w eGFR Random Glucose Lactic Acid Calcium Total Bilirubin AST ALT Alkaline Phosphatase Troponin I Total Protein Albumin Urine Color Yellow Urine Appearance Clear Urine pH 6.0 Ur Specific [place] 1.010 Urine Protein Negative Urine Glucose (UA) Negative Urine Ketones Negative Urine Blood Negative Urine Nitrite Negative Urine Bilirubin Negative Urine Urobilinogen 0.2 Ur Leukocyte Esterase 1+ H Urine RBC 0-2 Urine WBC 5-10 Ur Epithelial Cells 1+ Urine Bacteria 2+ Urine HCG, Qual Random Vancomycin Opiates Screen Methadone Screen Barbiturate Screen Phencyclidine Screen Ur Amphetamines Screen MDMA (Ecstasy) Screen Benzodiazepines Screen Cocaine Screen U Marijuana (THC) Screen Alcohol, Quantitative HIV 1&2 Antibody Screen HIV P24 Antigen 08/25/18 08/25/18 08/25/18 19:40 19:40 19:40 WBC RBC Hgb Hct MCV MCH MCHC RDW Plt Count MPV Absolute Neuts (auto) Neutrophils % Neutrophils % (Manual) Lymphocytes % Lymphocytes % (Manual) Monocytes % Monocytes % (Manual) Eosinophils % Basophils % Hypochromia Platelet Estimate Platelet Comment Microcytosis PT with INR INR PTT (Actin FS) Sodium 132 L Potassium 3.7 Chloride 98 Carbon Dioxide 19 L Anion Gap 15 BUN 16 Creatinine 0.6 Creat Clearance w eGFR > 60 Random Glucose 104 Lactic Acid 2.6 H* Calcium 8.9 Total Bilirubin 0.5 AST 20 ALT 14 Alkaline Phosphatase 85 Troponin I Total Protein 7.2 Albumin 3.4 Urine Color Urine Appearance Urine pH Ur Specific [place] Urine Protein Urine Glucose (UA) Urine Ketones Urine Blood Urine Nitrite Urine Bilirubin Urine Urobilinogen Ur Leukocyte Esterase Urine RBC Urine WBC Ur Epithelial Cells Urine Bacteria Urine HCG, Qual Random Vancomycin Opiates Screen Methadone Screen Barbiturate Screen Phencyclidine Screen Ur Amphetamines Screen MDMA (Ecstasy) Screen Benzodiazepines Screen Cocaine Screen U Marijuana (THC) Screen Alcohol, Quantitative HIV 1&2 Antibody Screen Negative HIV P24 Antigen Negative 08/25/18 08/25/18 08/25/18 19:40 21:00 21:00 WBC RBC Hgb Hct MCV MCH MCHC RDW Plt Count MPV Absolute Neuts (auto) Neutrophils % Neutrophils % (Manual) Lymphocytes % Lymphocytes % (Manual) Monocytes % Monocytes % (Manual) Eosinophils % Basophils % Hypochromia Platelet Estimate Platelet Comment Microcytosis PT with INR INR PTT (Actin FS) Sodium Potassium Chloride Carbon Dioxide Anion Gap BUN Creatinine Creat Clearance w eGFR Random Glucose Lactic Acid Calcium Total Bilirubin AST ALT Alkaline Phosphatase Troponin I < 0.03 Total Protein Albumin Urine Color Urine Appearance Urine pH Ur Specific [place] Urine Protein Urine Glucose (UA) Urine Ketones Urine Blood Urine Nitrite Urine Bilirubin Urine Urobilinogen Ur Leukocyte Esterase Urine RBC Urine WBC Ur Epithelial Cells Urine Bacteria Urine HCG, Qual Negative Random Vancomycin Opiates Screen Methadone Screen Barbiturate Screen Phencyclidine Screen Ur Amphetamines Screen MDMA (Ecstasy) Screen Benzodiazepines Screen Cocaine Screen U Marijuana (THC) Screen Alcohol, Quantitative < 3.0 HIV 1&2 Antibody Screen HIV P24 Antigen 08/25/18 08/26/18 08/26/18 21:19 02:00 07:31 WBC 7.0 RBC 3.71 Hgb 8.6 L Hct 27.4 L MCV 73.7 L MCH 23.0 L MCHC 31.3 L RDW 15.4 Plt Count 377 MPV 8.9 Absolute Neuts (auto) 5.8 Neutrophils % 82.1 Neutrophils % (Manual) Lymphocytes % 12.0 Lymphocytes % (Manual) Monocytes % 5.7 Monocytes % (Manual) Eosinophils % 0.1 Basophils % 0.1 Hypochromia Platelet Estimate Platelet Comment Microcytosis PT with INR INR PTT (Actin FS) Sodium Potassium Chloride Carbon Dioxide Anion Gap BUN Creatinine Creat Clearance w eGFR Random Glucose Lactic Acid 2.6 H* Calcium Total Bilirubin AST ALT Alkaline Phosphatase Troponin I Total Protein Albumin Urine Color Urine Appearance Urine pH Ur Specific [place] Urine Protein Urine Glucose (UA) Urine Ketones Urine Blood Urine Nitrite Urine Bilirubin Urine Urobilinogen Ur Leukocyte Esterase Urine RBC Urine WBC Ur Epithelial Cells Urine Bacteria Urine HCG, Qual Random Vancomycin Opiates Screen Positive A* Methadone Screen Negative Barbiturate Screen Negative Phencyclidine Screen Negative Ur Amphetamines Screen Negative MDMA (Ecstasy) Screen Negative Benzodiazepines Screen Negative Cocaine Screen Positive A* U Marijuana (THC) Screen Negative Alcohol, Quantitative HIV 1&2 Antibody Screen HIV P24 Antigen 08/26/18 08/26/18 08/26/18 07:31 07:31 10:35 WBC RBC Hgb Hct MCV MCH MCHC RDW Plt Count MPV Absolute Neuts (auto) Neutrophils % Neutrophils % (Manual) Lymphocytes % Lymphocytes % (Manual) Monocytes % Monocytes % (Manual) Eosinophils % Basophils % Hypochromia Platelet Estimate Platelet Comment Microcytosis PT with INR INR PTT (Actin FS) Sodium 137 Potassium 4.0 Chloride 103 Carbon Dioxide 24 Anion Gap 10 BUN 11 Creatinine 0.5 L Creat Clearance w eGFR > 60 Random Glucose 101 Lactic Acid 1.4 Calcium 8.5 Total Bilirubin AST ALT Alkaline Phosphatase Troponin I Total Protein Albumin Urine Color Urine Appearance Urine pH Ur Specific [place] Urine Protein Urine Glucose (UA) Urine Ketones Urine Blood Urine Nitrite Urine Bilirubin Urine Urobilinogen Ur Leukocyte Esterase Urine RBC Urine WBC Ur Epithelial Cells Urine Bacteria Urine HCG, Qual Random Vancomycin 3.1 L Opiates Screen Methadone Screen Barbiturate Screen Phencyclidine Screen Ur Amphetamines Screen MDMA (Ecstasy) Screen Benzodiazepines Screen Cocaine Screen U Marijuana (THC) Screen Alcohol, Quantitative HIV 1&2 Antibody Screen HIV P24 Antigen Active Medications Generic Name Dose Route Start Last Admin Trade Name Freq PRN Reason Stop Dose Admin Clonidine 0.1 mg 08/26/18 11:22 Catapres - PO 08/28/18 23:59 Q6H PRN Withdrawal Symptoms Dextrose/Sodium Chloride 1,000 mls @ 125 mls/hr 08/26/18 11:00 08/26/18 11:15 D5-1/2ns - IV 125 mls/hr ASDIR MARIELY Administration Vancomycin HCl 1,000 mg in 250 mls @ 166.667 mls/hr 08/27/18 00:00 Vancomycin (Pre-Docked) IVPB Q12H MARIELY Protocol Vancomycin HCl 1,000 mg in 250 mls @ 166.667 mls/hr 08/26/18 12:00 Vancomycin (Pre-Docked) IVPB 08/26/18 13:29 Q12H MARIELY Protocol Methadone HCl 15 mg 08/27/18 10:00 Dolophine - PO 08/27/18 10:01 ONCE ONE Methadone HCl 10 mg 08/28/18 10:00 Dolophine - PO 08/28/18 10:01 ONCE ONE Methadone HCl 5 mg 08/29/18 06:00 Dolophine - PO 08/29/18 06:01 ONCE ONE ASSESSMENT/PLAN 33 year-old female with a PMH significant for polysubstance abuse (heroin, cocaine), PCOS, depression and anxiety. Admitted for sepsis secondary to skin cellulitis. Severe sepsis secondary to bilateral arm cellulitis --T102.2, p113, lactic acid 2.6, cellulitis bilateral arms on admission --Vanc and 2L fluid in ED, lacid acid now wnl --random vanc level low --continue Vanc --cultures pending --IV fluids --ID following Polysubstance abuse Acute heroin withdrawal --last heroin use 08/25, skin pops --utox +cocaine --methadone taper started today --clonidine PRN for withdrawal symptoms --having diarrhea; IV fluids; monitor lytes --Dr. Celaya following PCOS --no acute issues FEN Fluids: D51/2@125mL/hr Electrolytes: replete as indicated Nutrition: regular diet DVT prophylaxis: subq lovenox Dispo: continues to require inpatient care. Full code. Visit type - Emergency Visit Emergency Visit: Yes ED Registration Date: 08/25/18 Care time: The patient presented to the Emergency Department on the above date and was hospitalized for further evaluation of their emergent condition. - New Patient This patient is new to me today: Yes Date on this admission: 08/26/18 - Critical Care Critical Care patient: No
--- NOTE | 2018-08-26 13:20 | CON.ID ---
Consult - Past Medical History Cardio/Vascular: Yes: Deep Vein Thrombosis, Murmur Hepatobiliary: Yes: Cholelithiasis Renal/: Yes: Other (PCOS) ...LMP: 02/19/18 ...: No Infectious Disease: Yes: Other (b/l hand abscesses) Psych: Yes: Anxiety, Depression, Other Dermatology: Yes: Cellulitis - Past Surgical History Past Surgical History: Yes: Tonsillectomy - Alcohol/Substance Use Hx Alcohol Use: No History of Substance Use: reports: Cocaine, Heroin, Marijuana - Smoking History Smoking history: Never smoked Have you smoked in the past 12 months: Yes Aproximately how many cigarettes per day: 0 - Social History Usual Living Arrangement: Other (lives with grandparents) ADL: Independent Occupation: Unemployed History of Recent Travel: No Home Medications - Allergies Allergies/Adverse Reactions: Allergies Allergy/AdvReac Type Severity Reaction Status Date / Time ibuprofen [From Motrin] AdvReac Severe Verified 04/28/18 16:28 NSAIDS (Non-Steroidal AdvReac Severe Verified 04/28/18 16:28 Anti-Inflamma - Home Medications Home Medications: Ambulatory Orders Paroxetine HCl [Paxil] 40 mg PO HS 05/12/15 Bupropion HCl [Wellbutrin Xl -] 300 mg PO HS #30 tab.sr.24h 11/24/17 Family Disease History - Family Disease History Family Disease History: Heart Disease: Grandparent, Father, Other: Mother (Alive : Rheumatoid Arthritis), Brother (1, healthy), Sister (1, healthy) Physical Exam Vital Signs: Vital Signs Temperature 98.8 F 08/26/18 03:01 Pulse Rate 103 H 08/26/18 03:01 Respiratory Rate 18 08/26/18 09:36 Blood Pressure 105/53 L 08/26/18 03:01 O2 Sat by Pulse Oximetry (%) 100 08/26/18 09:36 Labs: CBC, BMP 08/26/18 07:31 08/26/18 07:31
[2018-08-26] MEDS: PIPERACILLIN/TAZOB 3.375 GM 3.375 GM in DEXTROSE 5%-WATER - 50 ML IVPB SCH ×2 (13:35→18:10)
--- NOTE | 2018-08-26 13:53 | EKG ---
Test Reason : Blood Pressure : / mmHG Vent. Rate : 091 BPM Atrial Rate : 091 BPM P-R Int : 142 ms QRS Dur : 086 ms QT Int : 368 ms P-R-T Axes : 048 069 021 degrees QTc Int : 452 ms NORMAL SINUS RHYTHM POSSIBLE LEFT ATRIAL ENLARGEMENT NONSPECIFIC ST ABNORMALITY ABNORMAL ECG WHEN COMPARED WITH ECG OF 28-APR-2018 20:46, NO SIGNIFICANT CHANGE WAS FOUND Confirmed by TRISTAN LEE MD ([id number]) on 08/26/2018 1:53:02 PM Referred By: DR SANCHEZ Confirmed By:TRISTAN LEE MD
[2018-08-26] MEDS: VANCOMYCIN 1,250 MG in DEXTROSE 5%-WATER - 250 ML IVPB SCH (14:30)
[2018-08-26] MEDS ORDERED: PIPERACILLIN/TAZOBACTAM 3.375 GM VIAL IVPB ONE (15:40)
[2018-08-26] MEDS ORDERED: DEXTROSE 5%-WATER - 50 ML IVPB ONE (15:40)
[2018-08-27] MEDS ORDERED: VANCOMYCIN 1 GRAM (PRE-DOCKED) 1,000 MG/250 ML BAG IVPB SCH
[2018-08-27] MEDS ORDERED: PIPERACILLIN/TAZOBACTAM 3.375 GM VIAL IVPB ONE ×2 (01:51→09:34)
[2018-08-27] MEDS ORDERED: DEXTROSE 5%-WATER - 50 ML IVPB ONE ×2 (01:52→09:35)
[2018-08-27] MEDS: PIPERACILLIN/TAZOB 3.375 GM 3.375 GM in DEXTROSE 5%-WATER - 50 ML IVPB SCH ×3 (01:58→17:23)
[2018-08-27] MEDS: VANCOMYCIN 1,250 MG in DEXTROSE 5%-WATER - 250 ML IVPB SCH ×2 (02:18→14:30)
[2018-08-27] MEDS ORDERED: LORazepam 1 MG TABLET PO SCH (05:00)
[2018-08-27] MEDS: METHADONE HCL 10 MG TABLET (FOR DETOX USE ONLY) PO ONE (09:49)
[2018-08-27] MEDS: cloNIDine HCL 0.1 MG TABLET PO PRN ×3 (09:49→23:25)
[2018-08-27] MEDS: ENOXAPARIN NA (PORCINE) 40 MG/0.4 ML DISP.SYRIN SQ SCH (09:51)
[2018-08-27] MEDS: METOCLOPRAMIDE HCL INJECTION 10 MG/2 ML VIAL IVPUSH PRN ×3 (09:51→23:25)
[2018-08-27] MEDS ORDERED: METHADONE HCL 5 MG TABLET (FOR DETOX USE ONLY) PO ONE (10:00)
[2018-08-27] MEDS ORDERED: diphenhydrAMINE HCL 25 MG CAPSULE (FP) PO ONE (13:24)
--- NOTE | 2018-08-27 13:27 | PN ---
Physical Exam: SUBJECTIVE: Patient seen and examined at bedside. Feeling better. Pain in arms is better but complaining of itching, asking for IV benadryl. OBJECTIVE: Vital Signs Period Temp Pulse Resp BP Sys/Reece Pulse Ox Last 24 Hr 99.0 F-100.1 F 82-108 16-18 104-116/56-67 95-100 GENERAL: The patient is awake, alert, and fully oriented, in no acute distress. LUNGS: Breath sounds equal, clear to auscultation bilaterally HEART: Regular rate and rhythm, S1, S2 without murmur, rub or gallop. ABDOMEN: Soft, nontender, nondistended, normoactive bowel sounds; small indurated area RLQ, mild erythema UPPER EXTREMITIES: Bilateral biceps and right forearm: indurated, erythema resolving, +tenderness; no drainage seen LOWER EXTREMITIES: 2+ pulses, warm, well-perfused, no edema. NEUROLOGICAL: Cranial nerves II through XII grossly intact. Normal speech, steady gait. No tremors. Anxious. Active Medications Generic Name Dose Route Start Last Admin Trade Name Freq PRN Reason Stop Dose Admin Clonidine 0.1 mg 08/26/18 11:22 08/27/18 09:49 Catapres - PO 08/28/18 23:59 0.1 mg Q6H PRN Administration Withdrawal Symptoms Diphenhydramine HCl 25 mg 08/27/18 13:24 Benadryl - PO 08/27/18 13:25 ONCE ONE Enoxaparin Sodium 40 mg 08/27/18 10:00 08/27/18 09:51 Lovenox - SQ 40 mg DAILY MARIELY Administration Dextrose/Sodium Chloride 1,000 mls @ 125 mls/hr 08/26/18 11:00 08/26/18 11:15 D5-1/2ns - IV 125 mls/hr ASDIR MARIELY Administration Vancomycin HCl 1,250 mg/ 250 mls @ 166.667 mls/hr 08/26/18 14:30 08/27/18 02: 18 Dextrose IVPB 166.667 mls/hr Q12H MARIELY Administration Protocol Piperacillin Sod/Tazobactam 50 mls @ 100 mls/hr 08/26/18 13:30 08/27/18 09:50 Sod 3.375 gm/ Dextrose IVPB 100 mls/hr Q8H-IV MARIELY Administration Protocol Methadone HCl 10 mg 08/28/18 10:00 Dolophine - PO 08/28/18 10:01 ONCE ONE Methadone HCl 5 mg 08/29/18 06:00 Dolophine - PO 08/29/18 06:01 ONCE ONE Metoclopramide HCl 10 mg 08/26/18 15:01 08/27/18 09:51 Reglan Injection - IVPUSH 10 mg Q6H PRN Administration NAUSEA AND/OR VOMITING Pantoprazole Sodium 40 mg 08/27/18 13:30 Protonix - PO DAILY MARIELY ASSESSMENT/PLAN 33 year-old female with a PMH significant for polysubstance abuse (heroin, cocaine), PCOS, depression and anxiety. Admitted for sepsis secondary to skin cellulitis. Severe sepsis secondary to bilateral arm cellulitis --T102.2, p113, lactic acid 2.6, cellulitis bilateral arms on admission --Tm 100.1, lactic acid wnl --continue vanc (day #3), Zosyn (day #2) --cultures pending --ID following Polysubstance abuse Acute heroin withdrawal --last heroin use 08/25, skin pops --utox +cocaine --continue methadone taper, clonidine PRN for withdrawal symptoms --benadryl x 1 dose given for "itching"; if needed, PO ONLY; NO IV BENADRYL --detox Dr. Celaya following PCOS --no acute issues FEN Fluids: D51/2@75mL/hr Electrolytes: replete as indicated Nutrition: regular diet DVT prophylaxis: subq lovenox Dispo: continues to require inpatient care. Full code. Visit type - Emergency Visit Emergency Visit: Yes ED Registration Date: 08/25/18 Care time: The patient presented to the Emergency Department on the above date and was hospitalized for further evaluation of their emergent condition. - New Patient This patient is new to me today: No - Critical Care Critical Care patient: No
[2018-08-27 13:32] LABS: ANION GAP 13 MMOL/L (8-16); BLOOD UREA NITROGEN 10 mg/dl (7-18); CHLORIDE 102 mmol/L (98-107); CO2 24 mmol/L (21-32); CREATININE 0.6 mg/dl (0.55-1.3); GLUCOSE,RANDOM 118 mg/dl (74-106); POTASSIUM 3.5 mmol/L (3.5-5.1); SODIUM 139 mmol/L (136-145)
[2018-08-27 13:33] LABS: ALBUMIN 3.4 g/dl (3.4-5.0); ALK PHOS 79 U/L (45-117); BILIRUBIN,TOTAL 0.4 mg/dl (0.2-1); CALCIUM 9.2 mg/dl (8.5-10); PHOSPHOROUS 2.9 mg/dl (2.5-4.9); SGOT/AST 16 U/L (15-37); SGPT/ALT 12 U/L (13-61); TOT PROT 7.4 g/dl (6.4-8.2)
[2018-08-27] MEDS: PANTOPRAZOLE 40 MG TABLET (FP) PO SCH (14:00)
[2018-08-27 15:14] LABS: BASO % 0.1 % (0-2.0); HEMATOCRIT 31.6 % (32.4-45.2); HEMOGLOBIN 9.9 GM/dl (10.7-15.3); LYMPH % 11.9 % (8-40); MCH 23.3 pg (25.7-33.7); MCHC 31.2 g/dl (32.0-36.0); MEAN CELL VOLUME 74.7 fl (80-96); MEAN PLT VOLUME 9.4 fl (7.5-11.1); MONO % 3.9 % (3.8-10.2); NEUT % 84.1 % (42.8-82.8); PLATELET COUNT 488 K/MM3 (134-434); RBC 4.24 M/mm3 (3.60-5.2); RDW 15.6 % (11.6-15.6); WHITE BLOOD COUNT 8.5 K/mm3 (4.0-10.8)
[2018-08-27] MEDS: DEXTROSE 5%-0.45% SALINE 1,000 ML IV SCH (15:35)
[2018-08-27] MEDS: diphenhydrAMINE HCL 25 MG CAPSULE (FP) PO PRN (23:25)
[2018-08-28] MEDS ORDERED: PIPERACILLIN/TAZOBACTAM 3.375 GM VIAL IVPB ONE ×2 (01:15→08:57)
[2018-08-28] MEDS ORDERED: DEXTROSE 5%-WATER - 50 ML IVPB ONE ×2 (01:15→08:57)
[2018-08-28] MEDS: PIPERACILLIN/TAZOB 3.375 GM 3.375 GM in DEXTROSE 5%-WATER - 50 ML IVPB SCH ×3 (01:48→17:59)
[2018-08-28] MEDS: VANCOMYCIN 1,250 MG in DEXTROSE 5%-WATER - 250 ML IVPB SCH ×2 (03:07→13:34)
[2018-08-28] MEDS ORDERED: LORazepam 0.5 MG TABLET PO PRN (05:00)
[2018-08-28] MEDS ORDERED: LORazepam 0.5 MG TABLET PO SCH (05:00)
[2018-08-28] MEDS: METOCLOPRAMIDE HCL INJECTION 10 MG/2 ML VIAL IVPUSH PRN ×3 (05:44→19:34)
[2018-08-28] MEDS: cloNIDine HCL 0.1 MG TABLET PO PRN ×3 (06:15→19:34)
[2018-08-28] MEDS ORDERED: REFRIGERATED ANITBIOTICS ONE (08:58)
[2018-08-28 09:16] LABS: BASO % 0.3 % (0-2.0); EOS % 0.6 % (0-4.5); HEMATOCRIT 28.4 % (32.4-45.2); LYMPH % 18.1 % (8-40); MCH 23.3 pg (25.7-33.7); MCHC 31.8 g/dl (32.0-36.0); MEAN CELL VOLUME 73.2 fl (80-96); MEAN PLT VOLUME 8.8 fl (7.5-11.1); MONO % 5.4 % (3.8-10.2); NEUT % 75.6 % (42.8-82.8); PLATELET COUNT 444 K/MM3 (134-434); RBC 3.88 M/mm3 (3.60-5.2); RDW 15.6 % (11.6-15.6); WHITE BLOOD COUNT 7.9 K/mm3 (4.0-10.8)
[2018-08-28 09:24] LABS: ALBUMIN 3.1 g/dl (3.4-5.0); ALK PHOS 64 U/L (45-117); ANION GAP 11 MMOL/L (8-16); BILIRUBIN,TOTAL 0.3 mg/dl (0.2-1); BLOOD UREA NITROGEN 11 mg/dl (7-18); CHLORIDE 104 mmol/L (98-107); CO2 25 mmol/L (21-32); CREATININE 0.7 mg/dl (0.55-1.3); GLUCOSE,RANDOM 112 mg/dl (74-106); POTASSIUM 3.6 mmol/L (3.5-5.1); SGOT/AST 14 U/L (15-37); SGPT/ALT 11 U/L (13-61); SODIUM 140 mmol/L (136-145); TOT PROT 6.9 g/dl (6.4-8.2)
[2018-08-28] MEDS: PANTOPRAZOLE 40 MG TABLET (FP) PO SCH (09:49)
[2018-08-28] MEDS ORDERED: METHADONE HCL 10 MG TABLET (FOR DETOX USE ONLY) PO ONE (10:00)
--- NOTE | 2018-08-28 10:21 | PN ---
Physical Exam: SUBJECTIVE: Patient seen and examined, pt reports feeling better,cellulitis improved, no new complains. OBJECTIVE: Vital Signs Period Temp Pulse Resp BP Sys/Reece Pulse Ox Last 24 Hr 98.6 F-99.3 F 73-77 16-19 90-99/51-59 96-100 GENERAL: The patient is awake, alert, and fully oriented, in no acute distress. HEAD: Normal with no signs of trauma. EYES: PERRL, extraocular movements intact, sclera anicteric, conjunctiva clear. No ptosis. ENT: Ears normal, nares patent, oropharynx clear without exudates, moist mucous membranes. NECK: Trachea midline, full range of motion, supple. LUNGS: Breath sounds equal, clear to auscultation bilaterally, no wheezes, no crackles, no accessory muscle use. HEART: Regular rate and rhythm, S1, S2 without murmur, rub or gallop. ABDOMEN: Soft, nontender, nondistended, normoactive bowel sounds, no guarding, no rebound, no hepatosplenomegaly, no masses. Skin:Indurated erythema on bilateral upper arms improving, non- tender EXTREMITIES: 2+ pulses, warm, well-perfused, no edema. NEUROLOGICAL: Cranial nerves II through XII grossly intact. Normal speech, gait not observed. PSYCH: Normal mood, normal affect. SKIN: Warm, dry, normal turgor, no rashes or lesions noted Laboratory Results - last 24 hr 08/27/18 08/27/18 08/27/18 10:45 10:45 20:20 WBC 8.5 RBC 4.24 Hgb 9.9 L Hct 31.6 L D MCV 74.7 L MCH 23.3 L MCHC 31.2 L RDW 15.6 Plt Count 488 H MPV 9.4 Absolute Neuts (auto) 7.2 Neutrophils % 84.1 H Lymphocytes % 11.9 Monocytes % 3.9 Eosinophils % 0.0 Basophils % 0.1 Sodium 139 Potassium 3.5 Chloride 102 Carbon Dioxide 24 Anion Gap 13 BUN 10 Creatinine 0.6 Creat Clearance w eGFR > 60 Random Glucose 118 H Calcium 9.2 Phosphorus 2.9 Magnesium 2.0 Total Bilirubin 0.4 AST 16 ALT 12 L Alkaline Phosphatase 79 Total Protein 7.4 Albumin 3.4 Vancomycin Pre-Dose 16.5 L 08/28/18 08/28/18 07:00 07:00 WBC 7.9 RBC 3.88 Hgb 9.0 L Hct 28.4 L MCV 73.2 L MCH 23.3 L MCHC 31.8 L RDW 15.6 Plt Count 444 H MPV 8.8 Absolute Neuts (auto) 6.1 Neutrophils % 75.6 Lymphocytes % 18.1 Monocytes % 5.4 Eosinophils % 0.6 Basophils % 0.3 Sodium 140 Potassium 3.6 Chloride 104 Carbon Dioxide 25 Anion Gap 11 BUN 11 Creatinine 0.7 Creat Clearance w eGFR > 60 Random Glucose 112 H Calcium 9.0 Phosphorus Magnesium 2.0 Total Bilirubin 0.3 AST 14 L ALT 11 L Alkaline Phosphatase 64 D Total Protein 6.9 Albumin 3.1 L Vancomycin Pre-Dose Active Medications Generic Name Dose Route Start Last Admin Trade Name Freq PRN Reason Stop Dose Admin Clonidine 0.1 mg 08/26/18 11:22 08/28/18 06:15 Catapres - PO 08/28/18 23:59 0.1 mg Q6H PRN Administration Withdrawal Symptoms Diphenhydramine HCl 25 mg 08/27/18 15:38 08/27/18 23:25 Benadryl - PO 25 mg Q8H PRN Administration FOR ITCHING Enoxaparin Sodium 40 mg 08/27/18 10:00 08/27/18 09:51 Lovenox - SQ 40 mg DAILY MARIELY Administration Vancomycin HCl 1,250 mg/ 250 mls @ 166.667 mls/hr 08/26/18 14:30 08/28/18 03: 07 Dextrose IVPB 166.667 mls/hr Q12H MARIELY Administration Protocol Piperacillin Sod/Tazobactam 50 mls @ 100 mls/hr 08/26/18 13:30 08/28/18 09:49 Sod 3.375 gm/ Dextrose IVPB 100 mls/hr Q8H-IV MARIELY Administration Protocol Dextrose/Sodium Chloride 1,000 mls @ 75 mls/hr 08/27/18 15:12 08/27/18 15:35 D5-1/2ns - IV 75 mls/hr ASDIR MARIELY Administration Methadone HCl 5 mg 08/29/18 06:00 Dolophine - PO 08/29/18 06:01 ONCE ONE Metoclopramide HCl 10 mg 08/26/18 15:01 08/28/18 05:44 Reglan Injection - IVPUSH 10 mg Q6H PRN Administration NAUSEA AND/OR VOMITING Pantoprazole Sodium 40 mg 08/27/18 13:30 08/28/18 09:49 Protonix - PO 40 mg DAILY MARIELY Administration CxR: No acute pathology Blood Culture - No growth ASSESSMENT/PLAN: 33 year-old female with a PMH significant for polysubstance abuse (heroin, cocaine), PCOS, depression and anxiety. Admitted for sepsis secondary to skin cellulitis ( bilateral upper exts) *Severe sepsis secondary to bilateral arm cellulitis- improving - afebrile with no leukocytosis - lactic acidosis normalized 2.6>1.4, HR stable - will cont on vanc (day #4), Zosyn (day #3) - BC - no growth -ID following *Polysubstance abuse-Acute heroin withdrawal -last heroin use 08/25, skin pops -utox +cocaine and opiates -continue methadone taper, clonidine PRN for withdrawal symptoms -Benadryl x 1 dose given for "itching"; if needed, PO ONLY; NO IV BENADRYL -detox Dr. Yomi perez, rec to consider inpatient rehab or outpatient program upon d/c from this facility. - pt agreeing for inpatient referral - SW consult *PCOS -no acute issues * Anemia - likely dilutional - CBC trending down - will check Fe studies - f/u on CBC *FEN Fluids: D51/2@75mL/hr Electrolytes: replete as indicated Nutrition: regular diet DVT prophylaxis: subq Lovenox Dispo: continues to require inpatient care. Full code. Visit type - Emergency Visit Emergency Visit: Yes ED Registration Date: 08/25/18 Care time: The patient presented to the Emergency Department on the above date and was hospitalized for further evaluation of their emergent condition. - New Patient This patient is new to me today: Yes Date on this admission: 08/28/18 - Critical Care Critical Care patient: No
[2018-08-28] MEDS: LACTOBACILLUS ACIDOPHILUS 1 TABLET PO SCH (12:20)
[2018-08-28] MEDS: ENOXAPARIN NA (PORCINE) 40 MG/0.4 ML DISP.SYRIN SQ SCH (13:34)
[2018-08-28] MEDS: diphenhydrAMINE HCL 25 MG CAPSULE (FP) PO PRN ×2 (13:34→22:53)
[2018-08-28] MEDS: DEXTROSE 5%-0.45% SALINE 1,000 ML IV SCH (15:30)
--- NOTE | 2018-08-28 16:23 | PN ---
Progress Note, Physician - Current Medication List Current Medications: Active Medications Clonidine (Catapres -) 0.1 mg PO Q6H PRN PRN Reason: Withdrawal Symptoms Stop: 08/28/18 23:59 Last Admin: 08/28/18 13:15 Dose: 0.1 mg Diphenhydramine HCl (Benadryl -) 25 mg PO Q8H PRN PRN Reason: FOR ITCHING Last Admin: 08/28/18 13:34 Dose: 25 mg Enoxaparin Sodium (Lovenox -) 40 mg SQ DAILY MARIELY Last Admin: 08/28/18 13:34 Dose: 40 mg Vancomycin HCl 1,250 mg/ (Dextrose) 250 mls @ 166.667 mls/hr IVPB Q12H MARIELY; Protocol Last Admin: 08/28/18 13:34 Dose: 166.667 mls/hr Piperacillin Sod/Tazobactam (Sod 3.375 gm/ Dextrose) 50 mls @ 100 mls/hr IVPB Q8H-IV MARIELY; Protocol Last Admin: 08/28/18 09:49 Dose: 100 mls/hr Dextrose/Sodium Chloride (D5-1/2ns -) 1,000 mls @ 75 mls/hr IV ASDIR MARIELY Last Admin: 08/27/18 15:35 Dose: 75 mls/hr Lactobacillus Acidophilus (Bacid -) 1 tab PO DAILY MARIELY Last Admin: 08/28/18 12:20 Dose: 1 tab Methadone HCl (Dolophine -) 5 mg PO ONCE ONE Stop: 08/29/18 06:01 Metoclopramide HCl (Reglan Injection -) 10 mg IVPUSH Q6H PRN PRN Reason: NAUSEA AND/OR VOMITING Last Admin: 08/28/18 13:15 Dose: 10 mg Pantoprazole Sodium (Protonix -) 40 mg PO DAILY MARIELY Last Admin: 08/28/18 09:49 Dose: 40 mg - Objective Vital Signs: Vital Signs Temperature 98.9 F 08/28/18 14:05 Pulse Rate 67 08/28/18 14:05 Respiratory Rate 16 08/28/18 14:05 Blood Pressure 95/49 L 08/28/18 14:05 O2 Sat by Pulse Oximetry (%) 100 08/28/18 14:05 Labs: CBC, BMP 08/28/18 07:00 08/28/18 07:00 INR, PTT INR 1.77 (0.82-1.09) H 08/25/18 19:40
[2018-08-29] MEDS ORDERED: PIPERACILLIN/TAZOBACTAM 3.375 GM VIAL IVPB ONE ×2 (01:01→09:05)
[2018-08-29] MEDS ORDERED: DEXTROSE 5%-WATER - 50 ML IVPB ONE ×2 (01:01→09:06)
[2018-08-29] MEDS: PIPERACILLIN/TAZOB 3.375 GM 3.375 GM in DEXTROSE 5%-WATER - 50 ML IVPB SCH ×2 (01:11→09:18)
[2018-08-29] MEDS: VANCOMYCIN 1,250 MG in DEXTROSE 5%-WATER - 250 ML IVPB SCH (01:32)
[2018-08-29] MEDS: METOCLOPRAMIDE HCL INJECTION 10 MG/2 ML VIAL IVPUSH PRN ×2 (01:55→08:37)
[2018-08-29] MEDS ORDERED: cloNIDine HCL 0.1 MG TABLET PO ONE (03:09)
[2018-08-29] MEDS ORDERED: METHADONE HCL 5 MG TABLET (FOR DETOX USE ONLY) PO ONE (06:00)
[2018-08-29 08:06] LABS: SERUM IRON SATURATION 8 % (15-55); TOTAL IRON BINDING CAPACITY 291 ug/dL (250-450); UIBC 268 ug/dL (131-425)
[2018-08-29 08:37] LABS: BASO % 0.3 % (0-2.0); EOS % 0.4 % (0-4.5); HEMATOCRIT 31.3 % (32.4-45.2); HEMOGLOBIN 9.4 GM/dl (10.7-15.3); LYMPH % 16.9 % (8-40); MCH 22.3 pg (25.7-33.7); MCHC 30.2 g/dl (32.0-36.0); MEAN CELL VOLUME 73.9 fl (80-96); MEAN PLT VOLUME 8.9 fl (7.5-11.1); MONO % 7.1 % (3.8-10.2); NEUT % 75.3 % (42.8-82.8); PLATELET COUNT 455 K/MM3 (134-434); RBC 4.24 M/mm3 (3.60-5.2); RDW 15.2 % (11.6-15.6); WHITE BLOOD COUNT 9.6 K/mm3 (4.0-10.8)
[2018-08-29 08:41] VITALS: BP 106/65; PULSE 77; TEMP 98.5
[2018-08-29] MEDS: ENOXAPARIN NA (PORCINE) 40 MG/0.4 ML DISP.SYRIN SQ SCH (09:18)
[2018-08-29] MEDS: LACTOBACILLUS ACIDOPHILUS 1 TABLET PO SCH (09:18)
[2018-08-29] MEDS: PANTOPRAZOLE 40 MG TABLET (FP) PO SCH (09:18)
--- NOTE | 2018-08-29 10:42 | DS ---
Physical Exam: SUBJECTIVE: Patient seen and examined at bedside. States feeling much better. No pain in either arm. OBJECTIVE: Vital Signs Period Temp Pulse Resp BP Sys/Reece Pulse Ox Last 24 Hr 98.5 F-100.0 F 67-89 16-18 95-108/43-80 99-100 PHYSICAL EXAM GENERAL: The patient is awake, alert, and fully oriented, in no acute distress. LUNGS: Breath sounds equal, clear to auscultation bilaterally HEART: Regular rate and rhythm, S1, S2 without murmur, rub or gallop. ABDOMEN: Soft, nontender, nondistended, normoactive bowel sounds; small indurated area RLQ, mild erythema UPPER EXTREMITIES: Bilateral biceps and right forearm: areas of induration persist, no erythema, no warmth, no edema, no drainage LOWER EXTREMITIES: 2+ pulses, warm, well-perfused, no edema. NEUROLOGICAL: Cranial nerves II through XII grossly intact. Normal speech, steady gait. No tremors. LABS Laboratory Results - last 24 hr 08/28/18 08/28/18 08/29/18 07:00 07:00 07:10 WBC 9.6 RBC 4.24 Hgb 9.4 L Hct 31.3 L MCV 73.9 L MCH 22.3 L MCHC 30.2 L RDW 15.2 Plt Count 455 H MPV 8.9 Absolute Neuts (auto) 7.3 Neutrophils % 75.3 Lymphocytes % 16.9 Monocytes % 7.1 Eosinophils % 0.4 Basophils % 0.3 Iron 23 L TIBC 291 Iron Saturation 8 L Ferritin 54.0 Vitamin B12 615 Serum Folate 11 HOSPITAL COURSE: Date of Admission:08/25/18 Date of Discharge: 08/29/18 Pre hospital course 33 year-old female with a PMH significant for polysubstance abuse (heroin, cocaine), PCOS, depression and anxiety. Admitted for sepsis secondary to skin cellulitis. Severe sepsis secondary to bilateral arm cellulitis --T102.2, p113, lactic acid 2.6, cellulitis bilateral arms on admission --Vanc x 1 and 2L fluid given in ED --defervesced on 08/26, no leukocytosis, lactic acid trended down to wnl --treated with Vanc x ontinue vanc x 5 days and Zosyn x 4 days --cultures NGTD --discharged on Augmentin and clinda for an additional 7 days --was seen and evaluated by ID Polysubstance abuse Acute heroin withdrawal --last heroin use 08/25, skin pops --utox +cocaine --completed methadone taper, tolerated well --was seen and evaluated by detox Dr. Celaya --requested to go to [facility]; bed was secured on day of discharge; patient refused to go PCOS --no acute issues Minutes to complete discharge: 35 Discharge Summary Reason For Visit: CELLULITIS Current Active Problems Cellulitis (Acute) Heroin abuse (Acute) Lactic acidosis (Acute) Condition: Improved - Instructions Diet, Activity, Other Instructions: Two prescriptions have been sent to your pharmacy, augmentin and clindamycin. Both are antibiotics. Take these medications as directed and be sure to finish all the medication. At your request, we secured a rehabilitation bed for you today at [facility] and we would have provided transportation. You are now declining to go to [facility]. Referrals: Patricia Milan MD [Primary Care Provider] - Disposition: HOME - Home Medications Comprehensive Discharge Medication List: Ambulatory Orders Paroxetine HCl [Paxil] 40 mg PO HS 05/12/15 Bupropion HCl [Wellbutrin Xl -] 300 mg PO HS #30 tab.sr.24h 11/24/17 This patient is new to me today: No Emergency Visit: Yes ED Registration Date: 08/25/18 Care time: The patient presented to the Emergency Department on the above date and was hospitalized for further evaluation of their emergent condition. Critical Care patient: No - Discharge Referral Referred to [facility] No
== END 2018-08-29 12:08 | disposition home or self-care (01) | DRG 720 ==
LOC: FER 17:18 → OBSVTOIN 20:49 → FM/S 20:49
PROVIDERS: ADMIT Internal Medicine; ATTEND Nurse Practitioner Acute Care
DX: A41.89 Other specified sepsis (principal); L03.114 Cellulitis of left upper limb; L03.113 Cellulitis of right upper limb; F11.23 Opioid dependence with withdrawal; E87.2 Acidosis; F14.20 Cocaine dependence, uncomplicated; R50.9 Fever, unspecified; R00.0 Tachycardia, unspecified; F41.8 Other specified anxiety disorders; D64.9 Anemia, unspecified
CPT/HCPCS: 36415; 71045-TC-FY; 80048; 80053; 80307; 81003; 81015; 82607; 82728; 82746; 83540; 83550; 83605; 83735; 84100; 84484; 84703; 85025; 85610; 85730; 87040; 87086; 87389; 93005; 93306-TC; 99283-25; G0480; J0735; J7030

== ENCOUNTER 2018-11-03 18:57 | Emergency (ER) | payer OTHER ==
[2018-11-03] MEDS ORDERED: ONDANSETRON 4 MG/2 ML VIAL IVPUSH ONE (19:08)
--- NOTE | 2018-11-03 19:08 | PDOC ---
Rapid Medical Evaluation Medical Evaluation: Allergies Allergy/AdvReac Type Severity Reaction Status Date / Time ibuprofen [From Motrin] AdvReac Severe Verified 04/28/18 16:28 NSAIDS (Non-Steroidal AdvReac Severe Verified 04/28/18 16:28 Anti-Inflamma I have performed a brief in-person evaluation of this patient. The patient presents with a chief complaint of: Hx polysubstance abuse (heroin, cocaine), PCOS, depression, anxiety, gallstones presents with RUQ pain and nausea; was seen 04/2018 for similar complaint and states they wanted to get gallbadder taken out then, but patient refused Pertinent physical exam findings: +RUQ tenderness, also mild RLQ tenderness I have ordered the following: Labs, RUQ sono The patient will proceed to the ED for further evaluation. 11/03/18 19:06
[2018-11-03 19:13] VITALS: BP 115/77; PULSE 105; TEMP 98.7; BMI 24.0
--- NOTE | 2018-11-03 20:40 | PDOC ---
History of Present Illness - General Chief Complaint: Pain, Acute Stated Complaint: ABD PAIN Time Seen by Provider: 11/03/18 19:05 History Source: Patient, Old Records Exam Limitations: No Limitations - History of Present Illness Travel History: No Initial Comments: 11/03/18 20:35 HISTORY OF PRESENT ILLNESS: 33-year-old woman past medical history of cholelithiasis, PCOS, polysubstance abuse who presents emergency department for evaluation of sudden onset right upper quadrant pain after eating. Patient reports she was eating buttered noodles with salt approximately 20 minutes after starting her meal she felt a "sharp pulsating" sensation to her right upper quadrant. She rated the pain 7/10 reports the pain feels similar but worse than when she had recent gallbladder attack. Patient reports she was seen in this emergency department in 05/08 and was recommended for outpatient evaluation of her gallbladder. Patient is taken Tylenol for the pain which is been minimally effective. She reports feeling nauseous but has not vomited. She states the pain radiates to her right shoulder and slightly down to the right lower abdomen. She denies any dysuria, hematuria, vaginal bleeding, rectal bleeding, constipation or diarrhea. No recent travel or sick contacts. PAST MEDICAL HISTORY: see HPI SURGICAL HISTORY: Denies ALLERGIES: NSAIDS REVIEW OF SYSTEMS General/Constitutional: Denies fever or chills. Denies weakness, weight change. HEENT: Denies change in vision. Denies ear pain or discharge. Denies sore throat. Cardiovascular: Denies chest pain or shortness of breath. Respiratory: Denies cough, wheezing, or hemoptysis. Gastrointestinal: see HPI Genitourinary: Denies dysuria, frequency, or change in urination. Musculoskeletal: Denies joint or muscle swelling or pain. Denies neck or back pain. Skin and breasts: Denies rash or easy bruising. Neurologic: Denies headache, vertigo, loss of consciousness, or loss of sensation. Psychiatric: Denies depression or anxiety. Endocrine: Denies increased thirst. Denies abnormal weight change. Hematologic/Lymphatic: Denies anemia, easy bleeding, or history of blood clots. Allergic/Immunologic: Denies hives or skin allergy. Denies latex allergy. PHYSICAL EXAM General Appearance: Well-appearing, appropriately dressed. No apparent distress , no intoxication. Respiratory/Chest: Lungs CTAB. No shortness of breath, chest tenderness, respiratory distress, accessory muscle use. No crackles, rales, rhonchi, stridor , wheezing, dullness Cardiovascular: RRR. S1, S2. No JVD, murmur, bradycardia, tachycardia. Vascular Pulses: Dorsalis-Pedis (R): 2+, Dorsalis-Pedis (L): 2+ Gastrointestinal/Abdominal: Normal bowel sounds. Abdomen soft, non-distended. RUQ exquisitely tender. (-)Tolentino's. No rebound tenderness. No organomegaly, pulsatile mass, guarding, hernia, hepatomegaly, splenomegaly. Lymphatic: No adenopathy, tenderness. 11/03/18 23:56 Past History - Past Medical History Allergies/Adverse Reactions: Allergies Allergy/AdvReac Type Severity Reaction Status Date / Time ibuprofen [From Motrin] AdvReac Severe Verified 04/28/18 16:28 NSAIDS (Non-Steroidal AdvReac Severe Verified 04/28/18 16:28 Anti-Inflamma Home Medications: Ambulatory Orders Paroxetine HCl [Paxil] 40 mg PO HS 05/12/15 Bupropion HCl [Wellbutrin Xl -] 300 mg PO HS #30 tab.sr.24h 11/24/17 Amoxicillin/Potassium Clav [Augmentin 875-125 Tablet] 1 each PO BID #14 tablet 08/29/18 Clindamycin [Cleocin -] 300 mg PO TID #21 capsule 08/29/18 Anemia: Yes Asthma: No Cancer: No Cardiac Disorders: No CVA: No COPD: No CHF: No Dementia: No Diabetes: No GI Disorders: Yes (IBS) Disorders: Yes (POLYCYSTIC OVARIES) HTN: No Hypercholesterolemia: No Kidney Stones: Yes Liver Disease: No Psychiatric Problems: Yes (anxiety,depression) Seizures: No Thyroid Disease: No - Surgical History Abdominal Surgery: Yes (clearing of scar tissue on uterus, bladder 10/11/13) - Family Disease History Family Disease History: Heart Disease: Father (htn) - Reproductive History Cervical CA: No Dysfunctional Uterine Bleeding: Yes Ectopic : No Polycystic Ovaries: Yes Tubal Ligation: No - Immunization History Td Vaccination: Yes Immunization Up to Date: Yes - Suicide/Smoking/Psychosocial Hx Smoking Status: No Smoking History: Former smoker Have you smoked in the past 12 months: No Number of Cigarettes Smoked Daily: 0 Cigars Per Day: 0 Information on smoking cessation initiated: No Hx Alcohol Use: No Drug/Substance Use Hx: No Substance Use Type: Cocaine, Heroin Hx Substance Use Treatment: No Abd/GI Specific PMHX - Complaint Specific PMHX Irritable Bowel Synd (IBS): Yes GI Ulcer Disease: No *Physical Exam - Vital Signs Last Vital Signs Temp Pulse Resp BP Pulse Ox 98.7 F 105 H 18 115/77 97 11/03/18 19:05 11/03/18 19:05 11/03/18 19:05 11/03/18 19:05 11/03/18 19:05 ED Treatment Course - LABORATORY CBC & Chemistry Diagram: 11/03/18 21:11 11/03/18 21:11 Medical Decision Making - Medical Decision Making 11/03/18 20:39 A/P: 33-year-old woman with acute onset right upper quadrant pain Right upper quadrant exquisitely tender (-) Tolentino sign Differential diagnosis includes but is not limited to cholecystitis, cholelithiasis, pancreatitis, choledocholithiasis, GERD, pneumonia Nothing by mouth Labs including lipase Urine including culture Type and screen Right upper quadrant ultrasound Chest x-ray Reassess 11/03/18 23:58 Chest x-rays read by Dr. Lorenzo: Unremarkable examination without evidence of acute lung disease. Abdominal ultrasound as this read by Dr. Lorenzo: Hepatomegaly with mild fatty infiltration versus hepatocellular disease. Gallstone measuring 1.3 cm without sonographic evidence of acute cholecystitis. Correlate clinically for further evaluation. CBC shows normal white count and normal H&H for woman of childbearing age. CMP is unremarkable with a lipase of 327. Urinalysis is unremarkable. Patient reports nausea is resolved pain is currently 4/10. I will discharge the patient home with referral for surgery for reevaluation and potential removal of gallbladder. I discussed the physical exam findings, ancillary test results and final diagnoses with the patient. I answered all of the patient's questions. The patient was satisfied with the care received and felt comfortable with the discharge plan and treatment plan. The patient will call their primary care physician within 24 hours to arrange follow-up and will return to the Emergency Department with any new, persistent or worsening symptoms. 11/05/18 02:51 *DC/Admit/Observation/Transfer Diagnosis at time of Disposition: Cholelithiasis Qualifiers: Cholelithiasis location: gallbladder Cholecystitis presence: without cholecystitis Biliary obstruction: without biliary obstruction Qualified Code(s) : K80.20 - Calculus of gallbladder without cholecystitis without obstruction - Discharge Dispostion Disposition: HOME Condition at time of disposition: Fair - Referrals Referrals: Patricia Milan MD [Primary Care Provider] - [facility] [Provider Group] - Patient Instructions Additional Instructions: Eat a low-fat diet. Keep well-hydrated. You've be given a referral for general surgeon. Please call for reevaluation of the gallstones for potential surgery. Return to the emergency department for any new or worsening symptoms. Thank you very much for choosing us to provide your emergent health care needs. - Post Discharge Activity
[2018-11-03] MEDS ORDERED: ONDANSETRON 4 MG/2 ML VIAL ONE (21:16)
[2018-11-03 21:27] LABS: BASO % 1.1 % (0-2.0); EOS % 0.6 % (0-4.5); HEMATOCRIT 33.8 % (32.4-45.2); HEMOGLOBIN 10.4 GM/dL (10.7-15.3); LYMPH % 24.9 % (8-40); MCH 23.6 pg (25.7-33.7); MCHC 30.6 g/dl (32.0-36.0); MEAN CELL VOLUME 77.1 fl (80-96); MEAN PLT VOLUME 8.2 fl (7.5-11.1); MONO % 4.6 % (3.8-10.2); NEUT % 68.8 % (42.8-82.8); PLATELET COUNT 490 K/MM3 (134-434); RBC 4.39 M/mm3 (3.60-5.2); RDW 23.3 % (11.6-15.6); WHITE BLOOD COUNT 8.9 K/mm3 (4.0-10.0)
[2018-11-03 21:43] LABS: INR 0.97 (0.83-1.09); PROTHROMBIN TIME (PATIENT) 11.4 SEC (9.7-13.0)
[2018-11-03 21:45] LABS: ACTIVATED PTT 29.4 SECONDS (25.2-36.5)
[2018-11-03 21:53] LABS: BILIRUBIN,TOTAL 0.2 mg/dL (0.2-1); CALCIUM 9.6 mg/dL (8.5-10.1); CREATININE 0.7 mg/dL (0.55-1.3); POTASSIUM 4.9 mmol/L (3.5-5.1)
[2018-11-03] MEDS ORDERED: ACETAMINOPHEN 1000 MG/100 ML VIAL (NON FORMULARY) IVPB ONE (22:40)
[2018-11-03 23:40] LABS: PH,URINE 5.5 (5.0-8.0); URINE APPEARANCE CLOUDY; URINE BILIRUBIN NEGATIVE (NEGATIVE); URINE COLOR YELLOW; URINE GLUCOSE (UA) NEGATIVE (NEGATIVE); URINE KETONE NEGATIVE (NEGATIVE); URINE LEUK ESTERASE NEGATIVE (NEGATIVE); URINE NITRITE NEGATIVE (NEGATIVE); URINE PROTEIN NEGATIVE (NEGATIVE); URINE UROBILINOGEN 0.2 mg/dL (0.2-1.0)
[2018-11-03 23:43] LABS: HCG,QUALITATIVE URINE Negative
[2018-11-03] MEDS ORDERED: ACETAMINOPHEN INJECTION 100 ML IVPB ONE (23:43)
--- NOTE | 2018-11-04 00:26 | PDOC ---
*Physical Exam - Vital Signs Last Vital Signs Temp Pulse Resp BP Pulse Ox 98.7 F 105 H 18 115/77 97 11/03/18 19:05 11/03/18 19:05 11/03/18 19:05 11/03/18 19:05 11/03/18 19:05 ED Treatment Course - LABORATORY CBC & Chemistry Diagram: 11/03/18 21:11 11/03/18 21:11 - ADDITIONAL ORDERS Additional order review: Laboratory Results 11/03/18 11/03/18 11/03/18 23:28 22:48 21:11 PT with INR INR PTT (Actin FS) Sodium Potassium Chloride Carbon Dioxide Anion Gap BUN Creatinine Est GFR (CKD-EPI)AfAm Est GFR (CKD-EPI)NonAf Random Glucose Calcium Total Bilirubin AST ALT Alkaline Phosphatase Total Protein Albumin Lipase Serum , Qual Negative Urine Color Yellow Urine Appearance Cloudy Urine pH 5.5 Ur Specific [place] 1.020 Urine Protein Negative Urine Glucose (UA) Negative Urine Ketones Negative Urine Blood Negative Urine Nitrite Negative Urine Bilirubin Negative Urine Urobilinogen 0.2 Ur Leukocyte Esterase Negative Urine HCG, Qual Negative Blood Type A NEGATIVE Antibody Screen Negative 11/03/18 11/03/18 21:11 21:11 PT with INR 11.40 INR 0.97 PTT (Actin FS) 29.4 Sodium 140 Potassium 4.9 Chloride 107 Carbon Dioxide 27 Anion Gap 6 L BUN 21 H Creatinine 0.7 Est GFR (CKD-EPI)AfAm 131.94 Est GFR (CKD-EPI)NonAf 113.84 Random Glucose 94 Calcium 9.6 Total Bilirubin 0.2 AST 11 L ALT 16 Alkaline Phosphatase 71 Total Protein 8.0 Albumin 4.0 Lipase 327 Serum , Qual Urine Color Urine Appearance Urine pH Ur Specific [place] Urine Protein Urine Glucose (UA) Urine Ketones Urine Blood Urine Nitrite Urine Bilirubin Urine Urobilinogen Ur Leukocyte Esterase Urine HCG, Qual Blood Type Antibody Screen 11/03/18 21:11 RBC 4.39 MCV 77.1 L MCHC 30.6 L RDW 23.3 H MPV 8.2 Neutrophils % 68.8 Lymphocytes % 24.9 Monocytes % 4.6 Eosinophils % 0.6 Basophils % 1.1 D - Medications Given in the ED: ED Medications Discontinued Medications Generic Name Dose Route Start Last Admin Trade Name Freq PRN Reason Stop Dose Admin Acetaminophen 1,000 mg 11/03/18 22:40 11/03/18 23:50 Ofirmev Injection - IVPB 11/03/18 22:41 1,000 mg ONCE ONE Administration Ondansetron HCl 4 mg 11/03/18 19:08 11/03/18 21:22 Zofran Injection IVPUSH 11/03/18 19:09 4 mg ONCE ONE Administration Medical Decision Making - Medical Decision Making 11/04/18 00:25 Case reviewed with INJECTION MOLDING SUPERVISOR Wei Agree with assessment and plan *DC/Admit/Observation/Transfer Diagnosis at time of Disposition: Cholelithiasis Qualifiers: Cholelithiasis location: gallbladder Cholecystitis presence: without cholecystitis Biliary obstruction: without biliary obstruction Qualified Code(s) : K80.20 - Calculus of gallbladder without cholecystitis without obstruction - Discharge Dispostion Disposition: HOME Condition at time of disposition: Fair - Referrals Referrals: [facility] [Provider Group] Patricia Milan MD [Primary Care Provider] - - Patient Instructions Additional Instructions: Eat a low-fat diet. Keep well-hydrated. You've be given a referral for general surgeon. Please call for reevaluation of the gallstones for potential surgery. Return to the emergency department for any new or worsening symptoms. Thank you very much for choosing us to provide your emergent health care needs. - Post Discharge Activity
== END 2018-11-04 00:20 | disposition home or self-care (01) ==
LOC: JER 18:57
PROC: 3E033NZ Introduction of Analgesics, Hypnotics, Sedatives into Peripheral Vein, Percutaneous Approach (ICD-10-PCS; principal; 2018-11-03)
PROC: 3E033GC Introduction of Other Therapeutic Substance into Peripheral Vein, Percutaneous Approach (ICD-10-PCS; 2018-11-03)
DX: K80.20 Calculus of gallbladder without cholecystitis without obstruction (principal); E28.2 Polycystic ovarian syndrome; F19.10 Other psychoactive substance abuse, uncomplicated; F41.8 Other specified anxiety disorders; F32.9 Major depressive disorder, single episode, unspecified
CPT/HCPCS: 36415; 71046-TC-FY; 76705-TC; 80053; 81003; 83690; 84703; 85025; 85610; 85730; 86850; 86900; 86901; 99282-25; J0131